=== PATIENT | male | born 1955 | race Caucasian/White ===

== ENCOUNTER → 2019-05-24 17:42 | Outpatient (BNVA) | payer MEDICARE, MEDICAID, SELFPAY | PROVIDERS: Family Provider Internal Medicine; PCP Internal Medicine Cardiovascular Disease; Visit Provider Internal Medicine Cardiovascular Disease | DX: I25.118 Atherosclerotic heart disease of native coronary artery with other forms of angina pectoris (principal); E78.2 Mixed hyperlipidemia; E11.9 Type 2 diabetes mellitus without complications; I50.42 Chronic combined systolic (congestive) and diastolic (congestive) heart failure; Z95.810 Presence of automatic (implantable) cardiac defibrillator | CPT/HCPCS: 80053; 80061; 83036; 83721; 84443; 85025 ==

== ENCOUNTER 2019-07-13 12:33 | Outpatient (CLI) | payer MEDICARE, MEDICAID, SELFPAY ==
--- NOTE | 2019-07-13 12:48 | CT_ITS ---
WS: [id number] CT ARTHROGRAM LEFT SHOULDER TECHNIQUE: CT arthrogram left shoulder with coronal and sagittal reformatted images. CLINICAL INFORMATION: SUPRASPINATUS SYNDROME, LEFT COMPARISON: None. DLP: [address] scans at [facility] use at least one of these dose optimization techniques: automat ed exposure control; mA and/or kV adjustment per patient size (includes targeted exams where dose is matched to clinical indication); or iterative reconstruction. FINDINGS: Mild degenerative arthritis AC joint with mild downsloping of the acromion. Distal clavicle appears n ormal. Rotator cuff arthropathy. No acute fractures. Chronic appearing high-grade tear of the supraspinatus with fatty atrophy of the supraspinatus muscle belly and tendon retraction to the level of the glenohumeral joint. Additional fatty atrophy of the infraspinatus with high-grade tear. Infraspinatus also appears retracted. Subscapularis muscle belly appears better preserved. Distal subscapularis tendon appears intact. Merritt ps tendon is not visualized in the bicipital groove and likely chronically torn and atrophic. Degenerative fraying of the glenoid labrum which appears grossly intact. Cardiac pacer. Chronic emphysematous changes. Postoperative changes cervical spine. CT/CT shoulder LT w con [id number] IMPRESSION: 1. High-grade full-thickness tears involving the supraspinatus and infraspinat us with tendon retraction. No normal tendon visualized distally. 2. Subscapularis appears intact. 3. Biceps tendon is not visualized in the bicipital groove and likely chronica lly torn and atrophic. 4. Mild downsloping of the acromion with mild degenerative arthritis AC joint. 5. Glenoid labrum appears grossly intact.
--- NOTE | 2019-07-13 12:48 | IR_ITS ---
WS: [id number] SHOULDER ARTHROGRAM LEFT Fluoroscopic guided left shoulder arthrogram CLINICAL INFORMATION: SUPRASPINATUS SYNDROME, LEFT COMPARISON: None. PROCEDURE: The procedure including risks, benefits and complications were discussed with the patient, who agreed to proceed. Using sterile technique, the patient was prepped and draped in the usual ster ile fashion. After 1% lidocaine injection using fluoroscopic guidance, a 22-gauge spinal needle was a dvanced into the glenohumeral joint. Approximately 13 ml of a solution containing 10 ml normal saline , 10 ml Omnipaque 300 was administered. No immediate complications. FLUOROSCOPY TIME: 0.8 minutes. IR/IR arthrogram shoulderLT [id number] IMPRESSION: Uncomplicated fluoroscopic-guided left shoulder arthrogram. CT to follow
[2019-07-13] MEDS: iohexol 300 mg/mL 50 mL Btl INTRA-ARTI (13:38)
== END 2019-07-13 12:34 | disposition home or self-care (01) ==
LOC: RADWPI 12:37
PROVIDERS: Family Provider Internal Medicine; PCP Internal Medicine Cardiovascular Disease; Visit Provider Internal Medicine
DX: M75.102 Unspecified rotator cuff tear or rupture of left shoulder, not specified as traumatic (principal); M19.012 Primary osteoarthritis, left shoulder
CPT/HCPCS: 23350; 73201; 77002

== ENCOUNTER → 2019-11-21 13:53 | Outpatient (BNVA) | payer MEDICARE, MEDICAID, SELFPAY | PROVIDERS: Family Provider Internal Medicine; PCP Internal Medicine; Visit Provider Internal Medicine Cardiovascular Disease | DX: I10 Essential (primary) hypertension (principal); I50.42 Chronic combined systolic (congestive) and diastolic (congestive) heart failure; E11.9 Type 2 diabetes mellitus without complications; Z95.810 Presence of automatic (implantable) cardiac defibrillator | CPT/HCPCS: 80053; 83036; 83735; 83880 ==

== ENCOUNTER 2020-02-20 16:02 | Inpatient (IN) | payer MEDICARE, MEDICAID, SELFPAY ==
[2020-02-20] VITALS (11 sets, daily range): BP systolic 115–173; BP diastolic 75–107; PULSE 63–119; RESP 16–21; TEMP 36.6–39.6; O2SAT 94–99; BMI 26.6
--- NOTE | 2020-02-20 16:59 | XRR_ITS ---
PROCEDURE INFORMATION: Exam: XR Chest, 1 View Exam date and time: 02/20/2020 6:24 PM Age: 64 years old Clinical indication: Fever; AMS TECHNIQUE: Imaging protocol: XR of the chest Views: 1 view. COMPARISON: CR Chest 1 [place] [id number] 03/19/2019 8:13 PM FINDINGS: Tubes, catheters and devices: There is a left subclavian combination dual chamber pacemaker AICD device. Lungs: No focal peripheral lung consolidation, air bronchogram formation, or silhouette sign. Prior pulmonary granulomatous disease. Pleural space: No pleural effusion or pneumothorax. Heart/Mediastinum: The cardiac silhouette is not enlarged. The mediastinal contours are normal. Bones/joints: Curvature of the thoracic spine convex to the right associated with multilevel disc degeneration. XR/XR chest 1V portable [id number] IMPRESSION: No pneumonia.
--- NOTE | 2020-02-20 17:02 | CTR_ITS ---
PROCEDURE INFORMATION: Exam: CT Head Without Contrast Exam date and time: 02/20/2020 5:10 PM Age: 64 years old Clinical indication: Injury or trauma; Fall; Blunt trauma (contusions or hematomas); Altered mental status/memory loss; Confusion or disorientation; Injury details: PT on blood thinners. Best images possible. PT scanned twice due to inability to stay still. ; Additional info: Fall, AMS, chronic anticoagulants TECHNIQUE: Imaging protocol: Computed tomography of the head without contrast. Radiation optimization: All CT scans at this facility use at least one of these dose optimization techniques: automated exposure control; mA and/or kV adjustment per patient size (includes targeted exams where dose is matched to clinical indication); or iterative reconstruction. COMPARISON: CT head wo con* [id number] 05/25/2014 4:31 PM RADIATION DOSE METRICS: Total DLP (mGy-cm): 1546.1 FINDINGS: Brain: Mild volume loss and white matter disease are identified. There is no acute infarct or edema. No hemorrhage. Cerebral ventricles: No ventriculomegaly. Bones/joints: Unremarkable. No acute fracture. Paranasal sinuses: Visualized sinuses are unremarkable. No fluid levels. Mastoid air cells: Visualized mastoid air cells are well aerated. Soft tissues: Unremarkable. CT/CT head wo con* [id number] IMPRESSION: There are no acute concerning abnormalities. Radiation Dose CTDIVOL = (mGy): DLP = 1546.1 (mGy-cm)
--- NOTE | 2020-02-20 17:14 | XRR_ITS ---
PROCEDURE INFORMATION: Exam: XR Left Foot Complete Exam date and time: 02/20/2020 6:28 PM Age: 64 years old Clinical indication: Pain; Foot; Left; Additional info: Pain/swelling TECHNIQUE: Imaging protocol: XR Left foot. Views: 3 or more views. COMPARISON: No relevant prior studies available. FINDINGS: Bones/joints: No fracture. No dislocation. Soft tissues: Focal soft tissue swelling involving the plantar aspect of the forefoot. No radiopaque foreign body. XR/XR foot LT min 3V* [id number] IMPRESSION: No acute osseous abnormality.
--- NOTE | 2020-02-20 17:21 | W.ED.GENADLT ---
Documented by User: Edmund Chew DO 02/26/20 13:54 HPI - General Adult General: Chief complaint: General Medical Stated complaint: Fall-hit head, AMS Time Seen by Provider: 02/20/20 16:56 History of Present Illness: HPI narrative: 64-year-old male who presents to the emergency room with complaint of fever that began earlier today. he is also he fell and hit his head according to his sister presented with him initially as he has altered mental status and change in personality since this happened. He is on Coumadin. Onset (ago): hour(s) Location: head Radiation: non-radiation Severity: moderate Quality: aching Pain Consistency: constant Exacerbating factors: none Associated symptoms: Reports confusion, cough, decreased appetite, dyspnea, fevers/chills, malaise, nausea, short of breath and weakness; Deny chest pain Review of Systems Const: Reports: malaise ENMT: Denies: throat pain, ear or mastoid pain, nasal discharge or nasal congestion Card: Denies: chest pain, edema, dyspnea on exertion or orthopnea Resp: Reports: dyspnea GI: Reports: nausea : Denies: flank pain, dysuria, urinary frequency or urinary urgency Neuro: Reports: confusion PFSH ED PFSH: Medical History (Updated 02/23/20 @ 00:06 by ) Diabetes Heart failure History of placement of stent in LAD coronary artery HTN (hypertension) Hyperlipidemia ICD (implantable cardioverter-defibrillator) in place Surgical History (Updated 02/20/20 @ 21:14 by Lance Quan MD) History of implantable cardioverter-defibrillator (ICD) placement Family History (Updated 02/20/20 @ 21:15 by Lance Quan MD) Father Emphysema of lung Social History (Updated 02/20/20 @ 16:55 by Jorge L Chino RN) Smoking and tobacco status: never smoked Alcohol intake: never History of recent travel: No Physical Exam Const: ORIENTATION/CONSCIOUSNESS: Yes oriented to person, Yes oriented to place and Yes oriented to time HENMT: COMMON NORMALS: normocephalic, atraumatic and hearing grossly normal bilaterally HEAD & SCALP: normocephalic and atraumatic Neck/C-Spine: COMMON NORMALS: no JVD Resp: COMMON NORMALS: normal respiratory effort, No retractions, No use of accessory muscles and clear to auscultation bilaterally AUSCULTATION: clear to auscultation bilaterally Cardio: COMMON NORMALS: no JVD, regular rate, regular rhythm and No murmurs present (Cardio) RATE: regular rate RHYTHM: regular rhythm GI: COMMON NORMALS: Soft to palpation and No hepatosplenomegaly present AUSCULTATION: Yes normoactive bowel sounds PALPATION: Yes Soft to palpation, No Tenderness to palpation present (GI), No Guarding due to palpation present (GI) and Yes No hepatosplenomegaly present Extremity: NARRATIVE EXTREMITY EXAM: First through fourth toes are red and inflamed hot to the touch extends up to the mid metatarsals. On the sole of the foot between the third and fourth toes there is a small puncture wound there is no drainage from it. No evidence of osteomyelitis on plain films. Neuro: SENSORIUM/ORIENTATION: Yes oriented to person, Yes oriented to place and Yes oriented to time Skin: COMMON NORMALS: no rashes or lesions noted GENERAL SKIN EXAM: no rashes or lesions noted Course Vital Signs: Vital signs: Vital Signs Temperature 97.9 F 02/22/20 14:55 Pulse Rate 52 L 02/22/20 14:55 Respiratory Rate 15 02/22/20 14:55 Blood Pressure 149/81 02/22/20 14:55 Pulse Oximetry 97 02/22/20 14:55 MDM - General Adult MDM Narrative: Medical decision making narrative: Care signed out to Dr. Sebastian at change of shift see his note for definitive diagnosis and disposition. Lab Data: Labs: Lab Results 02/20/20 02/20/20 02/20/20 Range/Units 17:25 17:25 17:25 WBC 9.5 (4.0-10.0) 10^3/ uL RBC 4.44 (4.1-5.3) 10^6/u L Hgb 13.6 (11.7-16.6) g/dL Hct 40.7 L (42.0-52.0) % MCV 91.7 (80-94) fL MCH 30.6 (28.0-34.0) pg MCHC 33.4 (30.0-36.0) g/dL RDW 14.0 (12.1-15.1) % Plt Count 132 (130-400) 10^3/c mm MPV 12.0 H (7.4-10.4) fL Neut % (Auto) 87.4 % Lymph % (Auto) 6.3 % Cavalier % (Auto) 5.6 % Eos % (Auto) 0.2 % Baso % (Auto) 0.3 % Neut # (Auto) 8.31 H (1.8-7.7) 10^3/u L Lymph # (Auto) 0.6 L (0.8-4.8) 10^3/u L Cavalier # (Auto) 0.5 (0.2-0.9) 10^3/u L Eos # (Auto) 0.0 (0.0-0.8) 10^3/u L Baso # (Auto) 0.0 (0.0-0.1) 10^3/u L Nucleated RBC % (a uto) 0 % Nucleated RBCs # 0.0 /100WBC ESR (0-10) mm/hr PT 13.00 (12.1-14.9) SECO NDS INR 0.95 (0.8-1.2) Fibrinogen 364 (174-498) mg/dL D-Dimer 3.07 H (0-0.59) ug/mIFE U Sodium 131 L (136-145) mmol/L Potassium 4.5 (3.5-5.1) mmol/L Chloride 93 L (98-107) mmol/L Carbon Dioxide 28 (22-29) mmol/L Anion Gap 14.5 (5-19) BUN 9 (8-23) mg/dL Creatinine 0.9 (0.7-1.2) mg/dL GFR Calculation 84.4 L (90-130) mL/min Glucose 244 H (65-115) mg/dL Estimat Average Gl ucose Hemoglobin A1c (4.0-6.0) % Calculated Osmolal ity 279 L (285-295) mOsm/k g Lactic Acid (0.5-2.2) mmol/L Calcium 9.6 (8.5-10.5) mg/dL Ferritin 67 (30-400) ng/mL Total Bilirubin 0.6 (0.15-1.2) mg/dL AST 22 (0-40) U/L ALT 14 (0-41) U/L Alkaline Phosphata se 73 (40-130) IU/L Lactate Dehydrogen ase 285 H (135-225) U/L C-Reactive Protein 13.0 H (0.0-4.9) mg/L Total Protein 6.9 (6.6-8.7) g/dL Albumin 4.5 (3.5-5.2) g/dL Globulin 2.4 (1.3-4.6) g/dL Procalcitonin 0.05 (0-0.5) ng/mL Nasal/Oral COVID-1 9 PCR SARS-CoV-2 Ag (Rap id) (Negative) 02/20/20 02/20/20 02/20/20 Range/Units 17:25 17:25 17:25 WBC (4.0-10.0) 10^3/ uL RBC (4.1-5.3) 10^6/u L Hgb (11.7-16.6) g/dL Hct (42.0-52.0) % MCV (80-94) fL MCH (28.0-34.0) pg MCHC (30.0-36.0) g/dL RDW (12.1-15.1) % Plt Count (130-400) 10^3/c mm MPV (7.4-10.4) fL Neut % (Auto) % Lymph % (Auto) % Cavalier % (Auto) % Eos % (Auto) % Baso % (Auto) % Neut # (Auto) (1.8-7.7) 10^3/u L Lymph # (Auto) (0.8-4.8) 10^3/u L Cavalier # (Auto) (0.2-0.9) 10^3/u L Eos # (Auto) (0.0-0.8) 10^3/u L Baso # (Auto) (0.0-0.1) 10^3/u L Nucleated RBC % (a uto) % Nucleated RBCs # /100WBC ESR 18 H (0-10) mm/hr PT (12.1-14.9) SECO NDS INR (0.8-1.2) Fibrinogen (174-498) mg/dL D-Dimer (0-0.59) ug/mIFE U Sodium (136-145) mmol/L Potassium (3.5-5.1) mmol/L Chloride (98-107) mmol/L Carbon Dioxide (22-29) mmol/L Anion Gap (5-19) BUN (8-23) mg/dL Creatinine (0.7-1.2) mg/dL GFR Calculation (90-130) mL/min Glucose (65-115) mg/dL Estimat Average Gl ucose 180 Hemoglobin A1c 7.9 H (4.0-6.0) % Calculated Osmolal ity (285-295) mOsm/k g Lactic Acid 1.9 (0.5-2.2) mmol/L Calcium (8.5-10.5) mg/dL Ferritin (30-400) ng/mL Total Bilirubin (0.15-1.2) mg/dL AST (0-40) U/L ALT (0-41) U/L Alkaline Phosphata se (40-130) IU/L Lactate Dehydrogen ase (135-225) U/L C-Reactive Protein (0.0-4.9) mg/L Total Protein (6.6-8.7) g/dL Albumin (3.5-5.2) g/dL Globulin (1.3-4.6) g/dL Procalcitonin (0-0.5) ng/mL Nasal/Oral COVID-1 9 PCR SARS-CoV-2 Ag (Rap id) (Negative) 02/20/20 02/20/20 Range/Units 17:51 20:40 WBC (4.0-10.0) 10^3/ uL RBC (4.1-5.3) 10^6/u L Hgb (11.7-16.6) g/dL Hct (42.0-52.0) % MCV (80-94) fL MCH (28.0-34.0) pg MCHC (30.0-36.0) g/dL RDW (12.1-15.1) % Plt Count (130-400) 10^3/c mm MPV (7.4-10.4) fL Neut % (Auto) % Lymph % (Auto) % Cavalier % (Auto) % Eos % (Auto) % Baso % (Auto) % Neut # (Auto) (1.8-7.7) 10^3/u L Lymph # (Auto) (0.8-4.8) 10^3/u L Cavalier # (Auto) (0.2-0.9) 10^3/u L Eos # (Auto) (0.0-0.8) 10^3/u L Baso # (Auto) (0.0-0.1) 10^3/u L Nucleated RBC % (a uto) % Nucleated RBCs # /100WBC ESR (0-10) mm/hr PT (12.1-14.9) SECO NDS INR (0.8-1.2) Fibrinogen (174-498) mg/dL D-Dimer (0-0.59) ug/mIFE U Sodium (136-145) mmol/L Potassium (3.5-5.1) mmol/L Chloride (98-107) mmol/L Carbon Dioxide (22-29) mmol/L Anion Gap (5-19) BUN (8-23) mg/dL Creatinine (0.7-1.2) mg/dL GFR Calculation (90-130) mL/min Glucose (65-115) mg/dL Estimat Average Gl ucose Hemoglobin A1c (4.0-6.0) % Calculated Osmolal ity (285-295) mOsm/k g Lactic Acid (0.5-2.2) mmol/L Calcium (8.5-10.5) mg/dL Ferritin (30-400) ng/mL Total Bilirubin (0.15-1.2) mg/dL AST (0-40) U/L ALT (0-41) U/L Alkaline Phosphata se (40-130) IU/L Lactate Dehydrogen ase (135-225) U/L C-Reactive Protein (0.0-4.9) mg/L Total Protein (6.6-8.7) g/dL Albumin (3.5-5.2) g/dL Globulin (1.3-4.6) g/dL Procalcitonin (0-0.5) ng/mL Nasal/Oral COVID-1 9 PCR Negative SARS-CoV-2 Ag (Rap id) Negative (Negative) Discharge Plan Discharge Patient Disposition: Admitted As Inpatient Admit Provider: Lance Quan Clinical Impression: Sepsis, Cellulitis Condition: Stable Referrals: [facility] [Outside] Fernando Mathis MD [Primary Care Provider] - 02/28/20 1:00 pm uSshila Mckeon MD [Physician] - 05/21/20 2:00 pm Discharge Diet: Advance as tolerated, Cardiac and Diabetic Discharge Activity: Increase activity as tolerated Patient Instructions: Cellulitis, Chronic Pain, Clindamycin (By mouth), Aspirin (By mouth) Additional Instructions: Continue offloading of the left foot. Started on clindamycin 300 mg for an additional 10 days Follow-up with Dr. Mathis next week Follow-up with Dr. Mckeon as previously scheduled Continue to monitor blood glucose daily and present this log to your primary care provider. Call your physician or present to the ED for any acute illness or concern. Discharge Date/Time: 02/20/20 23:00 Sign Out Sign Out Data: Patient Sign Out occurred on 02/20/20 at 18:23. Patient's care was discussed, and care was transferred from to Meena Ruby. Coding Level of Care Code ED Varnish Supervisor for Chg Fwd Documented by User: Meena Ruby 02/21/20 00:24 HPI - General Adult General: Chief complaint: General Medical Stated complaint: Fall-hit head, AMS Time Seen by Provider: 02/20/20 16:56 [facility] ED PFSH: Medical History (Updated 02/23/20 @ 00:06 by ) Diabetes Heart failure History of placement of stent in LAD coronary artery HTN (hypertension) Hyperlipidemia ICD (implantable cardioverter-defibrillator) in place Surgical History (Updated 02/20/20 @ 21:14 by Lance Quan MD) History of implantable cardioverter-defibrillator (ICD) placement Family History (Updated 02/20/20 @ 21:15 by Lance Quan MD) Father Emphysema of lung Social History (Updated 02/20/20 @ 16:55 by Jorge L Chino RN) Smoking and tobacco status: never smoked Alcohol intake: never History of recent travel: No Course Vital Signs: Vital signs: Vital Signs Temperature 97.9 F 02/22/20 14:55 Pulse Rate 52 L 02/22/20 14:55 Respiratory Rate 15 02/22/20 14:55 Blood Pressure 149/81 02/22/20 14:55 Pulse Oximetry 97 02/22/20 14:55 MDM - General Adult MDM Narrative: Medical decision making narrative: Case inherited by me at change of shift from Dr. Chew. Please see his note for his history, physical exam and medical decision-making notes. Patient appears to be early septic from a puncture wound to the foot. There is no sign of necrotizing fasciitis clinically. The case was reviewed with Dr. Quan agrees to admit for IV antibiotics and further evaluation and care. Lab Data: Labs: Lab Results 02/20/20 02/20/20 02/20/20 Range/Units 17:25 17:25 17:25 WBC 9.5 (4.0-10.0) 10^3/ uL RBC 4.44 (4.1-5.3) 10^6/u L Hgb 13.6 (11.7-16.6) g/dL Hct 40.7 L (42.0-52.0) % MCV 91.7 (80-94) fL MCH 30.6 (28.0-34.0) pg MCHC 33.4 (30.0-36.0) g/dL RDW 14.0 (12.1-15.1) % Plt Count 132 (130-400) 10^3/c mm MPV 12.0 H (7.4-10.4) fL Neut % (Auto) 87.4 % Lymph % (Auto) 6.3 % Cavalier % (Auto) 5.6 % Eos % (Auto) 0.2 % Baso % (Auto) 0.3 % Neut # (Auto) 8.31 H (1.8-7.7) 10^3/u L Lymph # (Auto) 0.6 L (0.8-4.8) 10^3/u L Cavalier # (Auto) 0.5 (0.2-0.9) 10^3/u L Eos # (Auto) 0.0 (0.0-0.8) 10^3/u L Baso # (Auto) 0.0 (0.0-0.1) 10^3/u L Nucleated RBC % (a uto) 0 % Nucleated RBCs # 0.0 /100WBC ESR (0-10) mm/hr PT 13.00 (12.1-14.9) SECO NDS INR 0.95 (0.8-1.2) Fibrinogen 364 (174-498) mg/dL D-Dimer 3.07 H (0-0.59) ug/mIFE U Sodium 131 L (136-145) mmol/L Potassium 4.5 (3.5-5.1) mmol/L Chloride 93 L (98-107) mmol/L Carbon Dioxide 28 (22-29) mmol/L Anion Gap 14.5 (5-19) BUN 9 (8-23) mg/dL Creatinine 0.9 (0.7-1.2) mg/dL GFR Calculation 84.4 L (90-130) mL/min Glucose 244 H (65-115) mg/dL Estimat Average Gl ucose Hemoglobin A1c (4.0-6.0) % Calculated Osmolal ity 279 L (285-295) mOsm/k g Lactic Acid (0.5-2.2) mmol/L Calcium 9.6 (8.5-10.5) mg/dL Ferritin 67 (30-400) ng/mL Total Bilirubin 0.6 (0.15-1.2) mg/dL AST 22 (0-40) U/L ALT 14 (0-41) U/L Alkaline Phosphata se 73 (40-130) IU/L Lactate Dehydrogen ase 285 H (135-225) U/L C-Reactive Protein 13.0 H (0.0-4.9) mg/L Total Protein 6.9 (6.6-8.7) g/dL Albumin 4.5 (3.5-5.2) g/dL Globulin 2.4 (1.3-4.6) g/dL Procalcitonin 0.05 (0-0.5) ng/mL Nasal/Oral COVID-1 9 PCR SARS-CoV-2 Ag (Rap id) (Negative) 02/20/20 02/20/20 02/20/20 Range/Units 17:25 17:25 17:25 WBC (4.0-10.0) 10^3/ uL RBC (4.1-5.3) 10^6/u L Hgb (11.7-16.6) g/dL Hct (42.0-52.0) % MCV (80-94) fL MCH (28.0-34.0) pg MCHC (30.0-36.0) g/dL RDW (12.1-15.1) % Plt Count (130-400) 10^3/c mm MPV (7.4-10.4) fL Neut % (Auto) % Lymph % (Auto) % Cavalier % (Auto) % Eos % (Auto) % Baso % (Auto) % Neut # (Auto) (1.8-7.7) 10^3/u L Lymph # (Auto) (0.8-4.8) 10^3/u L Cavalier # (Auto) (0.2-0.9) 10^3/u L Eos # (Auto) (0.0-0.8) 10^3/u L Baso # (Auto) (0.0-0.1) 10^3/u L Nucleated RBC % (a uto) % Nucleated RBCs # /100WBC ESR 18 H (0-10) mm/hr PT (12.1-14.9) SECO NDS INR (0.8-1.2) Fibrinogen (174-498) mg/dL D-Dimer (0-0.59) ug/mIFE U Sodium (136-145) mmol/L Potassium (3.5-5.1) mmol/L Chloride (98-107) mmol/L Carbon Dioxide (22-29) mmol/L Anion Gap (5-19) BUN (8-23) mg/dL Creatinine (0.7-1.2) mg/dL GFR Calculation (90-130) mL/min Glucose (65-115) mg/dL Estimat Average Gl ucose 180 Hemoglobin A1c 7.9 H (4.0-6.0) % Calculated Osmolal ity (285-295) mOsm/k g Lactic Acid 1.9 (0.5-2.2) mmol/L Calcium (8.5-10.5) mg/dL Ferritin (30-400) ng/mL Total Bilirubin (0.15-1.2) mg/dL AST (0-40) U/L ALT (0-41) U/L Alkaline Phosphata se (40-130) IU/L Lactate Dehydrogen ase (135-225) U/L C-Reactive Protein (0.0-4.9) mg/L Total Protein (6.6-8.7) g/dL Albumin (3.5-5.2) g/dL Globulin (1.3-4.6) g/dL Procalcitonin (0-0.5) ng/mL Nasal/Oral COVID-1 9 PCR SARS-CoV-2 Ag (Rap id) (Negative) 02/20/20 02/20/20 Range/Units 17:51 20:40 WBC (4.0-10.0) 10^3/ uL RBC (4.1-5.3) 10^6/u L Hgb (11.7-16.6) g/dL Hct (42.0-52.0) % MCV (80-94) fL MCH (28.0-34.0) pg MCHC (30.0-36.0) g/dL RDW (12.1-15.1) % Plt Count (130-400) 10^3/c mm MPV (7.4-10.4) fL Neut % (Auto) % Lymph % (Auto) % Cavalier % (Auto) % Eos % (Auto) % Baso % (Auto) % Neut # (Auto) (1.8-7.7) 10^3/u L Lymph # (Auto) (0.8-4.8) 10^3/u L Cavalier # (Auto) (0.2-0.9) 10^3/u L Eos # (Auto) (0.0-0.8) 10^3/u L Baso # (Auto) (0.0-0.1) 10^3/u L Nucleated RBC % (a uto) % Nucleated RBCs # /100WBC ESR (0-10) mm/hr PT (12.1-14.9) SECO NDS INR (0.8-1.2) Fibrinogen (174-498) mg/dL D-Dimer (0-0.59) ug/mIFE U Sodium (136-145) mmol/L Potassium (3.5-5.1) mmol/L Chloride (98-107) mmol/L Carbon Dioxide (22-29) mmol/L Anion Gap (5-19) BUN (8-23) mg/dL Creatinine (0.7-1.2) mg/dL GFR Calculation (90-130) mL/min Glucose (65-115) mg/dL Estimat Average Gl ucose Hemoglobin A1c (4.0-6.0) % Calculated Osmolal ity (285-295) mOsm/k g Lactic Acid (0.5-2.2) mmol/L Calcium (8.5-10.5) mg/dL Ferritin (30-400) ng/mL Total Bilirubin (0.15-1.2) mg/dL AST (0-40) U/L ALT (0-41) U/L Alkaline Phosphata se (40-130) IU/L Lactate Dehydrogen ase (135-225) U/L C-Reactive Protein (0.0-4.9) mg/L Total Protein (6.6-8.7) g/dL Albumin (3.5-5.2) g/dL Globulin (1.3-4.6) g/dL Procalcitonin (0-0.5) ng/mL Nasal/Oral COVID-1 9 PCR Negative SARS-CoV-2 Ag (Rap id) Negative (Negative) Imaging Data^: CXR: Attestation: I personally reviewed and interpreted this imaging study as follows: My impression: Possible infiltrate left lower lobe laterally CT Head: Radiologist's impression: [place] [address] CT Scan Report Signed Patient: Brian Lozada Unit #: [id number] : 1955 Age/Sex: 64 / M ADM Date: 02/20/20 Loc: ER Room/Bed: Attending Dr: Ordering Provider/Ordering MD: Edmund Chew DO Date of Service: 02/20/20 Procedure(s): CT head wo con* [id number] Accession Number(s): [id number] Report Number: [id number] PROCEDURE INFORMATION: Exam: CT Head Without Contrast Exam date and time: 02/20/2020 5:10 PM Age: 64 years old Clinical indication: Injury or trauma; Fall; Blunt trauma (contusions or hematomas); Altered mental status/memory loss; Confusion or disorientation; Injury details: PT on blood thinners. Best images possible. PT scanned twice due to inability to stay still. ; Additional info: Fall, AMS, chronic anticoagulants TECHNIQUE: Imaging protocol: Computed tomography of the head without contrast. Radiation optimization: All CT scans at this facility use at least one of these dose optimization techniques: automated exposure control; mA and/or kV adjustment per patient size (includes targeted exams where dose is matched to clinical indication); or iterative reconstruction. COMPARISON: CT head wo con* [id number] 05/25/2014 4:31 PM RADIATION DOSE METRICS: Total DLP (mGy-cm): 1546.1 FINDINGS: Brain: Mild volume loss and white matter disease are identified. There is no acute infarct or edema. No hemorrhage. Cerebral ventricles: No ventriculomegaly. Bones/joints: Unremarkable. No acute fracture. Paranasal sinuses: Visualized sinuses are unremarkable. No fluid levels. Mastoid air cells: Visualized mastoid air cells are well aerated. Soft tissues: Unremarkable. CT/CT head wo con* [id number] IMPRESSION: There are no acute concerning abnormalities. Radiation Dose CTDIVOL = (mGy): DLP = 1546.1 (mGy-cm) Dictated By: Fermin Brown MD Signed By: Fermin Brown MD Signed Date/Time: 02/20/201851 DD/ 50 CT Chest: Radiologist's impression: [address] [address] [address] Scan Report Signed Patient: Brian Lozada Unit #: [id number] : 1955 Age/Sex: 64 / M ADM Date: 02/20/20 Loc: ER Room/Bed: Attending Dr: Ordering Provider/Ordering MD: Edmund Chew DO Date of Service: 02/20/20 Procedure(s): CT angio chest PE protcl [id number] Accession Number(s): [id number] Report Number: [id number] PROCEDURE INFORMATION: Exam: CT Angiography Chest With Contrast Exam date and time: 02/20/2020 7:20 PM Age: 64 years old Clinical indication: Shortness of breath; Prior surgery; Additional info: Dyspnea TECHNIQUE: Imaging protocol: Computed tomographic angiography of the chest with intravenous contrast. 3D rendering (Not supervised by radiologist): MIP and/or 3D reconstructed images were created by the technologist. Radiation optimization: All CT scans at this facility use at least one of these dose optimization techniques: automated exposure control; mA and/or kV adjustment per patient size (includes targeted exams where dose is matched to clinical indication); or iterative reconstruction. Contrast material: OMNI 350; Contrast volume: 95 ml; Contrast route: INTRAVENOUS (IV); COMPARISON: CTA Chest-Pulmonary Emb [id number] 03/19/2019 11:58 PM RADIATION DOSE METRICS: Total DLP (mGy-cm): 664.37 FINDINGS: Pulmonary arteries: Normal. No pulmonary emboli. Aorta: Unremarkable. No aortic aneurysm. No aortic dissection. Great vessels off aortic arch: There is an aberrant right subclavian artery. Lungs: There is a calcified granuloma in the right lower lobe of the lung. No lung mass or significant consolidation. Pleural space: Unremarkable. No pneumothorax. No pleural effusion. Heart: Cardiomegaly is identified. Lymph nodes: There are partially calcified bilateral thoracic hilar lymph nodes. There is also calcification in the right paratracheal, AP window mediastinum. Bones/joints: Degenerative change is identified in the spine. There is no evidence for acute fracture or malalignment. Soft tissues: Unremarkable. CT/CT angio chest PE protcl [id number] IMPRESSION: There are no acute concerning abnormalities. Radiation Dose CTDIVOL = (mGy): DLP = 664.37 (mGy-cm) Dictated By: Fermin Brown MD Signed By: Fermin Brown MD Signed Date/Time: 02/20/201999 DD/ 58 XR Left Foot: Attestation: I personally reviewed and interpreted this imaging study as follows: My impression: Soft tissue swelling present but no radiopaque foreign body or other foreign body noted. Discharge Plan Discharge Patient Disposition: Admitted As Inpatient Admit Provider: Lance Quan Clinical Impression: Sepsis, Cellulitis Condition: Stable Referrals: [facility] [Outside] Fernando Mathis MD [Primary Care Provider] - 02/28/20 1:00 pm Sushila Mckeon MD [Physician] - 05/21/20 2:00 pm Discharge Diet: Advance as tolerated, Cardiac and Diabetic Discharge Activity: Increase activity as tolerated Patient Instructions: Cellulitis, Chronic Pain, Clindamycin (By mouth), Aspirin (By mouth) Additional Instructions: Continue offloading of the left foot. Started on clindamycin 300 mg for an additional 10 days Follow-up with Dr. Mathis next week Follow-up with Dr. Mckeon as previously scheduled Continue to monitor blood glucose daily and present this log to your primary care provider. Call your physician or present to the ED for any acute illness or concern. Discharge Date/Time: 02/20/20 23:00 Sign Out Sign Out Data: Patient Sign Out occurred on 02/20/20 at 18:23. Patient's care was discussed, and care was transferred from to Meena Ruby. Coding Level of Care Code ED Varnish Supervisor for vIonne Gauman
[2020-02-20 17:38] LABS: Basophils % 0.3 %; Eosinophils % 0.2 %; Hematocrit 40.7 % (42.0-52.0); Hemoglobin 13.6 g/dL (11.7-16.6); Lymphocytes # 0.6 10^3/uL (0.8-4.8); Lymphocytes % 6.3 %; Mean Corpuscular HGB Conc 33.4 g/dL (30.0-36.0); Mean Corpuscular Hemoglobin 30.6 pg (28.0-34.0); Mean Corpuscular Volume 91.7 fL (80-94); Monocytes # 0.5 10^3/uL (0.2-0.9); Monocytes % 5.6 %; Neutrophils # 8.31 10^3/uL (1.8-7.7); Neutrophils % 87.4 %; Nucleated Red Blood Cells % 0 %; Platelet Count 132 10^3/cmm (130-400); Red Blood Count 4.44 10^6/uL (4.1-5.3); White Blood Count 9.5 10^3/uL (4.0-10.0)
[2020-02-20] MEDS: acetaminophen 500 mg Tablet 1000 MG PO (17:41)
[2020-02-20 17:48] LABS: INR 0.95 (0.8-1.2)
[2020-02-20 17:49] LABS: Fibrinogen 364 mg/dL (174-498)
[2020-02-20 17:51] LABS: D Dimer 3.07 ug/mIFEU (0-0.59)
[2020-02-20 17:52] LABS: Lactic Sepsis W/Reflex 1.9 mmol/L (0.5-2.2)
[2020-02-20 18:02] LABS: Procalcitonin 0.05 ng/mL (0-0.5)
--- NOTE | 2020-02-20 18:12 | CTR_ITS ---
PROCEDURE INFORMATION: Exam: CT Angiography Chest With Contrast Exam date and time: 02/20/2020 7:20 PM Age: 64 years old Clinical indication: Shortness of breath; Prior surgery; Additional info: Dyspnea TECHNIQUE: Imaging protocol: Computed tomographic angiography of the chest with intravenous contrast. 3D rendering (Not supervised by radiologist): MIP and/or 3D reconstructed images were created by the technologist. Radiation optimization: All CT scans at this facility use at least one of these dose optimization techniques: automated exposure control; mA and/or kV adjustment per patient size (includes targeted exams where dose is matched to clinical indication); or iterative reconstruction. Contrast material: OMNI 350; Contrast volume: 95 ml; Contrast route: INTRAVENOUS (IV); COMPARISON: CTA Chest-Pulmonary Emb [id number] 03/19/2019 11:58 PM RADIATION DOSE METRICS: Total DLP (mGy-cm): 664.37 FINDINGS: Pulmonary arteries: Normal. No pulmonary emboli. Aorta: Unremarkable. No aortic aneurysm. No aortic dissection. Great vessels off aortic arch: There is an aberrant right subclavian artery. Lungs: There is a calcified granuloma in the right lower lobe of the lung. No lung mass or significant consolidation. Pleural space: Unremarkable. No pneumothorax. No pleural effusion. Heart: Cardiomegaly is identified. Lymph nodes: There are partially calcified bilateral thoracic hilar lymph nodes. There is also calcification in the right paratracheal, AP window mediastinum. Bones/joints: Degenerative change is identified in the spine. There is no evidence for acute fracture or malalignment. Soft tissues: Unremarkable. CT/CT angio chest PE protcl [id number] IMPRESSION: There are no acute concerning abnormalities. Radiation Dose CTDIVOL = (mGy): DLP = 664.37 (mGy-cm)
[2020-02-20 18:13] LABS: Alanine Aminotransferase 14 U/L (0-41); Albumin Level 4.5 g/dL (3.5-5.2); Alkaline Phosphatase 73 IU/L (40-130); Anion Gap 14.5 (5-19); Aspartate Amino Transferase 22 U/L (0-40); Blood Urea Nitrogen 9 mg/dL (8-23); Calcium 9.6 mg/dL (8.5-10.5); Carbon Dioxide 28 mmol/L (22-29); Chloride 93 mmol/L (98-107); Ferritin 67 ng/mL (30-400); Globulin 2.4 g/dL (1.3-4.6); Glomerular Filtration Rate 84.4 mL/min (90-130); Glucose 244 mg/dL (65-115); Lactate Dehydrogenase 285 U/L (135-225); Osmolality Calculated 279 mOsm/kg (285-295); Potassium 4.5 mmol/L (3.5-5.1); Sodium 131 mmol/L (136-145); Total Bilirubin 0.6 mg/dL (0.15-1.2); Total Protein 6.9 g/dL (6.6-8.7)
[2020-02-20] MEDS: sodium chloride 0.9% 1,000 ML 999 ML IV (18:42)
[2020-02-20 18:51] LABS: SARS Covid-2 Antigen Negative (Negative)
[2020-02-20] MEDS: iohexol 350 mg/mL 100 mL Btl IV (19:32)
--- NOTE | 2020-02-20 20:26 | ECG_ITS ---
[facility] Test Date: 2020-02-20 Pat Name: Brian Lozada Department: Room: Gender: Male Crester: : 1955 Requested By: Meena Cano Order Number: [id number] Morris MD: Carlos Alberto Toro M.D. Measurements Intervals [place] Rate: 70 P: 75 AK: 205 QRS: -37 QRSD: 148 T: 122 QT: 452 QTc: 488 Interpretive Statements SINUS RHYTHM LEFT AXIS DEVIATION [QRS AXIS < -30] INTRAVENTRICULAR CONDUCTION DELAY [130+ ms QRS DURATION] Compared to ECG 03/20/2019 02:48:20 Atrial-paced complex(es) or rhythm no longer present Anterior wall injury pattern Electronically Signed On 02-20-2020 20:57:02 CDT by Carlos Alberto Toro M.D. [id number]
[2020-02-20] MEDS: piperacillin-tazobactam 4.5 GM in sodium chloride 0.9% (plus) 50 ML IV (20:30)
--- NOTE | 2020-02-20 21:00 | CTR_ITS ---
PROCEDURE INFORMATION: Exam: CT Left Lower Extremity Without Contrast, Foot Exam date and time: 02/20/2020 9:10 PM Age: 64 years old Clinical indication: Pain; Swelling, leg or foot; Left; Additional info: Left foot osteomyelitis TECHNIQUE: Imaging protocol: CT of the Left lower extremity without contrast was performed. Exam focused on the foot. Radiation optimization: All CT scans at this facility use at least one of these dose optimization techniques: automated exposure control; mA and/or kV adjustment per patient size (includes targeted exams where dose is matched to clinical indication); or iterative reconstruction. COMPARISON: CR XR foot LT min 3V* [id number] 02/20/2020 6:17 PM RADIATION DOSE METRICS: Total DLP (mGy-cm): 194.57 FINDINGS: Bones/joints: No acute fracture or dislocation. No CT evidence for osteomyelitis. Soft tissues: There is infiltration in the soft tissues of the plantar aspect of the left foot. No soft tissue gas or abscess. CT/CT foot LT wo con* [id number] IMPRESSION: No CT evidence for osteomyelitis. Radiation Dose CTDIVOL = (mGy): DLP = 194.57 (mGy-cm)
--- NOTE | 2020-02-20 21:07 | P.HP_ITS ---
Providers/Chief Complaint Primary Care Provider: Fernando Mathis MD Chief Complaint: fell,hit head,swollen leg, not making sense History of Present Illness Brian Lozada is a 64 year old male with a past medical history of CAD status post stenting to LAD, ICM (ejection fraction 30 to 35%), with a dual-chamber ICD, type 2 diabetes mellitus, severe nerve damage and peripheral neuropathy, hypertension, hyperlipidemia, on chronic fentanyl for severe nerve damage, who presents to [facility] due to fall, left foot pain, left foot swelling, fevers, chills, fatigue, malaise. Patient states that this morning he was ambulating, states that he has chronic peripheral neuropathy, severe peripheral nerve damage, so he chronically is unsteady on his feet, but for the last few months his unsteadiness has been worsening, has had near misses, near falls, now ambulating with a cane,much more dependent on the cane, this morning he had a mechanical fall, he hit his head, no loss of consciousness, no seizure- like activity, no presyncopal episodes, no chest pain, no shortness of breath, no lightheaded, no dizziness. Patient was doing fine after the fall, however his sister who is a nurse, was worried about his left foot, his left foot has been looking much more swollen, much more tender, for the last 24 hours, he also has a track marlys/injury on his left foot, his sister was worried about infection, he does have severe peripheral neuropathy, but does report pain in his left foot, fatigue, malaise more than the usual, swelling of his left foot, and pain with ambulation. Denies any cough, no shortness of breath, no chest pain, no lightheadedness, dizziness, no diarrhea, patient socially distances, wears a facemask, no known exposure to COVID-19. Does have a history of type 2 diabetes mellitus, is only on metformin, states that his primary care provider was trying to get him a insulin pen, but his insurance company was not approving it, so he prescribed him insulin with syringes, but he stated that he would not do it. Review of Systems Const: Reports: fever(s), chills, fatigue and malaise Eyes: Denies: change in vision or blurry vision ENMT: Denies: nasal congestion Card: Reports: edema; Denies: chest pain, palpitations, lightheadedness or syncope Resp: Denies: dyspnea, productive cough, non-productive cough or wheezing GI: Denies: abdominal pain, nausea, vomiting, hematemesis, diarrhea, constipation, hematochezia or melena : Denies: flank pain, difficulty urinating, dysuria or urinary frequency Musc: Denies: neck pain or back pain Skin/Breast: Denies: rash Neuro: Denies: headache(s), dizziness or vertigo Psych: Denies: anxiety or depression Endo: Denies: polyuria or polydipsia Medications/Allergies Home Medications Medication Instructions Recorded Confirmed Last Taken Type aspirin 325 mg tablet 325 mg PO DAILY tab 05/24/19 02/20/20 Unknown History carvedilol 25 mg tablet 25 mg PO BID #60 tab 05/24/19 02/20/20 Unknown Rx clopidogrel 75 mg tablet 75 mg PO DAILY #30 tab 05/24/19 02/20/20 Unknown Rx furosemide 20 mg tablet 20 mg PO QAM PRN #30 tab 05/24/19 02/20/20 Unknown Rx nitroglycerin 0.4 mg sublingual 0.4 mg SUBLINGUAL Q5M PRN #30 tab 05/24/19 02/20/20 Unknown Rx tablet tamsulosin 0.4 mg capsule 0.4 mg PO DAILY #30 cap 07/31/19 02/20/20 Unknown Rx albuterol sulfate 90 mcg/actuation 1 inh INHALATION QID PRN #8.5 gm 10/02/19 02/20/20 Unknown Rx aerosol inhaler duloxetine 30 mg capsule,delayed 30 mg PO DAILY #30 cap 10/02/19 02/20/20 Unknown Rx release duloxetine 60 mg capsule,delayed 60 mg PO DAILY #30 cap 10/02/19 02/20/20 Unknown Rx release esomeprazole magnesium 40 mg 40 mg PO DAILY #30 cap 11/15/19 02/20/20 Unknown Rx capsule,delayed release omeprazole 40 mg capsule,delayed 40 mg PO DAILY #30 cap 11/15/19 02/20/20 Unkn own Rx release polyethylene glycol 3350 17 17 gm PO DAILY PRN #510 gm 11/22/19 02/20/20 Unknown Rx gram/dose oral powder pregabalin 300 mg capsule 300 mg PO BID #60 cap 11/22/19 02/20/20 Unknown Rx spironolactone 50 mg tablet 50 mg PO DAILY #30 tab 11/23/19 02/20/20 Unknown Rx sacubitril 97 mg-valsartan 103 mg 1 tab PO BID #60 tab 12/05/19 02/20/20 Unknown Rx tablet blood-glucose meter #1 each 12/19/19 02/20/20 Unknown Rx sennosides 8.6 mg-docusate sodium 1 tab-cap PO DAILY PRN #30 tab 01/09/20 02/20/20 Unknown Rx 50 mg tablet fentanyl 100 mcg/hr transdermal 1 patch TRANSDERMAL Q48H 30 Days 02/13/20 02/20/20 Unknown Rx patch #15 each insulin detemir U-100 [Levemir 20 unit SUBCUT BID 02/20/20 02/20/20 Unknown History FlexTouch U-100 Insuln] magnesium 250 mg PO BID 02/20/20 02/20/20 Unknown History metformin 1,000 mg PO BID 02/20/20 02/20/20 Unknown History rosuvastatin 40 mg PO BEDTIME 02/20/20 02/20/20 Unknown History Allergies Allergy/AdvReac Type Severity Reaction Status Date / Time morphine Allergy Unknown Unknown Verified 02/20/20 17:53 PFSH Acute PFSH: Medical History (Updated 02/20/20 @ 21:22 by Lance Quan MD) Diabetes Heart failure History of placement of stent in LAD coronary artery HTN (hypertension) Hyperlipidemia ICD (implantable cardioverter-defibrillator) in place Surgical History (Updated 02/20/20 @ 21:14 by Lance Quan MD) History of implantable cardioverter-defibrillator (ICD) placement Family History (Updated 02/20/20 @ 21:15 by Lance Quan MD) Father Emphysema of lung Social History (Updated 02/20/20 @ 16:55 by Jorge L Chino RN) Smoking and tobacco status: never smoked Alcohol intake: never Substance/Drug Use: current Substance/Drug use frequency: daily Substance/Drug use type: Marijuana History of recent travel: No Vitals/I&O/Wt Last Vital Signs Temp 103.0 F H 02/20/20 18:25 Pulse 67 02/20/20 20:37 Resp 18 02/20/20 20:37 BP 138/107 02/20/20 20:37 Pulse Ox 96 02/20/20 20:37 Weight last 48 hrs Weight 79.379 kg Physical Exam Const: COMMON NORMALS: no acute distress and patient oriented x3 GENERAL APPEARANCE: cooperative and comfortable HENMT: COMMON NORMALS: normocephalic HEAD & SCALP: normocephalic Eye: COMMON NORMALS: Equal, round and reactive pupils present GENERAL EYE: appearance normal, both eyes and all related structures PUPIL: Yes Equal, round and reactive pupils present Neck/C-Spine: COMMON NORMALS: full ROM, no lymphadenopathy, no JVD and Thyroid normal THYROID: Thyroid normal Lymph: LYMPHATIC: no lymphadenopathy noted Resp: COMMON NORMALS: normal respiratory effort, No retractions, No use of accessory muscles and clear to auscultation bilaterally AUSCULTATION: clear to auscultation bilaterally Cardio: COMMON NORMALS: no JVD, regular rate, regular rhythm, S1 normal heart sound present, S2 normal heart sound present, No gallops present (Cardio), No clicks present (Cardio) and No murmurs present (Cardio) RATE: regular rate RHYTHM: regular rhythm HEART SOUNDS: S1 normal heart sound present and S2 normal heart sound present GI: COMMON NORMALS: Normal to inspection, nondistended, normoactive bowel sounds present, Soft to palpation, non-tender and No hepatosplenomegaly present PALPATION: Yes Soft to palpation and Yes No hepatosplenomegaly present Extremity: COMMON NORMALS: normal to inspection, full ROM and no pedal edema Neuro: COMMON NORMALS: patient oriented x3, CN's II-XII intact bilaterally, moves all extremities and no focal motor deficits Psych: COMMON NORMALS: mental status grossly normal, Normal thought process present and cooperative THOUGHT PROCESS: Normal thought process present Skin: OTHER: Left foot, under the third digit, has a dark open tract, significant erythema, swelling, warmth over left foot with track centeno leading up in the left ankle Data : 02/20/20 17:25 02/20/20 17:25 Micro: Microbiology 02/20/20 17:25 Blood Culture - Preliminary Blood SPECIMEN COLLECTED 02/20/20 17:20 Blood Culture - Preliminary Blood SPECIMEN COLLECTED A&P Assessment and plan (1) Infection of left foot: -Has uncontrolled type 2 diabetes mellitus -Left foot is swollen, erythema, tender, with open track marlys -Concerns for underlying cellulitis and/or osteomyelitis -White blood cell 9.5, pro-Reinaldo 0.05, CRP 13, ESR pending Plan: - we will admit to general medical floors -Broad-spectrum antibiotics vancomycin and Zosyn -We will do CT of the foot to evaluate for underlying osteomyelitis -Consider consulting podiatry -Monitor clinical status, monitor for fevers -Rapid COVID negative, RT-PCR ordered, COVID precautions Status: Acute (2) Hyponatremia: -Likely secondary hydration, continue to monitor Status: Acute (3) CAD (coronary artery disease): -Status post stenting x3 -Coronary angiogram November 2017, normal left main, circumflex and diffuse in-stent restenosis of proximal LAD about 780% narrowed in the proximal portion 90% narrowed in the distal portion, stented LAD, ramus intermedius stent minimally stenosed, proximal RCA stent 30% restenosis -Hypokinesis of the apex, left ventricular ejection fraction 35% Status: Acute (4) ICD (implantable cardioverter-defibrillator) in place: -For combined systolic and diastolic heart failure Status: Acute (5) Hyperlipidemia: Status: Acute Qualifiers: Hyperlipidemia type: mixed hyperlipidemia Qualified Code(s): E78.2 - Mixed hyperlipidemia (6) HTN (hypertension): Status: Acute Qualifiers: Hypertension type: essential hypertension Qualified Code(s): I10 - Essential (primary) hypertension (7) Heart failure: Status: Acute Qualifiers: Heart failure type: combined systolic and diastolic Heart failure chronicity: chronic Qualified Code(s): I50.42 - Chronic combined systolic (congestive) and diastolic (congestive) heart failure (8) Diabetes: Status: Acute (9) Chronic pain: -On fentanyl patch, change every 48 hours, placed today -On gabapentin -On Cymbalta Status: Acute Qualifiers: Chronic pain type: chronic pain syndrome Qualified Code(s): G89.4 - Chronic pain syndrome (10) Nerve damage of foot: -Has severe nerve damage of bilateral feet, related to toxic exposure to chemicals, uses fentanyl, gabapentin, Cymbalta Status: Acute Attestations Medical Necessity Statement*: Patient cards hospitalization, inpatient, greater than 2 midnights, for left foot infection, concerns for osteomyelitis Coding Level of Care Code Acute Scoreboard Operator for Ivonne Guaman Diagnoses Infection of left foot L08.9 Hyponatremia E87.1 CAD (coronary artery disease) I25.10 ICD (implantable cardioverter-defibrillator) in place Z95.810 Hyperlipidemia E78.2 Hyperlipidemia type: mixed hyperlipidemia HTN (hypertension) I10 Hypertension type: essential hypertension Heart failure I50.42 Heart failure type: combined systolic and diastolic Heart failure chronicity: chronic Diabetes E11.9 Chronic pain G89.4 Chronic pain type: chronic pain syndrome Nerve damage of foot G57.90
[2020-02-20] MEDS: levofloxacin-dextrose 5 % 750 MG/150 ML PREMIX 150 MG IV (21:18)
[2020-02-21] VITALS (10 sets, daily range): BP systolic 116–159; BP diastolic 70–79; PULSE 50–70; RESP 16–20; TEMP 36.6–37.2; O2SAT 93–98
[2020-02-21 00:02] LABS: Glucose Point of Care 197 mg/dL (70-110)
[2020-02-21] MEDS: enoxaparin 40 mg/0.4 mL Syringe SUBCUT ×2 (00:15→22:46)
[2020-02-21] MEDS: atorvastatin 40 mg Tablet 80 MG PO ×2 (00:17→20:57)
[2020-02-21 00:23] LABS: Estmated Average Glucose 180; Hemoglobin A1C 7.9 % (4.0-6.0)
[2020-02-21 00:43] LABS: Erythrocyte Sedimentation Rate 18 mm/hr (0-10)
--- NOTE | 2020-02-21 02:08 | PC.PHAR ---
Pharmacokinetic dosing service Date: 02/21/20 Time: 208 Objective: Patient: Brian Lozada Floor: 263-1 Age: 64 yo Serum creatinine: 0.9 mg/dL Height: 68.0 Inches Weight (kg): 79.379 Diagnosis: Relevant medical/social history: Cultures and sensitivities: Other labs: Assessment: IBW (kg): 68.40 Dosing wt(kg): 79.379 Estimated Creatinine clearance (ml/min): 78.1 CRCL method: Cockcroft and Gault using ibw(default). Drug selected: Vancomycin Loading dose (mg): 0 Vd (liters): 71.4 (factor used: 0.9 L/kg) Manolo (hr-1): 0.069 Half life (hrs): 10.05 Recommended dose: 1250 mg Interval: 12 hrs Infusion time (hrs): 1.5 Predicted peak (mcg/mL): 29.5 Predicted trough (mcg/mL): 14.29 Total body weight is being used for vancomycin dosing. Renal function is stable [ ] /unstable [ ] Recommendations: Give Vancomycin 1250 mg q 12 hrs with an expected Cpeak of 29.5 mcg/ml and an expected Ctrough of 14.29 mcg/ml Renal dosing of other antibiotics (review renal dosing of other medications and list guidelines here): Thank you for the consult, will continue to follow. Signature: Mariangel Delgadillo [facility]
[2020-02-21] MEDS: piperacillin-tazobactam 3.375 GM in sodium chloride 0.9% (plus) 50 ML IV ×2 (05:40→11:51)
[2020-02-21 06:19] LABS: Basophils % 0.2 %; Eosinophils % 0.3 %; Hematocrit 41.6 % (42.0-52.0); Hemoglobin 13.7 g/dL (11.7-16.6); Lymphocytes # 1.7 10^3/uL (0.8-4.8); Lymphocytes % 17.6 %; Mean Corpuscular HGB Conc 32.9 g/dL (30.0-36.0); Mean Corpuscular Hemoglobin 30.9 pg (28.0-34.0); Mean Corpuscular Volume 93.7 fL (80-94); Mean Platelet Volume 12.2 fL (7.4-10.4); Monocytes # 0.8 10^3/uL (0.2-0.9); Monocytes % 8.1 %; Neutrophils # 6.97 10^3/uL (1.8-7.7); Neutrophils % 73.5 %; Nucleated Red Blood Cells % 0 %; Platelet Count 129 10^3/cmm (130-400); Red Blood Count 4.44 10^6/uL (4.1-5.3); Red Cell Distribution Width 14.1 % (12.1-15.1); White Blood Count 9.5 10^3/uL (4.0-10.0)
[2020-02-21 06:44] LABS: Glucose Point of Care 152 mg/dL (70-110)
[2020-02-21 07:08] LABS: Alanine Aminotransferase 13 U/L (0-41); Albumin Level 4.5 g/dL (3.5-5.2); Alkaline Phosphatase 68 IU/L (40-130); Anion Gap 15.8 (5-19); Aspartate Amino Transferase 19 U/L (0-40); Blood Urea Nitrogen 10 mg/dL (8-23); Calcium 9.7 mg/dL (8.5-10.5); Carbon Dioxide 27 mmol/L (22-29); Chloride 100 mmol/L (98-107); Globulin 2.3 g/dL (1.3-4.6); Glomerular Filtration Rate 96.7 mL/min (90-130); Glucose 148 mg/dL (65-115); Magnesium 1.3 mg/dL (1.7-2.3); Osmolality Calculated 290 mOsm/kg (285-295); Phosphorus 3.4 mg/dL (2.5-4.5); Potassium 3.8 mmol/L (3.5-5.1); Sodium 139 mmol/L (136-145); Total Bilirubin 0.9 mg/dL (0.15-1.2); Total Protein 6.8 g/dL (6.6-8.7)
[2020-02-21] MEDS: albuterol 8 gm MDI 1 PUFF INHALATION ×2 (07:36→13:05)
[2020-02-21] MEDS: tamsulosin 0.4 mg Capsule PO (07:54)
[2020-02-21] MEDS: pantoprazole DR 40 mg Tablet PO (07:55)
[2020-02-21] MEDS: spironolactone 25 mg Tablet 50 MG PO (07:55)
[2020-02-21] MEDS: clopidogrel 75 mg Tablet PO (07:55)
[2020-02-21] MEDS: pregabalin 150 mg Capsule 300 MG PO ×2 (07:55→17:40)
[2020-02-21] MEDS: aspirin 81 mg EC Tablet PO (07:55)
[2020-02-21] MEDS: duloxetine 60 mg Capsule PO (07:55)
[2020-02-21] MEDS: carvedilol 25 mg Tablet PO ×2 (07:55→17:40)
[2020-02-21] MEDS: duloxetine 30 mg Capsule PO (07:56)
[2020-02-21 11:40] LABS: Glucose Point of Care 211 mg/dL (70-110)
--- NOTE | 2020-02-21 14:06 | USCV_ITS ---
Brian Lozada Age: 64 Gender: M : 1955 Exam Date: 02/21/2020 16:15 Ordering Phys: Tonya Vivar DO Technologist: Loida Herrera Exam Location: [facility] [place] Indication: chf, dyspnea BP: / HR: 53 Rhythm: Sinus Technical Quality: Fair MEASUREMENTS (Male / Female) Normal Values 2D ECHO LV Diastolic Diameter PLAX 6.0 cm 4.2 - 5.9 / 3.9 - 5.3 cm LV Systolic Diameter PLAX 4.3 cm IVS Diastolic Thickness 1.1 cm 0.6 - 1.0 / 0.6 - 0.9 cm IVS Systolic Thickness 1.5 cm LVPW Diastolic Thickness 1.1 cm 0.6 - 1.0 / 0.6 - 0.9 cm LVPW Systolic Thickness 2.3 cm LVOT Diameter 2.0 cm LV Ejection Fraction 2D Teich 54.7 % LV Ejection Fraction MOD 2C 24.9 % LV Ejection Fraction 2C AL 29.8 % LA Diameter 2.4 cm LA Width 2.7 cm LA Height 4.9 cm RA Width 3.9 cm RA Height 4.0 cm DOPPLER AV Peak Velocity 162.0 cm/s LVOT Peak Velocity 107.0 cm/s AV Area Cont Eq vti 1.9 cm squared AV Area Cont Eq pk 2.1 cm squared MV Peak Velocity 102.0 cm/s MV Area PHT 2.8 cm squared Mitral E to A Ratio 1.4 MV E' Velocity 53.5 cm/s Mitral E to MV E' Ratio 7.8 Mitral E to LV E' Lateral Ratio 8.9 Mitral E to LV E' Septal Ratio 7.0 TR Peak Velocity 191.7 cm/s TR Peak Gradient 14.7 mmHg Right Atrial Pressure 3.0 mmHg Pulmonary Artery Systolic Pressu 17.7 mmHg PV Peak Velocity 95.0 cm/s RV Acceleration Time 0.1 s FINDINGS Left Ventricle Mildly dilated left ventricle with an ejection fraction of 35%. Diffuse hypokinesis left ventricle, more so of the septum, anteroseptal and inferolateral wall segments. Right Ventricle Catheter/pacemaker wire visualized in the right ventricle. Right Atrium Catheter/pacemaker wire in the right atrial appendage. Left Atrium The left atrium is normal in size. Mitral Valve Mild mitral valve regurgitation. Aortic Valve Thickened aortic valve. Tricuspid Valve Trace tricuspid valve regurgitation. Pulmonic Valve Pulmonic valve not well visualized. Pericardium Normal pericardium without effusion. Aorta Normal aortic annulus size. CONCLUSIONS Mildly dilated left ventricle with an ejection fraction of 30%. Diffuse hypokinesis left ventricle, more so of the septum, anteroseptal and inferolateral wall segments. Mild mitral valve regurgitation. Thickened aortic valve. Trace tricuspid valve regurgitation. Pacemaker/defibrillator wire in the right ventricle/right atrium There is no pericardial effusion. Compared to the study from 07/25/2018, there may not be a significant change Dr Carlos Alberto Toro MD FACC (Electronically Signed) Final Date: 21 February 2020 20:13 S
--- NOTE | 2020-02-21 14:25 | P.PN_ITS ---
Subjective Subjective: Interval history: Patient awake in bed at time of exam this morning. He denied any chest pain or shortness of breath at rest. Reported chronic shortness of breath on exertion. Reported that he uses oxygen with exertion at home. Reported continued pain in his left foot Vitals/I&O/Wt Last Vital Signs Temp 98.1 F 02/21/20 11:55 Pulse 63 02/21/20 13:05 Resp 18 02/21/20 13:05 BP 116/70 02/21/20 11:55 Pulse Ox 95 02/21/20 13:05 02/20/20 02/21/20 02/21/20 22:59 06:59 14:59 Intake Total 50 / 50 530 / 530 Balance 50 / 50 530 / 530 Weight last 48 hrs Weight 79.379 kg Physical Exam Const: COMMON NORMALS: patient oriented x3 and alert GENERAL APPEARANCE: c ooperative ORIENTATION/CONSCIOUSNESS: Yes awake, Yes oriented to person, Yes oriented to place and Yes oriented to time HENMT: COMMON NORMALS: normocephalic and atraumatic HEAD & SCALP: normocephalic and atraumatic Eye: COMMON NORMALS: Equal, round and reactive pupils present PUPIL: Yes Equal, round and reactive pupils present Neck/C-Spine: COMMON NORMALS: supple GENERAL: Yes normal visual inspection Resp: COMMON NORMALS: normal respiratory effort and clear to auscultation bilaterally EFFORT & INSPECTION: Yes able to speak in complete sentences AUSCULTATION: clear to auscultation bilaterally, no rhonchi and no wheezes Cardio: COMMON NORMALS: regular rate and regular rhythm RATE: regular rate RHYTHM: regular rhythm GI: COMMON NORMALS: Soft to palpation and non-tender INSPECTION: No abdominal distension AUSCULTATION: Yes normoactive bowel sounds PALPATION: Yes Soft to palpation Extremity: COMMON NORMALS: no calf tenderness NARRATIVE EXTREMITY EXAM: Erythema to the pad of the foot on the left with small laceration Neuro: COMMON NORMALS: patient oriented x3, CN's II-XII intact bilaterally, moves all extremities and no focal motor deficits SENSORIUM/ORIENTATION: Yes alert, Yes oriented to person, Yes oriented to place and Yes oriented to time SPEECH: speech normal Psych: COMMON NORMALS: mental status grossly normal and cooperative Data : 02/21/20 05:35 02/21/20 05:35 Micro: Microbiology 02/20/20 17:25 Blood Culture - Preliminary Blood SPECIMEN COLLECTED 02/20/20 17:20 Blood Culture - Preliminary Blood SPECIMEN COLLECTED A&P Assessment and plan (1) Infection of left foot: Cellulitis of the left foot CT scan performed shows no evidence of osteomyelitis We will de-escalate antibiotics today Continue with offloading Continue to work on blood glucose control Status: Acute (2) Hyponatremia: Resolved Status: Acute (3) CAD (coronary artery disease): Status post stent x3 Coronary angiogram November 2017, normal left main, circumflex and diffuse in-stent restenosis of proximal LAD about 78% narrowed in the proximal portion 90% narrowed in the distal portion, stented LAD, ramus intermedius stent minimally stenosed, proximal RCA stent 30% restenosis Status: Acute (4) ICD (implantable cardioverter-defibrillator) in place: systolic and diastolic heart failure Hypokinesis of the apex, left ventricular ejection fraction 35% status post ICD Status: Acute (5) Hyperlipidemia: Continue on atorvastatin 80 mg Status: Acute Qualifiers: Hyperlipidemia type: mixed hyperlipidemia Qualified Code(s): E78.2 - Mixed hyperlipidemia (6) HTN (hypertension): Continue on Coreg 25 mg twice daily Status: Acute Qualifiers: Hypertension type: essential hypertension Qualified Code(s): I10 - Essential (primary) hypertension (7) Heart failure: Known systolic and diastolic CHF with an LVEF of 35% status post ICD Status: Acute Qualifiers: Heart failure type: combined systolic and diastolic Heart failure chronicity: chronic Qualified Code(s): I50.42 - Chronic combined systolic (congestive) and diastolic (congestive) heart failure (8) Diabetes: Levemir 5 units every 12 hours with sliding scale insulin as needed Status: Acute (9) Chronic pain: Continue on home fentanyl, gabapentin, Cymbalta Status: Acute Qualifiers: Chronic pain type: chronic pain syndrome Qualified Code(s): G89.4 - Chronic pain syndrome (10) Nerve damage of foot: Chronic pain management as above Status: Acute Attestations Medical Necessity Statement*: Requires further hospitalization due to left lower extremity cellulitis. De-escalation of antibiotics today Coding Level of Care Code Acute Imitation Marble Mechanic for Ivonne Guaman Diagnoses Infection of left foot L08.9 Hyponatremia E87.1 CAD (coronary artery disease) I25.10 ICD (implantable cardioverter-defibrillator) in place Z95.810 Hyperlipidemia E78.2 Hyperlipidemia type: mixed hyperlipidemia HTN (hypertension) I10 Hypertension type: essential hypertension Heart failure I50.42 Heart failure type: combined systolic and diastolic Heart failure chronicity: chronic Diabetes E11.9 Chronic pain G89.4 Chronic pain type: chronic pain syndrome Nerve damage of foot G57.90
[2020-02-21] MEDS: clindamycin 600 MG/50 ML PREMIX 100 MG IV ×2 (15:20→22:45)
[2020-02-21 17:24] LABS: Glucose Point of Care 207 mg/dL (70-110)
[2020-02-21 21:01] LABS: Coronavirus Lab Test PTC Negative
[2020-02-21 22:27] LABS: Glucose Point of Care 221 mg/dL (70-110)
[2020-02-22] VITALS: BP 147/78; PULSE 52; RESP 12; TEMP 37.3; O2SAT 95
[2020-02-22 00:59] LABS: Basophils % 0.3 %; Eosinophils # 0.1 10^3/uL (0.0-0.8); Eosinophils % 2.2 %; Hemoglobin 11.7 g/dL (11.7-16.6); Lymphocytes # 1.5 10^3/uL (0.8-4.8); Lymphocytes % 25.4 %; Mean Corpuscular HGB Conc 33.4 g/dL (30.0-36.0); Mean Corpuscular Hemoglobin 30.8 pg (28.0-34.0); Mean Corpuscular Volume 92.1 fL (80-94); Mean Platelet Volume 12.1 fL (7.4-10.4); Monocytes # 0.5 10^3/uL (0.2-0.9); Neutrophils # 3.63 10^3/uL (1.8-7.7); Neutrophils % 62.9 %; Nucleated Red Blood Cells % 0 %; Platelet Count 104 10^3/cmm (130-400); White Blood Count 5.8 10^3/uL (4.0-10.0)
[2020-02-22 01:19] LABS: Alanine Aminotransferase 11 U/L (0-41); Albumin Level 3.8 g/dL (3.5-5.2); Alkaline Phosphatase 55 IU/L (40-130); Anion Gap 12.1 (5-19); Aspartate Amino Transferase 15 U/L (0-40); Blood Urea Nitrogen 14 mg/dL (8-23); Calcium 9.2 mg/dL (8.5-10.5); Carbon Dioxide 25 mmol/L (22-29); Chloride 100 mmol/L (98-107); Globulin 2.2 g/dL (1.3-4.6); Glomerular Filtration Rate 112.8 mL/min (90-130); Glucose 166 mg/dL (65-115); Magnesium 1.3 mg/dL (1.7-2.3); Osmolality Calculated 280 mOsm/kg (285-295); Phosphorus 3.4 mg/dL (2.5-4.5); Potassium 4.1 mmol/L (3.5-5.1); Sodium 133 mmol/L (136-145); Total Bilirubin 0.4 mg/dL (0.15-1.2)
[2020-02-22 01:44] LABS: Vancomycin Trough 4.7 ug/mL (10-15)
[2020-02-22 03:22] VITALS: BP 154/80; PULSE 51; RESP 16; TEMP 37; O2SAT 96
[2020-02-22 06:11] LABS: Glucose Point of Care 160 mg/dL (70-110)
[2020-02-22] MEDS: clindamycin 600 MG/50 ML PREMIX 100 MG IV (06:32)
[2020-02-22 08:00] VITALS: BP 177/76; PULSE 51; RESP 16; TEMP 36.4; O2SAT 97
[2020-02-22] MEDS: spironolactone 25 mg Tablet 50 MG PO (08:40)
[2020-02-22] MEDS: tamsulosin 0.4 mg Capsule PO (08:40)
[2020-02-22] MEDS: duloxetine 60 mg Capsule PO (08:40)
[2020-02-22] MEDS: pantoprazole DR 40 mg Tablet PO (08:41)
[2020-02-22] MEDS: clopidogrel 75 mg Tablet PO (08:41)
[2020-02-22] MEDS: duloxetine 30 mg Capsule PO (08:41)
[2020-02-22] MEDS: carvedilol 25 mg Tablet PO (08:41)
[2020-02-22] MEDS: aspirin 81 mg EC Tablet PO (08:41)
[2020-02-22] MEDS: pregabalin 150 mg Capsule 300 MG PO (08:41)
[2020-02-22 10:34] VITALS: PULSE 70; RESP 17; O2SAT 97
--- NOTE | 2020-02-22 10:58 | PM.DCS ---
Discharge Providers Date of Admission: 02/20/20 21:03 Date of Discharge: February 22, 2020 Attending Provider at Admission: Lance Quan MD Attending Provider at Discharge: Tonya Vivar DO Primary Care Provider: Fernando Mathis MD Diagnoses at Discharge Discharge Diagnosis (1) Infection of left foot: Status: Acute (2) Hyponatremia: Status: Acute (3) CAD (coronary artery disease): Status: Acute (4) ICD (implantable cardioverter-defibrillator) in place: Status: Acute (5) Hyperlipidemia: Status: Acute Qualifiers: Hyperlipidemia type: mixed hyperlipidemia Qualified Code(s): E78.2 - Mixed hyperlipidemia (6) HTN (hypertension): Status: Acute Qualifiers: Hypertension type: essential hypertension Qualified Code(s): I10 - Essential (primary) hypertension (7) Heart failure: Status: Acute Qualifiers: Heart failure type: combined systolic and diastolic Heart failure chronicity: chronic Qualified Code(s): I50.42 - Chronic combined systolic (congestive) and diastolic (congestive) heart failure (8) Diabetes: Status: Acute (9) Chronic pain: Status: Acute Qualifiers: Chronic pain type: chronic pain syndrome Qualified Code(s): G89.4 - Chronic pain syndrome (10) Nerve damage of foot: Status: Acute Reason for Visit Reason for Visit: fell,hit head,swollen leg, not making sense Hospital Course Hospital Course: Patient was seen and evaluated in the emergency department and admitted for further evaluation due to concern for left foot cellulitis. He was started on broad-spectrum antibiotics and monitor closely due to concern for hyponatremia. Patient's symptoms continued to improve and swelling and redness in the foot continued to improve. Patient remained afebrile and white blood cell count remained stable. He was transitioned from broad-spectrum antibiotics to clindamycin and swelling and redness continued to improve. He had no evidence of osteomyelitis, no evidence of abscess formation on CT scan of the foot. His respiratory status him by their signs remained stable. He was doing well on date of discharge with no concerns and improvement in swelling in the left foot, improvement of erythema, afebrile. Discussed with patient plan for discharge to home with home health and close outpatient follow-up, he verbalized understanding and agreed with plan. Physical Exam Const: COMMON NORMALS: patient oriented x3 and alert GENERAL APPEARANCE: cooperative ORIENTATION/CONSCIOUSNESS: Yes awake, Yes oriented to person, Yes oriented to place and Yes oriented to time HENMT: COMMON NORMALS: normocephalic and atraumatic HEAD & SCALP: normocephalic and atraumatic Eye: COMMON NORMALS: Equal, round and reactive pupils present PUPIL: Yes Equal, round and reactive pupils present Neck/C-Spine: COMMON NORMALS: supple GENERAL: Yes normal visual inspection Resp: COMMON NORMALS: normal respiratory effort and clear to auscultation bilaterally EFFORT & INSPECTION: Yes able to speak in complete sentences AUSCULTATION: clear to auscultation bilaterally, no rhonchi and no wheezes Cardio: COMMON NORMALS: regular rate and regular rhythm RATE: regular rate RHYTHM: regular rhythm Extremity: COMMON NORMALS: no calf tenderness NARRATIVE EXTREMITY EXAM: Erythema to the pad of the foot with improvement of swelling Neuro: COMMON NORMALS: patient oriented x3, CN's II-XII intact bilaterally, moves all extremities and no focal motor deficits SENSORIUM/ORIENTATION: Yes alert, Yes oriented to person, Yes oriented to place and Yes oriented to time SPEECH: speech normal Psych: COMMON NORMALS: mental status grossly normal and cooperative Discharge Data Data Completed and Pending: Completed Studies During Hospitalization Category Date Time Status CT angio chest PE protcl [id number] Stat Cat Scan 02/20/20 18:[address] foot LT wo con * [id number] Urgent Cat Scan 02/20/20 21:[address] head wo con* [id number] Stat Cat Scan 02/20/20 17:02 Completed XR chest 1V patricia ble [id number] Stat Exams 02/20/20 16:59 Completed XR foot LT min 3V * [id number] Stat Exams 02/20/20 17:14 Completed CV echo complete* [id number] Routine Ultrasound 02/21/20 14:06 Completed Pending at discharge Category Date Time Status Blood Culture Sta t Lab 02/20/20 17:25 Results Complete Blood Co unt w/Auto AM LABS Lab 02/23/20 04:00 Ordered Comprehensive Met abolic Panel AM LA BS Lab 02/23/20 04:00 Ordered Magnesium AM LABS Lab 02/23/20 04:00 Ordered Phosphorus AM LAB S Lab 02/23/20 04:00 Ordered Labs from last 24 hours 02/22/20 02/22/20 02/22/20 06:04 00:48 00:48 WBC RBC Hgb Hct MCV MCH MCHC RDW Plt Count MPV Neut % (Auto) Lymph % (Auto) [place] % (Auto) Eos % (Auto) Baso % (Auto) Neut # (Auto) Lymph # (Auto) [place] # (Auto) Eos # (Auto) Baso # (Auto) Nucleated RBC % (a uto) Nucleated RBCs # Sodium 133 L Potassium 4.1 Chloride 100 Carbon Dioxide 25 Anion Gap 12.1 BUN 14 Creatinine 0.7 GFR Calculation 112.8 Glucose 166 H POC Glucose 160 Calculated Osmolal ity 280 L Calcium 9.2 Phosphorus 3.4 Magnesium 1.3 L Total Bilirubin 0.4 AST 15 ALT 11 Alkaline Phosphata se 55 Total Protein 6.0 L Albumin 3.8 Globulin 2.2 Vancomycin Trough 4.7 L Nasal/Oral COVID-1 9 PCR 02/22/20 02/21/20 02/21/20 00:48 21:18 17:07 WBC 5.8 RBC 3.80 L Hgb 11.7 Hct 35.0 L MCV 92.1 MCH 30.8 MCHC 33.4 RDW 14.0 Plt Count 104 L MPV 12.1 H Neut % (Auto) 62.9 Lymph % (Auto) 25.4 [place] % (Auto) 9.0 Eos % (Auto) 2.2 Baso % (Auto) 0.3 Neut # (Auto) 3.63 Lymph # (Auto) 1.5 [place] # (Auto) 0.5 Eos # (Auto) 0.1 Baso # (Auto) 0.0 Nucleated RBC % (a uto) 0 Nucleated RBCs # 0.0 Sodium Potassium Chloride Carbon Dioxide Anion Gap BUN Creatinine GFR Calculation Glucose POC Glucose 221 207 Calculated Osmolal ity Calcium Phosphorus Magnesium Total Bilirubin AST ALT Alkaline Phosphata se Total Protein Albumin Globulin Vancomycin Trough Nasal/Oral COVID-1 9 PCR 02/21/20 02/20/20 11:25 20:40 WBC RBC Hgb Hct MCV MCH MCHC RDW Plt Count MPV Neut % (Auto) Lymph % (Auto) [place] % (Auto) Eos % (Auto) Baso % (Auto) Neut # (Auto) Lymph # (Auto) [place] # (Auto) Eos # (Auto) Baso # (Auto) Nucleated RBC % (a uto) Nucleated RBCs # Sodium Potassium Chloride Carbon Dioxide Anion Gap BUN Creatinine GFR Calculation Glucose POC Glucose 211 Calculated Osmolal ity Calcium Phosphorus Magnesium Total Bilirubin AST ALT Alkaline Phosphata se Total Protein Albumin Globulin Vancomycin Trough Nasal/Oral COVID-1 9 PCR Negative Vitals: Last Vital Signs Temp 97.6 F 02/22/20 08:00 Pulse 70 02/22/20 10:34 Resp 17 02/22/20 10:34 BP 177/76 02/22/20 08:00 Pulse Ox 97 02/22/20 10:34 Discharge Plan Discharge Patient Disposition: Home Health Service Condition: Stable Prescriptions: New aspirin 81 mg Tablet,Delayed Release (Dr/Ec) 81 mg PO DAILY 30 Days Qty: 30 RF: 0 clindamycin HCl 300 mg capsule 300 mg PO TID 10 Days Qty: 30 RF: 0 Continued carvedilol 25 mg tablet 25 mg PO BID Qty: 60 RF: 6 nitroglycerin 0.4 mg tablet, sublingual 0.4 mg SUBLINGUAL Q5M PRN (Reason: chest pain) Qty: 30 RF: 6 clopidogrel 75 mg tablet 75 mg PO DAILY Qty: 30 RF: 6 furosemide 20 mg tablet 20 mg PO QAM PRN (Reason: edema) Qty: 30 RF: 6 spironolactone 50 mg tablet 50 mg PO DAILY Qty: 30 RF: 6 fentanyl 100 mcg/hr patch 72 hour 1 patch transdermal Q48H 30 Days Qty: 15 RF: 0 tamsulosin 0.4 mg capsule 0.4 mg PO DAILY Qty: 30 RF: 5 duloxetine 60 mg capsule,delayed release(DR/EC) 60 mg PO DAILY Qty: 30 RF: 5 duloxetine 30 mg capsule,delayed release(DR/EC) 30 mg PO DAILY Qty: 30 RF: 3 albuterol sulfate [Ventolin HFA] 90 mcg/actuation HFA aerosol inhaler 1 inh INHALATION QID PRN (Reason: shortness of breath or wheezing) Qty: 8.5 RF: 3 esomeprazole magnesium 40 mg capsule,delayed release(DR/EC) 40 mg PO DAILY Qty: 30 RF: 3 omeprazole 40 mg capsule,delayed release(DR/EC) 40 mg PO DAILY Qty: 30 RF: 3 pregabalin [Lyrica] 300 mg capsule 300 mg PO BID Qty: 60 RF: 3 polyethylene glycol 3350 17 gram/dose powder 17 gm PO DAILY PRN (Reason: constipation) Qty: 510 RF: 6 Entresto 97-103 mg tablet 1 tab PO BID Qty: 60 RF: 6 (DME) blood-glucose meter Kit See Rx Instructions .ROUTE .MEDSUPPLY Qty: 1 RF: 0 sennosides-docusate sodium [Senexon-S] 8.6-50 mg tablet 1 tab-cap PO DAILY PRN (Reason: constipation) Qty: 30 RF: 3 metformin 1,000 mg tablet 1,000 mg PO BID RF: 0 magnesium 250 mg Tablet 250 mg PO BID RF: 0 Levemir FlexTouch U-100 Insuln 100 unit/mL (3 mL) Insulin Pen 20 unit SUBCUT BID RF: 0 rosuvastatin 40 mg tablet 40 mg PO BEDTIME RF: 0 Discontinued aspirin 325 mg tablet 325 mg PO DAILY RF: 0 Discharge Orders: Discharge Order (Routine); Ordered 02/22/20 Ordered By: Tonya Vivar Referrals: Fernando Mathis MD [Primary Care Provider] - 4-7 days Sushila Mckeon MD [Physician] - 3 months Discharge Diet: Advance as tolerated, Cardiac and Diabetic Discharge Activity: Increase activity as tolerated Activity Restrictions/Additional Instructions: Continue offloading of the left foot. Started on clindamycin 300 mg for an additional 10 days Follow-up with Dr. Mathis next week Follow-up with Dr. Mckeon as previously scheduled Continue to monitor blood glucose daily and present this log to your primary care provider. Call your physician or present to the ED for any acute illness or concern. 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
[2020-02-22 11:13] LABS: Glucose Point of Care 166 mg/dL (70-110)
[2020-02-22 12:00] VITALS: BP 149/81; PULSE 52; RESP 15; TEMP 36.6; O2SAT 97
[2020-02-22] MEDS: fentaNYL 100 mcg Patch 1 PATCH TRANSDERMA (12:03)
[2020-02-22] MEDS: lactobacillus 1 Tablet 1 TAB PO (12:06)
[2020-02-22 14:55] VITALS: BP 149/81; PULSE 52; RESP 15; TEMP 36.6; O2SAT 97
--- NOTE | 2020-02-24 16:46 | PC.NURSE ---
Doxycycline 100mg BID for 10d No refills called into [facility].
== END 2020-02-22 14:45 | disposition home health service (06) | DRG 603 ==
LOC: ER 18:23 → MEDSURG 22:44
PROVIDERS: Emergency Medicine; Family Medicine; Admitting Provider Family Medicine; PCP Internal Medicine; Visit Provider Family Medicine
DX: L03.116 Cellulitis of left lower limb (principal); I50.42 Chronic combined systolic (congestive) and diastolic (congestive) heart failure; E87.1 Hypo-osmolality and hyponatremia; E11.42 Type 2 diabetes mellitus with diabetic polyneuropathy; E11.65 Type 2 diabetes mellitus with hyperglycemia; I25.10 Atherosclerotic heart disease of native coronary artery without angina pectoris; Z95.5 Presence of coronary angioplasty implant and graft; Z95.810 Presence of automatic (implantable) cardiac defibrillator; I11.0 Hypertensive heart disease with heart failure; E78.2 Mixed hyperlipidemia; F12.90 Cannabis use, unspecified, uncomplicated; G89.4 Chronic pain syndrome; Z99.81 Dependence on supplemental oxygen
CPT/HCPCS: 12345; 36415; 36416; 70450; 71045; 71275; 73630; 73700; 80053; 80202; 82728; 82962; 83036; 83605; 83615; 83735; 84100; 84145; 85025; 85378; 85384; 85610; 85651; 86140; 87040; 87426; 87635; 93005; 93306; 94640; 96372; 97161; 97165; 97535; 99284; J1650; J1815; J1956; J2543; J3370; J3490; J3535; J7030; J7050; Q9967

== ENCOUNTER → 2020-09-05 16:09 | Outpatient (BNVA) | payer MEDICARE, MEDICAID, SELFPAY | PROVIDERS: PCP Internal Medicine; Visit Provider Internal Medicine | DX: Z20.822 Contact with and (suspected) exposure to COVID-19 (principal) | CPT/HCPCS: 87635 ==

== ENCOUNTER 2020-09-12 08:02 | Day surgery (SDC) | payer MEDICARE, MEDICAID, SELFPAY ==
[2020-09-11 17:14] VITALS: BMI 27.3
[2020-09-12] VITALS (10 sets, daily range): BP systolic 103–164; BP diastolic 60–89; PULSE 63–80; RESP 12–20; TEMP 36.1–36.6; O2SAT 90–100
[2020-09-12] MEDS: sodium chloride 0.9% 1,000 ML 30 ML IV (08:40)
[2020-09-12] MEDS: acetaminophen 500 mg Tablet 1000 MG PO (08:41)
[2020-09-12 08:43] LABS: Glucose Point of Care 142 mg/dL (70-110)
[2020-09-12 09:47] LABS: Basophils # 0.1 10^3/uL (0.0-0.1); Basophils % 0.7 %; Eosinophils # 0.3 10^3/uL (0.0-0.8); Eosinophils % 4.1 %; Hematocrit 36.4 % (42.0-52.0); Hemoglobin 12.3 g/dL (11.7-16.6); Lymphocytes % 28.6 %; Mean Corpuscular HGB Conc 33.8 g/dL (30.0-36.0); Mean Corpuscular Hemoglobin 30.8 pg (28.0-34.0); Mean Platelet Volume 12.1 fL (7.4-10.4); Monocytes # 0.6 10^3/uL (0.2-0.9); Monocytes % 8.7 %; Neutrophils # 4.06 10^3/uL (1.8-7.7); Neutrophils % 57.6 %; Nucleated Red Blood Cells % 0 %; Platelet Count 149 10^3/cmm (130-400); Red Cell Distribution Width 14.1 % (12.1-15.1)
--- NOTE | 2020-09-12 10:06 | ANES.PREANE2 ---
Pre-Anesthetic Assessment Pre-Anesthetic Assessment: Height/Weight: Height 1.73 m Weight 81.647 kg Temp Pulse Resp BP Pulse Ox 97 F L 66 18 103/60 90 09/12/20 08:20 09/12/20 08:20 09/12/20 08:20 09/12/20 08:20 09/12/20 08:20 Preop Diagnosis: Rotator cuff tear Left shoulder Proposed Procedure: Operation Date: 09/12/20 09:50 Proposed Procedures p L Shoulder Arthroscopy 25292 M75.102(Not Applicable) - Bassam Griggs MD s L Rotator Cuff Repair(Not Applicable) - Bassam Griggs MD Last intake: Intake Last Liquid Date 09/11/20 Last Liquid Time 21:00 Last Solid Date 09/11/20 Last Solid Time 21:00 Pulmonary: Pulmonary: COPD CV/HEM: CV/HEM: CAD (stents) and CHF Comments: EF 30%, pacer/defibrillator, off plavix 4 days, Spoke with Dr. Mckeon over phone, no further interventions available to improve outcome at this time, continues to have his chronic issues, and thus is cleared for surgery from cardiovascular standpoint. Metabolic: Metabolic: DM and Hyperlipidemia Anesthetic Plan: ASA status: 4 Anesthesia: General and Regional (specify below) Risk of > 500 ml blood loss (7ml/kg in children): No Meds/Allergies Current Medications: Current Medications Generic Name Dose Route Start Last Admin Trade Name Freq PRN Reason Stop Dose Admin Sodium Chloride 1,000 mls @ 30 ml s/hr 09/12/20 08:15 09/12/20 08:40 Sodium Chloride 0.9% IV 09/13/20 08:14 30 mls/hr .Q24H MESSI Administration PFSH Anesthesia PFSH: Medical History Diabetes Heart failure History of placement of stent in LAD coronary artery HTN (hypertension) Hyperlipidemia ICD (implantable cardioverter-defibrillator) in place Surgical History History of implantable cardioverter-defibrillator (ICD) placement Family History Father Emphysema of lung Social History Smoking and tobacco status: never smoked Alcohol intake: never History of recent travel: No Data Anesthesia CBC & Chem 7: 09/12/20 09:35 Other Labs: Laboratory Results - last 48 hr 09/12/20 09/12/20 08:39 09:35 WBC 7.0 RBC 4.00 L Hgb 12.3 Hct 36.4 L MCV 91.0 MCH 30.8 MCHC 33.8 RDW 14.1 Plt Count 149 MPV 12.1 H Neut % (Auto) 57.6 Lymph % (Auto) 28.6 [place] % (Auto) 8.7 Eos % (Auto) 4.1 Baso % (Auto) 0.7 Neut # (Auto) 4.06 Lymph # (Auto) 2.0 [place] # (Auto) 0.6 Eos # (Auto) 0.3 Baso # (Auto) 0.1 Nucleated RBC % (auto) 0 Nucleated RBCs # 0.0 POC Glucose 142 H Cardiac Studies: No Data to Display
--- NOTE | 2020-09-12 10:10 | ANES.PROC ---
Anesthesia Procedures Procedure/Date: 09/12/20 Nerve Block ^: Nerve Block 1: Main Anesthesia: general anesthesia Time Out Performed: No Consent: requested by attending/covering physician, from patient, risks and benefits reviewed and patient agrees to proceed Nerve block location: interscalene (L) Anesthesia monitors applied: pulse oximetry, EKG, BP cuff and oxygen Nerve block position: semi sitting Anesthetic Used: ropivicaine 0.5% and with decadron (4 mg) Amount of anesthesia used (mL): 10 Ultrasound used to: recognize landmarks, visualize and ID brachial plexus and visualize and ID interscalene groove Nerve Stimulator Used?: No Interscalene/Femoral BLK: 2 stimuplex 22 g needle used for position and inplane approach Injection: neg aspiration of heme and paresthesia +/- Patient Tolerated Procedure: well and no complications Complications: none
--- NOTE | 2020-09-12 10:23 | W.PM.OPSUD ---
Surgery/Procedure H&P Update DATE OF PROCEDURE: September 12, 2020 DATE H&P PERFORMED: 08/21/20 PREOP DIAGNOSIS: Rotator cuff tear Left shoulder PLANNED PROCEDURE: Operation Date: 09/12/20 09:50 Proposed Procedures p L Shoulder Arthroscopy 12956 M75.102(Not Applicable) - Bassam Griggs MD s L Rotator Cuff Repair(Not Applicable) - Bassam Griggs MD
[2020-09-12] MEDS: EPINEPHrine 1 mg/mL INJ 2 MG XX (11:41)
--- NOTE | 2020-09-12 12:16 | ANES.PROC ---
Anesthesia Procedures Procedure/Date: 09/12/20 Arterial Line: Time Out Performed: Yes Consent: from patient, risks and benefits reviewed and patient agrees to proceed Size (Gauge): 20 Technique Used: guide wire technique Post-Procedure: dry sterile dressing placed Patient Tolerated Procedure: well and no complications Complications: none Site: right
--- NOTE | 2020-09-12 13:27 | PM.OP ---
Operative Report Date of procedure: September 12, 2020 Pre-op Diagnosis: Rotator cuff tear Left shoulder Post-op diagnosis: same Post-op Diagnosis: Large tear left rotator cuff, impingement Post-op Findings: As above Procedure Done: Arthroscopic repair left rotator cuff, subacromial decompression Implants: Colon and Nephew Helicoil 4.5 mm anchor, Colon and Nephew Regeneten implant Pathology: none sent Surgeon: Bassam Griggs Anesthesia: General and Nerve Block (Interscalene block) Estimated blood loss (mL): 50 Complications: None Findings: Patient had a large tear of his rotator involving the entirety of the supraspinatus extending back into the infraspinatus over a distance of perhaps a 2 cm with retraction near the level of the glenoid. The tendons could be reapproach to be a marginal convergence but tendon quality was compromised by atrophy and fatty infiltration. He had prominent anterior spurring of his acromion. He had a previous rupture of the long head of his biceps. No degeneration was noted of the humeral head or glenoid Condition: stable Disposition: PACU Procedure: Patient was taken to the operating room after interscalene block was provided. He is given a general anesthesia. His vision in the lateral position and given 2 g of Ancef. A timeout was performed. A posterior portal was made 2 cm inferior and medial to the posterior corded acromion. A scope cannula trocar driven into the glenohumeral joint. An 8 mm inflow cannula was placed anteriorly. The diagnostic portion of glenohumeral arthroscopy was performed. There is minor chondromalacia noted over the humeral head but no significant cartilage defects. The massive tear of the rotator cuff was noted. The biceps tendon was noted to be chronically torn. The scope was then moved to the subacromial space and anterior and lateral working portal were fashion. Utilizing the Colon and Nephew Werewolf probe subacromial bursal tissue was removed and the leading edge of acromion was outlined. A 5.5 mm acromionizer was introduced and approximately 5 mm of anterior inferior acromion removed to make room for the repair and provide better vascularity for the likely use of the Colon and Nephew Regeneten implant. A Colon and Nephew FirstPass suture passer was used to shuttle a tape suture through the posterior apex of the rotator cuff tear. A sharp suture retriever was passed through the anterior apex retrieving one limb of the suture through the anterior cuff. This was closed securing the apex of the tear. This was repeated two times moving laterally to the footprint on the greater tuberosity approximating the large U-shaped tear. Finally a 4.5 mm Colon and Nephew Helicoil anchor was placed in a debrided portion on the greater tuberosity and one then passed to the anterior cuff, and one limb to the posterior cuff. This was a secured bringing the lateral repair down to bone. A lower lateral portal was then made with a scalpel blade. The regeneration implant was placed covering the suture line extending from the greater tuberosity medially. It was fixed laterally with three ignacio and medially with six soft tissue ignacio providing biological augmentation to the atrophic tendons. Portals were closed with 3-0 Prolene. Sterile dressings were applied. The patient was placed in abduction pillow. He was extubated and taken to recovery in stable condition.
--- NOTE | 2020-09-12 13:43 | SUR.PHASEI ---
1335-ARTERIAL LINE DISCONTINUED PER ANESTHESIA, REMOVED PER PROTOCOL
--- NOTE | 2020-09-12 13:49 | SUR.PHASEI ---
1349- ORAL AIRWAY OUT, SIMPLE MASK AT 6LPM SAT 100%
--- NOTE | 2020-09-12 14:52 | P.ANESPOST_ITS ---
Inpatient post-anesthesia follow up: Airway intact: Yes Vital signs: Temperature 97.9 F Pulse Rate 76 Respiratory Rate 16 Blood Pressure 135/72 Pulse Oximetry 94 Oxygen Delivery Me thod Room Air Oxygen Flow Rate 2 Fraction of Inspir ed Oxygen Hydration adequate: Yes Nausea and vomiting: No Pain level: 3 Mental status: Baseline Additional Comments: Pacemaker/defibillator turned back on via telepone intervention w/ [employer] visitor services representative - printout of session in chart
== END 2020-09-12 15:00 | disposition home or self-care (01) ==
PROVIDERS: Anesthesiology; PCP Internal Medicine; Visit Provider Orthopaedic Surgery
PROC: (CPT 29805; principal; 2020-09-12 09:50)
PROC: (CPT 29826; 2020-09-12 09:50)
DX: M75.102 Unspecified rotator cuff tear or rupture of left shoulder, not specified as traumatic (principal); M25.812 Other specified joint disorders, left shoulder; E11.9 Type 2 diabetes mellitus without complications; E78.5 Hyperlipidemia, unspecified; I11.0 Hypertensive heart disease with heart failure; I50.9 Heart failure, unspecified; Z95.0 Presence of cardiac pacemaker; Z79.02 Long term (current) use of antithrombotics/antiplatelets; Z95.5 Presence of coronary angioplasty implant and graft; Z79.82 Long term (current) use of aspirin; Z79.84 Long term (current) use of oral hypoglycemic drugs
CPT/HCPCS: 29826; 29827; 36416; 64415; 76942; 82962; 85025; 96365; C1713; J0171; J0690; J1100; J2250; J2370; J2405; J2704; J2710; J2795; J3010; J3490; J7030

== ENCOUNTER 2020-09-14 10:40 | Emergency (ER) | payer MEDICARE, MEDICAID, SELFPAY ==
[2020-09-14 10:41] VITALS: BP 162/96; PULSE 93; RESP 32; O2SAT 94; BMI 27.3
--- NOTE | 2020-09-14 11:00 | XRR_ITS ---
PROCEDURE INFORMATION: Exam: XR Chest Exam date and time: 09/14/2020 11:06 AM Age: 65 years old Clinical indication: Chest pain; Prior surgery TECHNIQUE: Imaging protocol: XR of the chest. Views: 1 view. COMPARISON: CR XR chest 1V portable [id number] 02/20/2020 6:14 PM FINDINGS: Lungs: Unremarkable. No consolidation. Pleural spaces: Unremarkable. No pleural effusion. No pneumothorax. Heart/Mediastinum: Unremarkable. No cardiomegaly. Bones/joints: Surgical hardware is seen in the cervical spine. Soft tissues: Cardiac pacemaker left anterior chest XR/XR chest 1V portable [id number] IMPRESSION: 1. No acute findings. 2. Surgical hardware cervical spine. 3. Cardiac pacemaker left anterior chest
--- NOTE | 2020-09-14 11:01 | ECG_ITS ---
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
--- NOTE | 2020-09-14 11:04 | ED_ITS ---
HPI - Chest Pain General: Chief Complaint: Shortness of Breath/Dyspnea Stated Complaint: chest pain, respiratory distress Time Seen by Provider: 09/14/20 10:44 History of Present Illness: HPI narrative: 65-year-old male presents emergency room via air VAC. He is 1 day postop from a left shoulder rotator cuff repair. [facility] treated with albuterol x2 air evacuator gave 125 Solu-Medrol and 2 DuoNeb's. Patient reporting chest pain and shortness of breath that began while he was at rest radiating into his neck but not into the arms. Normally wears 3 L of oxygen by nasal cannula which is still maintaining a normal sat. Has any vomiting or diarrhea any productive cough. He does have a known coronary artery disease previously had stents and then was restented for in-stent stenosis in November 2018 MD complaint: chest pain Pertinent past history: coronary artery disease Onset (ago): hour(s) Timing of current episode: episodic and still present Prior episodes: Yes Onset: during rest Pain location: substernal and left chest Pain radiation: neck Severity: moderate Quality: tightness and heaviness Relieving factors: rest Associated symptoms: Reports dyspnea and nausea; Deny abdominal pain, diaphoresis, fever(s), leg edema, palpitations, sense of impending doom, syncope or vomiting Treatment prior to arrival: none Review of Systems Const: Denies: fever(s) or diaphoresis Card: Denies: palpitations or syncope Resp: Reports: dyspnea GI: Reports: nausea; Denies: abdominal pain or vomiting [facility] ED PFSH: Medical History Diabetes Heart failure History of placement of stent in LAD coronary artery HTN (hypertension) Hyperlipidemia ICD (implantable cardioverter-defibrillator) in place Surgical History History of implantable cardioverter-defibrillator (ICD) placement Family History Father Emphysema of lung Social History Smoking and tobacco status: never smoked Alcohol intake: never History of recent travel: No Physical Exam Const: COMMON NORMALS: no acute distress GENERAL APPEARANCE: cooperative and comfortable ORIENTATION/CONSCIOUSNESS: Yes awake, Yes oriented to person, Yes oriented to place and Yes oriented to time HENMT: COMMON NORMALS: normocephalic, atraumatic and hearing grossly normal bilaterally HEAD & SCALP: normocephalic and atraumatic Neck/C-Spine: COMMON NORMALS: no JVD Resp: COMMON NORMALS: normal respiratory effort, No retractions, No use of accessory muscles and clear to auscultation bilaterally AUSCULTATION: clear to auscultation bilaterally Cardio: COMMON NORMALS: no JVD, regular rate, regular rhythm and No murmurs present (Cardio) RATE: regular rate RHYTHM: regular rhythm GI: COMMON NORMALS: Soft to palpation and No hepatosplenomegaly present AUSCULTATION: Yes normoactive bowel sounds PALPATION: Yes Soft to palpation, No Tenderness to palpation present (GI), No Guarding due to palpation present (GI) and Yes No hepatosplenomegaly present Extremity: COMMON NORMALS: normal to inspection, capillary refill normal, no clubbing, cyanosis or edema, no calf tenderness and no pedal edema Neuro: SENSORIUM/ORIENTATION: Yes oriented to person, Yes oriented to place and Yes oriented to time Skin: COMMON NORMALS: no rashes or lesions noted GENERAL SKIN EXAM: no rashes or lesions noted Course Vital Signs: Vital signs: Vital Signs Pulse Rate 67 09/14/20 15:14 Respiratory Rate 18 09/14/20 15:14 Blood Pressure 159/98 09/14/20 15:14 Pulse Oximetry 95 09/14/20 15:14 MDM - Chest Pain MDM Narrative: Medical decision making narrative: Increase the Lasix to 40 mg daily for the 3 days then return to 20 mg daily follow-up with your primary care doctor. We also added amlodipine due to his blood pressure 5 mg daily would also like him to follow-up with his primary care to reevaluate blood pressure. Any problems or worsening return to the emergency room Lab Data: Labs: Lab Results 09/14/20 09/14/20 09/14/20 Range/Units 11:32 11:32 11:32 WBC 9.5 (4.0-10.0) 10^3/ uL RBC 4.34 (4.1-5.3) 10^6/u L Hgb 13.2 (11.7-16.6) g/dL Hct 40.2 L (42.0-52.0) % MCV 92.6 (80-94) fL MCH 30.4 (28.0-34.0) pg MCHC 32.8 (30.0-36.0) g/dL RDW 14.4 (12.1-15.1) % Plt Count 119 L (130-400) 10^3/c mm MPV 11.8 H (7.4-10.4) fL Neut % (Auto) 75.9 % Lymph % (Auto) 16.7 % [place] % (Auto) 5.6 % Eos % (Auto) 1.2 % Baso % (Auto) 0.3 % Neut # (Auto) 7.20 (1.8-7.7) 10^3/u L Lymph # (Auto) 1.6 (0.8-4.8) 10^3/u L [place] # (Auto) 0.5 (0.2-0.9) 10^3/u L Eos # (Auto) 0.1 (0.0-0.8) 10^3/u L Baso # (Auto) 0.0 (0.0-0.1) 10^3/u L Nucleated RBC % (a uto) 0 % Nucleated RBCs # 0.0 /100WBC Sodium 140 (136-145) mmol/L Potassium 4.1 (3.5-5.1) mmol/L Chloride 103 (98-107) mmol/L Carbon Dioxide 29 (22-29) mmol/L Anion Gap 12.1 (5-19) BUN 14 (8-23) mg/dL Creatinine 0.7 (0.7-1.2) mg/dL GFR Calculation 112.5 (90-130) mL/min Glucose 169 H (65-115) mg/dL Calculated Osmolal ity 294 (285-295) mOsm/k g Calcium 8.6 (8.5-10.5) mg/dL Total Bilirubin 0.6 (0.15-1.2) mg/dL AST 21 (0-40) U/L ALT 21 (0-41) U/L Alkaline Phosphata se 61 (40-130) IU/L Creatine Kinase 316 H (39-308) U/L Troponin T Baselin e 23 H (0-15) ng/L Troponin T 120 Min ramona (0-15) ng/L Delta Troponin T (0-10) ABS# NT-Pro-B Natriuret Pep (0-125) pg/mL Total Protein 6.2 L (6.6-8.7) g/dL Albumin 3.9 (3.5-5.2) g/dL Globulin 2.3 (1.3-4.6) g/dL 09/14/20 09/14/20 Range/Units 11:32 13:30 WBC (4.0-10.0) 10^3/ uL RBC (4.1-5.3) 10^6/u L Hgb (11.7-16.6) g/dL Hct (42.0-52.0) % MCV (80-94) fL MCH (28.0-34.0) pg MCHC (30.0-36.0) g/dL RDW (12.1-15.1) % Plt Count (130-400) 10^3/c mm MPV (7.4-10.4) fL Neut % (Auto) % Lymph % (Auto) % [place] % (Auto) % Eos % (Auto) % Baso % (Auto) % Neut # (Auto) (1.8-7.7) 10^3/u L Lymph # (Auto) (0.8-4.8) 10^3/u L [place] # (Auto) (0.2-0.9) 10^3/u L Eos # (Auto) (0.0-0.8) 10^3/u L Baso # (Auto) (0.0-0.1) 10^3/u L Nucleated RBC % (a uto) % Nucleated RBCs # /100WBC Sodium (136-145) mmol/L Potassium (3.5-5.1) mmol/L Chloride (98-107) mmol/L Carbon Dioxide (22-29) mmol/L Anion Gap (5-19) BUN (8-23) mg/dL Creatinine (0.7-1.2) mg/dL GFR Calculation (90-130) mL/min Glucose (65-115) mg/dL Calculated Osmolal ity (285-295) mOsm/k g Calcium (8.5-10.5) mg/dL Total Bilirubin (0.15-1.2) mg/dL AST (0-40) U/L ALT (0-41) U/L Alkaline Phosphata se (40-130) IU/L Creatine Kinase (39-308) U/L Troponin T Baselin e (0-15) ng/L Troponin T 120 Min ramona 25.98 H (0-15) ng/L Delta Troponin T 2.98 (0-10) ABS# NT-Pro-B Natriuret Pep 3187 H (0-125) pg/mL Total Protein (6.6-8.7) g/dL Albumin (3.5-5.2) g/dL Globulin (1.3-4.6) g/dL Discharge Plan Discharge Patient Disposition: Home Clinical Impression: Congestive heart failure, HTN (hypertension) Condition: Stable Prescriptions: New amlodipine 5 mg tablet 5 mg PO DAILY Qty: 30 RF: 0 Changed furosemide 20 mg tablet 40 mg PO DAILY PRN (Reason: edema) Qty: 0 RF: 0 No Action fentanyl 75 mcg/hr patch 72 hour 1 patch TRANSDERMA Q48H 30 Days Qty: 15 RF: 0 (DME) blood-glucose meter Kit See Rx Instructions .ROUTE .MEDSUPPLY Qty: 1 RF: 0 nitroglycerin 0.4 mg tablet, sublingual 0.4 mg SUBLINGUAL Q5M PRN (Reason: chest pain) Qty: 30 RF: 6 polyethylene glycol 3350 17 gram/dose powder 17 gm PO DAILY PRN (Reason: constipation) Qty: 510 RF: 6 sennosides-docusate sodium [Senexon-S] 8.6-50 mg tablet 1 tab-cap PO DAILY PRN (Reason: constipation) Qty: 30 RF: 3 (DME) pen needle, diabetic [TechLITE Pen Needle] 31 gauge x 5/16 needle See Rx Instructions .ROUTE .MEDSUPPLY Qty: 100 RF: 0 albuterol sulfate [Ventolin HFA] 90 mcg/actuation HFA aerosol inhaler 1 inh INHALATION QID PRN (Reason: shortness of breath or wheezing) Qty: 8.5 RF: 3 cyanocobalamin (vitamin B-12) 1,000 mcg/mL solution 1,000 mcg IM DIRECTED RF: 0 magnesium 250 mg tablet 250 mg PO DAILY@0700 RF: 0 Levemir FlexTouch U-100 Insuln 100 unit/mL (3 mL) insulin pen 30 unit SUBCUT DAILY RF: 0 diclofenac sodium 1 % gel 2 g TOPICAL QID PRN (Reason: arthritis) RF: 0 oxycodone 5 mg tablet 5 mg PO Q4H PRN (Reason: pain) Qty: 40 RF: 0 carvedilol 25 mg tablet 25 mg PO BID@0700,1900 RF: 0 clopidogrel 75 mg tablet 75 mg PO DAILY@0700 RF: 0 aspirin 81 mg tablet,delayed release (DR/EC) 81 mg PO DAILY@0700 RF: 0 tamsulosin 0.4 mg capsule 0.4 mg PO DAILY@0700 RF: 0 metformin 1,000 mg tablet 1,000 mg PO BID@0700,1900 RF: 0 esomeprazole magnesium 40 mg capsule,delayed release(DR/EC) 40 mg PO DAILY@0700 RF: 0 spironolactone 50 mg tablet 50 mg PO DAILY@0700 RF: 0 rosuvastatin 40 mg tablet 40 mg PO BEDTIME@1900 RF: 0 duloxetine 30 mg capsule,delayed release(DR/EC) 30 mg PO DAILY@0700 RF: 0 duloxetine 60 mg capsule,delayed release(DR/EC) 60 mg PO DAILY@0700 RF: 0 Lyrica 300 mg capsule 300 mg PO BID@0700,1900 RF: 0 Entresto 97-103 mg tablet 1 tab PO BID@0700,1900 RF: 0 omeprazole 40 mg capsule,delayed release(DR/EC) 40 mg PO DAILY@0700 RF: 0 Discharge Orders: Discharge ED (Routine); Ordered 09/14/20 Ordered By: Edmund Chew Referrals: Fernando Mathis MD [Primary Care Provider] - Discharge Diet: Usual diet Discharge Activity: Limit activity as instructed Patient Instructions: Opioid Safety Activity Restrictions/Additional Instructions: Increase Lasix to 40 mg daily for 3 days then resume 20 mg daily. Also start amlodipine 5 mg daily. Follow-up with your primary care doctor early next week. Coding Level of Care Code ED Target Worker for Ivonne Guaman
[2020-09-14] MEDS: aspirin 81 mg Chew Tablet 324 MG PO (11:21)
[2020-09-14 11:36] VITALS: BP 157/101; PULSE 86; RESP 22; O2SAT 96
[2020-09-14] MEDS: nitroglycerin 1 gm/inch oint Pkt 1 INCH TOPICAL (11:36)
[2020-09-14 11:43] LABS: Basophils % 0.3 %; Eosinophils # 0.1 10^3/uL (0.0-0.8); Eosinophils % 1.2 %; Hematocrit 40.2 % (42.0-52.0); Hemoglobin 13.2 g/dL (11.7-16.6); Lymphocytes # 1.6 10^3/uL (0.8-4.8); Lymphocytes % 16.7 %; Mean Corpuscular HGB Conc 32.8 g/dL (30.0-36.0); Mean Corpuscular Hemoglobin 30.4 pg (28.0-34.0); Mean Corpuscular Volume 92.6 fL (80-94); Mean Platelet Volume 11.8 fL (7.4-10.4); Monocytes # 0.5 10^3/uL (0.2-0.9); Monocytes % 5.6 %; Neutrophils % 75.9 %; Nucleated Red Blood Cells % 0 %; Platelet Count 119 10^3/cmm (130-400); Red Blood Count 4.34 10^6/uL (4.1-5.3); Red Cell Distribution Width 14.4 % (12.1-15.1); White Blood Count 9.5 10^3/uL (4.0-10.0)
[2020-09-14 12:03] LABS: Alanine Aminotransferase 21 U/L (0-41); Albumin Level 3.9 g/dL (3.5-5.2); Alkaline Phosphatase 61 IU/L (40-130); Anion Gap 12.1 (5-19); Aspartate Amino Transferase 21 U/L (0-40); Blood Urea Nitrogen 14 mg/dL (8-23); Calcium 8.6 mg/dL (8.5-10.5); Carbon Dioxide 29 mmol/L (22-29); Chloride 103 mmol/L (98-107); Creatine Phosphokinase 316 U/L (39-308); Globulin 2.3 g/dL (1.3-4.6); Glomerular Filtration Rate 112.5 mL/min (90-130); Glucose 169 mg/dL (65-115); Osmolality Calculated 294 mOsm/kg (285-295); Potassium 4.1 mmol/L (3.5-5.1); Sodium 140 mmol/L (136-145); Total Bilirubin 0.6 mg/dL (0.15-1.2); Total Protein 6.2 g/dL (6.6-8.7)
[2020-09-14 12:05] LABS: Troponin(5th) Baseline 23 ng/L (0-15)
[2020-09-14 12:34] LABS: NT Pro B Type Natriuretic Pept 3187 pg/mL (0-125)
--- NOTE | 2020-09-14 13:01 | ECG_ITS ---
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: : 1955 Requested By: Edmund Munoz Order Number: [id number] Reading MD: EDISON RUDOLPH Measurements Intervals [place] Rate: 66 P: 59 UT: 191 QRS: -30 QRSD: 154 T: -66 QT: 442 QTc: 465 Interpretive Statements SINUS RHYTHM LEFT BUNDLE BRANCH BLOCK [120+ ms QRS DURATION, 80+ ms Q/S IN V1/V2, 85+ ms R IN I/aVL/V5/V6] Compared to ECG 09/14/2020 10:50:42 Left bundle-branch block now present Left-axis deviation no longer present Intraventricular conduction delay no longer present Electronically Signed On 09-15-2020 22:28:52 CDT by EDISON RUDOLPH [email or web address] [email or web address] [id number]
[2020-09-14 13:08] VITALS: BP 162/99; PULSE 89; RESP 20
[2020-09-14] MEDS: FUROsemide 10 mg/mL SDV 10mL 60 MG IVP (13:27)
[2020-09-14 14:10] VITALS: BP 171/100; PULSE 95; RESP 20; O2SAT 95
[2020-09-14 14:13] LABS: Troponin 5 2HR 25.98 ng/L (0-15); Troponin 5 2HR Delta 2.98 ABS# (0-10)
[2020-09-14 15:14] VITALS: BP 159/98; PULSE 67; RESP 18; O2SAT 95
== END 2020-09-14 15:16 | disposition home or self-care (01) ==
PROVIDERS: Emergency Provider Family Medicine; PCP Internal Medicine
DX: I11.0 Hypertensive heart disease with heart failure (principal); I50.9 Heart failure, unspecified; Z79.02 Long term (current) use of antithrombotics/antiplatelets; Z79.82 Long term (current) use of aspirin; Z79.4 Long term (current) use of insulin; E11.9 Type 2 diabetes mellitus without complications; E78.5 Hyperlipidemia, unspecified
CPT/HCPCS: 36415; 71045; 80053; 82550; 83880; 84484; 85025; 93005; 96374; 99284; J1940

== ENCOUNTER → 2020-12-19 16:40 | Outpatient (BNVA) | payer MEDICARE, MEDICAID, SELFPAY | PROVIDERS: PCP Internal Medicine; Visit Provider Internal Medicine Cardiovascular Disease | DX: I50.42 Chronic combined systolic (congestive) and diastolic (congestive) heart failure (principal); E11.9 Type 2 diabetes mellitus without complications; I25.10 Atherosclerotic heart disease of native coronary artery without angina pectoris; I10 Essential (primary) hypertension; E78.2 Mixed hyperlipidemia; Z95.810 Presence of automatic (implantable) cardiac defibrillator | CPT/HCPCS: 80048; 80061; 83036; 83721; 83735; 83880 ==

== ENCOUNTER 2021-08-23 21:40 | Emergency (ER) | payer MEDICARE, MEDICAID, SELFPAY ==
[2021-08-23] VITALS (9 sets, daily range): BP systolic 138–204; BP diastolic 78–117; PULSE 60–71; RESP 16–20; TEMP 37.2; O2SAT 94–98; BMI 22.8
--- NOTE | 2021-08-23 21:33 | XRR_ITS ---
PROCEDURE INFORMATION: Exam: XR Chest Exam date and time: 08/23/2021 9:51 PM Age: 65 years old Clinical indication: Sternal or substernal pain; Prior surgery; Surgery date: 6+ months; Surgery type: Pacemaker; Additional info: Cp TECHNIQUE: Imaging protocol: XR of the chest. Views: 1 view. COMPARISON: CR (CHEST, ) 09/14/2020 11:22 AM FINDINGS: Tubes, catheters and devices: Pacemaker. Lungs: Right mid lung field calcified granuloma. Right hilar atelectasis versus minimal infiltrate. Pleural spaces: Unremarkable. No pleural effusion. No pneumothorax. Heart/Mediastinum: Cardiomegaly. Bones/joints: Unremarkable. XR/XR chest 1V portable [id number] IMPRESSION: 1. Right mid lung field calcified granuloma. 2. Cardiomegaly. 3. Pacemaker. 4. Right hilar atelectasis versus minimal infiltrate.
--- NOTE | 2021-08-23 21:33 | ECG_ITS ---
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 Measurements Intervals [place] Rate: 73 P: 52 [place]: 168 QRS: -38 QRSD: 156 T: 50 QT: 423 QTc: 468 Interpretive Statements SINUS RHYTHM LEFT AXIS DEVIATION [QRS AXIS < -30] INTRAVENTRICULAR CONDUCTION DELAY [130+ ms QRS DURATION] Compared to ECG 09/14/2020 12:35:21 Left-axis deviation now present Intraventricular conduction delay now present Left bundle-branch block no longer present Electronically Signed On 08-24-2021 21:59:12 CDT by Carlos Alberto Toro M.D. [email or web address] [id number] f
[2021-08-23 21:43] LABS: Basophils % 0.3 %; Hematocrit 51.7 % (42.0-52.0); Hemoglobin 17.8 g/dL (11.7-16.6); Lymphocytes # 1.1 10^3/uL (0.8-4.8); Lymphocytes % 10.8 %; Mean Corpuscular HGB Conc 34.4 g/dL (30.0-36.0); Mean Corpuscular Hemoglobin 30.4 pg (28.0-34.0); Mean Corpuscular Volume 88.2 fl (80-94); Mean Platelet Volume 11.3 fL (7.4-10.4); Monocytes # 0.2 10^3/uL (0.2-0.9); Monocytes % 2.1 %; Neutrophils # 8.63 10^3/uL (1.8-7.7); Neutrophils % 86.6 %; Nucleated Red Blood Cells % 0 %; Platelet Count 160 10^3/cmm (130-400); Red Blood Count 5.86 10^6/uL (4.1-5.3); Red Cell Distribution Width 14.1 % (12.1-15.1)
[2021-08-23] MEDS: labetalol 5 mg/mL SDV 20mL 10 MG IVP (21:43)
--- NOTE | 2021-08-23 21:44 | W.ED.CHESTPA ---
HPI - Chest Pain General: Chief Complaint: Chest Pain Stated Complaint: cp Source: patient and EMS Mode of arrival: EMS Limitations: no limitations History of Present Illness: 65-year-old male who has a history of chronic pain for years and he sees a PCP for. He states he supposed to have fentanyl patches he is ran out of them 2 to 3 days ago and does not get a refill to Mondays also ran out of his blood pressure medicine he states that since then he has been having chest pain abdominal pain along with some nausea. He is also been hypertensive states pain is diffuse in nature sharp he rates it a 7 out of 10 denies any worsening improving factors. Denies any shortness of breath or fever. Associated symptoms: Reports abdominal pain and nausea; Deny dyspnea or fever(s) Review of Systems Const: Denies: fever(s), chills, body aches or change in appetite Eyes: Denies: blurry vision or eye discomfort ENMT: Denies: throat pain or dental pain Card: Reports: chest pain Resp: Denies: dyspnea GI: Reports: abdominal pain and nausea : Denies: dysuria Musc: Denies: neck pain or back pain Skin/Breast: Denies: rash Neuro: Denies: headache(s) Psych: Denies: depression Kai/Lymph: Denies: easy bruising All/Imm: Denies: urticaria PFSH ED PFSH: Medical History (Updated 08/24/21 @ 00:08 by Abilio Jha MD) Diabetes Heart failure History of placement of stent in LAD coronary artery HTN (hypertension) Hyperlipidemia ICD (implantable cardioverter-defibrillator) in place Surgical History History of implantable cardioverter-defibrillator (ICD) placement Family History Father Emphysema of lung Social History Smoking and tobacco status: never smoked Alcohol intake: never History of recent travel: No Physical Exam Const: COMMON NORMALS: no acute distress, patient oriented x3 and healthy appearing HENMT: COMMON NORMALS: normocephalic and atraumatic HEAD & SCALP: normocephalic and atraumatic Eye: COMMON NORMALS: Equal, round and reactive pupils present and EOMs intact bilaterally PUPIL: Yes Equal, round and reactive pupils present Neck/C-Spine: COMMON NORMALS: full ROM and supple Chest: COMMONS NORMALS: normal inspection of the chest and normal palpation of entire chest wall Resp: COMMON NORMALS: normal respiratory effort, No retractions, No use of accessory muscles and clear to auscultation bilaterally AUSCULTATION: clear to auscultation bilaterally Cardio: COMMON NORMALS: regular rate, regular rhythm and No murmurs present (Cardio) RATE: regular rate RHYTHM: regular rhythm GI: COMMON NORMALS: Normal to inspection, nondistended, normoactive bowel sounds present, Soft to palpation, non-tender and no masses PALPATION: Yes Soft to palpation Extremity: COMMON NORMALS: normal to inspection and full ROM Neuro: COMMON NORMALS: patient oriented x3, moves all extremities and no focal motor deficits Psych: COMMON NORMALS: mental status grossly normal, Normal thought process present and cooperative THOUGHT PROCESS: Normal thought process present Skin: COMMON NORMALS: no rashes or lesions noted and no wounds GENERAL SKIN EXAM: no rashes or lesions noted Course Vital Signs: Vital signs: Vital Signs Temperature 98.9 F 08/23/21 21:31 Pulse Rate 71 08/24/21 00:12 Respiratory Rate 20 H 08/24/21 00:12 Blood Pressure 185/93 08/24/21 00:12 Pulse Oximetry 97 08/24/21 00:12 MDM - Chest Pain Medical Decision Making Patient presents here with chest and abdominal pain likely from his chronic pain his last fentanyl patch fell off in the shower and he does not get them refilled till Wednesday we will place 1 fentanyl patch on here should hold him over till he gets his new 1 he is stable for discharge is to follow-up with PCP and return if worsening. Lab Data : 08/23/21 21:35 08/23/21 21:35 Radiology Impressions Chest X-Ray 08/23/21 21:33 IMPRESSION: 1. Right mid lung field calcified granuloma. 2. Cardiomegaly. 3. Pacemaker. 4. Right hilar atelectasis versus minimal infiltrate. Abdomen/Pelvis CT 08/23/21 22:14 IMPRESSION: 1. Negative for acute inflammatory process in the abdomen or pelvis. 2. Diverticulosis without diverticulitis. 3. Constipation. 4. Minimal fusiform aneurysmal dilation of the infrarenal abdominal aorta measuring up to 2.9 cm, negative for findings of rupture. Laboratory Results WBC 10.0 10^3/uL (4.0-10.0) 08/23/21 21: RBC 5.86 10^6/uL (4.1-5.3) H 08/23/21 21:35 Hgb 17.8 g/dL (11.7-16.6) H 08/23/21 21:35 Hct 51.7 % (42.0-52.0) 08/23/21 21:35 MCV 88.2 fl (80-94) 08/23/21 21: MCH 30.4 pg (28.0-34.0) 08/23/21 21: MCHC 34.4 g/dL (30.0-36.0) 08/23/21 21: RDW 14.1 % (12.1-15.1) 08/23/21 21:35 Plt Count 160 10^3/cmm (130-400) 08/23/21 21:35 MPV 11.3 fL (7.4-10.4) H 08/23/21 21:35 Neut % (Auto) 86.6 % 08/23/21 21: Lymph % (Auto) 10.8 % 08/23/21 21:35 [place] % (Auto) 2.1 % 08/23/21 21:35 Eos % (Auto) 0.0 % 08/23/21 21:35 Baso % (Auto) 0.3 % 08/23/21 21:35 Neut # (Auto) 8.63 10^3/uL (1.8-7.7) H 08/23/21 21:35 Lymph # (Auto) 1.1 10^3/uL (0.8-4.8) 08/23/21 21:35 [place] # (Auto) 0.2 10^3/uL (0.2-0.9) 08/23/21 21:35 Eos # (Auto) 0.0 10^3/uL (0.0-0.8) 08/23/21 21:35 Baso # (Auto) 0.0 10^3/uL (0.0-0.1) 08/23/21 21:35 Nucleated RBC % (auto) 0 % 08/23/21 21:35 Nucleated RBCs # 0.0 /100WBC 08/23/21 21:35 Sodium 139 mmol/L (136-145) 08/23/21 21:35 Potassium 4.5 mmol/L (3.5-5.1) 08/23/21 21:35 Chloride 101 mmol/L (98-107) 08/23/21 21:35 Carbon Dioxide 25 mmol/L (22-29) 08/23/21 21:35 Anion Gap 17.5 (5-19) 08/23/21 21:35 BUN 17 mg/dL (8-23) 08/23/21 21:35 Creatinine 0.8 mg/dL (0.7-1.2) 08/23/21 21:35 GFR Calculation 96.4 mL/min (90-130) 08/23/21 21:35 Glucose 173 mg/dL (65-115) H 08/23/21 21:35 Calculated Osmolality 294 mOsm/kg (285-295) 08/23/21 21:35 Calcium 10.8 mg/dL (8.5-10.5) H 08/23/21 21:35 Total Bilirubin 0.7 mg/dL (0.15-1.2) 08/23/21 21:35 AST 14 U/L (0-40) 08/23/21 21:35 ALT 17 U/L (0-41) 08/23/21 21:35 Alkaline Phosphatase 77 IU/L (40-130) 08/23/21 21:35 Troponin T Baseline 18 ng/L (0-15) H 08/23/21 21:35 Troponin T 120 Minute 23.88 ng/L (0-15) H 08/23/21 23:25 Delta Troponin T 5.88 ABS# (0-10) 08/23/21 23:25 Total Protein 8.1 g/dL (6.6-8.7) 08/23/21 21:35 Albumin 4.9 g/dL (3.5-5.2) 08/23/21 21:35 Globulin 3.2 g/dL (1.3-4.6) 08/23/21 21:35 Lipase 26 U/L (13-60) 08/23/21 21:35 EKG Data EKG 1: I personally reviewed and interpreted this EKG as follows: EKG interpretation date: 08/23/21 EKG interpretation time: 21:35 Interpretation: nsr hr [address] or t wave abnormalities qrs 156 qtc 449 EKG 2: I personally reviewed and interpreted this EKG as follows: EKG interpretation date: 08/23/21 EKG interpretation time: 22:45 Interpretation: nsr hr [address] or t wave abnormalities qrs 161 qtc 477 Discharge Plan Discharge Patient Disposition: Home Clinical Impression: Chest pain, Chronic pain Condition: Stable Prescriptions: No Action clotrimazole-betamethasone 1-0.05 % cream 1 applic topical BID Qty: 15 1RF fentanyl 75 mcg/hr patch 72 hour 1 patch TRANSDERMA Q48H 30 Days Qty: 15 0RF oxycodone 5 mg tablet 5 mg PO Q4H PRN (Reason: pain) 10 Days Qty: 40 0RF (DME) blood-glucose meter Kit See Rx Instructions .ROUTE .MEDSUPPLY Qty: 1 0RF Rx Instructions: check blood daily nitroglycerin 0.4 mg tablet, sublingual 0.4 mg SUBLINGUAL Q5M PRN (Reason: chest pain) Qty: 30 6RF Rx Instructions: Use as needed for chest pain every 5 minutes x 3. Call 911 if pain persists. polyethylene glycol 3350 17 gram/dose powder 17 gm PO DAILY PRN (Reason: constipation) Qty: 510 6RF (DME) pen needle, diabetic [TechLITE Pen Needle] 31 gauge x 5/16 needle See Rx Instructions .ROUTE .MEDSUPPLY Qty: 100 0RF Rx Instructions: use with levemir-TWO TIMES DAILY albuterol sulfate [Ventolin HFA] 90 mcg/actuation HFA aerosol inhaler 1 inh INHALATION QID PRN (Reason: shortness of breath or wheezing) Qty: 8.5 3RF duloxetine 30 mg capsule,delayed release(DR/EC) 30 mg PO DAILY@0700 Qty: 30 3RF Rx Instructions: one daily with 60 mg dose to equal 90mg spironolactone 50 mg tablet 50 mg PO DAILY@0700 Qty: 30 3RF magnesium L-lactate [Magtab] 84 mg tablet extended release 84 mg PO BID Qty: 60 5RF tamsulosin 0.4 mg capsule 0.4 mg PO DAILY@0700 Qty: 30 3RF diclofenac sodium 1 % gel 2 g TOPICAL QID PRN (Reason: arthritis) Qty: 100 6RF aspirin 81 mg tablet,delayed release (DR/EC) 81 mg PO DAILY@0700 Qty: 90 3RF amlodipine 5 mg tablet 5 mg PO DAILY Qty: 30 0RF esomeprazole magnesium 40 mg capsule,delayed release(DR/EC) 40 mg PO DAILY@0700 Qty: 30 3RF sennosides-docusate sodium [Senexon-S] 8.6-50 mg tablet 1 tab-cap PO DAILY PRN (Reason: constipation) Qty: 30 3RF duloxetine 60 mg capsule,delayed release(DR/EC) 60 mg PO DAILY@0700 Qty: 30 3RF Rx Instructions: TAKE WITH 30 MG TO MAKE 90 MG DAILY clopidogrel 75 mg tablet 75 mg PO DAILY@0700 Qty: 90 3RF cyanocobalamin (vitamin B-12) 1,000 mcg/mL solution 1,000 mcg IM DIRECTED Qty: 1 6RF Lyrica 300 mg capsule 300 mg PO BID@0700,1900 Qty: 60 3RF omeprazole 40 mg capsule,delayed release(DR/EC) 40 mg PO DAILY@0700 Qty: 30 3RF furosemide 20 mg tablet 40 mg PO DAILY PRN (Reason: edema) Qty: 30 2RF magnesium 250 mg tablet 250 mg PO DAILY@0700 0RF Levemir FlexTouch U-100 Insuln 100 unit/mL (3 mL) insulin pen 30 unit SUBCUT DAILY 0RF carvedilol 25 mg tablet 25 mg PO BID@0700,1900 0RF metformin 1,000 mg tablet 1,000 mg PO BID@0700,1900 0RF rosuvastatin 40 mg tablet 40 mg PO BEDTIME@1900 0RF Entresto 97-103 mg tablet 1 tab PO BID@0700,1900 0RF Discharge Orders: Discharge ED (Routine); Ordered 08/24/21 Ordered By: Abilio Jha Referrals: Fernando Mathis MD [Primary Care Provider] - 1-3 days Discharge Diet: Advance as tolerated Discharge Activity: Resume usual activity Patient Instructions: Chronic Abdominal Pain (ED) Coding Level of Care Code ED [employer] Art Teacher for g Fwd Exam Comprehensive
[2021-08-23] MEDS: ondansetron 2 mg/ML SDV 2 mL 4 MG IVP (21:47)
[2021-08-23] MEDS: HYDROmorphone 1 mg/mL INJ 1 mL IVP ×2 (21:47→22:22)
[2021-08-23 21:59] LABS: Alanine Aminotransferase 17 U/L (0-41); Albumin Level 4.9 g/dL (3.5-5.2); Alkaline Phosphatase 77 IU/L (40-130); Anion Gap 17.5 (5-19); Aspartate Amino Transferase 14 U/L (0-40); Blood Urea Nitrogen 17 mg/dL (8-23); Calcium 10.8 mg/dL (8.5-10.5); Carbon Dioxide 25 mmol/L (22-29); Chloride 101 mmol/L (98-107); Globulin 3.2 g/dL (1.3-4.6); Glomerular Filtration Rate 96.4 mL/min (90-130); Glucose 173 mg/dL (65-115); Lipase 26 U/L (13-60); Osmolality Calculated 294 mOsm/kg (285-295); Potassium 4.5 mmol/L (3.5-5.1); Sodium 139 mmol/L (136-145); Total Bilirubin 0.7 mg/dL (0.15-1.2); Total Protein 8.1 g/dL (6.6-8.7)
[2021-08-23 22:01] LABS: Troponin(5th) Baseline 18 ng/L (0-15)
--- NOTE | 2021-08-23 22:14 | CTR_ITS ---
PROCEDURE INFORMATION: Exam: CT Abdomen And Pelvis With Contrast Exam date and time: 08/23/2021 10:34 PM Age: 65 years old Clinical indication: Nausea and vomiting; Patient HX: C/O abd pain w n/v TECHNIQUE: Imaging protocol: Computed tomography of the abdomen and pelvis with contrast. Radiation optimization: All CT scans at this facility use at least one of these dose optimization techniques: automated exposure control; mA and/or kV adjustment per patient size (includes targeted exams where dose is matched to clinical indication); or iterative reconstruction. Contrast material: OMNI 300; Contrast volume: 95 ml; Contrast route: INTRAVENOUS (IV); COMPARISON: ES surgery / GI images 09/12/2020 10:33 AM RADIATION DOSE METRICS: Total DLP (mGy-cm): 1313.04 FINDINGS: Liver: Normal. No mass. Gallbladder and bile ducts: Normal. No calcified stones. No ductal dilation. Pancreas: Normal. No ductal dilation. Spleen: Normal. No splenomegaly. Adrenal glands: Normal. No mass. Kidneys and ureters: Normal. No hydronephrosis. Stomach and bowel: Constipation. Diverticulosis without diverticulitis. Appendix: No evidence of appendicitis. Intraperitoneal space: Unremarkable. No free air. No significant fluid collection. Arteries: Minimal fusiform aneurysmal dilation of the infrarenal abdominal aorta measuring up to 2.9 cm. Lymph nodes: Unremarkable. No enlarged lymph nodes. Urinary bladder: Unremarkable as visualized. Reproductive: Unremarkable as visualized. Bones/joints: Unremarkable. No acute fracture. Soft tissues: Unremarkable. CT/CT abdomen pelvis w con* [id number] IMPRESSION: 1. Negative for acute inflammatory process in the abdomen or pelvis. 2. Diverticulosis without diverticulitis. 3. Constipation. 4. Minimal fusiform aneurysmal dilation of the infrarenal abdominal aorta measuring up to 2.9 cm, negative for findings of rupture.
[2021-08-23] MEDS: iohexol 300 mg/mL 100 mL Btl IV (22:34)
[2021-08-23] MEDS: labetalol 5 mg/mL SDV 20mL 20 MG IVP (22:39)
--- NOTE | 2021-08-23 23:07 | PC.NURSE ---
BP Dr Jha notified that the patients bp went from 138/78 back up to 191/106 with in 10 minutes post 2nd round of Labetalol. Instructed to continue monitoring.
[2021-08-23] MEDS: hyDRALAzine 20 mg/mL INJ 1 mL 10 MG IVP (23:25)
--- NOTE | 2021-08-23 23:33 | ECG_ITS ---
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 Measurements Intervals [place] Rate: 63 P: 63 IA: 210 QRS: -47 QRSD: 161 T: -37 QT: 469 QTc: 483 Interpretive Statements SINUS RHYTHM WITH FIRST DEGREE AV BLOCK LEFT AXIS DEVIATION [QRS AXIS < -30] INTRAVENTRICULAR CONDUCTION DELAY [130+ ms QRS DURATION] Compared to ECG 09/14/2020 12:35:21 First degree AV block now present Left-axis deviation now present Intraventricular conduction delay now present Left bundle-branch block no longer present Electronically Signed On 08-24-2021 22:02:34 CDT by Carlos Alberto Toro M.D. [email or web address] Advisory Softwaremerit health river regionLendsquaretrumbull [facility] hospital.Newswired/store/[id number]
[2021-08-24] LABS: Troponin 5 2HR 23.88 ng/L (0-15)
[2021-08-24 00:03] LABS: Troponin 5 2HR Delta 5.88 ABS# (0-10)
[2021-08-24 00:09] VITALS: RESP 16
[2021-08-24] MEDS: HYDROmorphone 1 mg/mL INJ 1 mL IVP (00:09)
[2021-08-24 00:12] VITALS: BP 185/93; PULSE 71; RESP 20; O2SAT 97
[2021-08-24] MEDS: fentaNYL 25 mcg Patch 1 PATCH TRANSDERMA (00:34)
[2021-08-24 00:37] VITALS: BP 166/80; PULSE 71; RESP 16; O2SAT 96
[2021-08-24 00:43] VITALS: BP 166/80; PULSE 71; RESP 16; TEMP 37.2; O2SAT 96
== END 2021-08-24 00:52 | disposition home or self-care (01) ==
PROVIDERS: Emergency Provider Emergency Medicine; PCP Internal Medicine
DX: R07.9 Chest pain, unspecified (principal); G89.29 Other chronic pain; I51.7 Cardiomegaly; Z95.0 Presence of cardiac pacemaker; E11.9 Type 2 diabetes mellitus without complications; I50.9 Heart failure, unspecified; I10 Essential (primary) hypertension; E78.5 Hyperlipidemia, unspecified; Z79.891 Long term (current) use of opiate analgesic
CPT/HCPCS: 71045; 74177; 80053; 83690; 84484; 85025; 93005; 96374; 96375; 96376; 99284; J0360; J1170; J2405; J3490; Q9967

== ENCOUNTER 2021-09-27 07:32 | Emergency (ER) | payer MEDICARE, MEDICAID, SELFPAY ==
[2021-09-27 07:34] VITALS: BP 149/98; PULSE 117; RESP 26; TEMP 37.1; O2SAT 97; BMI 22.8
--- NOTE | 2021-09-27 07:34 | ECG_ITS ---
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 Measurements Intervals [place] Rate: 76 P: 51 PA: 199 QRS: -38 QRSD: 154 T: 69 QT: 410 QTc: 463 Interpretive Statements SINUS RHYTHM WITH OCCASIONAL SUPRAVENTRICULAR PREMATURE COMPLEXES LEFT AXIS DEVIATION [QRS AXIS < -30] INTRAVENTRICULAR CONDUCTION DELAY [130+ ms QRS DURATION] Compared to ECG 09/27/2021 07:39:06 Sinus tachycardia no longer present Electronically Signed On 09-27-2021 12:39:16 CDT by Sushila Mckeon M.D. [id number]
--- NOTE | 2021-09-27 07:34 | XRR_ITS ---
PROCEDURE INFORMATION: Exam: XR Chest Exam date and time: 09/27/2021 7:51 AM Age: 66 years old Clinical indication: Pain; Chest pressure; Prior surgery; Surgery type: Pacemaker; Additional info: Chest pain TECHNIQUE: Imaging protocol: XR of the chest. Views: 1 view. COMPARISON: CR (CHEST, ) 08/23/2021 9:51 PM FINDINGS: Tubes, catheters and devices: Cardiac device noted overlying the left chest. Coronary stents noted. Lungs: Calcified granulomas noted. No significant airspace consolidation. Pleural spaces: No pneumothorax. No pleural effusion. Heart/Mediastinum: Cardiomediastinal silhouette is within normal limits. Bones/joints: Cervical spinal fixation hardware noted. XR/XR chest 1V portable [id number] IMPRESSION: No acute cardiopulmonary abnormality identified.
[2021-09-27] MEDS: nitroglycerin 1 gm/inch oint Pkt 1 INCH TOPICAL (07:52)
[2021-09-27 07:53] LABS: Basophils % 0.2 %; Hematocrit 47.1 % (42.0-52.0); Hemoglobin 16.6 g/dL (11.7-16.6); Lymphocytes # 1.2 10^3/uL (0.8-4.8); Lymphocytes % 12.7 %; Mean Corpuscular HGB Conc 35.2 g/dL (30.0-36.0); Mean Corpuscular Hemoglobin 30.5 pg (28.0-34.0); Mean Corpuscular Volume 86.4 fl (80-94); Mean Platelet Volume 11.5 fL (7.4-10.4); Monocytes # 0.3 10^3/uL (0.2-0.9); Monocytes % 3.1 %; Neutrophils # 7.76 10^3/uL (1.8-7.7); Neutrophils % 83.8 %; Nucleated Red Blood Cells % 0 %; Platelet Count 193 10^3/cmm (130-400); Red Blood Count 5.45 10^6/uL (4.1-5.3); White Blood Count 9.3 10^3/uL (4.0-10.0)
[2021-09-27 07:55] VITALS: BP 149/98; PULSE 117; RESP 26; TEMP 37.1; O2SAT 97
[2021-09-27 08:22] LABS: Alanine Aminotransferase 20 U/L (0-41); Albumin Level 4.8 g/dL (3.5-5.2); Alkaline Phosphatase 63 IU/L (40-130); Anion Gap 18.5 (5-19); Aspartate Amino Transferase 11 U/L (0-40); Blood Urea Nitrogen 23 mg/dL (8-23); Calcium 10.7 mg/dL (8.5-10.5); Carbon Dioxide 24 mmol/L (22-29); Chloride 97 mmol/L (98-107); Creatine Phosphokinase 53 U/L (39-308); Creatinine Clr Calc Pharmacy 85.3195; Globulin 2.8 g/dL (1.3-4.6); Glomerular Filtration Rate 96.1 mL/min (90-130); Glucose 319 mg/dL (65-115); Osmolality Calculated 296 mOsm/kg (285-295); Potassium 4.5 mmol/L (3.5-5.1); Sodium 135 mmol/L (136-145); Total Bilirubin 0.6 mg/dL (0.15-1.2); Total Protein 7.6 g/dL (6.6-8.7)
[2021-09-27 08:23] LABS: Troponin(5th) Baseline 14 ng/L (0-15)
--- NOTE | 2021-09-27 08:31 | W.ED.CHESTPA ---
HPI - Chest Pain General: Chief Complaint: Chest Pain Stated Complaint: CHEST PAIN Time Seen by Provider: 09/27/21 07:33 Source: patient Mode of arrival: EMS (Air-Evac) Limitations: no limitations History of Present Illness: 58-year-old male presents emergency room with complaint of left-sided chest pain radiated to his neck. He expands on the pain stating it all over he has a fentanyl patch which recently fell off when he got wet he had this exact same problem than previous presentation. He called 911 Air-Evac transfer and then given a 2 sublingual nitro did not help the pain but it did lower his blood pressure he was also given Zofran however he states he still has some nausea despite that additionally was given 324 of aspirin. He had some shortness of breath with his symptoms but they resolved by the time he arrived. Patient has a known history of coronary artery disease with a known ejection fraction in the 30 to 35% range and a history of congestive heart failure patient has a pacer defibrillator in place. States most of his pain is resolved by the time he arrived here. MD complaint: chest pain Pertinent past history: coronary artery disease and prior PA Onset (ago): hour(s) Timing of current episode: episodic Prior episodes: Yes Onset: during rest Pain location: left chest Pain radiation: neck Severity: severe Pain scale (0-10): 7 Quality: heaviness Relieving factors: nothing Exacerbating factors: nothing Associated symptoms: Reports dyspnea; Deny abdominal pain, diaphoresis, fever(s), leg edema, nausea, palpitations, sense of impending doom, syncope or vomiting Treatment prior to arrival: aspirin, nitroglycerin and oxygen Risk Factors: Coronary artery disease risk factors: none Review of Systems Const: Denies: fever(s) or diaphoresis ENMT: Denies: throat pain, ear or mastoid pain, nasal discharge or nasal congestion Card: Denies: palpitations or syncope Resp: Reports: dyspnea GI: Denies: abdominal pain, nausea or vomiting : Denies: flank pain, dysuria, urinary frequency or urinary urgency Skin/Breast: Denies: rash or pruritus [facility] ED PFSH: Medical History (Updated 09/27/21 @ 10:54 by Edmund Chew DO) Diabetes Heart failure History of placement of stent in LAD coronary artery HTN (hypertension) Hyperlipidemia ICD (implantable cardioverter-defibrillator) in place Surgical History History of implantable cardioverter-defibrillator (ICD) placement Family History Father Emphysema of lung Social History Smoking and tobacco status: never smoked Alcohol intake: never History of recent travel: No Physical Exam Const: COMMON NORMALS: no acute distress GENERAL APPEARANCE: cooperative and comfortable ORIENTATION/CONSCIOUSNESS: Yes awake, Yes oriented to person, Yes oriented to place and Yes oriented to time HENMT: COMMON NORMALS: normocephalic, atraumatic and hearing grossly normal bilaterally HEAD & SCALP: normocephalic and atraumatic Neck/C-Spine: COMMON NORMALS: no JVD Resp: COMMON NORMALS: normal respiratory effort, No retractions, No use of accessory muscles and clear to auscultation bilaterally AUSCULTATION: clear to auscultation bilaterally Cardio: COMMON NORMALS: no JVD, regular rate, regular rhythm and No murmurs present (Cardio) RATE: regular rate RHYTHM: regular rhythm GI: COMMON NORMALS: Soft to palpation and No hepatosplenomegaly present AUSCULTATION: Yes normoactive bowel sounds PALPATION: Yes Soft to palpation, No Tenderness to palpation present (GI), No Guarding due to palpation present (GI) and Yes No hepatosplenomegaly present Extremity: COMMON NORMALS: normal to inspection, capillary refill normal, no clubbing, cyanosis or edema, no calf tenderness and no pedal edema Neuro: SENSORIUM/ORIENTATION: Yes oriented to person, Yes oriented to place and Yes oriented to time Skin: COMMON NORMALS: no rashes or lesions noted GENERAL SKIN EXAM: no rashes or lesions noted Course Vital Signs: Vital signs: Vital Signs Temperature 98.7 F 09/27/21 07:55 Pulse Rate 83 09/27/21 11:22 Respiratory Rate 17 09/27/21 11:22 Blood Pressure 168/101 09/27/21 11:22 Pulse Oximetry 95 09/27/21 11:22 MDM - Chest Pain Medical Decision Making Opponent is negative patient no longer having any chest pain. He had a similar episode when his fentanyl patch fell off previously. He did prefer to go home. He has no acute EKG changes replaces fentanyl patch discharge him home discussed with the patient he needs to manage his fentanyl patch more carefully he is twice lost in the shower and replaced in the ER needs to follow-up with his doctor avoid scrubbing the patch off while bathing. Medical Records I reviewed the patient's medical records. Lab Data I reviewed the patient's lab results. : 09/27/21 07:46 09/27/21 07:46 Radiology Impressions Chest X-Ray 09/27/21 07:34 IMPRESSION: No acute cardiopulmonary abnormality identified. Laboratory Results WBC 9.3 10^3/uL (4.0-10.0) 09/27/21 07:46 RBC 5.45 10^6/uL (4.1-5.3) H 09/27/21 07:46 Hgb 16.6 g/dL (11.7-16.6) 09/27/21 07:46 Hct 47.1 % (42.0-52.0) 09/27/21 07:46 MCV 86.4 fl (80-94) 09/27/21 07:46 MCH 30.5 pg (28.0-34.0) 09/27/21 07:46 MCHC 35.2 g/dL (30.0-36.0) 09/27/21 07:46 RDW 14.0 % (12.1-15.1) 09/27/21 07:46 Plt Count 193 10^3/cmm (130-400) 09/27/21 07:46 MPV 11.5 fL (7.4-10.4) H 09/27/21 07:46 Neut % (Auto) 83.8 % 09/27/21 07:46 Lymph % (Auto) 12.7 % 09/27/21 07:46 [place] % (Auto) 3.1 % 09/27/21 07:46 Eos % (Auto) 0.0 % 09/27/21 07:46 Baso % (Auto) 0.2 % 09/27/21 07:46 Neut # (Auto) 7.76 10^3/uL (1.8-7.7) H 09/27/21 07:46 Lymph # (Auto) 1.2 10^3/uL (0.8-4.8) 09/27/21 07:46 [place] # (Auto) 0.3 10^3/uL (0.2-0.9) 09/27/21 07:46 Eos # (Auto) 0.0 10^3/uL (0.0-0.8) 09/27/21 07:46 Baso # (Auto) 0.0 10^3/uL (0.0-0.1) 09/27/21 07:46 Nucleated RBC % (auto) 0 % 09/27/21 07:46 Nucleated RBCs # 0.0 /100WBC 09/27/21 07:46 Sodium 135 mmol/L (136-145) L 09/27/21 07:46 Potassium 4.5 mmol/L (3.5-5.1) 09/27/21 07:46 Chloride 97 mmol/L (98-107) L 09/27/21 07:46 Carbon Dioxide 24 mmol/L (22-29) 09/27/21 07:46 Anion Gap 18.5 (5-19) 09/27/21 07:46 BUN 23 mg/dL (8-23) 09/27/21 07:46 Creatinine 0.8 mg/dL (0.7-1.2) 09/27/21 07:46 GFR Calculation 96.1 mL/min (90-130) 09/27/21 07:46 Glucose 319 mg/dL (65-115) H 09/27/21 07:46 Calculated Osmolality 296 mOsm/kg (285-295) H 09/27/21 07:46 Calcium 10.7 mg/dL (8.5-10.5) H 09/27/21 07:46 Total Bilirubin 0.6 mg/dL (0.15-1.2) 09/27/21 07:46 AST 11 U/L (0-40) 09/27/21 07:46 ALT 20 U/L (0-41) 09/27/21 07:46 Alkaline Phosphatase 63 IU/L (40-130) 09/27/21 07:46 Creatine Kinase 53 U/L (39-308) 09/27/21 07:46 Troponin T Baseline 14 ng/L (0-15) 09/27/21 07:46 Troponin T 120 Minute 13.82 ng/L (0-15) 09/27/21 09:53 Delta Troponin T -0.18 ABS# (0-10) L 09/27/21 09:53 Total Protein 7.6 g/dL (6.6-8.7) 09/27/21 07:46 Albumin 4.8 g/dL (3.5-5.2) 09/27/21 07:46 Globulin 2.8 g/dL (1.3-4.6) 09/27/21 07:46 Discharge Plan Discharge Patient Disposition: Home Clinical Impression: Atypical chest pain, HTN (hypertension), Myalgia Condition: Stable Prescriptions: No Action oxycodone 5 mg tablet 5 mg PO Q4H PRN (Reason: pain) 10 Days Qty: 40 0RF fentanyl 75 mcg/hr patch 72 hour 1 patch TRANSDERMA Q48H 30 Days Qty: 15 0RF (DME) blood-glucose meter Kit See Rx Instructions .ROUTE .MEDSUPPLY Qty: 1 0RF Rx Instructions: check blood daily nitroglycerin 0.4 mg tablet, sublingual 0.4 mg SUBLINGUAL Q5M PRN (Reason: chest pain) Qty: 30 6RF Rx Instructions: Use as needed for chest pain every 5 minutes x 3. Call 911 if pain persists. polyethylene glycol 3350 17 gram/dose powder 17 gm PO DAILY PRN (Reason: constipation) Qty: 510 6RF (DME) pen needle, diabetic [TechLITE Pen Needle] 31 gauge x 5/16 needle See Rx Instructions .ROUTE .MEDSUPPLY Qty: 100 0RF Rx Instructions: use with levemir-TWO TIMES DAILY magnesium L-lactate [Magtab] 84 mg tablet extended release 84 mg PO BID Qty: 60 5RF tamsulosin 0.4 mg capsule 0.4 mg PO DAILY@0700 Qty: 30 3RF diclofenac sodium 1 % gel 2 g TOPICAL QID PRN (Reason: arthritis) Qty: 100 6RF aspirin 81 mg tablet,delayed release (DR/EC) 81 mg PO DAILY@0700 Qty: 90 3RF amlodipine 5 mg tablet 5 mg PO DAILY Qty: 30 0RF esomeprazole magnesium 40 mg capsule,delayed release(DR/EC) 40 mg PO DAILY@0700 Qty: 30 3RF sennosides-docusate sodium [Senexon-S] 8.6-50 mg tablet 1 tab-cap PO DAILY PRN (Reason: constipation) Qty: 30 3RF duloxetine 60 mg capsule,delayed release(DR/EC) 60 mg PO DAILY@0700 Qty: 30 3RF Rx Instructions: TAKE WITH 30 MG TO MAKE 90 MG DAILY clopidogrel 75 mg tablet 75 mg PO DAILY@0700 Qty: 90 3RF cyanocobalamin (vitamin B-12) 1,000 mcg/mL solution 1,000 mcg IM DIRECTED Qty: 1 6RF Lyrica 300 mg capsule 300 mg PO BID@0700,1900 Qty: 60 3RF omeprazole 40 mg capsule,delayed release(DR/EC) 40 mg PO DAILY@0700 Qty: 30 3RF furosemide 20 mg tablet 40 mg PO DAILY PRN (Reason: edema) Qty: 30 2RF clotrimazole-betamethasone 1-0.05 % cream 1 applic topical BID Qty: 15 1RF albuterol sulfate [Ventolin HFA] 90 mcg/actuation HFA aerosol inhaler 1 inh INHALATION QID PRN (Reason: shortness of breath or wheezing) Qty: 8.5 3RF duloxetine 30 mg capsule,delayed release(DR/EC) 30 mg PO DAILY@0700 Qty: 30 3RF Rx Instructions: one daily with 60 mg dose to equal 90mg spironolactone 50 mg tablet 50 mg PO DAILY@0700 Qty: 30 3RF magnesium 250 mg tablet 250 mg PO DAILY@0700 0RF Levemir FlexTouch U-100 Insuln 100 unit/mL (3 mL) insulin pen 30 unit SUBCUT DAILY 0RF carvedilol 25 mg tablet 25 mg PO BID@0700,1900 0RF metformin 1,000 mg tablet 1,000 mg PO BID@0700,1900 0RF rosuvastatin 40 mg tablet 40 mg PO BEDTIME@1900 0RF Entresto 97-103 mg tablet 1 tab PO BID@0700,1900 0RF Discharge Orders: Discharge ED (Routine); Ordered 09/27/21 Ordered By: Edmund Chew Referrals: Fernando Mathis MD [Primary Care Provider] - Discharge Diet: Usual diet Discharge Activity: Limit activity as instructed Patient Instructions: Opioid Safety Activity Restrictions/Additional Instructions: Continue medications as previously prescribed follow-up with your doctor next week to reevaluate your fentanyl patches as well as your blood pressure. Coding Level of Care Code ED Financial Advisor for Chg Fwd Exam Comprehensive
[2021-09-27 08:32] VITALS: BP 149/98; PULSE 75; RESP 16; O2SAT 96
[2021-09-27 09:27] VITALS: BP 168/110; PULSE 87; RESP 15; O2SAT 96
--- NOTE | 2021-09-27 09:34 | ECG_ITS ---
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 Measurements Intervals [place] Rate: 119 P: 4 MT: 152 QRS: -45 QRSD: 148 T: 105 QT: 342 QTc: 483 Interpretive Statements SINUS TACHYCARDIA POSSIBLE LEFT ATRIAL ENLARGEMENT [-0.1mV P-WAVE IN V1/V2] LEFT AXIS DEVIATION [QRS AXIS < -30] INTRAVENTRICULAR CONDUCTION DELAY [130+ ms QRS DURATION] Compared to ECG 08/23/2021 22:45:08 Sinus rhythm no longer present First degree AV block no longer present Electronically Signed On 09-27-2021 12:49:13 CDT by Sushila Mckeon M.D. [id number]
[2021-09-27 10:21] LABS: Troponin 5 2HR 13.82 ng/L (0-15)
[2021-09-27 10:42] VITALS: BP 168/101; PULSE 83; RESP 17; O2SAT 95
[2021-09-27 10:43] LABS: Troponin 5 2HR Delta -0.18 ABS# (0-10)
[2021-09-27] MEDS: duloxetine 30 mg Capsule PO (11:13)
[2021-09-27] MEDS: tamsulosin 0.4 mg Capsule PO (11:14)
[2021-09-27] MEDS: amlodipine 5 mg Tablet PO (11:14)
[2021-09-27] MEDS: carvedilol 25 mg Tablet PO (11:14)
[2021-09-27] MEDS: FUROsemide 40 mg Tablet PO (11:15)
[2021-09-27] MEDS: spironolactone 25 mg Tablet 50 MG PO (11:15)
[2021-09-27 11:22] VITALS: BP 168/101; PULSE 83; RESP 17; O2SAT 95
== END 2021-09-27 11:25 | disposition home or self-care (01) ==
PROVIDERS: Emergency Provider Family Medicine; PCP Internal Medicine
DX: R07.89 Other chest pain (principal); I10 Essential (primary) hypertension; M79.10 Myalgia, unspecified site; Z79.82 Long term (current) use of aspirin; Z79.891 Long term (current) use of opiate analgesic; Z95.0 Presence of cardiac pacemaker; I11.0 Hypertensive heart disease with heart failure; I50.9 Heart failure, unspecified; E11.9 Type 2 diabetes mellitus without complications; E78.5 Hyperlipidemia, unspecified
CPT/HCPCS: 71045; 80053; 82550; 84484; 85025; 93005; 99284

== ENCOUNTER 2022-01-13 15:07 | Outpatient (CLI) | payer MEDICARE, MEDICAID, SELFPAY ==
[2022-01-13 16:33] LABS: Alanine Aminotransferase 21 U/L (0-41); Albumin Level 4.5 g/dL (3.5-5.2); Alkaline Phosphatase 77 U/L (40-130); Aspartate Amino Transferase 16 U/L (0-40); Blood Urea Nitrogen 15 mg/dL (8-23); Calcium 9.9 mg/dL (8.5-10.5); Carbon Dioxide 32 mmol/L (22-29); Chloride 95 mmol/L (98-107); Globulin 2.2 g/dL (1.3-4.6); Glomerular Filtration Rate 83.9 mL/min (90-130); Glucose 250 mg/dL (65-115); Osmolality Calculated 291 mOsm/kg (285-295); Sodium 136 mmol/L (136-145); Total Bilirubin 0.4 mg/dL (0.15-1.2); Total Protein 6.7 g/dL (6.6-8.7)
[2022-01-13 17:01] LABS: Iron 72 ug/dL (59-158); Percent Saturation 23.3 % (20-50); Total Iron Binding Capacity 309 mcg/dl; Unsaturated Iron Binding 237 ug/dL (112-347)
== END 2022-01-13 15:08 | disposition home or self-care (01) ==
PROVIDERS: PCP Internal Medicine; Visit Provider Internal Medicine
DX: R25.2 Cramp and spasm (principal)
CPT/HCPCS: 36415; 80053; 83540; 83550

== ENCOUNTER → 2022-04-16 17:00 | Outpatient (BNVA) | payer MEDICARE, MEDICAID, SELFPAY | PROVIDERS: PCP Family Medicine; Visit Provider Family Medicine | DX: E78.2 Mixed hyperlipidemia (principal); E11.9 Type 2 diabetes mellitus without complications; I10 Essential (primary) hypertension | CPT/HCPCS: 80053; 80061; 82607; 83036; 83721; 85025 ==

== ENCOUNTER → 2022-04-20 14:34 | Outpatient (BNVA) | payer MEDICARE, MEDICAID, SELFPAY | PROVIDERS: PCP Family Medicine; Visit Provider Podiatrist Foot & Ankle Surgery | DX: B35.1 Tinea unguium (principal); L84 Corns and callosities; E11.9 Type 2 diabetes mellitus without complications; Z79.4 Long term (current) use of insulin | CPT/HCPCS: 11055; 11721; 99203 ==

== ENCOUNTER 2022-07-06 14:36 | Outpatient (CLI) | payer MEDICARE, MEDICAID, SELFPAY ==
--- NOTE | 2022-07-06 14:30 | USCV_ITS ---
Brian Lozada Age: 66 Gender: M : 1955 Exam Date: 07/06/2022 14:58 Ordering Phys: Shemar Kaiser MD Technologist: Siddhartha Smiley Exam Location: [facility] [place] Indication: HFrEF BP: 128 / 80 HR: 65 Rhythm: Sinus Technical Quality: Adequate MEASUREMENTS (Male / Female) Normal Values 2D ECHO LVOT Diameter 2.0 cm LV Ejection Fraction MOD 2C 42.7 % LV Ejection Fraction 2C AL 41.0 % LA Diameter 3.4 cm LA Width 2.6 cm LA Height 5.0 cm RA Width 3.9 cm RA Height 4.3 cm Aorta at Sinotubular Diameter 3.2 cm IVC Diameter 1.6 cm M-MODE Aortic Annulus Diameter 3.2 cm LA Ao Ratio MM 1.1 MV E Point Septal Separation 1.9 cm DOPPLER AV Peak Velocity 144.3 cm/s LVOT Peak Velocity 135.0 cm/s AV Area Cont Eq vti 3.0 cm squared AV Area Cont Eq pk 3.0 cm squared MV Peak Velocity 136.0 cm/s MV Area PHT 4.8 cm squared Mitral E to A Ratio 1.0 MV E' Velocity 52.0 cm/s Mitral E to MV E' Ratio 11.4 Mitral E to LV E' Lateral Ratio 8.5 Mitral E to LV E' Septal Ratio 17.6 TR Peak Velocity 344.1 cm/s TR Peak Gradient 47.4 mmHg TR Mean Velocity 255.2 cm/s TR Mean Gradient 28.5 mmHg TR Velocity Time Integral 112.6 cm Right Atrial Pressure 3.0 mmHg Pulmonary Artery Systolic Pressu 50.4 mmHg PV Peak Velocity 118.0 cm/s RV Acceleration Time 0.1 s RV Ejection Time 0.3 s RV AcT/ET 0.4 FINDINGS Left Ventricle Left ventricle is normal in size. LV systolic function is moderately reduced with EF of 35-40%. Accurate assessment of regional wall motion abnormalities is not possible because of poor ultrasonic windows Right Ventricle Normal in size and function. Pacemaker wire is seen Right Atrium Normal in size Left Atrium Dilated Mitral Valve Structurally normal mitral valve. Mild mitral regurgitation. Aortic Valve Grossly normal. No significant aortic stenosis. Trace aortic regurgitation. Tricuspid Valve Mild tricuspid regurgitation. Pulmonary artery systolic pressure is 50 to 55 mmHg. This is consistent with moderate pulmonary hypertension. Pulmonic Valve Not well visualized Pericardium Normal Aorta Normal in size IVC Appears to be normal CONCLUSIONS Technically limited quality echocardiogram because of poor ultrasonic windows. LV systolic function is moderately reduced with EF of 35 to 40%. Accurate assessment of regional wall motion abnormalities is not possible because of poor ultrasonic windows. Left atrial dilation Mild mitral regurgitation Trace aortic regurgitation Mild tricuspid regurgitation Moderate pulmonary hypertension Compared to prior echocardiogram from 2019, no significant changes are seen Darryl Salamanca MD (Electronically Signed) Final Date: 10 July 2022 23:01 S
== END 2022-07-06 14:37 | disposition home or self-care (01) ==
LOC: RAD 14:36
PROVIDERS: PCP Family Medicine; Visit Provider Family Medicine
DX: I50.20 Unspecified systolic (congestive) heart failure (principal); I08.3 Combined rheumatic disorders of mitral, aortic and tricuspid valves; I27.20 Pulmonary hypertension, unspecified
CPT/HCPCS: 80053; 93306

== ENCOUNTER → 2022-07-17 15:11 | Outpatient (BNVA) | payer MEDICARE, MEDICAID, SELFPAY | PROVIDERS: PCP Family Medicine; Visit Provider Family Medicine | DX: E11.9 Type 2 diabetes mellitus without complications (principal) | CPT/HCPCS: 80048; 83036 ==

== ENCOUNTER → 2022-09-10 13:30 | Outpatient (BNVA) | payer MEDICARE, MEDICAID, SELFPAY | PROVIDERS: PCP Family Medicine; Visit Provider Specialist | DX: I25.10 Atherosclerotic heart disease of native coronary artery without angina pectoris (principal); Z95.810 Presence of automatic (implantable) cardiac defibrillator; E78.2 Mixed hyperlipidemia; I42.9 Cardiomyopathy, unspecified; I11.0 Hypertensive heart disease with heart failure; I50.20 Unspecified systolic (congestive) heart failure | CPT/HCPCS: 93005; 99214 ==

== ENCOUNTER → 2022-09-28 13:51 | Outpatient (BNVA) | payer MEDICARE, MEDICAID, SELFPAY | PROVIDERS: PCP Family Medicine; Visit Provider Podiatrist Foot & Ankle Surgery | DX: E11.9 Type 2 diabetes mellitus without complications (principal); Z79.4 Long term (current) use of insulin; B35.1 Tinea unguium; L84 Corns and callosities | CPT/HCPCS: 11721 ==

== ENCOUNTER 2022-10-13 10:17 | Outpatient (CLI) | payer MEDICARE, MEDICAID, SELFPAY ==
[2022-10-13 11:00] VITALS: BMI 25.4
--- NOTE | 2022-10-13 11:03 | ECG_ITS ---
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 Interpretive Statements NAME OF STUDY: LEXISCAN SESTAMIBI STRESS TEST INDICATION: Surgical clearance PROCEDURE: At the baseline, the blood pressure was 138/66 mmHg with a heart rate of 59 bpm. The electrocardiogram showed sinus bradycardia with first-degree AV block. Left bundle branch block. The Lexiscan was infused over a period of 20 seconds. A total of 0.4 milligrams of Lexiscan was infused. The stress phase was continued for a total of 5 minutes. Heart rate at the end of the stress phase was 69 bpm with a blood pressure 122/64 mmHg. The EKG at the peak infusion revealed rhythm with left bundle branch block. Sestamibi was injected 20 seconds after the Lexiscan infusion. Blood pressure at the end of the recovery phase was 133/67 mmHg with a heart rate of 67 beats per minute. CONCLUSION: 1. Nondiagnostic EKG changes with the LexiScan infusion due to baseline left bundle branch block. 2. No LexiScan induced chest pain or cardiac arrhythmia. 3. Normal blood pressure and heart rate response. 4. Sestamibi/sestamibi perfusion scan pending; see separate report. Electronically Signed On 10-14-2022 12:12:57 CDT by Sushila Mckeon M.D. [id number]
--- NOTE | 2022-10-13 11:03 | NMCV_ITS ---
NM derick perf SPECT r/s* [id number] Brian Lozada Age: 67 Gender: M : 1955 Exam Date: 10/13/2022 11:46 Ordering Phys: Asuncion Waterman MD ([email or web address]) Technologist: JACQUIE Tellez Exam Location: [facility] Indications: SHORTNESS OF BREATH, ATHEROSCLEROTIC HEART DISEASE STRESS TEST Please [facility] IMAGE PROTOCOL Rest/Stress 1 Lexiscan Day Radiopharmaceutical Dose (mCi) Administration Site Administered by Rest: Tc-99m 10.9 IV JACQUIE Braun Sestamibi Stress:Tc-99m 32.8 IV JACQUIE Tellez Sestamibryson Rest: 13-Oct-2022 60 Discovery 630 Stress: 13-Oct-2022 30 Discovery 630 0.4mg Lexiscan. Supine position only as patient was unable to lay prone. SPECT RESULTS Technical Quality: Good Raw Data Analysis: Normal Image Corrections: No attenuation or motion correction applied Summed Stress Score: 32 Summed Rest Score: 39 Summed Difference Score: 0 PERFUSION FINDINGS Large sized perfusion abnormality of severe severity of basal to apical inferior, basal to mid anteroseptal inferoseptal, apical septal, mid to apical anterior and apical vázquez on rest and stress images. FUNCTIONAL RESULTS (calculated via Gated SPECT) Stress Image LV EF (%): 29 Stress EDV (mL):215 TID: 1.07 Stress ESV (mL):152 FUNCTIONAL FINDINGS: The left ventricle is dilated. Transient Ischemia Dilatation of 1.1. The left ventricular ejection fraction is severely reduced with a value of 29%. There is global hypokinesis more pronounced inferior and apical vázquez. Markedly increased end-diastolic and end-systolic volumes. IMPRESSIONS 1. Large sized fixed perfusion abnormality of severe severity of basal to apical inferior, basal to mid anteroseptal inferoseptal, apical septal, mid to apical anterior and apical vázquez. 2.This is suggestive of old myocardial infarction in right coronary artery and left anterior descending artery. 3. The left ventricular ejection fraction is severely reduced with a value of 29%. 4. There is global hypokinesis more pronounced inferior and apical vázquez. 5. No coronary ischemia based on the study. Sushila Mckeon MD (Electronically Signed) Final Date: 14 Oct 2022 12:19 S
[2022-10-13] MEDS: regadenoson 0.4 Mg/5 ml Syringe IVP (12:57)
[2022-10-13 13:10] VITALS: BP 133/67; PULSE 67
== END 2022-10-13 10:18 | disposition home or self-care (01) ==
LOC: CDL 10:21
PROVIDERS: PCP Family Medicine; Visit Provider Specialist
DX: Z01.810 Encounter for preprocedural cardiovascular examination (principal); I44.7 Left bundle-branch block, unspecified
CPT/HCPCS: 36415; 78452; 93017; 96374; A9500; J2785

== ENCOUNTER → 2022-11-30 15:39 | Outpatient (BNVA) | payer MEDICARE, MEDICAID, SELFPAY | PROVIDERS: PCP Family Medicine; Visit Provider Podiatrist Foot & Ankle Surgery | DX: I73.9 Peripheral vascular disease, unspecified (principal); B35.1 Tinea unguium; E11.9 Type 2 diabetes mellitus without complications; Z79.4 Long term (current) use of insulin | CPT/HCPCS: 11721 ==

== ENCOUNTER 2022-11-30 16:16 | Emergency (ER) | payer MEDICARE, MEDICAID, SELFPAY ==
--- NOTE | 2022-11-30 16:17 | CTR_ITS ---
PROCEDURE INFORMATION: Exam: CT Head Without Contrast Exam date and time: 11/30/2022 4:36 PM Age: 67 years old Clinical indication: Injury or trauma; Fall; Blunt trauma (contusions or hematomas); Injury details: History--pt fell and hit back of tadeo. Christiano collor in place. PT noted to have left lower extremity weakness. TECHNIQUE: Imaging protocol: Computed tomography of the head without contrast. Radiation optimization: All CT scans at this facility use at least one of these dose optimization techniques: automated exposure control; mA and/or kV adjustment per patient size (includes targeted exams where dose is matched to clinical indication); or iterative reconstruction. REPORTING DATA: Count of CT and Cardiac NM exams in prior 12 months: This patient has received [address] and 0 known cardiac nuclear medicine studies in the 12 months prior to the current study. COMPARISON: CT head wo con* [id number] 02/20/2020 5:26 PM RADIATION DOSE METRICS: Total DLP (mGy-cm): 1212.28 FINDINGS: Brain: No acute intracranial hemorrhage. No edema. No mass effect. No focal abnormality in brain parenchyma. Cerebral ventricles: No hydrocephalus. The ventricles and sulci are prominent in size in keeping with brain atrophy. Paranasal sinuses: Visualized sinuses are unremarkable. No fluid levels. Mastoid air cells: No mastoid effusion. Bones/joints: No acute fracture. No suspicious lytic or sclerotic bone lesions. Soft tissues: Unremarkable. CT/CT head wo con* [id number] IMPRESSION: No acute intracranial abnormality.
--- NOTE | 2022-11-30 16:17 | CTR_ITS ---
PROCEDURE INFORMATION: Exam: CT Cervical Spine Without Contrast Exam date and time: 11/30/2022 4:36 PM Age: 67 years old Clinical indication: Injury or trauma; Fall; Blunt trauma; Injury details: Vhistory--pt fell and hit back of tadeo. Christiano collor in place. PT noted to have left lower extremity weakness. TECHNIQUE: Imaging protocol: Computed tomography of the cervical spine without contrast. Radiation optimization: All CT scans at this facility use at least one of these dose optimization techniques: automated exposure control; mA and/or kV adjustment per patient size (includes targeted exams where dose is matched to clinical indication); or iterative reconstruction. REPORTING DATA: Count of CT and Cardiac NM exams in prior 12 months: This patient has received [address] and 0 known cardiac nuclear medicine studies in the 12 months prior to the current study. COMPARISON: CR XR soft tissue neck [id number] 07/21/2018 7:04 AM RADIATION DOSE METRICS: Total DLP (mGy-cm): 209.6 FINDINGS: Bones/joints: No acute fracture. Stable C4-C6 fusion with anterior internal fixation plate. Stable degenerative grade 1 anterolisthesis of C6 and C7. There is mild spinal stenosis at C3-C4, C4-C5 and C5-C6 level. There are degenerative changes in uncovertebral and facet joints contributing to foraminal stenosis (moderate bilateral at C3-C4, mild left at C5-C6, mild left at C6-C7, mild bilateral at C7-T1 levels). Lungs: Lung apices are normal. Soft tissues: Unremarkable. CT/CT cervical spin wo con* [id number] IMPRESSION: No acute fracture.
--- NOTE | 2022-11-30 16:18 | ECG_ITS ---
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 Measurements Intervals [place] Rate: 91 P: 35 NC: 170 QRS: -34 QRSD: 156 T: 99 QT: 381 QTc: 470 Interpretive Statements SINUS RHYTHM WITH SINUS ARRHYTHMIA LEFT AXIS DEVIATION [QRS AXIS < -30] INTRAVENTRICULAR CONDUCTION DELAY [130+ ms QRS DURATION] Compared to ECG 09/27/2021 09:46:58 No significant changes Electronically Signed On 11-30-2022 21:39:14 CDT by Carlos Alberto Toro M.D. [id number]
[2022-11-30 16:28] VITALS: BP 142/86; PULSE 92; RESP 17; TEMP 37.2; O2SAT 99
--- NOTE | 2022-11-30 16:32 | W.ED.NEUROSD ---
Documented by User: Edmund Chew DO 12/01/22 06:08 HPI - Neuro Symptoms/Deficit General: Chief Complaint: Neuro Symptoms/Deficit Stated Complaint: fall, loc, neck pain Time Seen by Provider: 11/30/22 16:17 Source: patient Mode of arrival: wheelchair Limitations: no limitations History of Present Illness: 67-year-old male presents to the emergency room with the family he was Fernanda will be billing is can to see podiatry he tells me that he turned lost his balance and fell he has poor memory of the events. Family at the bedside said in the morning he is quite sharp he can have a extended conversation about multiple different complicated topics without any difficulty but as the day wears on he quickly loses attention span and develops cognitive abilities have been concerned about developing Alzheimer's and sundowners. Did not have him evaluated before he does not have any focal neurologic deficits either at home or here when he arrives. He is awake and alert in a c-collar he was brought here from immobility after rapid response he denies any chest or abdominal pain any recent fever sweats chills. No nausea vomiting or diarrhea Onset (ago): minute(s) History of same: Yes Relieving factors: none Exacerbating factors: other (Late in the day) Context: gradual onset and recent fall Associated symptoms: Deny chest pain, cough, diaphoresis, fevers/chills, headache(s), anorexia, malaise, nausea, seizures, short of breath, syncope, tingling, vertigo, vomiting or weakness Treatments Prior to Arrival: none Review of Systems Const: Denies: fever(s), chills, malaise or diaphoresis ENMT: Denies: throat pain, ear or mastoid pain, nasal discharge or nasal congestion Card: Denies: chest pain or syncope Resp: Denies: dyspnea, productive cough or non-productive cough GI: Denies: nausea or vomiting : Denies: flank pain, dysuria, urinary frequency or urinary urgency Skin/Breast: Denies: rash or pruritus Neuro: Denies: headache(s) or vertigo [facility] ED PFSH: Medical History Asthma BPH (benign prostatic hyperplasia) Diabetes GERD (gastroesophageal reflux disease) Heart failure with reduced ejection fraction History of placement of stent in LAD coronary artery HTN (hypertension) Hyperlipidemia ICD (implantable cardioverter-defibrillator) in place Surgical History History of implantable cardioverter-defibrillator (ICD) placement Family History Father Emphysema of lung Social History Smoking and tobacco status: never smoked Alcohol intake: never Substance/Drug Use: never Lives independently: Yes Marital status: / Current occupational status: disabled Current gender identity: Male Special eduardo needs: No Agree to transfusion: Yes NIH stroke score NIHSS: Level Of Consciousness - 1a: 1 Level Of Consciousness Questions - 1b: One Correct Level Of Consciousness Commands - 1c: Both Correct Best Gaze - 2: Normal Visual Agarwal - 3: No Visual Loss Facial Palsy - 4: Normal Motor Arm Right - 5: No Drift Motor Arm Left - 5: No Drift Motor Leg Right - 6: No Drift Motor Leg Left - 6: No Drift Limb Ataxia - 7: Absent Sensory - 8: Normal Best Language - 9: No Aphasia Dysarthia - 10: Normal Extinction And Inattention - 11: 0 Score: Total Score: 2 Physical Exam Const: COMMON NORMALS: no acute distress GENERAL APPEARANCE: cooperative and comfortable ORIENTATION/CONSCIOUSNESS: Yes awake, Yes oriented to person and Yes oriented to place HENMT: COMMON NORMALS: normocephalic, atraumatic and hearing grossly normal bilaterally HEAD & SCALP: normocephalic and atraumatic Resp: COMMON NORMALS: normal respiratory effort, No retractions, No use of accessory muscles and clear to auscultation bilaterally AUSCULTATION: clear to auscultation bilaterally Cardio: COMMON NORMALS: regular rate, regular rhythm and No murmurs present (Cardio) RATE: regular rate RHYTHM: regular rhythm GI: COMMON NORMALS: Soft to palpation and No hepatosplenomegaly present AUSCULTATION: Yes normoactive bowel sounds PALPATION: Yes Soft to palpation, No Tenderness to palpation present (GI), No Guarding due to palpation present (GI) and Yes No hepatosplenomegaly present Extremity: COMMON NORMALS: normal to inspection, capillary refill normal, no clubbing, cyanosis or edema, no calf tenderness and no pedal edema Neuro: SENSORIUM/ORIENTATION: Yes oriented to person and Yes oriented to place Skin: COMMON NORMALS: no rashes or lesions noted GENERAL SKIN EXAM: no rashes or lesions noted Course Vital Signs: Vital signs: Vital Signs Temperature 98.9 F 11/30/22 16:28 Pulse Rate 63 11/30/22 19:52 Respiratory Rate 20 H 11/30/22 19:52 Blood Pressure 143/86 11/30/22 19:52 Pulse Oximetry 91 11/30/22 19:52 Oxygen Delivery Me thod Room Air 11/30/22 18:20 MDM - Neuro Symptoms/Deficit Medical Decision Making NIH is 2 however these are accounted for by his dementia family at the bedside states this is his baseline at this time of day. He is on a fentanyl patch which I suspect may contribute to it. Care signed out to Dr. Jha at change of shift. See final notes for diagnosis and disposition. Patient presents here with frequent falls he did have a fall the day he has been well-appearing here blood work head CT are all normal he is stable for discharge she is to follow-up with his PCP and return if worsening. Lab Data 11/30/22 17:03 11/30/22 17:03 Radiology Impressions Cervical Spine CT 11/30/22 16:17 IMPRESSION: No acute fracture. Head CT 11/30/22 16:17 IMPRESSION: No acute intracranial abnormality. Laboratory Results WBC 6.9 10^3/uL (4.0-10.0) 11/30/22 17: RBC 3.83 10^6/uL (4.1-5.3) L 11/30/22 17:03 Hgb 11.6 g/dL (11.7-16.6) L 11/30/22 17:03 Hct 35.0 % (42.0-52.0) L 11/30/22 17:03 MCV 91.4 fl (80-94) 11/30/22 17:03 MCH 30.3 pg (28.0-34.0) 11/30/22 17: MCHC 33.1 g/dL (30.0-36.0) 11/30/22 17: RDW 14.3 % (12.1-15.1) 11/30/22 17:03 Plt Count 121 10^3/cmm (130-400) L 11/30/22 17:03 MPV 12.2 fL (7.4-10.4) H 11/30/22 17:03 Neut % (Auto) 64.8 % 11/30/22 17:03 Lymph % (Auto) 25.1 % 11/30/22 17:03 [place] % (Auto) 6.5 % 11/30/22 17:03 Eos % (Auto) 2.6 % 11/30/22 17:03 Baso % (Auto) 0.6 % 11/30/22 17:03 Neut # (Auto) 4.46 10^3/uL (1.8-7.7) 11/30/22 17:03 Lymph # (Auto) 1.7 10^3/uL (0.8-4.8) 11/30/22 17:03 [place] # (Auto) 0.5 10^3/uL (0.2-0.9) 11/30/22 17:03 Eos # (Auto) 0.2 10^3/uL (0.0-0.8) 11/30/22 17:03 Baso # (Auto) 0.0 10^3/uL (0.0-0.1) 11/30/22 17:03 Nucleated RBC % (auto) 0 % 11/30/22 17: Nucleated RBCs # 0.0 /100WBC 11/30/22 17:03 Sodium 133 mmol/L (136-145) L 11/30/22 17:03 Potassium 3.9 mmol/L (3.5-5.1) 11/30/22 17:03 Chloride 99 mmol/L (98-107) 11/30/22 17:03 Carbon Dioxide 26 mmol/L (22-29) 11/30/22 17:03 Anion Gap 11.9 (5-19) 11/30/22 17:03 BUN 17 mg/dL (8-23) 11/30/22 17:03 Creatinine 0.8 mg/dL (0.7-1.2) 11/30/22 17:03 GFR Calculation 95.8 mL/min (90-130) 11/30/22 17:03 Glucose 199 mg/dL (65-115) H 11/30/22 17:03 Calculated Osmolality 283 mOsm/kg (285-295) L 11/30/22 17:03 Calcium 8.8 mg/dL (8.5-10.5) 11/30/22 17:03 Total Bilirubin 0.3 mg/dL (0.15-1.2) 11/30/22 17:03 AST 11 U/L (0-40) 11/30/22 17:03 ALT 10 U/L (0-41) 11/30/22 17:03 Alkaline Phosphatase 60 U/L (40-130) 11/30/22 17:03 Total Protein 5.8 g/dL (6.6-8.7) L 11/30/22 17: Albumin 3.7 g/dL (3.5-5.2) 11/30/22 17: Globulin 2.1 g/dL (1.3-4.6) 11/30/22 17:03 Urine Color Dark yellow (Yellow) 11/30/22 18:30 Urine Appearance Clear (CLEAR) 11/30/22 18:30 Urine pH 5 (5-7) 11/30/22 18:30 Ur Specific [place] 1.020 (1.005-1.030) 11/30/22 18:30 Urine Protein 1+ (Negative) H 11/30/22 18:30 Urine Glucose (UA) 2+ (Normal) H 11/30/22 18:30 Urine Ketones 1+ (Negative) H 11/30/22 18:30 Urine Blood Neg (Negative) 11/30/22 18:30 Urine Nitrate Negative (Negative) 11/30/22 18:30 Urine Bilirubin 1+ (Negative) H 11/30/22 18:30 Urine Urobilinogen 1 mg/dL (Negative) H 11/30/22 18:30 Ur Leukocyte Esterase Negative (Negative) 11/30/22 18:30 Urine RBC 0-4 /hpf (0-2) H 11/30/22 18:30 Urine WBC None /hpf (0-5) 11/30/22 18:30 Ur Squamous Epith Cells 0-4 /hpf (0-5) H 11/30/22 18:30 Amorphous Sediment Not Reportable 11/30/22 18:30 Urine Bacteria 1+ /hpf (NONE) H 11/30/22 18:30 Hyaline Casts 0-4 /lpf H 11/30/22 18:30 Discharge Plan Discharge Patient Disposition: Home Clinical Impression: Fall Condition: Stable Prescriptions: No Action torsemide 20 mg tablet 40 mg PO DAILY PRN Levemir FlexTouch U-100 Insuln 100 unit/mL (3 mL) insulin pen 40 unit SUBCUT DAILY 30 Days Qty: 15 2RF Farxiga 10 mg tablet 10 mg PO DAILY Qty: 30 2RF potassium chloride 20 mEq tablet extended release 20 meq PO DAILY levocetirizine [Xyzal] 5 mg tablet 5 mg PO DAILY Qty: 90 1RF fluticasone propionate [Flonase Allergy Relief] 50 mcg/actuation spray,suspension 2 spray intranasal DAILY Qty: 16 1RF Rx Instructions: administer into each nostril (DME) Rollaid with seat See Rx Instructions .Route .MEDSUPPLY Qty: 1 0RF Rx Instructions: As directed (DME) blood-glucose meter Kit See Rx Instructions .ROUTE .MEDSUPPLY Qty: 1 0RF Rx Instructions: check blood daily nitroglycerin 0.4 mg tablet, sublingual 0.4 mg SUBLINGUAL Q5M PRN (Reason: chest pain) Qty: 30 6RF Rx Instructions: Use as needed for chest pain every 5 minutes x 3. Call 911 if pain persists. polyethylene glycol 3350 17 gram/dose powder 17 gm PO DAILY PRN (Reason: constipation) Qty: 510 6RF (DME) pen needle, diabetic [TechLITE Pen Needle] 31 gauge x 5/16 needle See Rx Instructions .ROUTE .MEDSUPPLY Qty: 100 0RF Rx Instructions: use with levemir-TWO TIMES DAILY aspirin 81 mg tablet,delayed release (DR/EC) 81 mg PO DAILY@0700 Qty: 90 3RF omeprazole 40 mg capsule,delayed release(DR/EC) 40 mg PO DAILY@0700 Qty: 30 3RF diclofenac sodium 1 % gel 2 g TOPICAL QID PRN (Reason: arthritis) Qty: 100 6RF sennosides-docusate sodium [Senexon-S] 8.6-50 mg tablet 1 tab-cap PO DAILY PRN (Reason: constipation) Qty: 30 3RF tamsulosin 0.4 mg capsule 0.4 mg PO DAILY@0700 Qty: 30 3RF Entresto 97-103 mg tablet 1 tab PO BID Qty: 180 1RF albuterol sulfate [Ventolin HFA] 90 mcg/actuation HFA aerosol inhaler 1 inh INHALATION QID PRN (Reason: shortness of breath or wheezing) Qty: 8.5 3RF duloxetine 60 mg capsule,delayed release(DR/EC) See Rx Instructions .ROUTE .COMPLEX Qty: 30 3RF Dose Instruction: TAKE 1 CAPSULE BY MOUTH EVERY DAY AT 7AM WITH 30MG DOSE Rx Instructions: TAKE 1 CAPSULE BY MOUTH EVERY DAY AT 7AM WITH 30MG DOSE esomeprazole magnesium 40 mg capsule,delayed release(DR/EC) See Rx Instructions .ROUTE .COMPLEX Qty: 30 3RF Dose Instruction: TAKE 1 CAPSULE BY MOUTH EVERY DAY AT 7AM Rx Instructions: TAKE 1 CAPSULE BY MOUTH EVERY DAY AT 7AM amlodipine 5 mg tablet See Rx Instructions .ROUTE .COMPLEX Qty: 30 3RF Dose Instruction: TAKE 1 TABLET BY MOUTH EVERY DAY Rx Instructions: TAKE 1 TABLET BY MOUTH EVERY DAY duloxetine 30 mg capsule,delayed release(DR/EC) 30 mg PO DAILY@0700 Qty: 30 3RF Rx Instructions: one daily with 60 mg dose to equal 90mg spironolactone 50 mg tablet See Rx Instructions .ROUTE .COMPLEX Qty: 30 3RF Dose Instruction: TAKE 1 TABLET BY MOUTH EVERY DAY AT 7AM Rx Instructions: TAKE 1 TABLET BY MOUTH EVERY DAY AT 7AM pregabalin 300 mg capsule 300 mg PO BID Qty: 60 0RF fentanyl 75 mcg/hr patch 72 hour 1 patch TRANSDERMA Q48H 30 Days Qty: 15 0RF rosuvastatin 40 mg tablet 40 mg PO BEDTIME@1900 carvedilol 25 mg tablet 25 mg PO DAILY Discharge Orders: Discharge ED (Routine); Ordered 11/30/22 Ordered By: Abilio Jha Referrals: Shemar Kaiser MD [Primary Care Provider] - Discharge Diet: Advance as tolerated Discharge Activity: Resume usual activity Patient Instructions: Fall Prevention (ED) Coding Level of Care Code ED Dispatcher Street Department for Ivonne Guaman Documented by User: Abilio Jha MD 11/30/22 19:25 HPI - Neuro Symptoms/Deficit General: Chief Complaint: Neuro Symptoms/Deficit Stated Complaint: fall, loc, neck pain Time Seen by Provider: 11/30/22 16:17 History of Present Illness: . [facility] ED PFSH: Medical History Asthma BPH (benign prostatic hyperplasia) Diabetes GERD (gastroesophageal reflux disease) Heart failure with reduced ejection fraction History of placement of stent in LAD coronary artery HTN (hypertension) Hyperlipidemia ICD (implantable cardioverter-defibrillator) in place Surgical History History of implantable cardioverter-defibrillator (ICD) placement Family History Father Emphysema of lung Social History Smoking and tobacco status: never smoked Alcohol intake: never Substance/Drug Use: never Lives independently: Yes Marital status: / Current occupational status: disabled Current gender identity: Male Special eduardo needs: No Agree to transfusion: Yes Course Vital Signs: Vital signs: Vital Signs Temperature 98.9 F 11/30/22 16:28 Pulse Rate 63 11/30/22 19:52 Respiratory Rate 20 H 11/30/22 19:52 Blood Pressure 143/86 11/30/22 19:52 Pulse Oximetry 91 11/30/22 19:52 Oxygen Delivery Me thod Room Air 11/30/22 18:20 MDM - Neuro Symptoms/Deficit Medical Decision Making Patient presents here with frequent falls he did have a fall the day he has been well-appearing here blood work head CT are all normal he is stable for discharge she is to follow-up with his PCP and return if worsening. Medical Records I reviewed the patient's medical records. Lab Data I reviewed the patient's lab results. 11/30/22 17:03 11/30/22 17:03 Radiology Impressions Cervical Spine CT 11/30/22 16:17 IMPRESSION: No acute fracture. Head CT 11/30/22 16:17 IMPRESSION: No acute intracranial abnormality. Laboratory Results WBC 6.9 10^3/uL (4.0-10.0) 11/30/22 17: RBC 3.83 10^6/uL (4.1-5.3) L 11/30/22 17:03 Hgb 11.6 g/dL (11.7-16.6) L 11/30/22 17:03 Hct 35.0 % (42.0-52.0) L 11/30/22 17: MCV 91.4 fl (80-94) 11/30/22 17: MCH 30.3 pg (28.0-34.0) 11/30/22 17: MCHC 33.1 g/dL (30.0-36.0) 11/30/22 17: RDW 14.3 % (12.1-15.1) 11/30/22 17:03 Plt Count 121 10^3/cmm (130-400) L 11/30/22 17: MPV 12.2 fL (7.4-10.4) H 11/30/22 17:03 Neut % (Auto) 64.8 % 11/30/22 17:03 Lymph % (Auto) 25.1 % 11/30/22 17:03 [place] % (Auto) 6.5 % 11/30/22 17:03 Eos % (Auto) 2.6 % 11/30/22 17:03 Baso % (Auto) 0.6 % 11/30/22 17:03 Neut # (Auto) 4.46 10^3/uL (1.8-7.7) 11/30/22 17:03 Lymph # (Auto) 1.7 10^3/uL (0.8-4.8) 11/30/22 17:03 [place] # (Auto) 0.5 10^3/uL (0.2-0.9) 11/30/22 17:03 Eos # (Auto) 0.2 10^3/uL (0.0-0.8) 11/30/22 17:03 Baso # (Auto) 0.0 10^3/uL (0.0-0.1) 11/30/22 17:03 Nucleated RBC % (auto) 0 % 11/30/22 17:03 Nucleated RBCs # 0.0 /100WBC 11/30/22 17:03 Sodium 133 mmol/L (136-145) L 11/30/22 17:03 Potassium 3.9 mmol/L (3.5-5.1) 11/30/22 17:03 Chloride 99 mmol/L (98-107) 11/30/22 17:03 Carbon Dioxide 26 mmol/L (22-29) 11/30/22 17:03 Anion Gap 11.9 (5-19) 11/30/22 17:03 BUN 17 mg/dL (8-23) 11/30/22 17:03 Creatinine 0.8 mg/dL (0.7-1.2) 11/30/22 17:03 GFR Calculation 95.8 mL/min (90-130) 11/30/22 17:03 Glucose 199 mg/dL (65-115) H 11/30/22 17:03 Calculated Osmolality 283 mOsm/kg (285-295) L 11/30/22 17:03 Calcium 8.8 mg/dL (8.5-10.5) 11/30/22 17:03 Total Bilirubin 0.3 mg/dL (0.15-1.2) 11/30/22 17:03 AST 11 U/L (0-40) 11/30/22 17:03 ALT 10 U/L (0-41) 11/30/22 17:03 Alkaline Phosphatase 60 U/L (40-130) 11/30/22 17:03 Total Protein 5.8 g/dL (6.6-8.7) L 11/30/22 17:03 Albumin 3.7 g/dL (3.5-5.2) 11/30/22 17:03 Globulin 2.1 g/dL (1.3-4.6) 11/30/22 17:03 Urine Color Dark yellow (Yellow) 11/30/22 18:30 Urine Appearance Clear (CLEAR) 11/30/22 18:30 Urine pH 5 (5-7) 11/30/22 18:30 Ur Specific [place] 1.020 (1.005-1.030) 11/30/22 18:30 Urine Protein 1+ (Negative) H 11/30/22 18:30 Urine Glucose (UA) 2+ (Normal) H 11/30/22 18:30 Urine Ketones 1+ (Negative) H 11/30/22 18:30 Urine Blood Neg (Negative) 11/30/22 18:30 Urine Nitrate Negative (Negative) 11/30/22 18:30 Urine Bilirubin 1+ (Negative) H 11/30/22 18:30 Urine Urobilinogen 1 mg/dL (Negative) H 11/30/22 18:30 Ur Leukocyte Esterase Negative (Negative) 11/30/22 18:30 Urine RBC 0-4 /hpf (0-2) H 11/30/22 18:30 Urine WBC None /hpf (0-5) 11/30/22 18:30 Ur Squamous Epith Cells 0-4 /hpf (0-5) H 11/30/22 18:30 Amorphous Sediment Not Reportable 11/30/22 18:30 Urine Bacteria 1+ /hpf (NONE) H 11/30/22 18:30 Hyaline Casts 0-4 /lpf H 11/30/22 18:30 Discharge Plan Discharge Patient Disposition: Home Clinical Impression: Fall Condition: Stable Prescriptions: No Action torsemide 20 mg tablet 40 mg PO DAILY PRN Levemir FlexTouch U-100 Insuln 100 unit/mL (3 mL) insulin pen 40 unit SUBCUT DAILY 30 Days Qty: 15 2RF Farxiga 10 mg tablet 10 mg PO DAILY Qty: 30 2RF potassium chloride 20 mEq tablet extended release 20 meq PO DAILY levocetirizine [Xyzal] 5 mg tablet 5 mg PO DAILY Qty: 90 1RF fluticasone propionate [Flonase Allergy Relief] 50 mcg/actuation spray,suspension 2 spray intranasal DAILY Qty: 16 1RF Rx Instructions: administer into each nostril (DME) Rollaid with seat See Rx Instructions .Route .MEDSUPPLY Qty: 1 0RF Rx Instructions: As directed (DME) blood-glucose meter Kit See Rx Instructions .ROUTE .MEDSUPPLY Qty: 1 0RF Rx Instructions: check blood daily nitroglycerin 0.4 mg tablet, sublingual 0.4 mg SUBLINGUAL Q5M PRN (Reason: chest pain) Qty: 30 6RF Rx Instructions: Use as needed for chest pain every 5 minutes x 3. Call 911 if pain persists. polyethylene glycol 3350 17 gram/dose powder 17 gm PO DAILY PRN (Reason: constipation) Qty: 510 6RF (DME) pen needle, diabetic [TechLITE Pen Needle] 31 gauge x 5/16 needle See Rx Instructions .ROUTE .MEDSUPPLY Qty: 100 0RF Rx Instructions: use with levemir-TWO TIMES DAILY aspirin 81 mg tablet,delayed release (DR/EC) 81 mg PO DAILY@0700 Qty: 90 3RF omeprazole 40 mg capsule,delayed release(DR/EC) 40 mg PO DAILY@0700 Qty: 30 3RF diclofenac sodium 1 % gel 2 g TOPICAL QID PRN (Reason: arthritis) Qty: 100 6RF sennosides-docusate sodium [Senexon-S] 8.6-50 mg tablet 1 tab-cap PO DAILY PRN (Reason: constipation) Qty: 30 3RF tamsulosin 0.4 mg capsule 0.4 mg PO DAILY@0700 Qty: 30 3RF Entresto 97-103 mg tablet 1 tab PO BID Qty: 180 1RF albuterol sulfate [Ventolin HFA] 90 mcg/actuation HFA aerosol inhaler 1 inh INHALATION QID PRN (Reason: shortness of breath or wheezing) Qty: 8.5 3RF duloxetine 60 mg capsule,delayed release(DR/EC) See Rx Instructions .ROUTE .COMPLEX Qty: 30 3RF Dose Instruction: TAKE 1 CAPSULE BY MOUTH EVERY DAY AT 7AM WITH 30MG DOSE Rx Instructions: TAKE 1 CAPSULE BY MOUTH EVERY DAY AT 7AM WITH 30MG DOSE esomeprazole magnesium 40 mg capsule,delayed release(DR/EC) See Rx Instructions .ROUTE .COMPLEX Qty: 30 3RF Dose Instruction: TAKE 1 CAPSULE BY MOUTH EVERY DAY AT 7AM Rx Instructions: TAKE 1 CAPSULE BY MOUTH EVERY DAY AT 7AM amlodipine 5 mg tablet See Rx Instructions .ROUTE .COMPLEX Qty: 30 3RF Dose Instruction: TAKE 1 TABLET BY MOUTH EVERY DAY Rx Instructions: TAKE 1 TABLET BY MOUTH EVERY DAY duloxetine 30 mg capsule,delayed release(DR/EC) 30 mg PO DAILY@0700 Qty: 30 3RF Rx Instructions: one daily with 60 mg dose to equal 90mg spironolactone 50 mg tablet See Rx Instructions .ROUTE .COMPLEX Qty: 30 3RF Dose Instruction: TAKE 1 TABLET BY MOUTH EVERY DAY AT 7AM Rx Instructions: TAKE 1 TABLET BY MOUTH EVERY DAY AT 7AM pregabalin 300 mg capsule 300 mg PO BID Qty: 60 0RF fentanyl 75 mcg/hr patch 72 hour 1 patch TRANSDERMA Q48H 30 Days Qty: 15 0RF rosuvastatin 40 mg tablet 40 mg PO BEDTIME@1900 carvedilol 25 mg tablet 25 mg PO DAILY Discharge Orders: Discharge ED (Routine); Ordered 11/30/22 Ordered By: Abilio Jha Referrals: Shemar Kaiser MD [Primary Care Provider] - Discharge Diet: Advance as tolerated Discharge Activity: Resume usual activity Patient Instructions: Fall Prevention (ED) Coding Level of Care Code ED Dispatcher Street Department for Ivonne Guaman
[2022-11-30 17:22] LABS: Basophils % 0.6 %; Eosinophils # 0.2 10^3/uL (0.0-0.8); Eosinophils % 2.6 %; Hemoglobin 11.6 g/dL (11.7-16.6); Lymphocytes # 1.7 10^3/uL (0.8-4.8); Lymphocytes % 25.1 %; Mean Corpuscular HGB Conc 33.1 g/dL (30.0-36.0); Mean Corpuscular Hemoglobin 30.3 pg (28.0-34.0); Mean Corpuscular Volume 91.4 fl (80-94); Mean Platelet Volume 12.2 fL (7.4-10.4); Monocytes # 0.5 10^3/uL (0.2-0.9); Monocytes % 6.5 %; Neutrophils # 4.46 10^3/uL (1.8-7.7); Neutrophils % 64.8 %; Nucleated Red Blood Cells % 0 %; Platelet Count 121 10^3/cmm (130-400); Red Blood Count 3.83 10^6/uL (4.1-5.3); Red Cell Distribution Width 14.3 % (12.1-15.1); White Blood Count 6.9 10^3/uL (4.0-10.0)
[2022-11-30 18:20] VITALS: PULSE 94; O2SAT 90
[2022-11-30 18:48] LABS: Alanine Aminotransferase 10 U/L (0-41); Albumin Level 3.7 g/dL (3.5-5.2); Alkaline Phosphatase 60 U/L (40-130); Anion Gap 11.9 (5-19); Aspartate Amino Transferase 11 U/L (0-40); Blood Urea Nitrogen 17 mg/dL (8-23); Calcium 8.8 mg/dL (8.5-10.5); Carbon Dioxide 26 mmol/L (22-29); Chloride 99 mmol/L (98-107); Globulin 2.1 g/dL (1.3-4.6); Glomerular Filtration Rate 95.8 mL/min (90-130); Glucose 199 mg/dL (65-115); Osmolality Calculated 283 mOsm/kg (285-295); Potassium 3.9 mmol/L (3.5-5.1); Sodium 133 mmol/L (136-145); Total Bilirubin 0.3 mg/dL (0.15-1.2); Total Protein 5.8 g/dL (6.6-8.7)
[2022-11-30 19:14] LABS: Glucose Urine UA 2+ (Normal); Ketones Urine 1+ (Negative); Protein Urine 1+ (Negative); Urine Appearance Clear (CLEAR); Urine Color Dark Yellow (Yellow); pH Urine 5 (5-7)
[2022-11-30 19:15] LABS: Add Urine Microscopic? YES; Bacteria Urine 1+ /hpf; Bilirubin Urine 1+ (Negative); Blood Urine Neg (Negative); Leukocyte Esterase Urine Negative (Negative); Nitrate Urine Negative (Negative); RBC Urine 0-4 /hpf (0-2); Squamous Epithelial Cell Urine 0-4 /hpf (0-5); Urobilinogen Urine 1 mg/dL (Negative)
[2022-11-30 19:16] LABS: Add Urine Culture? No; Hyaline Casts Urine 0-4 /lpf
[2022-11-30 19:52] VITALS: BP 143/86; PULSE 63; RESP 20; O2SAT 91
== END 2022-11-30 19:54 | disposition home or self-care (01) ==
PROVIDERS: Family Medicine; Emergency Provider Emergency Medicine; PCP Family Medicine
DX: R41.3 Other amnesia (principal); W18.39XA Other fall on same level, initial encounter; E11.9 Type 2 diabetes mellitus without complications; I11.0 Hypertensive heart disease with heart failure; I50.9 Heart failure, unspecified; E78.5 Hyperlipidemia, unspecified; Z95.810 Presence of automatic (implantable) cardiac defibrillator; Z79.82 Long term (current) use of aspirin; Z79.4 Long term (current) use of insulin; Z79.891 Long term (current) use of opiate analgesic
CPT/HCPCS: 36415; 70450; 72125; 80053; 81001; 85025; 93005; 99285

== ENCOUNTER → 2022-12-04 11:03 | Outpatient (BNVA) | payer MEDICARE, MEDICAID, SELFPAY | PROVIDERS: PCP Family Medicine; Visit Provider Internal Medicine Cardiovascular Disease | DX: I25.10 Atherosclerotic heart disease of native coronary artery without angina pectoris (principal); I11.0 Hypertensive heart disease with heart failure; I50.42 Chronic combined systolic (congestive) and diastolic (congestive) heart failure; E78.2 Mixed hyperlipidemia; Z95.810 Presence of automatic (implantable) cardiac defibrillator | CPT/HCPCS: 99214 ==

== ENCOUNTER 2023-01-21 13:44 | Emergency (ER) | payer MEDICARE, MEDICAID, SELFPAY ==
[2023-01-21 13:47] VITALS: BP 179/89; PULSE 65; RESP 15; TEMP 36.6; O2SAT 94; BMI 25.0
--- NOTE | 2023-01-21 13:47 | ECG_ITS ---
[facility] Test Date: 2023-01-21 Pat Name: Brian Lozada Department: Room: Gender: Male Hall Monitor: : 1955 Requested By: Abilio Jha Order Number: [id number] Morris MD: Carlos Alberto Toro M.D. Measurements Intervals [place] Rate: 68 P: 60 CO: 204 QRS: -33 QRSD: 157 T: 41 QT: 437 QTc: 468 Interpretive Statements SINUS RHYTHM LEFT AXIS DEVIATION [QRS AXIS < -30] INTRAVENTRICULAR CONDUCTION DELAY [130+ ms QRS DURATION] Compared to ECG 11/30/2022 16:24:31 Sinus arrhythmia no longer present Electronically Signed On 01-21-2023 21:24:05 CDT by Carlos Alberto Toro M.D. [id number]
--- NOTE | 2023-01-21 13:50 | XR_ITS ---
WS: [id number] Portable AP semiupright chest, 01/21/2023 Clinical Data: cp Comparison: Portable chest, 09/27/2021 Findings: No nodules, masses or effusions are seen. The heart is normal. The pulmonary vascularity is not increased. No pneumonia or pneumothorax is seen. There is a 2-lead cardiac pacemaker unchanged i n position with the generator overlying the left lateral chest. The aortic arch and descending thorac ic aorta show mild tortuosity. Monitor leads are on the chest wall. Impression: Atherosclerosis.
[2023-01-21] MEDS: ondansetron 2 mg/ML SDV 2 mL 4 MG IVP (14:03)
[2023-01-21] MEDS: HYDROmorphone 1 mg/mL INJ 1 mL IVP (14:03)
--- NOTE | 2023-01-21 14:32 | W.ED.CHESTPA ---
HPI - Chest Pain General: Chief Complaint: Chest Pain Stated Complaint: chest pain Time Seen by Provider: 01/21/23 13:50 Source: patient and EMS Mode of arrival: EMS Limitations: no limitations History of Present Illness: 67-year-old male states he has a history of chronic pain he typically takes fentanyl states that he had had a pill he is not sure what it was his friend given him 15 years ago and took the pill he states that after taking the pill he started having some esophageal and stomach pain and then started having some chest pain he states he had some nausea as well. The pain is currently a 4 out of 10 he denies any worsening proving factors denies any shortness of breath. Associated symptoms: Reports abdominal pain and nausea; Deny dyspnea, fever(s) or vomiting Review of Systems Const: Denies: fever(s), chills, body aches or change in appetite Eyes: Denies: blurry vision or eye discomfort ENMT: Denies: throat pain or dental pain Card: Denies: chest pain Resp: Denies: dyspnea GI: Reports: abdominal pain and nausea; Denies: vomiting or diarrhea Musc: Denies: neck pain or back pain Skin/Breast: Denies: rash Neuro: Denies: headache(s) PFSH ED PFSH: Medical History Asthma BPH (benign prostatic hyperplasia) Diabetes GERD (gastroesophageal reflux disease) Heart failure with reduced ejection fraction History of placement of stent in LAD coronary artery HTN (hypertension) Hyperlipidemia ICD (implantable cardioverter-defibrillator) in place Surgical History History of implantable cardioverter-defibrillator (ICD) placement S/P cataract surgery Family History Father Emphysema of lung Social History Smoking and tobacco status: never smoked Alcohol intake: never Substance/Drug Use: current Substance/Drug use frequency: daily Lives independently: Yes Marital status: / Current occupational status: disabled Current gender identity: Male Special eduardo needs: No Agree to transfusion: Yes Physical Exam Const: COMMON NORMALS: no acute distress, patient oriented x3 and healthy appearing HENMT: COMMON NORMALS: normocephalic and atraumatic HEAD & SCALP: normocephalic and atraumatic Eye: COMMON NORMALS: Equal, round and reactive pupils present and EOMs intact bilaterally PUPIL: Yes Equal, round and reactive pupils present Neck/C-Spine: COMMON NORMALS: full ROM and supple Chest: COMMONS NORMALS: normal inspection of the chest and normal palpation of entire chest wall Resp: COMMON NORMALS: normal respiratory effort, No retractions, No use of accessory muscles and clear to auscultation bilaterally AUSCULTATION: clear to auscultation bilaterally Cardio: COMMON NORMALS: regular rate, regular rhythm and No murmurs present (Cardio) RATE: regular rate RHYTHM: regular rhythm GI: COMMON NORMALS: Normal to inspection, nondistended, normoactive bowel sounds present, Soft to palpation, non-tender and no masses PALPATION: Yes Soft to palpation Extremity: COMMON NORMALS: normal to inspection and full ROM Neuro: COMMON NORMALS: patient oriented x3, moves all extremities and no focal motor deficits Psych: COMMON NORMALS: mental status grossly normal, Normal thought process present and cooperative THOUGHT PROCESS: Normal thought process present Skin: COMMON NORMALS: no rashes or lesions noted and no wounds GENERAL SKIN EXAM: no rashes or lesions noted Course Vital Signs: Vital signs: Vital Signs Temperature 97.9 F 01/21/23 13:47 Pulse Rate 65 01/21/23 13:47 Respiratory Rate 15 01/21/23 13:47 Blood Pressure 179/89 01/21/23 13:47 Pulse Oximetry 94 01/21/23 13:47 Oxygen Delivery Me thod Room Air 01/21/23 13:47 MDM - Chest Pain Medical Decision Making Patient presents here with abdominal pain he was trying to get me to write him fentanyl as he states that his fentanyl patches were stolen I informed him I cannot write him for fentanyl his CT showed a mild diverticulitis his white count here is normal his pain has improved abdominal exam at discharge is benign we will start him on Cipro Flagyl we will write him some hydrocodone he is to follow-up with PCP and return if worsening. Medical Records I reviewed the patient's medical records. Lab Data I reviewed the patient's lab results. 01/21/23 14:20 01/21/23 14:20 Radiology Impressions Abdomen/Pelvis CT 01/21/23 15:35 IMPRESSION: 1. Prominent fluid in the stomach and small bowel may reflect a gastroenteritis in the appropriate clinical setting. 2. Mid sigmoid colon wall thickening with surrounding edema in the area of multiple diverticuli suggestive of a mild diverticulitis in the appropriate clinical setting. 3. Cardiomegaly. 4. Pacemaker. 5. Emphysematous changes. 6. Left lower lobe atelectasis versus minimal infiltrate. 7. Mildly cirrhotic liver suspected. 8. Gallbladder is mildly prominent, ultrasound could further evaluate this. 9. Prostate gland somewhat enlarged, please correlate clinically. 10. Minimal infrarenal abdominal aortic aneurysm fusiform dilation to 2.5 cm. Laboratory Results WBC 6.59 10^3/uL (3.29-11.43) 01/21/23 14:20 RBC 5.21 10^6/uL (3.85-5.65) 01/21/23 14:20 Hgb 15.90 g/dL (11.27-16.99) 01/21/23 14:20 Hct 46.8 % (37-53) 01/21/23 14:20 MCV 89.8 fl (82-101) 01/21/23 14:20 MCH 30.5 pg (27-33) 01/21/23 14:20 MCHC 34.0 g/dL (30-55) 01/21/23 14:20 RDW 13.8 % (12.1-15.1) 01/21/23 14:20 Plt Count 173 10^3/cmm (157-399) 01/21/23 14:20 MPV 11.8 fL (7.4-10.4) H 01/21/23 14:20 Neut % (Auto) 86.1 % 01/21/23 14:20 Lymph % (Auto) 11.5 % 01/21/23 14:20 [place] % (Auto) 1.7 % 01/21/23 14:20 Eos % (Auto) 0.2 % 01/21/23 14:20 Baso % (Auto) 0.2 % 01/21/23 14:20 Neut # (Auto) 5.68 10^3/uL (1.8-7.7) 01/21/23 14:20 Lymph # (Auto) 0.8 10^3/uL (0.8-4.8) 01/21/23 14:20 [place] # (Auto) 0.1 10^3/uL (0.2-0.9) L 01/21/23 14:20 Eos # (Auto) 0.0 10^3/uL (0.0-0.8) 01/21/23 14:20 Baso # (Auto) 0.0 10^3/uL (0.0-0.1) 01/21/23 14:20 Nucleated RBC % (auto) 0 % 01/21/23 14:20 Nucleated RBCs # 0.0 /100WBC 01/21/23 14:20 PT 14.10 SECONDS (12.1-14.9) 01/21/23 14:20 INR 1.06 (0.8-1.2) 01/21/23 14:20 Sodium 141 mmol/L (136-145) 01/21/23 14:20 Potassium 4.1 mmol/L (3.5-5.1) 01/21/23 14:20 Chloride 101 mmol/L (98-107) 01/21/23 14:20 Carbon Dioxide 26 mmol/L (22-29) 01/21/23 14:20 Anion Gap 18.1 (5-19) 01/21/23 14:20 BUN 14 mg/dL (8-23) 01/21/23 14:20 Creatinine 1.0 mg/dL (0.7-1.2) 01/21/23 14:20 GFR Calculation 74.1 mL/min (90-130) L 01/21/23 14:20 Glucose 178 mg/dL (65-115) H 01/21/23 14:20 Calculated Osmolality 297 mOsm/kg (285-295) H 01/21/23 14:20 Calcium 10.4 mg/dL (8.5-10.5) 01/21/23 14:20 Total Bilirubin 0.5 mg/dL (0.15-1.2) 01/21/23 14:20 AST 12 U/L (0-40) 01/21/23 14:20 ALT 12 U/L (0-41) 01/21/23 14:20 Alkaline Phosphatase 69 U/L (40-130) 01/21/23 14:20 Troponin T Baseline 17 ng/L (0-15) H 01/21/23 14:20 Troponin T 120 Minute 17.18 ng/L (0-15) H 01/21/23 16:03 Delta Troponin T 0.18 ABS# (0-10) 01/21/23 16:03 Total Protein 7.6 g/dL (6.6-8.7) 01/21/23 14:20 Albumin 5.0 g/dL (3.5-5.2) 01/21/23 14:20 Globulin 2.6 g/dL (1.3-4.6) 01/21/23 14:20 Lipase 25 U/L (13-60) 01/21/23 14:20 EKG Data EKG 1: I personally reviewed and interpreted this EKG as follows: EKG interpretation date: 01/21/23 EKG interpretation time: 13:48 Interpretation: nsr hr [address] or t wave abnormalities qrs 157 qtc 455 Discharge Plan Discharge Patient Disposition: Home Clinical Impression: Diverticulitis Condition: Stable Prescriptions: New hydrocodone-acetaminophen 5-325 mg tablet 1 tab PO Q6H PRN (Reason: pain) Qty: 14 0RF Cipro 500 mg tablet 500 mg PO BID Qty: 14 0RF methocarbamol 750 mg tablet 750 mg PO Q6H PRN (Reason: spasms) Qty: 20 0RF ondansetron 4 mg tablet,disintegrating 4 mg PO Q6H PRN (Reason: nausea and vomiting) Qty: 14 0RF No Action torsemide 20 mg tablet 40 mg PO DAILY PRN (Reason: Edema) Farxiga 10 mg tablet 10 mg PO DAILY Qty: 30 2RF potassium chloride 20 mEq tablet extended release 20 meq PO DAILY fluticasone propionate [Flonase Allergy Relief] 50 mcg/actuation spray,suspension 2 spray intranasal DAILY Qty: 16 1RF (DME) Rollaid with seat See Rx Instructions .Route .MEDSUPPLY Qty: 1 0RF Rx Instructions: As directed (DME) blood-glucose meter Kit See Rx Instructions .ROUTE .MEDSUPPLY Qty: 1 0RF Rx Instructions: check blood daily polyethylene glycol 3350 17 gram/dose powder 17 gm PO DAILY PRN (Reason: constipation) Qty: 510 6RF (DME) pen needle, diabetic [TechLITE Pen Needle] 31 gauge x 5/16 needle See Rx Instructions .ROUTE .MEDSUPPLY Qty: 100 0RF Rx Instructions: use with levemir-TWO TIMES DAILY aspirin 81 mg tablet,delayed release (DR/EC) 81 mg PO DAILY@0700 Qty: 90 3RF omeprazole 40 mg capsule,delayed release(DR/EC) 40 mg PO DAILY@0700 Qty: 30 3RF diclofenac sodium 1 % gel 2 g TOPICAL QID PRN (Reason: arthritis) Qty: 100 6RF sennosides-docusate sodium [Senexon-S] 8.6-50 mg tablet 1 tab-cap PO DAILY PRN (Reason: constipation) Qty: 30 3RF tamsulosin 0.4 mg capsule 0.4 mg PO DAILY@0700 Qty: 30 3RF Entresto 97-103 mg tablet 1 tab PO BID Qty: 180 1RF albuterol sulfate [Ventolin HFA] 90 mcg/actuation HFA aerosol inhaler 1 inh INHALATION QID PRN (Reason: shortness of breath or wheezing) Qty: 8.5 3RF duloxetine 30 mg capsule,delayed release(DR/EC) 30 mg PO DAILY@0700 Qty: 30 3RF Levemir FlexTouch U100 Insulin 100 unit/mL (3 mL) insulin pen 40 unit SUBCUT DAILY 30 Days Qty: 15 2RF pregabalin 300 mg capsule 300 mg PO BID Qty: 60 0RF rosuvastatin 40 mg tablet 40 mg PO BEDTIME@1900 carvedilol 25 mg tablet 25 mg PO DAILY amlodipine 5 mg tablet 5 mg PO DAILY esomeprazole magnesium 40 mg capsule,delayed release(DR/EC) 40 mg PO DAILY fentanyl 75 mcg/hr patch 72 hour 1 patch TRANSDERMA Q48H PRN (Reason: Pain) spironolactone 50 mg tablet 50 mg PO DAILY duloxetine 60 mg capsule,delayed release(DR/EC) 60 mg PO DAILY Discharge Orders: Discharge ED (Routine); Ordered 01/21/23 Ordered By: Abilio Jha Referrals: Shemar Kaiser MD [Primary Care Provider] - 1-3 days Discharge Diet: Advance as tolerated Discharge Activity: Resume usual activity Patient Instructions: Diverticulitis (ED), Opioid Safety Coding Level of Care Code ED 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
[2023-01-21 14:40] LABS: Basophils % 0.2 %; Eosinophils % 0.2 %; Hematocrit 46.8 % (37-53); Lymphocytes # 0.8 10^3/uL (0.8-4.8); Lymphocytes % 11.5 %; Mean Corpuscular Hemoglobin 30.5 pg (27-33); Mean Corpuscular Volume 89.8 fl (82-101); Mean Platelet Volume 11.8 fL (7.4-10.4); Monocytes # 0.1 10^3/uL (0.2-0.9); Monocytes % 1.7 %; Neutrophils # 5.68 10^3/uL (1.8-7.7); Neutrophils % 86.1 %; Nucleated Red Blood Cells % 0 %; Platelet Count 173 10^3/cmm (157-399); Red Blood Count 5.21 10^6/uL (3.85-5.65); Red Cell Distribution Width 13.8 % (12.1-15.1); White Blood Count 6.59 10^3/uL (3.29-11.43)
[2023-01-21] MEDS: lidocaine 2% viscous 15 ML, aluminum-mag hydrox-simethicon 30 ML, sucralfate oral liq 1 GM PO (14:43)
[2023-01-21 14:51] LABS: INR 1.06 (0.8-1.2)
[2023-01-21 15:04] LABS: Alanine Aminotransferase 12 U/L (0-41); Alkaline Phosphatase 69 U/L (40-130); Anion Gap 18.1 (5-19); Aspartate Amino Transferase 12 U/L (0-40); Blood Urea Nitrogen 14 mg/dL (8-23); Calcium 10.4 mg/dL (8.5-10.5); Carbon Dioxide 26 mmol/L (22-29); Chloride 101 mmol/L (98-107); Globulin 2.6 g/dL (1.3-4.6); Glomerular Filtration Rate 74.1 mL/min (90-130); Glucose 178 mg/dL (65-115); Lipase 25 U/L (13-60); Osmolality Calculated 297 mOsm/kg (285-295); Potassium 4.1 mmol/L (3.5-5.1); Sodium 141 mmol/L (136-145); Total Bilirubin 0.5 mg/dL (0.15-1.2); Total Protein 7.6 g/dL (6.6-8.7)
[2023-01-21 15:07] LABS: Troponin(5th) Baseline 17 ng/L (0-15)
--- NOTE | 2023-01-21 15:35 | CTR_ITS ---
PROCEDURE INFORMATION: Exam: CT Abdomen And Pelvis With Contrast Exam date and time: 01/21/2023 4:25 PM Age: 67 years old Clinical indication: Abdominal pain; Generalized; Additional info: Abd pain TECHNIQUE: Imaging protocol: Computed tomography of the abdomen and pelvis with contrast. Radiation optimization: All CT scans at this facility use at least one of these dose optimization techniques: automated exposure control; mA and/or kV adjustment per patient size (includes targeted exams where dose is matched to clinical indication); or iterative reconstruction. Contrast material: OMNI 350; Contrast volume: 100 ml; Contrast route: INTRAVENOUS (IV); REPORTING DATA: Count of CT and Cardiac NM exams in prior 12 months: This patient has received 3 known CTs and 0 known cardiac nuclear medicine studies in the 12 months prior to the current study. COMPARISON: CT abdomen pelvis w con* [id number] 08/23/2021 10:34 PM RADIATION DOSE METRICS: Total DLP (mGy-cm): 512 FINDINGS: Tubes, catheters and devices: Pacemaker. Lungs: Emphysematous changes. Left lower lobe atelectasis versus minimal infiltrate. Heart: Cardiomegaly. Liver: Mildly cirrhotic liver suspected. Gallbladder and bile ducts: Gallbladder is mildly prominent, ultrasound could further evaluate this. Pancreas: Normal. No ductal dilation. Spleen: Normal. No splenomegaly. Adrenal glands: Normal. No mass. Kidneys and ureters: Normal. No hydronephrosis. Stomach and bowel: Prominent fluid in the stomach and small bowel may reflect a gastroenteritis in the appropriate clinical setting. Mid sigmoid colon wall thickening with surrounding edema in the area of multiple diverticuli suggestive of a mild diverticulitis in the appropriate clinical setting. Appendix: No evidence of appendicitis. Intraperitoneal space: Unremarkable. No free air. No significant fluid collection. Vasculature: Minimal infrarenal abdominal aortic aneurysm fusiform dilation to 2.5 cm. Lymph nodes: Unremarkable. No enlarged lymph nodes. Urinary bladder: Unremarkable as visualized. Reproductive: Prostate gland somewhat enlarged, please correlate clinically. Bones/joints: Unremarkable. No acute fracture. Soft tissues: Unremarkable. CT/CT abdomen pelvis w con* [id number] IMPRESSION: 1. Prominent fluid in the stomach and small bowel may reflect a gastroenteritis in the appropriate clinical setting. 2. Mid sigmoid colon wall thickening with surrounding edema in the area of multiple diverticuli suggestive of a mild diverticulitis in the appropriate clinical setting. 3. Cardiomegaly. 4. Pacemaker. 5. Emphysematous changes. 6. Left lower lobe atelectasis versus minimal infiltrate. 7. Mildly cirrhotic liver suspected. 8. Gallbladder is mildly prominent, ultrasound could further evaluate this. 9. Prostate gland somewhat enlarged, please correlate clinically. 10. Minimal infrarenal abdominal aortic aneurysm fusiform dilation to 2.5 cm.
[2023-01-21] MEDS: HYDROcodone-acetaminophen 5-325 mg Tablet 1 TAB PO (15:46)
--- NOTE | 2023-01-21 15:50 | ECG_ITS ---
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 Measurements Intervals [place] Rate: 69 P: 75 [place]: 180 QRS: -41 QRSD: 159 T: 81 QT: 431 QTc: 464 Interpretive Statements SINUS RHYTHM LEFT AXIS DEVIATION [QRS AXIS < -30] INTRAVENTRICULAR CONDUCTION DELAY [130+ ms QRS DURATION] Compared to ECG 01/21/2023 13:48:59 No significant changes Electronically Signed On 01-21-2023 21:30:15 CDT by Carlos Alberto Toro M.D. [id number]
[2023-01-21] MEDS: iohexol 350 mg/mL 500 mL Btl (per mL) IV (16:32)
[2023-01-21 16:37] LABS: Troponin 5 2HR 17.18 ng/L (0-15)
[2023-01-21 16:39] LABS: Troponin 5 2HR Delta 0.18 ABS# (0-10)
--- NOTE | 2023-01-21 16:55 | PC.NURSE ---
family member brought this nurse a yellow pill and stated this was the pill that the pt had gotten from a friend 10 years ago. She stated it might help if we could identify it. After looking the pill up online, it is a 5mg Clonazepam. notified.
== END 2023-01-21 17:11 | disposition home or self-care (01) ==
PROVIDERS: Emergency Provider Emergency Medicine; PCP Family Medicine
DX: K57.32 Diverticulitis of large intestine without perforation or abscess without bleeding (principal); Z79.82 Long term (current) use of aspirin; Z79.4 Long term (current) use of insulin; E11.9 Type 2 diabetes mellitus without complications; I11.0 Hypertensive heart disease with heart failure; I50.9 Heart failure, unspecified; E78.5 Hyperlipidemia, unspecified; Z95.0 Presence of cardiac pacemaker
CPT/HCPCS: 36415; 71045; 74177; 80053; 83690; 84484; 85025; 85610; 93005; 96374; 96375; 99285; J1170; J2405; Q9967

== ENCOUNTER → 2023-02-22 15:11 | Outpatient (BNVA) | payer MEDICARE, MEDICAID, SELFPAY | PROVIDERS: PCP Family Medicine; Visit Provider Podiatrist Foot & Ankle Surgery | DX: B35.1 Tinea unguium (principal); I73.9 Peripheral vascular disease, unspecified; E11.9 Type 2 diabetes mellitus without complications; Z79.4 Long term (current) use of insulin | CPT/HCPCS: 11721 ==

== ENCOUNTER → 2023-06-21 15:59 | Outpatient (BNVA) | payer MEDICARE, MEDICAID, SELFPAY | PROVIDERS: PCP Family Medicine; Visit Provider Family Medicine | DX: E11.9 Type 2 diabetes mellitus without complications (principal); G57.90 Unspecified mononeuropathy of unspecified lower limb; I50.20 Unspecified systolic (congestive) heart failure; I10 Essential (primary) hypertension; J30.2 Other seasonal allergic rhinitis; R25.2 Cramp and spasm; G89.29 Other chronic pain; R29.6 Repeated falls; I25.10 Atherosclerotic heart disease of native coronary artery without angina pectoris; J45.909 Unspecified asthma, uncomplicated | CPT/HCPCS: 80053; 83036; 85025 ==

== ENCOUNTER → 2023-06-29 14:44 | Outpatient (BNVA) | payer MEDICARE, MEDICAID, SELFPAY | PROVIDERS: PCP Family Medicine; Visit Provider Nurse Practitioner Family | DX: I11.0 Hypertensive heart disease with heart failure (principal); I50.20 Unspecified systolic (congestive) heart failure; Z95.810 Presence of automatic (implantable) cardiac defibrillator; I25.10 Atherosclerotic heart disease of native coronary artery without angina pectoris | CPT/HCPCS: 99214 ==

== ENCOUNTER 2023-09-06 12:28 | Emergency (ER) | payer MEDICARE, MEDICAID, SELFPAY ==
[2023-09-06 12:31] VITALS: BP 156/82; PULSE 76; RESP 17; TEMP 36.9; O2SAT 96; BMI 25.4
--- NOTE | 2023-09-06 12:35 | XRR_ITS ---
PROCEDURE INFORMATION: Exam: XR Chest Exam date and time: 09/06/2023 12:54 PM Age: 68 years old Clinical indication: Shortness of breath; Prior surgery; Surgery date: 6+ months; Surgery type: Pacemaker TECHNIQUE: Imaging protocol: Radiologic exam of the chest. Views: 1 view. COMPARISON: CR XR chest 1V portable [id number] 01/21/2023 1:56 PM FINDINGS: Tubes, catheters and devices: Dual lead AICD with left chest generator. Lungs: Pulmonary vascular congestion. Bilateral diffusely increased interstitial markings. No consolidation. Pleural spaces: No substantial pleural effusion or pneumothorax. Heart/Mediastinum: Cardiomegaly. Vasculature: Aortic atherosclerotic calcification. Bones/joints: Degenerative changes along the spine. Partially visualized lower cervical spine fusion hardware. XR/XR chest 1V [id number] IMPRESSION: Increased interstitial lung markings suggestive of edema in the setting of cardiomegaly and pulmonary vascular congestion. Atypical/viral process or other interstitial disease could appear similar.
--- NOTE | 2023-09-06 12:36 | ECG_ITS ---
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 Measurements Intervals [place] Rate: 72 P: 49 MT: 207 QRS: -47 QRSD: 154 T: -25 QT: 444 QTc: 487 Interpretive Statements SINUS RHYTHM INTRAVENTRICULAR CONDUCTION DELAY [130+ ms QRS DURATION] Compared to ECG 01/21/2023 15:59:23 Left-axis deviation no longer present Electronically Signed On 09-06-2023 15:04:41 CDT by Abdiel Avila M.D. [id number]
--- NOTE | 2023-09-06 12:42 | W.ED.CHESTPA ---
HPI - Chest Pain General: Chief Complaint: Chest Pain Stated Complaint: Chest pain Time Seen by Provider: 09/06/23 12:33 History of Present Illness: 68-year-old man with a history of COPD and chronic hypoxemic respiratory failure on as needed oxygen, congestive heart failure, coronary artery disease, hypertension, diabetes and chronic pain syndrome who presents to the emergency room with chest bilateral arm and bilateral leg pain along with some shortness of breath that started this morning. He put on his oxygen because he says that helped sometimes. EMS reports he was not hypoxemic on presentation. They do report he was hypertensive and nitro really did not help his pain or his blood pressure. He says he has not had any new cough. Has some trace tibial edema that is at his baseline. No altered mental status. No focal motor deficits. No nausea or vomiting. Describes a diffuse chest tightness or ache. Review of Systems Narrative: Constitutional symptoms: Negative except as documented in HPI. Skin symptoms: Negative except as documented in HPI. Eye symptoms: Negative except as documented in HPI. ENMT symptoms: Negative except as documented in HPI. Respiratory symptoms: Negative except as documented in HPI. Cardiovascular symptoms: Negative except as documented in HPI. Gastrointestinal symptoms: Negative except as documented in HPI. Genitourinary symptoms: Negative except as documented in HPI. Musculoskeletal symptoms: Negative except as documented in HPI. Neurologic symptoms: Negative except as documented in HPI. Psychiatric symptoms: Negative except as documented in HPI. Endocrine symptoms: Negative except as documented in HPI. [facility] ED PFSH: Medical History BPH (benign prostatic hyperplasia) GERD (gastroesophageal reflux disease) Asthma Heart failure with reduced ejection fraction 07/09- LVEF 35-40% History of placement of stent in LAD coronary artery Chronic pain Diabetes ICD (implantable cardioverter-defibrillator) in place Hyperlipidemia HTN (hypertension) Surgical History S/P cataract surgery History of implantable cardioverter-defibrillator (ICD) placement Family History Father Emphysema of lung Social History Smoking and tobacco/nicotine status: never used tobacco/nicotine Alcohol intake: never Substance/Drug Use: current Substance/Drug use frequency: daily Lives independently: Yes Marital status: / Current occupational status: disabled Current gender identity: Male Special eduardo needs: No Agree to transfusion: Yes Physical Exam Narrative: EXAM NARRATIVE: General: Alert, no acute distress. Skin: Warm, dry. Head: Normocephalic, atraumatic. Neck: Supple, trachea midline. Eye: Extraocular movements are intact. Ears, nose, mouth and throat: mucosa moist. Cardiovascular: Regular, Normal peripheral perfusion. Respiratory: Lungs are clear to auscultation, respirations are non-labored, breath sounds are equal, Symmetrical chest wall expansion. Gastrointestinal: Soft, Nontender, Non distended, Normal bowel sounds. Musculoskeletal: Normal ROM, no deformity. Neurological: Alert and oriented, No focal neurological deficit observed. Psychiatric: Cooperative, appropriate mood & affect. Course Vital Signs: Vital signs: Vital Signs Temperature 98.5 F 09/06/23 12:31 Pulse Rate 68 09/06/23 15:00 Respiratory Rate 17 09/06/23 12:31 Blood Pressure 168/92 09/06/23 15:00 Pulse Oximetry 99 09/06/23 15:00 Oxygen Delivery Me thod Room Air 09/06/23 13:16 MDM - Chest Pain Medical Decision Making Differential diagnosis for patient with chest pain includes but is not limited to and based on the above HPI, review of systems and physical exam: Pneumonia. unstable angina. angina. Acute coronary syndrome / [place]. Pulmonary embolism. Costochondritis / musculoskeletal. Pleurisy. Pericarditis. Esophageal spasm. Pancreatis. Cholecystitis. Workup: Lab work, chest X-ray and EKG ordered to evaluate, rule in and rule out above pathologies. Lab Review: Laboratory results were reviewed and interpreted by myself the emergency room physician. Patient's BUN is 0.6 which is actually lower than usual. He normally runs around 1. His proBNP is around 2500 and in the past is usually around 300-700. He has some swelling in his legs. Chest x-ray appears to have some signs of failure and his symptoms are consistent with this. 80 mg IV Lasix were given. Patient has foul-smelling urine. Initially did not have any complaints but around the time of dispo complained of this so urine was sent. Foul-smelling urine. 3+ bacteria. Only a few whites. Treating. EKG: Time 1239 rate 72 normal sinus rhythm, No ST-T changes, no ectopy, left bundle branch block, This was reviewed and interpreted by myself the ER physician at 1241. Chest x-ray: Cardiomegaly. Increased pulmonary congestion suggestive of heart failure. Pacemaker/AICD is in place. Wires appear similar to January 2023. No pneumothorax. No obvious pneumonia. This was reviewed and interpreted by myself the ER physician. I reviewed the patient's medical record. Reexamination: Patient remained stable. No increased work of breathing at this time no altered mental status. No oxygen requirements. No focal motor deficits. Lab Data 09/06/23 13:55 09/06/23 12:50 Radiology Impressions Chest X-Ray 09/06/23 12:35 IMPRESSION: Increased interstitial lung markings suggestive of edema in the setting of cardiomegaly and pulmonary vascular congestion. Atypical/viral process or other interstitial disease could appear similar. Laboratory Results WBC 6.05 10^3/uL (3.29-11.43) 09/06/23 13:55 Corrected WBC Cancelled 09/06/23 12:50 RBC 4.15 10^6/uL (3.85-5.65) 09/06/23 13:55 Hgb 12.70 g/dL (11.27-16.99) 09/06/23 13:55 Hct 37.3 % (37-53) 09/06/23 13:55 MCV 89.9 fl (82-101) 09/06/23 13:55 MCH 30.6 pg (27-33) 09/06/23 13:55 MCHC 34.0 g/dL (30-55) 09/06/23 13:55 RDW 14.6 % (12.1-15.1) 09/06/23 13:55 Plt Count 106 10^3/cmm (157-399) L 09/06/23 13:55 MPV 12.3 fL (7.4-10.4) H 09/06/23 13:55 Gran % Cancelled 09/06/23 12:50 Neut % (Auto) 83.5 % 09/06/23 13:55 Lymph % (Auto) 11.4 % 09/06/23 13:55 Coke % (Auto) 3.8 % 09/06/23 13:55 Eos % (Auto) 0.7 % 09/06/23 13:55 Baso % (Auto) 0.3 % 09/06/23 13:55 Neut # (Auto) 5.05 10^3/uL (1.8-7.7) 09/06/23 13:55 Lymph # (Auto) 0.7 10^3/uL (0.8-4.8) L 09/06/23 13:55 Coke # (Auto) 0.2 10^3/uL (0.2-0.9) 09/06/23 13:55 Eos # (Auto) 0.0 10^3/uL (0.0-0.8) 09/06/23 13:55 Baso # (Auto) 0.0 10^3/uL (0.0-0.1) 09/06/23 13:55 Absolute Gran (auto) Cancelled 09/06/23 12:50 Nucleated RBC % (auto) 0 % 09/06/23 13:55 Nucleated RBCs # 0.0 /100WBC 09/06/23 13:55 Specimen Type Arterial 09/06/23 12:58 Sample Site Radial, right 09/06/23 12:58 ABG pH 7.46 (7.35-7.45) H 09/06/23 12:58 ABG pCO2 40.4 mmHg (35-45) 09/06/23 12:58 ABG pO2 68.0 mmHg (80.0-100.0) L 09/06/23 12:58 ABG PO2/FiO2 Ratio 0 09/06/23 12:58 ABG HCO3 28.6 mmol/L (22-26) H 09/06/23 12:58 ABG O2 Saturation 95.1 09/06/23 12:58 ABG Base Excess 4.3 mmol/L (-2.0-2.0) H 09/06/23 12:58 Omar Test Pos 09/06/23 12:58 A-a O2 Gradient 4.2 mmHg (5-10) L 09/06/23 12:58 Hematocrit 39.3 % (42-52) L 09/06/23 12:58 Hgb O2 Saturation 94.2 % (95-100) L 09/06/23 12:58 Carboxyhemoglobin 0.7 %THgb (0.4-20.1) 09/06/23 12:58 Methemoglobin 0.2 % (0.4-1.5) L 09/06/23 12:58 Total Hemoglobin 12.8 g/dL (14-18) L 09/06/23 12:58 Sodium 141.0 mmol/L (131-143) 09/06/23 12:58 Potassium 3.8 mmol/L (3.5-5.0) 09/06/23 12:58 Glucose 186.0 mg/dL (70-115) H 09/06/23 12:58 Ionized Calcium 1.2 mmol/L (1.1-1.4) 09/06/23 12:58 O2 Delivery Device Room air 09/06/23 12:58 FiO2 21.0 % 09/06/23 12:58 Global Upstream Marketing Manager ID [id number] 09/06/23 12:58 Sodium 139 mmol/L (136-145) 09/06/23 12:50 Potassium 4.1 mmol/L (3.5-5.1) 09/06/23 12:50 Chloride 102 mmol/L (98-107) 09/06/23 12:50 Carbon Dioxide 29 mmol/L (22-29) 09/06/23 12:50 Anion Gap 12.1 (5-19) 09/06/23 12:50 BUN 10 mg/dL (8-23) 09/06/23 12:50 Creatinine 0.6 mg/dL (0.7-1.2) L 09/06/23 12:50 GFR Calculation 133.2 mL/min (90-130) H 09/06/23 12:50 Glucose 180 mg/dL (65-115) H 09/06/23 12:50 Calculated Osmolality 292 mOsm/kg (285-295) 09/06/23 12:50 Calcium 9.5 mg/dL (8.5-10.5) 09/06/23 12:50 Total Bilirubin 0.5 mg/dL (0.15-1.2) 09/06/23 12:50 AST 14 U/L (0-40) 09/06/23 12:50 ALT 16 U/L (0-41) 09/06/23 12:50 Alkaline Phosphatase 66 U/L (40-130) 09/06/23 12:50 Troponin T Baseline 34 ng/L (0-15) H 09/06/23 12:50 Troponin T 120 Minute 33.73 ng/L (0-15) H 09/06/23 14:55 Delta Troponin T -0.27 ABS# (0-10) L 09/06/23 14:55 C-Reactive Protein 5.2 mg/L (0.0-4.9) H 09/06/23 12:50 NT-Pro-B Natriuret Pep 2892 pg/mL (0-125) H 09/06/23 12:50 Total Protein 6.7 g/dL (6.6-8.7) 09/06/23 12:50 Albumin 4.0 g/dL (3.5-5.2) 09/06/23 12:50 Globulin 2.7 g/dL (1.3-4.6) 09/06/23 12:50 Urine Color Light yellow (Yellow) 09/06/23 14:58 Urine Appearance Sl hazy (CLEAR) A 09/06/23 14:58 Urine pH 7 (5-7) 09/06/23 14:58 Ur Specific [place] 1.005 (1.005-1.030) 09/06/23 14:58 Urine Protein Neg (Negative) 09/06/23 14:58 Urine Glucose (UA) Norm (Normal) 09/06/23 14:58 Urine Ketones Negative (Negative) 09/06/23 14:58 Urine Blood Neg (Negative) 09/06/23 14:58 Urine Nitrate Negative (Negative) 09/06/23 14:58 Urine Bilirubin Neg (Negative) 09/06/23 14:58 Urine Urobilinogen Norm mg/dL (Negative) 09/06/23 14:58 Ur Leukocyte Esterase Negative (Negative) 09/06/23 14:58 Urine RBC 0-4 /hpf (0-2) H 09/06/23 14:58 Urine WBC 0-4 /hpf (0-5) H 09/06/23 14:58 Ur Squamous Epith Cells 0-4 /hpf (0-5) H 09/06/23 14:58 Amorphous Sediment Not Reportable 09/06/23 14:58 Urine Bacteria 3+ /hpf (NONE) H 09/06/23 14:58 Influenza Type A Ag negative (Negative) 09/06/23 13:15 Influenza Type B Ag negative (Negative) 09/06/23 13:15 SARS-CoV-2 Ag (Rapid) negative (Negative) 09/06/23 13:15 All radiology interpretation(s) finalized by discharge Other Data Assessment and plan: Congestive heart failure Urinary tract infection -80 mg IV Lasix. Only slightly overloaded. Will place on a short-term Lasix course and continue his spironolactone -1 g IV Rocephin. Home on Omnicef - Discharged home - Discussed findings and plan with patient. Answered any questions. - All laboratory values were reviewed and interpreted personally by myself, the ER physician - All imaging was reviewed and interpreted personally by myself, the ER physician. - Evaluation and treatment of this problem were appropriate in the emergency setting Discharge Plan Discharge Patient Disposition: Home Clinical Impression: Congestive heart failure, Urinary tract infection Condition: Stable Prescriptions: New cefdinir 300 mg capsule 300 mg PO BID 5 Days Qty: 10 0RF Lasix 40 mg tablet 40 mg PO DAILY Qty: 7 0RF No Action Farxiga 10 mg tablet 10 mg PO DAILY Qty: 30 2RF (DME) Rollaid with seat See Rx Instructions .Route .MEDSUPPLY Qty: 1 0RF Rx Instructions: As directed (DME) blood-glucose meter Kit See Rx Instructions .ROUTE .MEDSUPPLY Qty: 1 0RF Rx Instructions: check blood daily polyethylene glycol 3350 17 gram/dose powder 17 gm PO DAILY PRN (Reason: constipation) Qty: 510 6RF (DME) pen needle, diabetic [TechLITE Pen Needle] 31 gauge x 5/16 needle See Rx Instructions .ROUTE .MEDSUPPLY Qty: 100 0RF Rx Instructions: use with levemir-TWO TIMES DAILY sennosides-docusate sodium [Senexon-S] 8.6-50 mg tablet 1 tab-cap PO DAILY PRN (Reason: constipation) Qty: 30 3RF Entresto 97-103 mg tablet 1 tab PO BID Qty: 180 1RF albuterol sulfate [Ventolin HFA] 90 mcg/actuation HFA aerosol inhaler 1 inh INHALATION QID PRN (Reason: shortness of breath or wheezing) Qty: 8.5 3RF diclofenac sodium 1 % gel 2 g TOPICAL QID PRN (Reason: arthritis) Qty: 100 6RF pregabalin 300 mg capsule 300 mg PO BID Qty: 60 1RF fentanyl 75 mcg/hr patch 72 hour 1 patch topical Q48H 30 Days Qty: 15 0RF amlodipine 5 mg tablet 5 mg PO DAILY esomeprazole magnesium 40 mg capsule,delayed release(DR/EC) 40 mg PO DAILY spironolactone 50 mg tablet 50 mg PO DAILY duloxetine 60 mg capsule,delayed release(DR/EC) 60 mg PO DAILY@07 Rx Instructions: WITH 30MG DOSE TO =90MG aspirin 81 mg tablet,delayed release (DR/EC) 81 mg PO DAILY Flonase Allergy Relief 50 mcg/actuation spray,suspension 2 spray intranasal DAILY PRN (Reason: Allergy Symptoms) duloxetine 30 mg capsule,delayed release(DR/EC) 30 mg PO DAILY Rx Instructions: with 60mg to =90mg Levemir FlexTouch U100 Insulin 100 unit/mL (3 mL) insulin pen 40 unit SUBCUT BEDTIME Symbicort 80-4.5 mcg/actuation HFA aerosol inhaler 2 puff inhalation BID PRN (Reason: unknown) Discharge Orders: Discharge ED (Routine); Ordered 09/06/23 Ordered By: Neha Uriostegui Referrals: Shemar Kaiser MD [Primary Care Provider] - (You have been screened and evaluated and felt safe for discharge. Health conditions do change or evolve sometimes and as such it is important that you follow up with your Primary Doctor to be re checked, 3-5 days is a general good time frame for follow up. You are always welcome to return to the ED for re assessment if your symptoms are worsening or you have new concerns) Discharge Diet: Usual diet Discharge Activity: Increase activity as tolerated Patient Instructions: Heart Failure (ED), Urinary Tract Infection in Older Adults (ED) Coding Level of Care Code ED [employer] Consultant for Ivonne Guaman
[2023-09-06 13:07] LABS: ABG PCO2 40.4 mmHg (35-45); ABG PH Result 7.46 (7.35-7.45); Alveolar-Arterial Oxygen Gradi 4.2 mmHg (5-10); Arterial Blood Gas Hematocrit 39.3 % (42-52); Base Excess ABG 4.3 mmol/L (-2.0-2.0); Blood Gas Allen Test Pos; Blood Gas Operator Identificat glc; Blood Gas Sample Site Radial, right; Blood Gas Sample Type Arterial; Carboxyhemoglobin 0.7 %THgb (0.4-20.1); HCO3 ABG 28.6 mmol/L (22-26); HGB O2 Sat 94.2 % (95-100); Ionized Calcium Level - ABG 1.2 mmol/L (1.1-1.4); Methemoglobin 0.2 % (0.4-1.5); Oxygen Device ROOM AIR; Oxygen Saturation ABG 95.1; PO2 FiO2 Ratio Arterial Blood 0; Potassium Level - ABG 3.8 mmol/L (3.5-5.0); Total Hemoglobin 12.8 g/dL (14-18)
[2023-09-06 13:16] VITALS: PULSE 62; O2SAT 98
[2023-09-06 13:20] LABS: Troponin(5th) Baseline 34 ng/L (0-15)
[2023-09-06 13:30] LABS: Alanine Aminotransferase 16 U/L (0-41); Alkaline Phosphatase 66 U/L (40-130); Anion Gap 12.1 (5-19); Aspartate Amino Transferase 14 U/L (0-40); Blood Urea Nitrogen 10 mg/dL (8-23); C Reactive Protein 5.2 mg/L (0.0-4.9); Calcium 9.5 mg/dL (8.5-10.5); Carbon Dioxide 29 mmol/L (22-29); Chloride 102 mmol/L (98-107); Creatinine Clr Calc Pharmacy 86.6979; Globulin 2.7 g/dL (1.3-4.6); Glomerular Filtration Rate 133.2 mL/min (90-130); Glucose 180 mg/dL (65-115); NT Pro B Type Natriuretic Pept 2892 pg/mL (0-125); Osmolality Calculated 292 mOsm/kg (285-295); Potassium 4.1 mmol/L (3.5-5.1); Sodium 139 mmol/L (136-145); Total Bilirubin 0.5 mg/dL (0.15-1.2); Total Protein 6.7 g/dL (6.6-8.7)
[2023-09-06 13:37] LABS: Influenza A by IFA negative (Negative); Influenza B by IFA negative (Negative)
[2023-09-06 13:38] LABS: SARS Covid-2 Antigen negative (Negative)
[2023-09-06 14:00] VITALS: BP 152/82; PULSE 62; O2SAT 97
[2023-09-06 14:01] LABS: Basophils % 0.3 %; Eosinophils % 0.7 %; Hematocrit 37.3 % (37-53); Lymphocytes # 0.7 10^3/uL (0.8-4.8); Lymphocytes % 11.4 %; Mean Corpuscular Hemoglobin 30.6 pg (27-33); Mean Corpuscular Volume 89.9 fl (82-101); Mean Platelet Volume 12.3 fL (7.4-10.4); Monocytes # 0.2 10^3/uL (0.2-0.9); Monocytes % 3.8 %; Neutrophils # 5.05 10^3/uL (1.8-7.7); Neutrophils % 83.5 %; Nucleated Red Blood Cells % 0 %; Platelet Count 106 10^3/cmm (157-399); Red Blood Count 4.15 10^6/uL (3.85-5.65); Red Cell Distribution Width 14.6 % (12.1-15.1); White Blood Count 6.05 10^3/uL (3.29-11.43)
[2023-09-06] MEDS: FUROsemide 10 mg/mL SDV 10mL 80 MG IVP (14:24)
--- NOTE | 2023-09-06 14:25 | PC.PHAR ---
pts sister verified pts medications-pts sister states the pt hasnt been taking his medications states not taken in a week-pts sister states the pt no longer takes carvedilol 25mg daily ext doesnt show when last filled states pt hasnt taken for 2 or more months-pts sister states the pt takes cymbalta 30mg (ext shows last filled 11/03/22 90d/s) and 60mg daily (ext shows last filled 08/19/23 30d/s)-pts sister states she placed a fentanyl patch in the center of the pts chest today 09/06/23-pts sister states the pt takes farxiga 10mg daily ext doesnt show when last filled-pts sister states the pt no longer takes kcl 20meq daily,flomax 0.4mg daily or torsemide 40mg daily prn-notes are made in the pharmacy comments
[2023-09-06 14:30] VITALS: BP 161/88; PULSE 75; O2SAT 98
--- NOTE | 2023-09-06 14:42 | ECG_ITS ---
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 Measurements Intervals [place] Rate: 65 P: 64 NC: 193 QRS: -53 QRSD: 160 T: -64 QT: 468 QTc: 487 Interpretive Statements SINUS RHYTHM LEFT AXIS DEVIATION [QRS AXIS < -30] INTRAVENTRICULAR CONDUCTION DELAY [130+ ms QRS DURATION] Compared to ECG 09/06/2023 12:39:23 Left-axis deviation now present Electronically Signed On 09-06-2023 15:08:24 CDT by Abdiel Avila M.D. [id number]
[2023-09-06 15:00] VITALS: BP 168/92; PULSE 68; O2SAT 99
[2023-09-06 15:36] LABS: Troponin 5 1HR 33.73 ng/L (0-15)
[2023-09-06 15:37] LABS: Troponin 5 1HR Delta -0.27 ABS# (0-10)
[2023-09-06 15:38] LABS: Bacteria Urine 3+ /hpf; Bilirubin Urine Neg (Negative); Blood Urine Neg (Negative); Glucose Urine UA Norm (Normal); Ketones Urine Negative (Negative); Leukocyte Esterase Urine Negative (Negative); Nitrate Urine Negative (Negative); Protein Urine Neg (Negative); RBC Urine 0-4 /hpf (0-2); Specific Gravity, Urine 1.005 (1.005-1.030); Squamous Epithelial Cell Urine 0-4 /hpf (0-5); Urine Appearance SL Hazy (CLEAR); Urine Color Light yellow (Yellow); Urobilinogen Urine Norm (Negative); WBC Urine 0-4 /hpf (0-5); pH Urine 7 (5-7)
[2023-09-06 15:39] LABS: Add Urine Culture? No
[2023-09-06] MEDS: cefTRIAXone 1,000 MG in sodium chloride 0.9% (plus) 50 ML 100 MG IV (15:56)
[2023-09-06 16:01] VITALS: BP 157/106; PULSE 67; RESP 20; O2SAT 96
== END 2023-09-06 16:31 | disposition home or self-care (01) ==
PROVIDERS: Emergency Provider Emergency Medicine; PCP Family Medicine
DX: I11.0 Hypertensive heart disease with heart failure (principal); I50.9 Heart failure, unspecified; N39.0 Urinary tract infection, site not specified; Z79.82 Long term (current) use of aspirin; Z79.4 Long term (current) use of insulin; Z11.52 Encounter for screening for COVID-19; E11.9 Type 2 diabetes mellitus without complications; E78.5 Hyperlipidemia, unspecified; Z95.810 Presence of automatic (implantable) cardiac defibrillator; J44.9 Chronic obstructive pulmonary disease, unspecified; I25.10 Atherosclerotic heart disease of native coronary artery without angina pectoris; Z99.81 Dependence on supplemental oxygen; I44.7 Left bundle-branch block, unspecified
CPT/HCPCS: 36415; 36600; 71045; 80051; 80053; 81001; 82330; 82805; 83880; 84484; 85025; 86140; 87426; 87804; 93005; 96374; 96375; 99285; J0696; J1940

== ENCOUNTER → 2023-09-13 13:05 | Outpatient (BNVA) | payer MEDICARE, MEDICAID, SELFPAY | PROVIDERS: PCP Family Medicine; Visit Provider Podiatrist Foot & Ankle Surgery | DX: B35.1 Tinea unguium (principal); I73.9 Peripheral vascular disease, unspecified; E11.9 Type 2 diabetes mellitus without complications; Z79.4 Long term (current) use of insulin | CPT/HCPCS: 11721 ==

== ENCOUNTER → 2023-12-02 15:43 | Outpatient (BNVA) | payer MEDICARE, MEDICAID, SELFPAY | PROVIDERS: PCP Family Medicine; Visit Provider Internal Medicine Cardiovascular Disease | DX: I11.0 Hypertensive heart disease with heart failure (principal); I50.20 Unspecified systolic (congestive) heart failure; I42.8 Other cardiomyopathies; E78.2 Mixed hyperlipidemia; Z95.810 Presence of automatic (implantable) cardiac defibrillator; I25.118 Atherosclerotic heart disease of native coronary artery with other forms of angina pectoris | CPT/HCPCS: 99214 ==

== ENCOUNTER → 2024-01-21 14:10 | Outpatient (BNVA) | payer MEDICARE, MEDICAID, SELFPAY | PROVIDERS: PCP Family Medicine; Visit Provider Family Medicine | DX: E11.9 Type 2 diabetes mellitus without complications (principal); E78.2 Mixed hyperlipidemia | CPT/HCPCS: 80053; 80061; 83036; 85025 ==

== ENCOUNTER 2024-03-22 09:17 | Emergency (ER) | payer OTHER, MEDICARE, MEDICAID, SELFPAY ==
[2024-03-22 09:17] VITALS: BP 196/90; PULSE 65; RESP 17; TEMP 37.7; O2SAT 97; BMI 25.8
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
[2024-03-22] MEDS: iohexol 350 mg/mL 500 mL Btl (per mL) IV (09:37)
[2024-03-22 09:54] VITALS: RESP 16; O2SAT 100
[2024-03-22] MEDS: HYDROmorphone 1 mg/mL INJ 1 mL 0.5 MG IVP (09:54)
[2024-03-22] MEDS: ondansetron 2 mg/ML SDV 2 mL 4 MG IVP (09:54)
[2024-03-22 10:27] LABS: Basophils % 0.1 %; Hematocrit 48.6 % (37-53); Lymphocytes # 0.7 10^3/uL (0.8-4.8); Lymphocytes % 8.2 %; Mean Corpuscular HGB Conc 33.7 g/dL (30-55); Mean Corpuscular Hemoglobin 30.4 pg (27-33); Mean Corpuscular Volume 90.2 fl (82-101); Mean Platelet Volume 11.6 fL (7.4-10.4); Monocytes # 0.4 10^3/uL (0.2-0.9); Monocytes % 4.8 %; Neutrophils # 7.11 10^3/uL (1.8-7.7); Neutrophils % 86.7 %; Nucleated Red Blood Cells % 0 %; Platelet Count 178 10^3/cmm (157-399); Red Blood Count 5.39 10^6/uL (3.85-5.65); Red Cell Distribution Width 13.6 % (12.1-15.1)
[2024-03-22 10:35] VITALS: TEMP 37.3
[2024-03-22 10:50] LABS: Alanine Aminotransferase 10 U/L (0-41); Albumin Level 4.5 g/dL (3.5-5.2); Alkaline Phosphatase 67 U/L (40-130); Anion Gap 17.9 (5-19); Aspartate Amino Transferase 10 U/L (0-40); Blood Urea Nitrogen 17 mg/dL (8-23); Calcium 10.5 mg/dL (8.5-10.5); Carbon Dioxide 24 mmol/L (22-29); Chloride 100 mmol/L (98-107); Creatinine Clr Calc Pharmacy 87.3595; Globulin 2.2 g/dL (1.3-4.6); Glomerular Filtration Rate 95.6 mL/min (90-130); Glucose 199 mg/dL (65-115); Osmolality Calculated 293 mOsm/kg (285-295); Potassium 3.9 mmol/L (3.5-5.1); Sodium 138 mmol/L (136-145); Total Bilirubin 0.5 mg/dL (0.15-1.2); Total Protein 6.7 g/dL (6.6-8.7)
--- NOTE | 2024-03-22 10:52 | PC.PHAR ---
Addendum entered by Alice De Dios 03/22/24 10:56: pts' sister states pt has been out of aspirin 81mg daily for a week. Original Note: Pts' sister Magdalena [phone] verified pt medications via phone. Several medications verified have not been filled in awhile. Entresto 97-103 bid last filled 08/2022, Spironolactone 50mg daily last filled 08/19/23, Symbicort 80-4.5 2 puffs bid prn last filled 03/25/23. These meds were left on pt chart with last fill dates and days supply. Pts' sister also states applied Fentanyl 75mcg/hr 72 hour patch yesterday at 10am. 03/21/24
[2024-03-22 11:04] VITALS: RESP 16; O2SAT 97
[2024-03-22] MEDS: HYDROmorphone 1 mg/mL INJ 1 mL IVP (11:04)
[2024-03-22] MEDS: lidocaine 5% Patch 1 PATCH TOPICAL (11:28)
[2024-03-22] MEDS: HYDROcodone-acetaminophen 7.5-325 mg Tablet 1 TAB PO (12:20)
--- NOTE | 2024-03-22 12:33 | ECG_ITS ---
[facility] Test Date: 2024-03-22 Pat Name: Brian Lozada Department: Room: Gender: Male Director Commercial Sales: : 1955 Requested By: Abilio Jha Order Number: [id number] Morris MD: Carlos Alberto Toro M.D. Measurements Intervals [place] Rate: 67 P: 61 [place]: 202 QRS: -32 QRSD: 164 T: -71 QT: 441 QTc: 467 Interpretive Statements SINUS RHYTHM LEFT AXIS DEVIATION [QRS AXIS < -30] INTRAVENTRICULAR CONDUCTION DELAY [130+ ms QRS DURATION] Compared to ECG 09/06/2023 14:42:30 No significant changes Electronically Signed On 03-23-2024 21:41:16 ENCHILADA MAKER by Carlos Alberto Toro M.D. [email or web address]
[2024-03-22 12:40] VITALS: BP 180/89; PULSE 66; O2SAT 100
== END 2024-03-22 12:43 | disposition home or self-care (01) ==
PROVIDERS: Emergency Provider Emergency Medicine; PCP Family Medicine
DX: S22.20XA Unspecified fracture of sternum, initial encounter for closed fracture (principal); V89.2XXA Person injured in unspecified motor-vehicle accident, traffic, initial encounter; Z79.82 Long term (current) use of aspirin; Z95.810 Presence of automatic (implantable) cardiac defibrillator; I11.0 Hypertensive heart disease with heart failure; I50.20 Unspecified systolic (congestive) heart failure; E11.9 Type 2 diabetes mellitus without complications
CPT/HCPCS: 71260; 72125; 74177; 80053; 85025; 93005; 96374; 96375; 96376; 99285; J1171; J2405

== ENCOUNTER → 2024-05-25 15:50 | Outpatient (BNVA) | payer MEDICARE, MEDICAID, SELFPAY | PROVIDERS: PCP Family Medicine; Visit Provider Nurse Practitioner Family | DX: R11.10 Vomiting, unspecified (principal) | CPT/HCPCS: 87400 ==

== ENCOUNTER 2024-05-31 10:22 | Emergency (ER) | payer MEDICARE, MEDICAID, SELFPAY ==
[2024-05-31 10:24] VITALS: BP 175/103; PULSE 77; RESP 18; TEMP 36.9; O2SAT 95
[2024-05-31 10:30] VITALS: BP 143/86; PULSE 70; O2SAT 92
--- NOTE | 2024-05-31 10:31 | XR_ITS ---
WS: [id number] XR chest 1V portable [id number] REASON FOR EXAM: sob FINDINGS: Chest is relatively unchanged compared to 09/14/2020. Cardiac device in place over the left chest with trans left subclavian leads to the right atrium and right ventricular apex. Moderate tortuosity of the thoracic aorta. Heart size at the upper limits of normal. Calcified lu ry artery stents. Calcified granulomas disease in both hemithoraces. There is central pulmonary venous congestion. There are chronic reticular interstitial changes in bot h lower lung messina. XR/XR chest 1V portable [id number] IMPRESSION: Stable chest. There are findings of chronic congestive failure without without definite acute pulmonary edema.
--- NOTE | 2024-05-31 10:31 | ECG_ITS ---
[employer] [facility] Test Date: 2024-05-31 Pat Name: Brian Lozada Department: Room: Gender: Male Manager Floor: : 1955 Requested By: Abilio Jha Order Number: [id number] Reading MD: EDISON RUDOLPH Measurements Intervals [place] Rate: 72 P: 53 [place]: 188 QRS: -41 QRSD: 155 T: 70 QT: 423 QTc: 465 Interpretive Statements SINUS RHYTHM LEFT AXIS DEVIATION [QRS AXIS < -30] INTRAVENTRICULAR CONDUCTION DELAY [130+ ms QRS DURATION] Compared to ECG 03/22/2024 09:24:44 No significant changes Electronically Signed On 06-02-2024 23:29:59 IT CONSULTANT by EDISON RUDOLPH [email or web address]
--- NOTE | 2024-05-31 10:38 | ED_ITS ---
HPI - SOB/Dyspnea 2 General: Chief Complaint: Shortness of Breath/Dyspnea Stated Complaint: SOB Time Seen by Provider: 05/31/24 10:23 Source: patient and EMS Mode of arrival: EMS Limitations: no limitations History of Present Illness: HPI Narrative: 68-year-old male has extensive history o f COPD is on 2 L oxygen baseline states of last few weeks has had some slight increased dyspnea he is in no distress here talking in full sentences has had a slight cough denies any fever he denies any chest pain at rest states he had some slight pain with inspiration he did not receive any treatments and route Associated symptoms: Deny abdominal pain, chest pain, fever(s), nausea or vomiting Related Data Home Medications Medication Instructions Recorded Confirmed duloxetine 30 mg capsule,delayed 30 mg PO DAILY 09/06/23 05/31/24 release spironolactone 50 mg tablet 50 mg PO DAILY 09/06/23 05/31/24 torsemide 20 mg tablet See Rx Instructions .Route 03/22/24 05/31/24 .COMPLEX Edema insulin detemir U-100 100 unit/mL 40 unit SUBCUT DAILY 05/31/24 05/31/24 (3 mL) subcutaneous pen Previous Rx's Medication Instructions Recorded blood-glucose meter #1 ea 12/19/19 pen needle, diabetic 31 gauge x #100 ea 04/18/2009/29 (TechLITE Pen Needle) Rollaid with seat #1 ea 11/05/22 diclofenac sodium 1 % topical gel 2 g topical QID PRN arthritis #100 06/23/23 grams amlodipine 10 mg tablet 10 mg PO DAILY 90 days #90 tabs 12/02/23 nitroglycerin 0.4 mg sublingual 0.4 mg sublingual Q5M PRN chest 12/02/23 tablet pain 30 days #30 tabs albuterol sulfate 90 mcg/actuation 1 inh inhalation QID PRN shortness 02/15/24 aerosol inhaler (Ventolin HFA) of breath or wheezing #8.5 grams duloxetine 60 mg capsule,delayed 60 mg PO DAILY@07 #120 caps 02/15/24 release dapagliflozin propanediol 10 mg 10 mg PO DAILY #90 tabs 05/15/24 tablet (Farxiga) fentanyl 75 mcg/hr transdermal 1 patch topical Q48H 30 days #15 05/18/24 patch patches esomeprazole magnesium 40 mg 40 mg PO DAILY #90 caps 05/22/24 capsule,delayed release cetirizine 10 mg capsule (Zyrtec) 10 mg PO DAILY allergy symptoms 14 05/25/24 days #14 caps fluticasone propionate 50 2 spray intranasal BID 7 days #16 05/25/24 mcg/actuation nasal mL spray,suspension (Flonase Allergy Relief) pregabalin 300 mg capsule 300 mg PO BID #60 caps 05/26/24 oseltamivir 75 mg capsule (Tamiflu) 75 mg PO Q12H 5 days #10 caps 05/31/24 Allergies Allergy/AdvReac Type Severity Reaction Status Date / Time morphine Allergy Unknown ADR-Vomitin Verified 05/25/24 15:44 g Review of Systems 2 Const: Denies: fever(s), chills, body aches or change in appetite ENMT: Denies: throat pain or dental pain Card: Denies: chest pain Resp: Reports: dyspnea GI: Denies: abdominal pain, nausea, vomiting or diarrhea Musc: Denies: neck pain or back pain Skin/Breast: Denies: rash Neuro: Denies: headache(s) PFSH ED 2 PFSH: Medical History BPH (benign prostatic hyperplasia) GERD (gastroesophageal reflux disease) Asthma Heart failure with reduced ejection fraction 07/09- LVEF 35-40% History of placement of stent in LAD coronary artery Chronic pain Diabetes ICD (implantable cardioverter-defibrillator) in place Hyperlipidemia HTN (hypertension) Surgical History S/P cataract surgery History of implantable cardioverter-defibrillator (ICD) placement Family History Father Emphysema of lung Social History Smoking and tobacco/nicotine status: never used tobacco/nicotine Alcohol intake: never Substance/Drug Use: current Substance/Drug use frequency: daily Lives independently: Yes Marital status: / Current occupational status: disabled Current gender identity: Male Special eduardo needs: No Agree to transfusion: Yes Physical Exam 2 Const: COMMON NORMALS: no acute distress, patient oriented x3 and healthy appearing HENMT: COMMON NORMALS: normocephalic and atraumatic HEAD & SCALP: n ormocephalic and atraumatic Eye: COMMON NORMALS: Equal, round and reactive pupils present and EOMs intact bilaterally PUPIL: Yes Equal, round and reactive pupils present Neck/C-Spine: COMMON NORMALS: full ROM and supple Chest: COMMONS NORMALS: normal inspection of the chest and normal palpation of entire chest wall Resp: COMMON NORMALS: normal respiratory effort, No retractions, No use of accessory muscles and clear to auscultation bilaterally AUSCULTATION: clear to auscultation bilaterally Cardio: COMMON NORMALS: regular rate, regular rhythm and No murmurs present (Cardio) RATE: regular rate RHYTHM: regular rhythm GI: COMMON NORMALS: Normal to inspection, nondistended, normoactive bowel sounds present, Soft to palpation, non-tender and no masses PALPATION: Yes Soft to palpation Extremity: COMMON NORMALS: normal to inspection and full ROM Neuro: COMMON NORMALS: patient oriented x3, moves all extremities and no focal motor deficits Psych: COMMON NORMALS: mental status grossly normal, Normal thought process present and cooperative THOUGHT PROCESS: Normal thought process present Skin: COMMON NORMALS: no rashes or lesions noted and no wounds GENERAL SKIN EXAM: no rashes or lesions noted Course 2 Vital Signs: Vital signs: Vital Signs Temperature 98.5 F 05/31/24 10:24 Pulse Rate 88 05/31/24 13:00 Respiratory Rate 21 H 05/31/24 13:00 Blood Pressure 136/89 05/31/24 13:00 Pulse Oximetry 99 05/31/24 13:00 Oxygen Delivery Me thod Nasal Cannula 05/31/24 11:30 Oxygen Flow Rate 3 05/31/24 11:30 MDM - SOB/Dyspnea Medical Decision Making Patient presents here with cough congestion some slight dyspnea he did test positive for influenza A he is not requiring more oxygen here imaging shows no pneumonia we will place him on Tamiflu he is stable for discharge follow-up with PCP return if worsening. Medical Records I reviewed the patient's medical records. Lab Data I reviewed the patient's lab results. 05/31/24 10:40 05/31/24 10:40 Labs/Radiology: Radiology Impressions Chest X-Ray 05/31/24 10:31 IMPRESSION: Stable chest. There are findings of chronic congestive failure without without definite acute pulmonary edema. Chest CTA 05/31/24 11:13 IMPRESSION: 1. No evidence of pulmonary embolus. 2. Cardiomegaly. 3. Slight dependent atelectasis with a few hazy groundglass opacities in the lower lobes may be infectious or inflammatory LEFT greater than RIGHT. No focal pneumonia. 4. Aberrant RIGHT subclavian artery. 5. Small esophageal hiatal hernia. 6. Previously described sternal fracture with evidence of callus formation. Laboratory Results WBC 4.74 10^3/uL (3.29-11.43) 05/31/24 10:40 RBC 4.73 10^6/uL (3.85-5.65) 05/31/24 10:40 Hgb 14.10 g/dL (11.27-16.99) 05/31/24 10:40 Hct 42.5 % (37-53) 05/31/24 10:40 MCV 89.9 fl (82-101) 05/31/24 10:40 MCH 29.8 pg (27-33) 05/31/24 10:40 MCHC 33.2 g/dL (30-55) 05/31/24 10:40 RDW 14.8 % (12.1-15.1) 05/31/24 10:40 Plt Count 113 10^3/cmm (157-399) L 05/31/24 10:40 MPV 11.1 fL (7.4-10.4) H 05/31/24 10:40 Neut % (Auto) 79.6 % 05/31/24 10:40 Lymph % (Auto) 9.9 % 05/31/24 10:40 [place] % (Auto) 9.1 % 05/31/24 10:40 Eos % (Auto) 0.6 % 05/31/24 10:40 Baso % (Auto) 0.4 % 05/31/24 10:40 Neut # (Auto) 3.77 10^3/uL (1.8-7.7) 05/31/24 10:40 Lymph # (Auto) 0.5 10^3/uL (0.8-4.8) L 05/31/24 10:40 [place] # (Auto) 0.4 10^3/uL (0.2-0.9) 05/31/24 10:40 Eos # (Auto) 0.0 10^3/uL (0.0-0.8) 05/31/24 10:40 Baso # (Auto) 0.0 10^3/uL (0.0-0.1) 05/31/24 10:40 Nucleated RBC % (auto) 0 % 05/31/24 10:40 Nucleated RBCs # 0.0 /100WBC 05/31/24 10:40 D-Dimer 1.42 ug/mLFEU (0-0.59) H 05/31/24 10:40 Sodium 135 mmol/L (136-145) L 05/31/24 10:40 Potassium 3.4 mmol/L (3.5-5.1) L 05/31/24 10:40 Chloride 96 mmol/L (98-107) L 05/31/24 10:40 Carbon Dioxide 26 mmol/L (22-29) 05/31/24 10:40 Anion Gap 16.4 (5-19) 05/31/24 10:40 BUN 9 mg/dL (8-23) 05/31/24 10:40 Creatinine 0.6 mg/dL (0.7-1.2) L 05/31/24 10:40 GFR Calculation 133.2 mL/min (90-130) H 05/31/24 10:40 Glucose 164 mg/dL (65-115) H 05/31/24 10:40 Calculated Osmolality 282 mOsm/kg (285-295) L 05/31/24 10:40 Calcium 9.2 mg/dL (8.5-10.5) 05/31/24 10:40 Total Bilirubin 0.6 mg/dL (0.15-1.2) 05/31/24 10:40 AST 20 U/L (0-40) 05/31/24 10:40 ALT 14 U/L (0-41) 05/31/24 10:40 Alkaline Phosphatase 67 U/L (40-130) 05/31/24 10:40 NT-Pro-B Natriuret Pep 5106 pg/mL (0-125) H 05/31/24 10:40 Total Protein 6.3 g/dL (6.6-8.7) L 05/31/24 10:40 Albumin 3.9 g/dL (3.5-5.2) 05/31/24 10:40 Globulin 2.4 g/dL (1.3-4.6) 05/31/24 10:40 Influenza Type A Ag Positive (Negative) H 05/31/24 10:48 Influenza Type B Ag Negative (Negative) 05/31/24 10:48 SARS-CoV-2 Ag (Rapid) negative (Negative) 05/31/24 10:48 All radiology interpretation(s) finalized by discharge EKG Data EKG 1: I personally reviewed and interpreted this EKG as follows: EKG Interpretation Date: 05/31/24 EKG interpretation time: 10:27 Interpretation: nsr hr [address] elevation qrs 155 qtc 447 Discharge Plan Discharge Patient Disposition: Home Clinical Impression: Influenza A Condition: Stable Prescriptions: New oseltamivir [Tamiflu] 75 mg capsule 75 mg PO Q12H 5 Days Qty: 10 0RF No Action nitroglycerin 0.4 mg tablet, sublingual 0.4 mg sublingual Q5M PRN (Reason: chest pain) 30 Days Qty: 30 3RF Rx Instructions: until response; do not exceed 3 doses per episode amlodipine 10 mg tablet 10 mg PO DAILY 90 Days Qty: 90 3RF fluticasone propionate [Flonase Allergy Relief] 50 mcg/actuation spray,suspension 2 spray intranasal BID 7 Days Qty: 16 0RF Rx Instructions: administer into each nostril Zyrtec 10 mg capsule 10 mg PO DAILY 14 Days Qty: 14 0RF (DME) Rollaid with seat See Rx Instructions .Route .MEDSUPPLY Qty: 1 0RF Rx Instructions: As directed ([facility]) blood-glucose meter Kit See Rx Instructions .ROUTE .MEDSUPPLY Qty: 1 0RF Rx Instructions: check blood daily ([facility]) pen needle, diabetic [TechLITE Pen Needle] 31 gauge x 5/16 needle See Rx Instructions .ROUTE .MEDSUPPLY Qty: 100 0RF Rx Instructions: use with levemir-TWO TIMES DAILY diclofenac sodium 1 % gel 2 g TOPICAL QID PRN (Reason: arthritis) Qty: 100 6RF albuterol sulfate [Ventolin HFA] 90 mcg/actuation HFA aerosol inhaler 1 inh INHALATION QID PRN (Reason: shortness of breath or wheezing) Qty: 8.5 3RF duloxetine 60 mg capsule,delayed release(DR/EC) 60 mg PO DAILY@07 Qty: 120 1RF Rx Instructions: WITH 30MG DOSE TO =90MG Farxiga 10 mg tablet 10 mg PO DAILY Qty: 90 0RF fentanyl 75 mcg/hr patch 72 hour 1 patch topical Q48H 30 Days Qty: 15 0RF esomeprazole magnesium 40 mg capsule,delayed release(DR/EC) 40 mg PO DAILY Qty: 90 0RF pregabalin 300 mg capsule 300 mg PO BID Qty: 60 1RF spironolactone 50 mg tablet 50 mg PO DAILY duloxetine 30 mg capsule,delayed release(DR/EC) 30 mg PO DAILY Rx Instructions: with 60mg to =90mg torsemide 20 mg tablet See Rx Instructions .ROUTE .COMPLEX Rx Instructions: Take 3 tablets (60mg) daily x 2 weeks, then 2 tablets (40mg) daily thereafter. Levemir FlexPen 100 unit/mL (3 mL) insulin pen 40 unit SUBCUT DAILY Discharge Orders: Discharge ED (Routine); Ordered 05/31/24 Ordered By: Abilio Jha Referrals: Shemar Kaiser MD [Primary Care Provider] - 4-7 days Discharge Diet: Advance as tolerated Discharge Activity: Resume usual activity Patient Instructions: Influenza (ED) Coding Level of Care Code ED Weight And Balance Control Agent for Ivonne Guaman
[2024-05-31 10:43] VITALS: PULSE 77; RESP 16; O2SAT 94
[2024-05-31] MEDS: ipratropium-albuterol 3 mL Neb INHALATION (10:47)
[2024-05-31 10:49] LABS: Basophils % 0.4 %; Eosinophils % 0.6 %; Hematocrit 42.5 % (37-53); Lymphocytes # 0.5 10^3/uL (0.8-4.8); Lymphocytes % 9.9 %; Mean Corpuscular HGB Conc 33.2 g/dL (30-55); Mean Corpuscular Hemoglobin 29.8 pg (27-33); Mean Corpuscular Volume 89.9 fl (82-101); Mean Platelet Volume 11.1 fL (7.4-10.4); Monocytes # 0.4 10^3/uL (0.2-0.9); Monocytes % 9.1 %; Neutrophils # 3.77 10^3/uL (1.8-7.7); Neutrophils % 79.6 %; Nucleated Red Blood Cells % 0 %; Platelet Count 113 10^3/cmm (157-399); Red Blood Count 4.73 10^6/uL (3.85-5.65); Red Cell Distribution Width 14.8 % (12.1-15.1); White Blood Count 4.74 10^3/uL (3.29-11.43)
[2024-05-31] MEDS: dexamethasone 10 mg/mL INJ IVP (11:03)
[2024-05-31 11:09] LABS: D Dimer 1.42 ug/mLFEU (0-0.59)
--- NOTE | 2024-05-31 11:13 | CT_ITS ---
WS: [id number] CTA OF THE CHEST WITH PULMONARY EMBOLISM PROTOCOL TECHNIQUE: High-resolution contrast enhanced CTA of the chest with coronal and sagittal reformatted i mages with pulmonary embolism protocol. MIP images are also reviewed. CLINICAL INFORMATION: sob COMPARISON: None. DLP: 410.[address] scans at [facility] use at least one of these dose optimization techniques: automated e xposure control; mA and/or kV adjustment per patient size (includes targeted exams where dose is matc hed to clinical indication); or iterative reconstruction. FINDINGS: Aberrant RIGHT subclavian artery. Cardiomegaly. Cardiac pacer. AICD. Aortic calcification. Proximal main pulmonary arteries are normal. Normal segmental subsegmental pulmonary arteries. No violeta dence of pulmonary embolus. Subsegmental atelectasis in the lung base with a few hazy opacities LEFT greater than RIGHT. No focal pneumonia or pleural fluid. Previously described sternal fracture with e vidence of callus formation. Thoracic kyphosis. Postoperative changes of the lower cervical spine. Adrenal glands are normal. Small esophageal hiatal hernia. Splenic artery calcification. CT/CT angio chest PE protcl [id number] IMPRESSION: 1. No evidence of pulmonary embolus. 2. Cardiomegaly. 3. Slight dependent atelectasis with a few hazy groundglass opacities in the l ower lobes may be infectious or inflammatory LEFT greater than RIGHT. No focal pneumonia. 4. Aberrant RIGHT subclavian artery. 5. Small esophageal hiatal hernia. 6. Previously described sternal fracture with evidence of callus formation.
[2024-05-31 11:14] LABS: Alanine Aminotransferase 14 U/L (0-41); Albumin Level 3.9 g/dL (3.5-5.2); Alkaline Phosphatase 67 U/L (40-130); Anion Gap 16.4 (5-19); Aspartate Amino Transferase 20 U/L (0-40); Blood Urea Nitrogen 9 mg/dL (8-23); Calcium 9.2 mg/dL (8.5-10.5); Carbon Dioxide 26 mmol/L (22-29); Chloride 96 mmol/L (98-107); Globulin 2.4 g/dL (1.3-4.6); Glomerular Filtration Rate 133.2 mL/min (90-130); Glucose 164 mg/dL (65-115); NT Pro B Type Natriuretic Pept 5106 pg/mL (0-125); Osmolality Calculated 282 mOsm/kg (285-295); Potassium 3.4 mmol/L (3.5-5.1); Sodium 135 mmol/L (136-145); Total Bilirubin 0.6 mg/dL (0.15-1.2); Total Protein 6.3 g/dL (6.6-8.7)
[2024-05-31 11:18] LABS: SARS Covid-2 Antigen negative (Negative)
[2024-05-31 11:21] LABS: Influenza A by IFA Positive (Negative); Influenza B by IFA Negative (Negative)
[2024-05-31 11:30] VITALS: BP 145/74; PULSE 82; O2SAT 96
[2024-05-31] MEDS: FUROsemide 10 mg/mL SDV 4mL 40 MG IVP (11:50)
[2024-05-31] MEDS: iohexol 350 mg/mL 500 mL Btl (per mL) IV (12:31)
[2024-05-31 13:00] VITALS: BP 136/89; PULSE 88; RESP 21; O2SAT 99
[2024-05-31 14:45] VITALS: BP 161/95; PULSE 92; O2SAT 98
== END 2024-05-31 14:47 | disposition home or self-care (01) ==
PROVIDERS: Emergency Provider Emergency Medicine; PCP Family Medicine
DX: J10.1 Influenza due to other identified influenza virus with other respiratory manifestations (principal); Z11.52 Encounter for screening for COVID-19; E11.9 Type 2 diabetes mellitus without complications; I11.0 Hypertensive heart disease with heart failure; I50.20 Unspecified systolic (congestive) heart failure; E78.5 Hyperlipidemia, unspecified
CPT/HCPCS: 71045; 71275; 80053; 83880; 85025; 85378; 87426; 87804; 93005; 94640; 96374; 96375; 99285; J1100; J1940

== ENCOUNTER 2024-07-02 17:39 | Emergency (ER) | payer MEDICARE, MEDICAID, SELFPAY ==
[2024-07-02 17:40] VITALS: BP 145/84; PULSE 82; RESP 18; TEMP 36.6; O2SAT 97; BMI 25.4
[2024-07-02 18:30] LABS: Eosinophils # 0.1 10^3/uL (0.0-0.8); Hematocrit 41.7 % (37-53); Lymphocytes # 0.5 10^3/uL (0.8-4.8); Lymphocytes % 10.4 %; Mean Corpuscular HGB Conc 34.5 g/dL (30-55); Mean Corpuscular Hemoglobin 29.7 pg (27-33); Mean Platelet Volume 11.9 fL (7.4-10.4); Monocytes # 0.2 10^3/uL (0.2-0.9); Monocytes % 3.7 %; Neutrophils # 4.33 10^3/uL (1.8-7.7); Neutrophils % 84.5 %; Nucleated Red Blood Cells % 0 %; Platelet Count 182 10^3/cmm (157-399); Red Blood Count 4.85 10^6/uL (3.85-5.65); Red Cell Distribution Width 14.9 % (12.1-15.1); White Blood Count 5.12 10^3/uL (3.29-11.43)
[2024-07-02 18:44] LABS: Alanine Aminotransferase 17 U/L (0-41); Albumin Level 4.5 g/dL (3.5-5.2); Alkaline Phosphatase 75 U/L (40-130); Anion Gap 22.9 (5-19); Aspartate Amino Transferase 21 U/L (0-40); Blood Urea Nitrogen 14 mg/dL (8-23); Calcium 9.9 mg/dL (8.5-10.5); Carbon Dioxide 26 mmol/L (22-29); Chloride 93 mmol/L (98-107); Globulin 2.7 g/dL (1.3-4.6); Glomerular Filtration Rate 66.2 mL/min (90-130); Glucose 149 mg/dL (65-115); Osmolality Calculated 289 mOsm/kg (285-295); Potassium 3.9 mmol/L (3.5-5.1); Sodium 138 mmol/L (136-145); Total Bilirubin 0.8 mg/dL (0.15-1.2); Total Protein 7.2 g/dL (6.6-8.7)
--- NOTE | 2024-07-02 19:09 | ED_ITS ---
HPI - Nausea/Vomiting/Diarrhea 2 General: Chief complaint: Nausea/Vomiting/Diarrhea Stated complaint: swallowed fentanyl patch Time Seen by Provider: 07/02/24 17:42 History of Present Illness: Brian is a 68-year-old male that presents to the emergency department with concerns of overdose. Patient reports that he has been on fentanyl patches for years. Sometime ago, patient has started chewing upper portion of new fentanyl patches. Patient states that he changes his 75 mcg patch every 48 hours. His sister manages his medications. When he gets a new patch he cuts a piece of it off and sucks on it in order to get the effects faster. Today he inadvertently swallowed the piece of patch that he had cut off. This occurred at 0 700. Today he has had some nausea and vomiting since that time. He has avoided eating but has been drinking water. Patient has multiple comorbidities and chronic pain. Related Data Home Medications ?Medication ?Instructions ?Recorded ?Confirmed duloxetine 30 mg capsule,delayed 30 mg PO DAILY 05/31/24 release spironolactone 50 mg tablet 50 mg PO DAILY 09/06/23 torsemide 20 mg tablet See Rx Instructions .Route 1 05/22/23 05/31/24 .COMPLEX Edema Previous Rx's ?Medication ?Instructions ?Recorded blood-glucose meter #1 ea 12/19/19 pen needle, diabetic 31 gauge x #100 ea 04/18/2009/29 (TechLITE Pen Needle) Rollaid with seat #1 ea 11/05/22 diclofenac sodium 1 % topical gel 2 g topical QID PRN arthritis #100 06/23/23 grams amlodipine 10 mg tablet 10 mg PO DAILY 90 days #90 t abs 12/02/23 nitroglycerin 0.4 mg sublingual 0.4 mg sublingual Q5M PRN chest 12/02/23 tablet pain 30 days #30 tabs albuterol sulfate 90 mcg/actuation 1 inh inhalation QI D PRN shortness 02/15/24 aerosol inhaler (Ventolin HFA) of breath or wheezing # 8.5 grams duloxetine 60 mg capsule,delayed 60 mg PO DAILY@07 #12 0 caps 02/15/24 release dapagliflozin propanediol 10 mg 10 mg PO DAILY #90 tab s 05/15/24 tablet (Farxiga) esomeprazole magnesium 40 mg 40 mg PO DAILY #90 caps 0 05/22/24 capsule,delayed release cetirizine 10 mg capsule (Zyrtec) 10 mg PO DAILY aller gy symptoms 14 05/25/24 days #14 caps fluticasone propionate 50 2 spray intranasal BID 7 day s #16 05/25/24 mcg/actuation nasal mL spray,suspension (Flonase Allergy Relief) pregabalin 300 mg capsule 300 mg PO BID #60 caps 05/26 insulin glargine 100 unit/mL (3 35 unit (0.35 mL) SUBC UT DAILY #15 06/07/24 mL) subcutaneous pen (Lantus mL Solostar U-100 Insulin) fentanyl 75 mcg/hr transdermal 1 patch topical Q48H 30 days #15 06/20/24 patch patches Allergies Allergy/AdvReac Type Severity Reaction Status Date / Time morphine Allergy Unknown ADR-Vomitin Verified 05/25/24 15:44 g Review of Systems 2 General: Reports: 10 or more systems reviewed and unremarkable except in HPI and below PFSH ED 2 PFSH: Medical History BPH (benign prostatic hyperplasia) GERD (gastroesophageal reflux disease) Asthma Heart failure with reduced ejection fraction 07/09- LVEF 35-40% History of placement of stent in LAD coronary artery Chronic pain Diabetes ICD (implantable cardioverter-defibrillator) in place Hyperlipidemia HTN (hypertension) Surgical History S/P cataract surgery History of implantable cardioverter-defibrillator (ICD) placement Family History Father Emphysema of lung Social History Smoking and tobacco/nicotine status: never used tobacco/nicotine Alcohol intake: never Substance/Drug Use: current Substance/Drug use frequency: daily Lives independently: Yes Marital status: / Current occupational status: disabled Current gender identity: Male Special eduardo needs: No Agree to transfusion: Yes Physical Exam 2 Const: COMMON NORMALS: no acute distress, patient oriented x3 and alert G ENERAL APPEARANCE: cooperative ORIENTATION/CONSCIOUSNESS: Yes awake, Yes oriented to person, Yes oriented to place and Yes oriented to time HENMT: COMMON NORMALS: normocephalic and atraumatic HEAD & SCALP: n ormocephalic and atraumatic FACE & SINUS: normal facial exam MOUTH: Normal oral and palatal mucosa present THROAT: posterior oropharynx normal Eye: COMMON NORMALS: Equal, round and reactive pupils present, EOMs intact bilaterally, conjunctivae normal and no scleral icterus GENERAL EYE: a ppearance normal, both eyes and all related structures ALIGNMENT: Yes alignment normal PERIORBITAL: periorbital findings normal CONJUNCTIVA: Yes conjunctivae normal PUPIL: Yes Equal, round and reactive pupils present Neck/C-Spine: COMMON NORMALS: full ROM GENERAL: Yes normal visual inspection Lymph: LYMPHATIC: no lymphadenopathy noted Chest: COMMONS NORMALS: normal inspection of the chest Breast/axilla inspection: Yes no chest deformity, asymmetry, normal contours, no nodules, masses, tenderness Resp: COMMON NORMALS: normal respiratory effort, No retractions, No use of accessory muscles and clear to auscultation bilaterally EFFORT & INSPECTION: Yes able to speak in complete sentences and Yes symmetric chest movement A USCULTATION: clear to auscultation bilaterally Cardio: COMMON NORMALS: regular rate, regular rhythm and Peripheral pulses 2+ throughout RATE: regular rate RHYTHM: regular rhythm PERIPHERAL PULSES: Peripheral pulses 2+ throughout GI: COMMON NORMALS: Normal to inspection, nondistended, normoactive bowel sounds present, Soft to palpation, non-tender and No hepatosplenomegaly present INSPECTION: Yes normal to inspection AUSCULTATION: Yes normoactive bowel sounds PALPATION: Yes Soft to palpation and Yes No hepatosplenomegaly present RECTAL EXAM: Yes deferred Extremity: COMMON NORMALS: normal to inspection GENERAL: Yes normal exam except as noted Neuro: COMMON NORMALS: patient oriented x3 SENSORIUM/ORIENTATION: Yes alert, Yes oriented to person, Yes oriented to place and Yes oriented to time CRANIAL NERVES: Yes CN normal except as noted Psych: COMMON NORMALS: mental status grossly normal, Normal thought process present, cooperative, activity/motor behavior normal, denies homicidal ideation and denies suicidal ideation THOUGHT PROCESS: Normal thought process present Skin: COMMON NORMALS: no rashes or lesions noted, no wounds and turgor normal GENERAL SKIN EXAM: no rashes or lesions noted and turgor normal Course 2 Vital Signs: Vital signs: Vital Signs Temperature 97.9 F 07/02/24 17:40 Pulse Rate 82 07/02/24 17:40 Respiratory Rate 18 07/02/24 17:40 Blood Pressure 145/84 07/02/24 17:40 Pulse Oximetry 97 07/02/24 17:40 Oxygen Delivery Me thod Room Air 07/02/24 17:40 MDM - Nausea/Vomiting/Diarrhea Medical Decision Making Here in the emergency department patient underwent laboratory evaluation for potential drug overdose. Patient has eaten part of his fentanyl patch and swallowed it inadvertently. This occurred at 0 700. He arrived in the emergency department as 1800. We did contact the poison control center who advised that the patch will pass on its own there is nothing concerning other than an overdose. It is now approaching 12 hours since the ingestion and there is been no issues with oversedation. There has been nausea and some vomiting. In the emergency department I ordered a CBC and CMP. No electrolyte abnormalities, no significant renal or liver insufficiency. Patient has no anemias or leukocytosis. Going to allow the patient to discharge home once he is tolerating foods and fluids. Patient does not like the sandwich. He is drinking and wants to go home. I think this is reasonable Recommend he not to 1 fentanyl patches. He needs to return to the emergency department as needed for new concerning or worsening symptoms. He is to follow-up with his primary care doctor this week Lab Data 07/02/24 18:18 07/02/24 18:18 Laboratory Results WBC 5.12 10^3/uL (3.29-11.43) 07/02/24 18:18 RBC 4.85 10^6/uL (3.85-5.65) 07/02/24 18:18 Hgb 14.40 g/dL (11.27-16.99) 07/02/24 18:18 Hct 41.7 % (37-53) 07/02/24 18:18 MCV 86.0 fl (82-101) 07/02/24 18:18 MCH 29.7 pg (27-33) 07/02/24 18:18 MCHC 34.5 g/dL (30-55) 07/02/24 18:18 RDW 14.9 % (12.1-15.1) 07/02/24 18:18 Plt Count 182 10^3/cmm (157-399) 07/02/24 18:18 MPV 11.9 fL (7.4-10.4) H 07/02/24 18:18 Neut % (Auto) 84.5 % 07/02/24 18:18 Lymph % (Auto) 10.4 % 07/02/24 18:18 Mcnairy % (Auto) 3.7 % 07/02/24 18:18 Eos % (Auto) 1.0 % 07/02/24 18:18 Baso % (Auto) 0.0 % 07/02/24 18:18 Neut # (Auto) 4.33 10^3/uL (1.8-7.7) 07/02/24 18:18 Lymph # (Auto) 0.5 10^3/uL (0.8-4.8) L 07/02/24 18:18 Mcnairy # (Auto) 0.2 10^3/uL (0.2-0.9) 07/02/24 18:18 Eos # (Auto) 0.1 10^3/uL (0.0-0.8) 07/02/24 18:18 Baso # (Auto) 0.0 10^3/uL (0.0-0.1) 07/02/24 18:18 Nucleated RBC % (auto) 0 % 07/02/24 18:18 Nucleated RBCs # 0.0 /100WBC 07/02/24 18:18 Sodium 138 mmol/L (136-145) 07/02/24 18:18 Potassium 3.9 mmol/L (3.5-5.1) 07/02/24 18:18 Chloride 93 mmol/L (98-107) L 07/02/24 18:18 Carbon Dioxide 26 mmol/L (22-29) 07/02/24 18:18 Anion Gap 22.9 (5-19) H 07/02/24 18:18 BUN 14 mg/dL (8-23) 07/02/24 18:18 Creatinine 1.1 mg/dL (0.7-1.2) 07/02/24 18:18 GFR Calculation 66.2 mL/min (90-130) L 07/02/24 18:18 Glucose 149 mg/dL (65-115) H 07/02/24 18:18 Calculated Osmolality 289 mOsm/kg (285-295) 07/02/24 18:18 Calcium 9.9 mg/dL (8.5-10.5) 07/02/24 18:18 Total Bilirubin 0.8 mg/dL (0.15-1.2) 07/02/24 18:18 AST 21 U/L (0-40) 07/02/24 18:18 ALT 17 U/L (0-41) 07/02/24 18:18 Alkaline Phosphatase 75 U/L (40-130) 07/02/24 18:18 Total Protein 7.2 g/dL (6.6-8.7) 07/02/24 18:18 Albumin 4.5 g/dL (3.5-5.2) 07/02/24 18:18 Globulin 2.7 g/dL (1.3-4.6) 07/02/24 18:18 No radiology studies performed this visit Discharge Plan Discharge Patient Disposition: Home Clinical Impression: Accidental drug ingestion Condition: Stable Prescriptions: No Action nitroglycerin 0.4 mg tablet, sublingual 0.4 mg sublingual Q5M PRN (Reason: chest pain) 30 Days Qty: 30 3RF Rx Instructions: until response; do not exceed 3 doses per episode amlodipine 10 mg tablet 10 mg PO DAILY 90 Days Qty: 90 3RF fluticasone propionate [Flonase Allergy Relief] 50 mcg/actuation spray,suspension 2 spray intranasal BID 7 Days Qty: 16 0RF Rx Instructions: administer into each nostril Zyrtec 10 mg capsule 10 mg PO DAILY 14 Days Qty: 14 0RF (DME) Rollaid with seat See Rx Instructions .Route .MEDSUPPLY Qty: 1 0RF Rx Instructions: As directed ([facility]) blood-glucose meter Kit See Rx Instructions .ROUTE .MEDSUPPLY Qty: 1 0RF Rx Instructions: check blood daily (DME) pen needle, diabetic [TechLITE Pen Needle] 31 gauge x 5/16 needle See Rx Instructions .ROUTE .MEDSUPPLY Qty: 100 0RF Rx Instructions: use with levemir-TWO TIMES DAILY diclofenac sodium 1 % gel 2 g TOPICAL QID PRN (Reason: arthritis) Qty: 100 6RF albuterol sulfate [Ventolin HFA] 90 mcg/actuation HFA aerosol inhaler 1 inh INHALATION QID PRN (Reason: shortness of breath or wheezing) Qty: 8.5 3RF duloxetine 60 mg capsule,delayed release(DR/EC) 60 mg PO DAILY@07 Qty: 120 1RF Rx Instructions: WITH 30MG DOSE TO =90MG Farxiga 10 mg tablet 10 mg PO DAILY Qty: 90 0RF esomeprazole magnesium 40 mg capsule,delayed release(DR/EC) 40 mg PO DAILY Qty: 90 0RF pregabalin 300 mg capsule 300 mg PO BID Qty: 60 1RF insulin glargine [Lantus Solostar U-100 Insulin] 100 unit/mL (3 mL) insulin pen 35 unit SUBCUT DAILY Qty: 15 2RF fentanyl 75 mcg/hr patch 72 hour 1 patch topical Q48H 30 Days Qty: 15 0RF spironolactone 50 mg tablet 50 mg PO DAILY duloxetine 30 mg capsule,delayed release(DR/EC) 30 mg PO DAILY Rx Instructions: with 60mg to =90mg torsemide 20 mg tablet See Rx Instructions .ROUTE .COMPLEX Rx Instructions: Take 3 tablets (60mg) daily x 2 weeks, then 2 tablets (40mg) daily thereafter. Discharge Orders: Discharge ED (Routine); Ordered 07/02/24 Ordered By: Aston Montenegro Referrals: Shemar Kaiser MD [Primary Care Provider] - Discharge Diet: Advance as tolerated Discharge Activity: Resume usual activity Patient Instructions: Opioid Safety, Pain Management Activity Restrictions/Additional Instructions: Please follow-up with your primary care doctor this week. Please return to the emergency department for new concerning or worsening symptoms. Print Language: Turkish Coding Level of Care Code ED [employer] Faculty Member for Ivonne Guaman
[2024-07-02 20:18] VITALS: BP 173/92; PULSE 87; O2SAT 95
[2024-07-02 20:20] VITALS: BP 173/92; PULSE 87; O2SAT 95
== END 2024-07-02 20:25 | disposition home or self-care (01) ==
PROVIDERS: Emergency Provider Nurse Practitioner; PCP Family Medicine
DX: T40.411A Poisoning by fentanyl or fentanyl analogs, accidental (unintentional), initial encounter (principal); X58.XXXA Exposure to other specified factors, initial encounter; Z79.4 Long term (current) use of insulin; E11.9 Type 2 diabetes mellitus without complications; I11.0 Hypertensive heart disease with heart failure; I50.20 Unspecified systolic (congestive) heart failure; E78.5 Hyperlipidemia, unspecified
CPT/HCPCS: 36415; 80053; 85025; 99283

== ENCOUNTER 2024-07-29 20:54 | Emergency (ER) | payer MEDICARE, MEDICAID, SELFPAY ==
[2024-07-29] VITALS (8 sets, daily range): BP systolic 152–180; BP diastolic 87–107; PULSE 69–109; RESP 18–20; TEMP 36.8; O2SAT 95–97; BMI 27.3
--- NOTE | 2024-07-29 20:58 | CTR_ITS ---
PROCEDURE INFORMATION: Exam: CT Head Without Contrast Exam date and time: 07/29/2024 9:50 PM Age: 68 years old Clinical indication: Injury or trauma; Blunt trauma (contusions or hematomas); Fall with head strike. ; Additional info: Fall, head injury TECHNIQUE: Imaging protocol: Computed tomography of the head without contrast. Radiation optimization: All CT scans at this facility use at least one of these dose optimization techniques: automated exposure control; mA and/or kV adjustment per patient size (includes targeted exams where dose is matched to clinical indication); or iterative reconstruction. COMPARISON: CT head wo con* [id number] 11/30/2022 4:36 PM RADIATION DOSE METRICS: Total DLP (mGy-cm): 1124.54 FINDINGS: Brain: No evidence for acute intracranial hemorrhage, mass effect, or acute infarct by CT. Nvci-[id number] generalized cerebral atrophy. Mild presumed chronic small-vessel ischemic changes in the cerebral white matter. Incidental and developmental small retro cerebellar CSF collection. Cerebral ventricles: No ventriculomegaly. Paranasal sinuses: Visualized sinuses are unremarkable. No fluid levels. Mastoid air cells: Visualized mastoid air cells are well aerated. Bones: Unremarkable. No acute fracture. Soft tissues: Unremarkable. CT/CT head wo con* [id number] IMPRESSION: No acute intracranial abnormality.
--- NOTE | 2024-07-29 20:58 | XRR_ITS ---
PROCEDURE INFORMATION: Exam: XR Chest Exam date and time: 07/29/2024 8:58 PM Age: 68 years old Clinical indication: Shortness of breath; SOB TECHNIQUE: Imaging protocol: Radiologic exam of the chest. Views: 1 view. COMPARISON: CT angio chest PE protcl [id number] 05/31/2024 12:07 PM FINDINGS: Lungs: Moderate COPD. Diffuse lung scarring. No consolidation. Pleural spaces: Unremarkable. No pleural effusion. No pneumothorax. Heart/Mediastinum: The heart is mildly enlarged. Vascular calcifications. Left-sided pacing device. Bones/joints: Partially assessed lower cervical fusion. XR/XR chest 1V portable [id number] IMPRESSION: 1. No acute findings. 2. A few chronic/incidental findings above.
--- NOTE | 2024-07-29 20:59 | ECG_ITS ---
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
--- NOTE | 2024-07-29 20:59 | W.ED.GENADLT ---
Documented by User: Neha Uriostegui MD 07/29/24 21:03 HPI - General Adult General: Chief complaint: Extremity Problem,Nontraumatic Stated complaint: Hand swelling Time Seen by Provider: 07/29/24 20:55 History of Present Illness: Patient presents to the emergency room by ambulance with a myriad of complaints. He has a history of BPH, GERD, COPD, diabetes, hyperlipidemia, hypertension, congestive heart failure with an ICD placement, chronic hypoxemic respiratory failure on 2 to 3 L nasal cannula at all times. He is not on anticoagulation. Initial complaint was his sister had called the ambulance because he had cut his right hand just below the thumb a few days ago when he was developing some redness around it. He also says that yesterday a 50 pound rock fell off of his fireplace and hit him in the head and he just has not felt right since. No loss of consciousness. No altered mental status. No focal motor deficits. He is also complaining of worsening shortness of breath. He does not smoke cigarettes but he does smoke marijuana regularly. He has been having some cough. No increased oxygen requirements. No chest pain. No abdominal pain. No vomiting. No fevers. Related Data Home Medications ?Medication ?Instructions ?Recorded ?Confirmed duloxetine 30 mg capsule,delayed 30 mg PO DAILY 09/06/23 05/31/24 release spironolactone 50 mg tablet 50 mg PO DAILY 09/06/23 05/31/24 torsemide 20 mg tablet See Rx Instructions .Route 03/22/24 05/31/24 .COMPLEX Edema Previous Rx's ?Medication ?Instructions ?Recorded blood-glucose meter #1 ea 12/19/19 pen needle, diabetic 31 gauge x #100 ea 04/18/2009/29 (TechLITE Pen Needle) Rollaid with seat #1 ea 11/05/22 diclofenac sodium 1 % topical gel 2 g topical QID PRN arthritis #100 06/23/23 grams amlodipine 10 mg tablet 10 mg PO DAILY 90 days #90 tabs 12/02/23 nitroglycerin 0.4 mg sublingual 0.4 mg sublingual Q5M PRN chest 12/02/23 tablet pain 30 days #30 tabs albuterol sulfate 90 mcg/actuation 1 inh inhalation QID PRN shortness 02/15/24 aerosol inhaler (Ventolin HFA) of breath or wheezing #8.5 grams duloxetine 60 mg capsule,delayed 60 mg PO DAILY@07 #120 caps 02/15/24 release dapagliflozin propanediol 10 mg 10 mg PO DAILY #90 tabs 05/15/24 tablet (Farxiga) esomeprazole magnesium 40 mg 40 mg PO DAILY #90 caps 05/22/24 capsule,delayed release cetirizine 10 mg capsule (Zyrtec) 10 mg PO DAILY allergy symptoms 14 05/25/24 days #14 caps fluticasone propionate 50 2 spray intranasal BID 7 days #16 05/25/24 mcg/actuation nasal mL spray,suspension (Flonase Allergy Relief) pregabalin 300 mg capsule 300 mg PO BID #60 caps 05/26/24 insulin glargine 100 unit/mL (3 35 unit (0.35 mL) SUBCUT DAILY #15 06/07/24 mL) subcutaneous pen (Lantus mL Solostar U-100 Insulin) fentanyl 75 mcg/hr transdermal 1 patch topical Q48H 30 days #15 07/17/24 patch patches Allergies Allergy/AdvReac Type Severity Reaction Status Date / Time morphine Allergy Unknown ADR-Vomitin Verified 05/25/24 15:44 g Review of Systems Narrative: Constitutional symptoms: Negative except as documented in HPI. Skin symptoms: Negative except as documented in HPI. Eye symptoms: Negative except as documented in HPI. ENMT symptoms: Negative except as documented in HPI. Respiratory symptoms: Negative except as documented in HPI. Cardiovascular symptoms: Negative except as documented in HPI. Gastrointestinal symptoms: Negative except as documented in HPI. Genitourinary symptoms: Negative except as documented in HPI. Musculoskeletal symptoms: Negative except as documented in HPI. Neurologic symptoms: Negative except as documented in HPI. Psychiatric symptoms: Negative except as documented in HPI. Endocrine symptoms: Negative except as documented in HPI. PFSH ED PFSH: Medical History BPH (benign prostatic hyperplasia) GERD (gastroesophageal reflux disease) Asthma Heart failure with reduced ejection fraction 07/09- LVEF 35-40% History of placement of stent in LAD coronary artery Chronic pain Diabetes ICD (implantable cardioverter-defibrillator) in place Hyperlipidemia HTN (hypertension) Surgical History S/P cataract surgery History of implantable cardioverter-defibrillator (ICD) placement Family History Father Emphysema of lung Social History Smoking and tobacco/nicotine status: never used tobacco/nicotine Alcohol intake: never Substance/Drug Use: current Substance/Drug use frequency: daily Lives independently: Yes Marital status: / Current occupational status: disabled Current gender identity: Male Special eduardo needs: No Agree to transfusion: Yes Physical Exam Narrative: EXAM NARRATIVE: General: Alert, no acute distress. Skin: Warm, dry. Head: Normocephalic, atraumatic. Neck: Supple, trachea midline. Eye: Extraocular movements are intact. Ears, nose, mouth and throat: Oral mucosa moist. Cardiovascular: Regular rate and rhythm, Normal peripheral perfusion. Respiratory: coarse, scattered wheeze, mild increased wob. tachypnea, breath sounds are equal, Symmetrical chest wall expansion. Gastrointestinal: Soft, Nontender, Non distended, Normal bowel sounds. Musculoskeletal: Normal ROM, no deformity. Neurological: Alert and oriented, No focal neurological deficit observed. Psychiatric: Cooperative, appropriate mood & affect. Course Vital Signs: Vital signs: Vital Signs Temperature 98.3 F 07/29/24 20:59 Pulse Rate 74 07/29/24 22:37 Respiratory Rate 18 07/29/24 21:42 Blood Pressure 156/90 07/29/24 22:37 Pulse Oximetry 95 07/29/24 22:37 Oxygen Delivery Me thod Room Air 07/29/24 22:37 Oxygen Flow Rate 2 07/29/24 21:42 MDM - General Adult Medical Decision Making Differential diagnosis for patient with shortness of breath includes but is not limited to and based on the above HPI, review of systems and physical exam: Pneumonia. Bronchitis. Asthma or COPD with acute exacerbation. Acute coronary syndrome / [place]. Pulmonary embolism. Anxiety. Congestive heart failure. Viral infections including influenza and Covid-19. Atrial fibrillation. Anxiety. Pleural effusion. Pneumothorax. Orders placed to evaluate differential diagnosis based on the above differential, HPI and physical exam Also CT of head to evaluate for his head injury. Cefepime given for cellulitis and this would also cover for sepsis or pneumonia if these are found. Patient care transition to Dr. Grace at shift change. Lab Data 07/29/24 21:09 07/29/24 21:09 Laboratory Results WBC 5.37 10^3/uL (3.29-11.43) 07/29/24 21: RBC 4.08 10^6/uL (3.85-5.65) 07/29/24 21:09 Hgb 12.30 g/dL (11.27-16.99) 07/29/24 21:09 Hct 37.4 % (37-53) 07/29/24 21: MCV 91.7 fl (82-101) 07/29/24 21: MCH 30.1 pg (27-33) 07/29/24 21: MCHC 32.9 g/dL (30-55) 07/29/24 21: RDW 15.0 % (12.1-15.1) 07/29/24 21: Plt Count 116 10^3/cmm (157-399) L 07/29/24 21: MPV 11.9 fL (7.4-10.4) H 07/29/24 21:09 Neut % (Auto) 79.8 % 07/29/24 21:09 Lymph % (Auto) 13.4 % 07/29/24 21:09 Gilliam % (Auto) 4.5 % 07/29/24 21:09 Eos % (Auto) 1.7 % 07/29/24 21: Baso % (Auto) 0.4 % 07/29/24 21: Neut # (Auto) 4.29 10^3/uL (1.8-7.7) 07/29/24 21:09 Lymph # (Auto) 0.7 10^3/uL (0.8-4.8) L 07/29/24 21:09 Gilliam # (Auto) 0.2 10^3/uL (0.2-0.9) 07/29/24 21:09 Eos # (Auto) 0.1 10^3/uL (0.0-0.8) 07/29/24 21: Baso # (Auto) 0.0 10^3/uL (0.0-0.1) 07/29/24 21:09 Nucleated RBC % (auto) 0 % 07/29/24 21: Nucleated RBCs # 0.0 /100WBC 07/29/24 21:09 Specimen Type Arterial 07/29/24 21:18 Sample Site Radial, right 07/29/24 21:18 ABG pH 7.40 (7.35-7.45) 07/29/24 21:18 ABG pCO2 48.9 mmHg (35-45) H 07/29/24 21:18 ABG pO2 74.9 mmHg (80.0-100.0) L 07/29/24 21:18 ABG HCO3 30.2 mmol/L (22-26) H 07/29/24 21:18 ABG O2 Saturation 95.6 07/29/24 21:18 ABG Base Excess 4.4 mmol/L (-2.0-2.0) H 07/29/24 21:18 Omar Test Pos 07/29/24 21:18 A-a O2 Gradient 1.5 mmHg (5-10) L 07/29/24 21:18 Hematocrit 37.8 % (42-52) L 07/29/24 21:18 Hgb O2 Saturation 93.6 % (95-100) L 07/29/24 21:18 Carboxyhemoglobin 1.2 %THgb (0.4-20.1) 07/29/24 21:18 Methemoglobin 0.9 % (0.4-1.5) 07/29/24 21:18 Total Hemoglobin 12.3 g/dL (14-18) L 07/29/24 21:18 Sodium 140.0 mmol/L (131-143) 07/29/24 21:18 Potassium 3.6 mmol/L (3.5-5.0) 07/29/24 21:18 Glucose 213.0 mg/dL (70-115) H 07/29/24 21:18 Ionized Calcium 1.2 mmol/L (1.1-1.4) 07/29/24 21:18 O2 Delivery Device Nc 07/29/24 21:18 O2 Liters/Min 2.0 % 07/29/24 21:18 Director Medicaid ID [id number] 07/29/24 21:18 Sodium 141 mmol/L (136-145) 07/29/24 21:09 Potassium 3.9 mmol/L (3.5-5.1) 07/29/24 21:09 Chloride 104 mmol/L (98-107) 07/29/24 21:09 Carbon Dioxide 28 mmol/L (22-29) 07/29/24 21:09 Anion Gap 12.9 (5-19) 07/29/24 21:09 BUN 11 mg/dL (8-23) 07/29/24 21:09 Creatinine 0.8 mg/dL (0.7-1.2) 07/29/24 21:09 GFR Calculation 95.6 mL/min (90-130) 07/29/24 21:09 Glucose 192 mg/dL (65-115) H 07/29/24 21:09 Calculated Osmolality 297 mOsm/kg (285-295) H 07/29/24 21:09 Lactic Acid 1.1 mmol/L (0.5-2.2) 07/29/24 21:09 Calcium 9.1 mg/dL (8.5-10.5) 07/29/24 21:09 Total Bilirubin 0.4 mg/dL (0.15-1.2) 07/29/24 21:09 AST 18 U/L (0-40) 07/29/24 21:09 ALT 13 U/L (0-41) 07/29/24 21:09 Alkaline Phosphatase 68 U/L (40-130) 07/29/24 21:09 Troponin T Baseline 15 ng/L (0-15) 07/29/24 21:09 C-Reactive Protein 12.5 mg/L (0.0-4.9) H 07/29/24 21:09 NT-Pro-B Natriuret Pep 2833 pg/mL (0-125) H 07/29/24 21:09 Total Protein 6.4 g/dL (6.6-8.7) L 07/29/24 21:09 Albumin 4.1 g/dL (3.5-5.2) 07/29/24 21:09 Globulin 2.3 g/dL (1.3-4.6) 07/29/24 21:09 Influenza A (PCR) Negative (Negative) 07/29/24 21:16 Influenza Type B (PCR) Negative (Negative) 07/29/24 21:16 RSV (PCR) Negative (Negative) 07/29/24 21:16 SARS-CoV-2 (PCR) Negative (Negative) 07/29/24 21:16 Discharge Plan Discharge Patient Disposition: Home Clinical Impression: Cellulitis Condition: Stable Prescriptions: No Action nitroglycerin 0.4 mg tablet, sublingual 0.4 mg sublingual Q5M PRN (Reason: chest pain) 30 Days Qty: 30 3RF Rx Instructions: until response; do not exceed 3 doses per episode amlodipine 10 mg tablet 10 mg PO DAILY 90 Days Qty: 90 3RF fluticasone propionate [Flonase Allergy Relief] 50 mcg/actuation spray,suspension 2 spray intranasal BID 7 Days Qty: 16 0RF Rx Instructions: administer into each nostril Zyrtec 10 mg capsule 10 mg PO DAILY 14 Days Qty: 14 0RF (DME) Rollaid with seat See Rx Instructions .Route .MEDSUPPLY Qty: 1 0RF Rx Instructions: As directed ([facility] [place]) blood-glucose meter Kit See Rx Instructions .ROUTE .MEDSUPPLY Qty: 1 0RF Rx Instructions: check blood daily ([facility] [place] [facility]) pen needle, diabetic [TechLITE Pen Needle] 31 gauge x 5/16 needle See Rx Instructions .ROUTE .MEDSUPPLY Qty: 100 0RF Rx Instructions: use with levemir-TWO TIMES DAILY diclofenac sodium 1 % gel 2 g TOPICAL QID PRN (Reason: arthritis) Qty: 100 6RF albuterol sulfate [Ventolin HFA] 90 mcg/actuation HFA aerosol inhaler 1 inh INHALATION QID PRN (Reason: shortness of breath or wheezing) Qty: 8.5 3RF duloxetine 60 mg capsule,delayed release(DR/EC) 60 mg PO DAILY@07 Qty: 120 1RF Rx Instructions: WITH 30MG DOSE TO =90MG Farxiga 10 mg tablet 10 mg PO DAILY Qty: 90 0RF esomeprazole magnesium 40 mg capsule,delayed release(DR/EC) 40 mg PO DAILY Qty: 90 0RF pregabalin 300 mg capsule 300 mg PO BID Qty: 60 1RF insulin glargine [Lantus Solostar U-100 Insulin] 100 unit/mL (3 mL) insulin pen 35 unit SUBCUT DAILY Qty: 15 2RF fentanyl 75 mcg/hr patch 72 hour 1 patch topical Q48H 30 Days Qty: 15 0RF spironolactone 50 mg tablet 50 mg PO DAILY duloxetine 30 mg capsule,delayed release(DR/EC) 30 mg PO DAILY Rx Instructions: with 60mg to =90mg torsemide 20 mg tablet See Rx Instructions .ROUTE .COMPLEX Rx Instructions: Take 3 tablets (60mg) daily x 2 weeks, then 2 tablets (40mg) daily thereafter. Discharge Orders: Discharge ED (Routine); Ordered 07/29/24 Ordered By: Abdulaziz Younger Referrals: Shemar Kaiser MD [Primary Care Provider] - Discharge Diet: Usual diet Discharge Activity: Resume usual activity Patient Instructions: Opioid Safety, Pain Management Activity Restrictions/Additional Instructions: 1. Take Rx as directed. 2. Follow up with PCP on Wednesday or Wednesday 3. Return for new or worsening symptoms. Print Language: Omani Coding Level of Care Code ED Golf Cart Maker for Chg Fwd Documented by User: Abdulaziz Younger DO 07/29/24 23:07 HPI - General Adult General: Chief complaint: Extremity Problem,Nontraumatic Stated complaint: Hand swelling Time Seen by Provider: 07/29/24 20:55 Related Data Home Medications ?Medication ?Instructions ?Recorded ?Confirmed duloxetine 30 mg capsule,delayed 30 mg PO DAILY 09/06/23 05/31/24 release spironolactone 50 mg tablet 50 mg PO DAILY 09/06/23 05/31/24 torsemide 20 mg tablet See Rx Instructions .Route 03/22/24 05/31/24 .COMPLEX Edema Previous Rx's ?Medication ?Instructions ?Recorded blood-glucose meter #1 ea 12/19/19 pen needle, diabetic 31 gauge x #100 ea 04/18/20 5/16 (TechLITE Pen Needle) Rollaid with seat #1 ea 11/05/22 diclofenac sodium 1 % topical gel 2 g topical QID PRN arthritis #100 06/23/23 grams amlodipine 10 mg tablet 10 mg PO DAILY 90 days #90 tabs 12/02/23 nitroglycerin 0.4 mg sublingual 0.4 mg sublingual Q5M PRN chest 12/02/23 tablet pain 30 days #30 tabs albuterol sulfate 90 mcg/actuation 1 inh inhalation QID PRN shortness 02/15/24 aerosol inhaler (Ventolin HFA) of breath or wheezing #8.5 grams duloxetine 60 mg capsule,delayed 60 mg PO DAILY@07 #120 caps 02/15/24 release dapagliflozin propanediol 10 mg 10 mg PO DAILY #90 tabs 05/15/24 tablet (Farxiga) esomeprazole magnesium 40 mg 40 mg PO DAILY #90 caps 05/22/24 capsule,delayed release cetirizine 10 mg capsule (Zyrtec) 10 mg PO DAILY allergy symptoms 14 05/25/24 days #14 caps fluticasone propionate 50 2 spray intranasal BID 7 days #16 05/25/24 mcg/actuation nasal mL spray,suspension (Flonase Allergy Relief) pregabalin 300 mg capsule 300 mg PO BID #60 caps 05/26/24 insulin glargine 100 unit/mL (3 35 unit (0.35 mL) SUBCUT DAILY #15 06/07/24 mL) subcutaneous pen (Lantus mL Solostar U-100 Insulin) fentanyl 75 mcg/hr transdermal 1 patch topical Q48H 30 days #15 07/17/24 patch patches Allergies Allergy/AdvReac Type Severity Reaction Status Date / Time morphine Allergy Unknown ADR-Vomitin Verified 05/25/24 15:44 g PFSH ED PFSH: Medical History BPH (benign prostatic hyperplasia) GERD (gastroesophageal reflux disease) Asthma Heart failure with reduced ejection fraction 07/09- LVEF 35-40% History of placement of stent in LAD coronary artery Chronic pain Diabetes ICD (implantable cardioverter-defibrillator) in place Hyperlipidemia HTN (hypertension) Surgical History S/P cataract surgery History of implantable cardioverter-defibrillator (ICD) placement Family History Father Emphysema of lung Social History Smoking and tobacco/nicotine status: never used tobacco/nicotine Alcohol intake: never Substance/Drug Use: current Substance/Drug use frequency: daily Lives independently: Yes Marital status: / Current occupational status: disabled Current gender identity: Male Special eduardo needs: No Agree to transfusion: Yes Course Vital Signs: Vital signs: Vital Signs Temperature 98.3 F 07/29/24 20:59 Pulse Rate 74 07/29/24 22:37 Respiratory Rate 18 07/29/24 21:42 Blood Pressure 156/90 07/29/24 22:37 Pulse Oximetry 95 07/29/24 22:37 Oxygen Delivery Me thod Room Air 07/29/24 22:37 Oxygen Flow Rate 2 07/29/24 21:42 MDM - General Adult Medical Decision Making Differential diagnosis for patient with shortness of breath includes but is not limited to and based on the above HPI, review of systems and physical exam: Pneumonia. Bronchitis. Asthma or COPD with acute exacerbation. Acute coronary syndrome / [place]. Pulmonary embolism. Anxiety. Congestive heart failure. Viral infections including influenza and Covid-19. Atrial fibrillation. Anxiety. Pleural effusion. Pneumothorax. Orders placed to evaluate differential diagnosis based on the above differential, HPI and physical exam Also CT of head to evaluate for his head injury. Cefepime given for cellulitis and this would also cover for sepsis or pneumonia if these are found. Patient care transition to Dr. Younger at shift change. I assumed care of the above-named patient reviewed the chest x-ray which showed some chronic changes but no obvious lobar pneumonia. Preliminary CT did not reveal any hemorrhage or midline shift. Patient felt well and desired to go home he does have cellulitis of his hand that only treated. Does not have any history of MRSA I will place him on Keflex as that he follow-up with his primary care physician in a couple of days. Lab Data 07/29/24 21:09 07/29/24 21:09 Laboratory Results WBC 5.37 10^3/uL (3.29-11.43) 07/29/24 21:09 RBC 4.08 10^6/uL (3.85-5.65) 07/29/24 21:09 Hgb 12.30 g/dL (11.27-16.99) 07/29/24 21:09 Hct 37.4 % (37-53) 07/29/24 21:09 MCV 91.7 fl (82-101) 07/29/24 21:09 MCH 30.1 pg (27-33) 07/29/24 21:09 MCHC 32.9 g/dL (30-55) 07/29/24 21:09 RDW 15.0 % (12.1-15.1) 07/29/24 21:09 Plt Count 116 10^3/cmm (157-399) L 07/29/24 21:09 MPV 11.9 fL (7.4-10.4) H 07/29/24 21:09 Neut % (Auto) 79.8 % 07/29/24 21:09 Lymph % (Auto) 13.4 % 07/29/24 21:09 Gilliam % (Auto) 4.5 % 07/29/24 21:09 Eos % (Auto) 1.7 % 07/29/24 21:09 Baso % (Auto) 0.4 % 07/29/24 21:09 Neut # (Auto) 4.29 10^3/uL (1.8-7.7) 07/29/24 21:09 Lymph # (Auto) 0.7 10^3/uL (0.8-4.8) L 07/29/24 21:09 Gilliam # (Auto) 0.2 10^3/uL (0.2-0.9) 07/29/24 21:09 Eos # (Auto) 0.1 10^3/uL (0.0-0.8) 07/29/24 21:09 Baso # (Auto) 0.0 10^3/uL (0.0-0.1) 07/29/24 21:09 Nucleated RBC % (auto) 0 % 07/29/24 21:09 Nucleated RBCs # 0.0 /100WBC 07/29/24 21:09 Specimen Type Arterial 07/29/24 21:18 Sample Site Radial, right 07/29/24 21:18 ABG pH 7.40 (7.35-7.45) 07/29/24 21:18 ABG pCO2 48.9 mmHg (35-45) H 07/29/24 21:18 ABG pO2 74.9 mmHg (80.0-100.0) L 07/29/24 21:18 ABG HCO3 30.2 mmol/L (22-26) H 07/29/24 21:18 ABG O2 Saturation 95.6 07/29/24 21:18 ABG Base Excess 4.4 mmol/L (-2.0-2.0) H 07/29/24 21:18 Omar Test Pos 07/29/24 21:18 A-a O2 Gradient 1.5 mmHg (5-10) L 07/29/24 21:18 Hematocrit 37.8 % (42-52) L 07/29/24 21:18 Hgb O2 Saturation 93.6 % (95-100) L 07/29/24 21:18 Carboxyhemoglobin 1.2 %THgb (0.4-20.1) 07/29/24 21:18 Methemoglobin 0.9 % (0.4-1.5) 07/29/24 21:18 Total Hemoglobin 12.3 g/dL (14-18) L 07/29/24 21:18 Sodium 140.0 mmol/L (131-143) 07/29/24 21:18 Potassium 3.6 mmol/L (3.5-5.0) 07/29/24 21:18 Glucose 213.0 mg/dL (70-115) H 07/29/24 21:18 Ionized Calcium 1.2 mmol/L (1.1-1.4) 07/29/24 21:18 O2 Delivery Device Nc 07/29/24 21:18 O2 Liters/Min 2.0 % 07/29/24 21:18 Director Medicaid ID [id number] 07/29/24 21:18 Sodium 141 mmol/L (136-145) 07/29/24 21:09 Potassium 3.9 mmol/L (3.5-5.1) 07/29/24 21:09 Chloride 104 mmol/L (98-107) 07/29/24 21:09 Carbon Dioxide 28 mmol/L (22-29) 07/29/24 21:09 Anion Gap 12.9 (5-19) 07/29/24 21:09 BUN 11 mg/dL (8-23) 07/29/24 21:09 Creatinine 0.8 mg/dL (0.7-1.2) 07/29/24 21:09 GFR Calculation 95.6 mL/min (90-130) 07/29/24 21:09 Glucose 192 mg/dL (65-115) H 07/29/24 21:09 Calculated Osmolality 297 mOsm/kg (285-295) H 07/29/24 21:09 Lactic Acid 1.1 mmol/L (0.5-2.2) 07/29/24 21:09 Calcium 9.1 mg/dL (8.5-10.5) 07/29/24 21:09 Total Bilirubin 0.4 mg/dL (0.15-1.2) 07/29/24 21:09 AST 18 U/L (0-40) 07/29/24 21:09 ALT 13 U/L (0-41) 07/29/24 21:09 Alkaline Phosphatase 68 U/L (40-130) 07/29/24 21:09 Troponin T Baseline 15 ng/L (0-15) 07/29/24 21:09 C-Reactive Protein 12.5 mg/L (0.0-4.9) H 07/29/24 21:09 NT-Pro-B Natriuret Pep 2833 pg/mL (0-125) H 07/29/24 21:09 Total Protein 6.4 g/dL (6.6-8.7) L 07/29/24 21:09 Albumin 4.1 g/dL (3.5-5.2) 07/29/24 21:09 Globulin 2.3 g/dL (1.3-4.6) 07/29/24 21:09 Influenza A (PCR) Negative (Negative) 07/29/24 21:16 Influenza Type B (PCR) Negative (Negative) 07/29/24 21:16 RSV (PCR) Negative (Negative) 07/29/24 21:16 SARS-CoV-2 (PCR) Negative (Negative) 07/29/24 21:16 XR interpretation done by ED provider, pending radiology final review Discharge Plan Discharge Patient Disposition: Home Clinical Impression: Cellulitis Condition: Stable Prescriptions: No Action nitroglycerin 0.4 mg tablet, sublingual 0.4 mg sublingual Q5M PRN (Reason: chest pain) 30 Days Qty: 30 3RF Rx Instructions: until response; do not exceed 3 doses per episode amlodipine 10 mg tablet 10 mg PO DAILY 90 Days Qty: 90 3RF fluticasone propionate [Flonase Allergy Relief] 50 mcg/actuation spray,suspension 2 spray intranasal BID 7 Days Qty: 16 0RF Rx Instructions: administer into each nostril Zyrtec 10 mg capsule 10 mg PO DAILY 14 Days Qty: 14 0RF (DME) Rollaid with seat See Rx Instructions .Route .MEDSUPPLY Qty: 1 0RF Rx Instructions: As directed (DME) blood-glucose meter Kit See Rx Instructions .ROUTE .MEDSUPPLY Qty: 1 0RF Rx Instructions: check blood daily (DME) pen needle, diabetic [TechLITE Pen Needle] 31 gauge x 5/16 needle See Rx Instructions .ROUTE .MEDSUPPLY Qty: 100 0RF Rx Instructions: use with levemir-TWO TIMES DAILY diclofenac sodium 1 % gel 2 g TOPICAL QID PRN (Reason: arthritis) Qty: 100 6RF albuterol sulfate [Ventolin HFA] 90 mcg/actuation HFA aerosol inhaler 1 inh INHALATION QID PRN (Reason: shortness of breath or wheezing) Qty: 8.5 3RF duloxetine 60 mg capsule,delayed release(DR/EC) 60 mg PO DAILY@07 Qty: 120 1RF Rx Instructions: WITH 30MG DOSE TO =90MG Farxiga 10 mg tablet 10 mg PO DAILY Qty: 90 0RF esomeprazole magnesium 40 mg capsule,delayed release(DR/EC) 40 mg PO DAILY Qty: 90 0RF pregabalin 300 mg capsule 300 mg PO BID Qty: 60 1RF insulin glargine [Lantus Solostar U-100 Insulin] 100 unit/mL (3 mL) insulin pen 35 unit SUBCUT DAILY Qty: 15 2RF fentanyl 75 mcg/hr patch 72 hour 1 patch topical Q48H 30 Days Qty: 15 0RF spironolactone 50 mg tablet 50 mg PO DAILY duloxetine 30 mg capsule,delayed release(DR/EC) 30 mg PO DAILY Rx Instructions: with 60mg to =90mg torsemide 20 mg tablet See Rx Instructions .ROUTE .COMPLEX Rx Instructions: Take 3 tablets (60mg) daily x 2 weeks, then 2 tablets (40mg) daily thereafter. Discharge Orders: Discharge ED (Routine); Ordered 07/29/24 Ordered By: Abdulaziz Younger Referrals: Shemar Kaiser MD [Primary Care Provider] - Discharge Diet: Usual diet Discharge Activity: Resume usual activity Patient Instructions: Opioid Safety, Pain Management Activity Restrictions/Additional Instructions: 1. Take Rx as directed. 2. Follow up with PCP on Wednesday or Wednesday 3. Return for new or worsening symptoms. Print Language: Omani Coding Level of Care Code ED Golf Cart Maker for Ivonne Guaman
[2024-07-29] MEDS: cefepime 2,000 mg SDV 2000 MG IVP (21:28)
[2024-07-29] MEDS: methylPREDNISolone sod succ 125 mg/2 mL INJ IVP (21:29)
[2024-07-29 21:30] LABS: ABG PCO2 48.9 mmHg (35-45); Alveolar-Arterial Oxygen Gradi 1.5 mmHg (5-10); Arterial Blood Gas Hematocrit 37.8 % (42-52); Base Excess ABG 4.4 mmol/L (-2.0-2.0); Blood Gas Allen Test Pos; Blood Gas Operator Identificat gerca; Blood Gas Sample Site Radial, right; Blood Gas Sample Type Arterial; Carboxyhemoglobin 1.2 %THgb (0.4-20.1); HCO3 ABG 30.2 mmol/L (22-26); HGB O2 Sat 93.6 % (95-100); Ionized Calcium Level - ABG 1.2 mmol/L (1.1-1.4); Methemoglobin 0.9 % (0.4-1.5); Oxygen Device NC; Oxygen Saturation ABG 95.6; PO2 ABG 74.9 mmHg (80.0-100.0); Potassium Level - ABG 3.6 mmol/L (3.5-5.0); Total Hemoglobin 12.3 g/dL (14-18)
[2024-07-29 21:34] LABS: Basophils % 0.4 %; Eosinophils # 0.1 10^3/uL (0.0-0.8); Eosinophils % 1.7 %; Hematocrit 37.4 % (37-53); Lymphocytes # 0.7 10^3/uL (0.8-4.8); Lymphocytes % 13.4 %; Mean Corpuscular HGB Conc 32.9 g/dL (30-55); Mean Corpuscular Hemoglobin 30.1 pg (27-33); Mean Corpuscular Volume 91.7 fl (82-101); Mean Platelet Volume 11.9 fL (7.4-10.4); Monocytes # 0.2 10^3/uL (0.2-0.9); Monocytes % 4.5 %; Neutrophils # 4.29 10^3/uL (1.8-7.7); Neutrophils % 79.8 %; Nucleated Red Blood Cells % 0 %; Platelet Count 116 10^3/cmm (157-399); Red Blood Count 4.08 10^6/uL (3.85-5.65); White Blood Count 5.37 10^3/uL (3.29-11.43)
[2024-07-29] MEDS: albuterol 2.5 mg/3 mL Neb INHALATION (21:39)
[2024-07-29 21:57] LABS: Lactic Sepsis W/Reflex 1.1 mmol/L (0.5-2.2)
[2024-07-29 21:59] LABS: Alanine Aminotransferase 13 U/L (0-41); Albumin Level 4.1 g/dL (3.5-5.2); Alkaline Phosphatase 68 U/L (40-130); Anion Gap 12.9 (5-19); Aspartate Amino Transferase 18 U/L (0-40); Blood Urea Nitrogen 11 mg/dL (8-23); C Reactive Protein 12.5 mg/L (0.0-4.9); Calcium 9.1 mg/dL (8.5-10.5); Carbon Dioxide 28 mmol/L (22-29); Chloride 104 mmol/L (98-107); Creatinine Clr Calc Pharmacy 89.5645; Globulin 2.3 g/dL (1.3-4.6); Glomerular Filtration Rate 95.6 mL/min (90-130); Glucose 192 mg/dL (65-115); Osmolality Calculated 297 mOsm/kg (285-295); Potassium 3.9 mmol/L (3.5-5.1); Sodium 141 mmol/L (136-145); Total Bilirubin 0.4 mg/dL (0.15-1.2); Total Protein 6.4 g/dL (6.6-8.7); Troponin(5th) Baseline 15 ng/L (0-15)
[2024-07-29 22:08] LABS: NT Pro B Type Natriuretic Pept 2833 pg/mL (0-125)
[2024-07-29 22:11] LABS: Influenza A NEGATIVE (Negative); Influenza B NEGATIVE (Negative); Respiratory Syncytial Virus Ce NEGATIVE (Negative); SARS-CoV-2 PCR NEGATIVE (Negative)
--- NOTE | 2024-07-29 23:00 | ECG_ITS ---
[facility] Test Date: 2024-07-29 Pat Name: Brian Lozada Department: Room: Gender: Male Blind Escort: : 1955 Requested By: Neha Munoz Order Number: [id number] Reading MD: EDISON RUDOLPH Measurements Intervals [place] Rate: 83 P: 76 ID: [id number] QRS: -29 QRSD: 157 T: 99 QT: 425 QTc: 501 Interpretive Statements SINUS RHYTHM WITH SINUS ARRHYTHMIA BORDERLINE LEFT AXIS DEVIATION [QRS AXIS < -20] INTRAVENTRICULAR CONDUCTION DELAY [130+ ms QRS DURATION] Compared to ECG 07/29/2024 21:16:57 No significant changes Electronically Signed On 07-31-2024 18:18:58 CDT by EDISON RUDOLPH [email or web address]
[2024-07-29 23:32] LABS: Troponin 5 2HR 15.11 ng/L (0-15); Troponin 5 2HR Delta 0.11 ABS# (0-10)
== END 2024-07-29 23:24 | disposition home or self-care (01) ==
PROVIDERS: Emergency Medicine; Emergency Provider Family Medicine; PCP Family Medicine
DX: L03.113 Cellulitis of right upper limb (principal); E78.5 Hyperlipidemia, unspecified; I10 Essential (primary) hypertension; E11.9 Type 2 diabetes mellitus without complications; I50.20 Unspecified systolic (congestive) heart failure; Z11.52 Encounter for screening for COVID-19; Z79.4 Long term (current) use of insulin; J44.9 Chronic obstructive pulmonary disease, unspecified
CPT/HCPCS: 36415; 36600; 70450; 71045; 80051; 80053; 82330; 82805; 83605; 83880; 84484; 85025; 86140; 87040; 87637; 93005; 94640; 96374; 99285; J0692; J2919; J7613

== ENCOUNTER 2024-10-17 16:53 | Emergency (ER) | payer MEDICARE, MEDICAID, SELFPAY ==
[2024-10-17 16:58] VITALS: BP 164/89; PULSE 85; RESP 16; TEMP 36.4; O2SAT 97; BMI 19.8
--- NOTE | 2024-10-17 17:12 | ECG_ITS ---
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 Assessment Specialist: : 1955 Requested By: Neha Munoz Order Number: [id number] Morris MD: EDISON RUDOLPH Measurements Intervals [place] Rate: 78 P: 65 MI: 206 QRS: -42 QRSD: 149 T: 109 QT: 405 QTc: 462 Interpretive Statements SINUS RHYTHM WITH OCCASIONAL VENTRICULAR PREMATURE COMPLEXES LEFT AXIS DEVIATION [QRS AXIS < -30] INTRAVENTRICULAR CONDUCTION DELAY [130+ ms QRS DURATION] Compared to ECG 07/29/2024 23:00:53 Ventricular premature complex(es) now present Sinus arrhythmia no longer present Electronically Signed On 10-18-2024 22:49:08 CDT by EDISON RUDOLPH [email or web address]
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
[2024-10-17 17:51] LABS: Basophils % 0.4 %; Eosinophils % 0.1 %; Hematocrit 46.5 % (37-53); Lymphocytes # 1.6 10^3/uL (0.8-4.8); Lymphocytes % 18.8 %; Mean Corpuscular Hemoglobin 29.5 pg (27-33); Mean Corpuscular Volume 86.8 fl (82-101); Mean Platelet Volume 11.7 fL (7.4-10.4); Monocytes # 0.5 10^3/uL (0.2-0.9); Monocytes % 5.5 %; Nucleated Red Blood Cells % 0 %; Platelet Count 154 10^3/cmm (157-399); Red Blood Count 5.36 10^6/uL (3.85-5.65); Red Cell Distribution Width 14.3 % (12.1-15.1)
[2024-10-17 18:15] LABS: Lactic Sepsis W/Reflex 1.6 mmol/L (0.5-2.2)
[2024-10-17 18:17] LABS: Troponin(5th) Baseline 12 ng/L (0-15)
[2024-10-17 18:26] LABS: Alanine Aminotransferase 11 U/L (0-41); Albumin Level 4.6 g/dL (3.5-5.2); Alkaline Phosphatase 76 U/L (40-130); Anion Gap 17.1 (5-19); Aspartate Amino Transferase 12 U/L (0-40); Blood Urea Nitrogen 17 mg/dL (8-23); Calcium 10.7 mg/dL (8.5-10.5); Carbon Dioxide 21 mmol/L (22-29); Chloride 102 mmol/L (98-107); Creatinine Clr Calc Pharmacy 77.4175; Globulin 2.6 g/dL (1.3-4.6); Glucose 150 mg/dL (65-115); NT Pro B Type Natriuretic Pept 2851 pg/mL (0-125); Osmolality Calculated 286 mOsm/kg (285-295); Potassium 4.1 mmol/L (3.5-5.1); Sodium 136 mmol/L (136-145); Total Bilirubin 0.7 mg/dL (0.15-1.2); Total Protein 7.2 g/dL (6.6-8.7)
== END 2024-10-17 18:35 | disposition home or self-care (01) ==
PROVIDERS: Emergency Provider Emergency Medicine; PCP Family Medicine
DX: R07.89 Other chest pain (principal); Z91.148 Patient's other noncompliance with medication regimen for other reason; Z79.4 Long term (current) use of insulin; E11.9 Type 2 diabetes mellitus without complications; E78.5 Hyperlipidemia, unspecified; I11.0 Hypertensive heart disease with heart failure; I50.20 Unspecified systolic (congestive) heart failure
CPT/HCPCS: 36415; 80053; 83605; 83880; 84484; 85025; 93005; 99284

== ENCOUNTER → 2024-11-13 16:25 | Outpatient (BNVA) | payer MEDICARE, MEDICAID, SELFPAY | PROVIDERS: PCP Family Medicine; Visit Provider Family Medicine | DX: E11.9 Type 2 diabetes mellitus without complications (principal) | CPT/HCPCS: 83036 ==

== ENCOUNTER 2025-05-12 11:38 | Emergency (ER) | payer MEDICARE, MEDICAID, SELFPAY ==
--- OUTSIDE RECORDS SUMMARY | 2024-03-11 03:00 | XMS_ITS ---
Author Organization [facility] Address [address] [place] [address] Care Team Providers Care Geropsychologist Name Role Phone Shemar Kelley Primary Care Provider Unavailabl e Migration, Provider Unavailable Unavailable REASON FOR VISIT EMR-Kale Encounters Encounter Location Date Provider Diagnosis Migrated_Facility 0 0 03/11/2024 Provider Migration Plan Of Treatment No Information Progress Notes * Arlin LOZADAOB:1955 (69 yo M)Acc No.[id number]:03/11/2024 Patient: Lenard HIGHTOWER Brian :1955 A ge:68 Y S ex:Male Address:[address] [place] [address] [address] [place], [id number] Subjective: * Chief Complaints: * E MR-Kale * * Date:
--- OUTSIDE RECORDS SUMMARY | 2024-03-12 03:00 | XMS_ITS ---
Author Organization [facility] Address [address] [place] [address] Care Team Providers Care Sulfonator Operator Name Role Phone Shemar Kelley Primary Care Provider Unavailabl e Migration, Provider Unavailable Unavailable REASON FOR VISIT EMR-Kale Encounters Encounter Location Date Provider Diagnosis Migrated_Facility 0 0 03/12/2024 Provider Migration Plan Of Treatment No Information Progress Notes * Arlin LOZADAOB:1955 (69 yo M)Acc No.[id number]:03/12/2024 Patient: Lenard HIGHTOWER Brian :1955 A ge:68 Y S ex:Male Address:[address] [place] [address] [address] [place], [id number] Subjective: * Chief Complaints: * E MR-Kale * * Date:
[2025-05-12 11:40] VITALS: BP 201/101; PULSE 67; RESP 17; TEMP 37.1; O2SAT 97; BMI 23.6
--- OUTSIDE RECORDS SUMMARY | 2025-05-12 11:41 | XMS_ITS | Clinical Summary ---
Author Organization [facility] de Address [address] [place] [address] Phone Care Team Providers Care Consulting Networking Engineer Name Role Phone Raghu Mathis MD Primary Care Provider Allergies Active Allergy Reactions Criticality Noted Date Comments Morphine Unknown 05/05/2017 Medications OTHERIndication s:Please send both bottles at the same time. Prednisolone 1%, Gatifloxacin 0.5%, Ketorolac 0.5%. Start 3 days before surgery 1 drop 3 times a day in the surgical eye for 24 days.. 3.5 mL 1 8 Active pregabalin (LYRICA) 300 mg Capsule Take 300 mg by mouth every 12 hours. Active metFORMIN (GLUCOPHAGE) 500 mg tablet Take 500 mg by mouth daily with breakfast. Active enalapril (VASOTEC) 20 mg tablet Take 20 mg by mouth 2 times daily. Active DULoxetine (CYMBALTA) 60 mg Capsule, Delayed Release(E.C.) Take 60 mg by mouth daily. Active DULoxetine (CYMBALTA) 30 mg Capsule, Delayed Release(E.C.) Take 30 mg by mouth daily at bedtime. Active tamsulosin (FLOMAX) 0.4 mg capsule Take 0.4 mg by mouth daily. Active esomeprazole (NexIUM) 40 mg Capsule, Delayed Release(E.C.) Take 40 mg by mouth daily before breakfast. Active carvedilol (COREG) 25 mg tablet Take 25 mg by mouth 2 times daily with meals. Active clopidogrel (PLAVIX) 75 mg Tablet Take 75 mg by mouth daily. Active sennosides-docu sate sodium (SENNA-S) 8.6-50 mg tabletIndicatio ns:takes 4 caps at a time Take 1 Tablet by mouth daily . Active insulin degludec (TRESIBA FLEXTOUCH U-200) 200 unit/mL pen syringe Inject 40 Units by subcutaneous injection daily at bedtime. Active albuterol HFA 90 mcg inhaler Take 2 Puffs by inhalation every 6 hours as needed for Shortness of Breath. Active oxygen home delivery Administer in each nostril 2L/nc prn, I usually use it a little each day, either when I 'm doing something or when I am sleeping . Active aspirin (CLEMENT) 325 mg tablet Take 325 mg by mouth daily. Active Active Problems Problem Noted Date Diagnosed Date History of vitrectomy OS 07/26/2017 Status post LASIK surgery myopic OU 07/26/2017 History of laser photocoagul ation of retina with SO for OS RD. 07/26/2017 Type 2 diabetes mellitus wit hout complication, with long-term current use of insulin 07/26/2017 Posterior synechiae (iris), left eye 07/26/2017 Retinal detachment, left 05/06/2017 Immunizations Immunization Administration Dates Next Due Influenza Seasonal Unspecified Formulation IM Family History Medical History Relation Name Comments Diabetes Father Diabetes Sister Relation Name Status Comments Father Sister Social History Tobacco Use Types Packs/Day Years Used Date Smoking Tobacco: Never Smokeless Tobacco: Never Alcohol Use Standard Drinks/Week Comments No 0 (1 standard drink = 0.6 oz pur e alcohol) Sex and Gender Information Value Date Recorded Sex Assigned at Not on file 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 Gender Identity Not on file Sexual Orientation Not on file Last Filed Vital Signs Vital Sign Reading Time Taken Comments Blood Pressure 182/97 02/17/2018 8:24 AM CDT Pulse 65 02/17/2018 8:24 AM CDT Temperature 36.1 C (97 F) 02/16/2018 1:30 PM CDT Respiratory Rate 18 02/16/2018 11:49 AM CDT Oxygen Saturation 96% 02/16/2018 1:30 PM CDT Inhaled Oxygen Concentration - - Weight 75.8 kg (167 lb) 02/17/2018 8:24 AM CDT Height 172.7 cm (5' 8 ) 02/17/2018 8:24 AM CDT Body Mass Index 25.39 02/17/2018 8:24 AM CDT Plan of Treatment Health Maintenance Due Date Last Done Comments DIABETES ANNUAL FOOT EXAM 09/01/1971 DIABETES HBA1C Q 6 MONTHS 09/01/1971 DIABETES MICROALBUMIN ANNUAL SCREEN 09/01/1971 DTAP/TDAP/TD VACCINES (1 - Tdap) 1972 PNEUMOCOCCAL VACCINE 50+ YEA RS (1 of 2 - PCV) 1972 COLORECTAL SCREENING 1998 Colorectal Cancer Screening 1998 FIT-DNA Q 3 years 1998 FIT/FOBT Q 1 year 1998 Flex Sig/CT Colonography Q 5 years 1998 ZOSTER VACCINE (1 of 2) 09/01/2003 LDL CHOLESTEROL ANNUAL 04/17/2008 04/17/2007, 2006 DIABETES ANNUAL RETINAL EXAM 02/17/201908/2017, 02/17/2018, 02/16/2018, Additional history exists INFLUENZA VACCINE (#1) 2024 02/14/2017 RSV VACCINE (60+ or ) (1 - 1-dose 75+ series) 2028 Medical Devices Implanted Type Area Change Director Device Identifier Shelf Expiration Date Model / Serial / Lot Lens Io Tecnis 1pc 23.5 [id number] - [id number] Implanted:Qty: 1 on 07/27/2017 by Nicholas Rivera MD at [facility] Left: Eye [employer] 04/17/2021 [id number] / [id number] / Ring Tension Capsular Type 14c [id number] - [id number] Implanted:Qty: 1 on 07/27/2017 by Nicholas Rivera MD at [facility] Eye Left: Eye [employer] 11/13/2021 [id number] / [id number] / [id number] Explanted Type Area Change Director Device Identifier Shelf Expiration Date Model / Serial / Lot Oil Slc 8.5ml [id number] - [id number] Implanted:Qty: 1 on 05/05/2017 by Erick Clay MD at [facility] Explanted:Qty: 1 on 08/04/2017 by Erick Clay MD at [facility] Eye Left: Eye [employer] 11/13/2018 [id number] / / [id number] Oil Slc 8.5ml [id number] - [id number] Implanted:Qty: 1 on 08/04/2017 by Erick Clay MD at [facility] Explanted:Qty: 1 on 02/16/2018 by Erick Clay MD at [facility] Eye Left: Eye [employer] 03/16/2018 [id number] / [id number] / [id number] Procedures Procedure Name Priority Date/Time Associated Diagnosis Comments LIPID PANEL Routine 04/17/2007 5:02 AM 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 ATTACHMENT TESTER from Last 3 Months or Most Recently Relevant to Health Maintenance Results * (ABNORMAL) LIPID PANEL (04/17/2007 5:02 AM 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 ATTACHMENT TESTER) CHOLESTEROL 177 75 - 200 mg/dL INTERFACE SYSTEM HDL 26(L) 40 - 60 mg/dL INTERFACE SYSTEM TRIGLYCERIDE 195 0 - 200 mg/dL INTERFACE SYSTEM CALCULATED LDL CHOLESTEROL 112 0 - 130 mg/dL INTERFACE SYSTEM CALCULATED TOTAL CHOLESTEROL TO HDL RATIO 6.81(H) 3.43 - 4.97 INTERFACE SYSTEM 04/17/2007 5:02 AM 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 ATTACHMENT TESTER us Alvarez Amor MD CHEMISTRY ORDERABLES Edited Performing Organization Address City/State/[facility] Co de Phone Number INTERFACE SYSTEM Refer to clinic/hospital department from Last 3 Months or Most Recently Relevant to Health Maintenance Insurance [place]ICAID [place] Advance Directives For more information, please contact: [phone] * Full Code (Latest Code Status on File) Date Activated Date Inactivated Comments 02/16/2018 11:57 AM 02/16/2018 3:58 PM * Full Code Date Activated Date Inactivated Comments 08/04/2017 11:28 AM 08/04/2017 5:07 PM * Full Code Date Activated Date Inactivated Comments 07/27/2017 1:47 PM 07/27/2017 5:32 PM * Full Code Date Activated Date Inactivated Comments 05/05/2017 1:08 PM 05/05/2017 6:17 PM Care Teams Consulting Networking Engineer Relationship Specialty Start Date End Date Raghu Mathis MD PCP - General Specialist 05/05/17
--- OUTSIDE RECORDS SUMMARY | 2025-05-12 11:41 | XMS_ITS | Encounter Summary ---
[facility] Organization [facility] Address [address] [place] [address] Care Team Providers Care Fishing Line Winding Machine Operator Name Role Phone Raghu Mathis MD Primary Care Provider Encounter Details Date Type Department Care Team (Late st Contact Info) Description 04/15/2007 Outpatient Historical HIS IN BED Sj Ed, Physician NO ADDRESS ON FILE Doroteo Yeager MD [address] [place] [address] Alvarez Amor MD [address] [place] [address] BrotherMartin MD NO ADDRESS ON FILE Unspecified Chest Pain Social History Tobacco Use Types Packs/Day Years Used Date Smoking Tobacco: Never Assessed Sex and Gender Information Value Date Recorded Sex Assigned at Not on file Legal Sex Male 6:52 AM HARDSCAPE FOREMAN Gender Identity Not on file Sexual Orientation Not on file documented as of this encounter Plan of Treatment Not on file documented as of this encounter Procedures Procedure Name Priority Date/Time Associated Diagnosis Comments LIPID PANEL Routine 04/17/2007 5:02 AM HARDSCAPE FOREMAN CARDIAC ENZYMES Routine 04/16/2007 11:38 AM HARDSCAPE FOREMAN CARDIAC ENZYMES Routine 04/16/2007 5:05 AM HARDSCAPE FOREMAN CBC WITH DIFFERENTIAL Routine 04/16/2007 5:05 AM HARDSCAPE FOREMAN TSH Routine 04/16/2007 5:05 AM HARDSCAPE FOREMAN LIPID PANEL Routine 04/16/2007 5:05 AM HARDSCAPE FOREMAN BASIC METABOLIC PANEL Routine 04/16/2007 5:05 AM HARDSCAPE FOREMAN CARDIAC ENZYMES Routine 04/15/2007 11:01 PM HARDSCAPE FOREMAN CBC WITH DIFFERENTIAL Routine 04/15/2007 11:01 PM HARDSCAPE FOREMAN BASIC METABOLIC PANEL Routine 04/15/2007 11:01 PM HARDSCAPE FOREMAN documented in this encounter Results * (ABNORMAL) LIPID PANEL (04/17/2007 5:02 AM HARDSCAPE FOREMAN) Pathologist [facility] CHOLESTEROL 177 75 - 200 mg/dL INTERFACE SYSTEM HDL 26(L) 40 - 60 mg/dL INTERFACE SYSTEM TRIGLYCERIDE 195 0 - 200 mg/dL INTERFACE SYSTEM CALCULATED LDL CHOLESTEROL 112 0 - 130 mg/dL INTERFACE SYSTEM CALCULATED TOTAL CHOLESTEROL TO HDL RATIO 6.81(H) 3.43 - 4.97 INTERFACE SYSTEM 04/17/2007 5:02 AM HARDSCAPE FOREMAN us Alvarez Amor MD CHEMISTRY ORDERABLES Edited Performing Organization Address City/[facility]/ZIP Co de Phone Number INTERFACE SYSTEM Refer to clinic/hospital department * CARDIAC ENZYMES (04/16/2007 11:38 AM HARDSCAPE FOREMAN) [facility] TROPONIN I <0.1 0.0 - 1.3 ng/mL INTERFACE SYSTEM Comment: As of 06 the Troponin Reference Range has changed from 0.0-1.5 ng/ml to 0.0- 1.3 ng/ml due to a change in testing methodology. CKMB 0.2 0.0 - 5.0 ng/mL INTERFACE SYSTEM 04/16/2007 11:3 8 AM HARDSCAPE FOREMAN us Doroteo Yeager MD CHEMISTRY ORDERABLES Edite d Performing Organization Address City/[facility]/ZIP Co de Phone Number INTERFACE SYSTEM Refer to clinic/hospital department * (ABNORMAL) LIPID PANEL (04/16/2007 5:05 AM HARDSCAPE FOREMAN) CHOLESTEROL 186 75 - 200 mg/dL INTERFACE SYSTEM HDL 24(L) 40 - 60 mg/dL INTERFACE SYSTEM TRIGLYCERIDE 321(H) 0 - 200 mg/dL INTERFACE SYSTEM CALCULATED LDL CHOLESTEROL 98 0 - 130 mg/dL INTERFACE SYSTEM CALCULATED TOTAL CHOLESTEROL TO HDL RATIO 7.75(H) 3.43 - 4.97 INTERFACE SYSTEM 04/16/2007 5:05 AM HARDSCAPE FOREMAN Alvarez Amor MD CHEMISTRY ORDERABLES Edited Performing Organization Address [facility] Phone Number INTERFACE SYSTEM Refer to clinic/hospital department * TSH (04/16/2007 5:05 AM HARDSCAPE FOREMAN) Pathologist [facility] TSH 1.630 0.350 - 5.500 uIU/ml INTERFACE SYSTEM 04/16/2007 5:05 AM HARDSCAPE FOREMAN Alvarez Amor MD CHEMISTRY ORDERABLES Edited Performing Organization Address [facility] Phone Number INTERFACE SYSTEM Refer to clinic/hospital department * BASIC METABOLIC PANEL (04/16/2007 5:05 AM HARDSCAPE FOREMAN) GLUCOSE 91 70 - 110 mg/dL INTERFACE SYSTEM BUN 13 9 - 20 mg/dL INTERFACE SYSTEM CREATININE 0.8 0.7 - 1.5 mg/dL INTERFACE SYSTEM SODIUM 141 136 - 145 mEq/L INTERFACE SYSTEM POTASSIUM 3.9 3.5 - 5.0 mEq/L INTERFACE SYSTEM CHLORIDE 109 95 - 110 mEq/L INTERFACE SYSTEM CO2 27 22 - 32 mmol/l INTERFACE SYSTEM CALCIUM 9.1 8.4 - 10.5 mg/dL INTERFACE SYSTEM ANION GAP 9 9 - 20 mEq/L INTERFACE SYSTEM OSMOLALITY, CALCULATED 289 275 - 295 mOsm/Kg INTERFACE SYSTEM 04/16/2007 5:05 AM HARDSCAPE FOREMAN Alvarez Amor MD CHEMISTRY ORDERABLES Edited Performing Organization Address [facility] Phone Number INTERFACE SYSTEM Refer to clinic/hospital department * (ABNORMAL) CBC WITH DIFFERENTIAL (04/16/2007 5:05 AM HARDSCAPE FOREMAN) WBC 6.7 4.8 - 10.8 K/ul INTERFACE SYSTEM RBC 4.33(L) 4.60 - 6.20 Mil/ul INTERFACE SYSTEM HEMOGLOBIN 13.3(L) 14.0 - 18.0 g/dL INTERFACE SYSTEM HEMATOCRIT 38.9(L) 41.0 - 53.0 % INTERFACE SYSTEM MCV 89.8 84.0 - 103.0 Fl INTERFACE SYSTEM MCH 30.7 27.0 - 34.0 pg INTERFACE SYSTEM MCHC 34.2 30.0 - 35.0 g/dL INTERFACE SYSTEM RDW 13.6 11.0 - 14.5 % INTERFACE SYSTEM PLATELETS 143 140 - 440 K/ul INTERFACE SYSTEM MPV 12.6 8.9 - 12.8 Fl INTERFACE SYSTEM NEUTROPHILS 51.4 42.2 - 75.2 % INTERFACE SYSTEM LYMPHOCYTES 39.3 24.0 - 44.0 % INTERFACE SYSTEM MONOCYTES 6.2 2.0 - 10.0 % INTERFACE SYSTEM EOSINOPHILS 2.6 0.0 - 7.0 % INTERFACE SYSTEM BASOPHILS 0.5 0.0 - 1.0 % INTERFACE SYSTEM NEUTROPHIL ABSOLUTE 3.4 2.0 - 8.0 K/ul INTERFACE SYSTEM LYMPHOCYTE ABSOLUTE 2.6 1.2 - 4.0 K/ul INTERFACE SYSTEM MONOCYTE ABSOLUTE 0.4 0.1 - 0.6 K/ul INTERFACE SYSTEM EOSINOPHIL ABSOLUTE 0.2 0.0 - 0.7 K/ul INTERFACE SYSTEM BASOPHILS ABSOLUTE 0.0 0.0 - 0.2 K/ul INTERFACE SYSTEM 04/16/2007 5:05 AM HARDSCAPE FOREMAN us Alvarez Amor MD HEMATOLOGY ORDERABLES Edited INTERFACE SYSTEM Refer to clinic/hospital department * CARDIAC ENZYMES (04/16/2007 5:05 AM HARDSCAPE FOREMAN) TROPONIN I <0.1 0.0 - 1.3 ng/mL INTERFACE SYSTEM Comment: As of 06 the Troponin Reference Range has changed from 0.0-1.5 ng/ml to 0.0- 1.3 ng/ml due to a change in testing methodology. CKMB 0.2 0.0 - 5.0 ng/mL INTERFACE SYSTEM 04/16/2007 5:05 AM HARDSCAPE FOREMAN Doroteo Yeager MD CHEMISTRY ORDERABLES Edite d Performing Organization Address [facility] Phone Number INTERFACE SYSTEM Refer to clinic/hospital department * CARDIAC ENZYMES (04/15/2007 11:01 PM HARDSCAPE FOREMAN) TROPONIN I <0.1 0.0 - 1.3 ng/mL INTERFACE SYSTEM Comment: As of 06 the Troponin Reference Range has changed from 0.0-1.5 ng/ml to 0.0- 1.3 ng/ml due to a change in testing methodology. CKMB <0.2 0.0 - 5.0 ng/mL INTERFACE SYSTEM 04/15/2007 11:0 1 PM HARDSCAPE FOREMAN Doroteo Yeager MD CHEMISTRY ORDERABLES Edite d Performing Organization Address [facility] Phone Number INTERFACE SYSTEM Refer to clinic/hospital department * BASIC METABOLIC PANEL (04/15/2007 11:01 PM HARDSCAPE FOREMAN) GLUCOSE 98 70 - 110 mg/dL INTERFACE SYSTEM BUN 11 9 - 20 mg/dL INTERFACE SYSTEM CREATININE 1.0 0.7 - 1.5 mg/dL INTERFACE SYSTEM SODIUM 141 136 - 145 mEq/L INTERFACE SYSTEM POTASSIUM 4.1 3.5 - 5.0 mEq/L INTERFACE SYSTEM CHLORIDE 108 95 - 110 mEq/L INTERFACE SYSTEM CO2 26 22 - 32 mmol/l INTERFACE SYSTEM CALCIUM 9.2 8.4 - 10.5 mg/dL INTERFACE SYSTEM ANION GAP 11 9 - 20 mEq/L INTERFACE SYSTEM OSMOLALITY, CALCULATED 289 275 - 295 mOsm/Kg INTERFACE SYSTEM 04/15/2007 11:0 1 PM HARDSCAPE FOREMAN Doroteo Yeager MD CHEMISTRY ORDERABLES Edite d Performing Organization Address [facility] Phone Number INTERFACE SYSTEM Refer to clinic/hospital department * (ABNORMAL) CBC WITH DIFFERENTIAL (04/15/2007 11:01 PM HARDSCAPE FOREMAN) WBC 7.3 4.8 - 10.8 K/ul INTERFACE SYSTEM RBC 4.44(L) 4.60 - 6.20 Mil/ul INTERFACE SYSTEM HEMOGLOBIN 14.1 14.0 - 18.0 g/dL INTERFACE SYSTEM HEMATOCRIT 40.0(L) 41.0 - 53.0 % INTERFACE SYSTEM MCV 90.1 84.0 - 103.0 Fl INTERFACE SYSTEM MCH 31.8 27.0 - 34.0 pg INTERFACE SYSTEM MCHC 35.3(H) 30.0 - 35.0 g/dL INTERFACE SYSTEM RDW 13.7 11.0 - 14.5 % INTERFACE SYSTEM PLATELETS 165 140 - 440 K/ul INTERFACE SYSTEM MPV 12.3 8.9 - 12.8 Fl INTERFACE SYSTEM NEUTROPHILS 54.2 42.2 - 75.2 % INTERFACE SYSTEM LYMPHOCYTES 38.7 24.0 - 44.0 % INTERFACE SYSTEM MONOCYTES 4.5 2.0 - 10.0 % INTERFACE SYSTEM EOSINOPHILS 2.2 0.0 - 7.0 % INTERFACE SYSTEM BASOPHILS 0.4 0.0 - 1.0 % INTERFACE SYSTEM NEUTROPHIL ABSOLUTE 4.0 2.0 - 8.0 K/ul INTERFACE SYSTEM LYMPHOCYTE ABSOLUTE 2.8 1.2 - 4.0 K/ul INTERFACE SYSTEM MONOCYTE ABSOLUTE 0.3 0.1 - 0.6 K/ul INTERFACE SYSTEM EOSINOPHIL ABSOLUTE 0.2 0.0 - 0.7 K/ul INTERFACE SYSTEM BASOPHILS ABSOLUTE 0.0 0.0 - 0.2 K/ul INTERFACE SYSTEM 04/15/2007 11:0 1 PM HARDSCAPE FOREMAN us Doroteo Yeager MD HEMATOLOGY ORDERABLES Edit ed INTERFACE SYSTEM Refer to clinic/hospital department documented in this encounter Visit Diagnoses Diagnosis Chest pain, unspecified documented in this encounter Care Teams Fishing Line Winding Machine Operator Relationship Specialty Start Date End Date Raghu Mathis MD PCP - General Specialist 05/05/17 documented as of this encounter
--- OUTSIDE RECORDS SUMMARY | 2025-05-12 11:41 | XMS_ITS | Encounter Summary ---
Author Organization [facility] Address [address] [place] [address] Care Team Providers Care Print Line Supervisor Name Role Phone Raghu Mathis MD Primary Care Provider Encounter Details Date Type Department Care Team (Late st Contact Info) Description 05/19/2007 Outpatient Historical [facility] [place] [address] [place] [phone] Dragan Carmichael MD NO ADDRESS ON FILE Social History Tobacco Use Types Packs/Day Years Used Date Smoking Tobacco: Never Assessed Sex and Gender Information Value Date Recorded Sex Assigned at Not on file Legal Sex Male 6:52 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
--- OUTSIDE RECORDS SUMMARY | 2025-05-12 11:41 | XMS_ITS | Clinical Summary ---
Author Organization [facility] Address [address] [facility] Attn: Epic Prelude ADT [place]ARC[place] [address] Care Team Providers Care Albacore Fishing Boat Crewman Name Role Phone Raghu Mathis MD Primary Care Provider Allergies Active Allergy Reactions Criticality Noted Date Comments Morphine Unknown 05/05/2017 Medications aspirin (CLEMENT) 325 mg tablet Take 325 mg by mouth daily. 8 Active DULoxetine (CYMBALTA) 60 mg Capsule, Delayed Release(E.C.) Take 60 mg by mouth daily. 8 Active insulin degludec (TRESIBA) 200 unit/mL pen syringe Inject 40 Units by subcutaneous injection daily at bedtime. 8 Active oxygen home delivery Administer in each nostril 2L/nc prn, I usually use it a little each day, either when I 'm doing something or when I am sleeping . 8 Active OTHER Prednisolone 1%, Gatifloxacin 0.5%, Ketorolac 0.5%. Start 3 days before surgery 1 drop 3 times a day in the surgical eye for 24 days.. 3.5 mL 1 8 Active carvediloL (COREG) 25 mg tablet Take 25 mg by mouth 2 times daily with meals. 8 Active esomeprazole (NexIUM) 40 mg Capsule, Delayed Release(E.C.) Take 40 mg by mouth daily before breakfast. 8 Active DULoxetine (CYMBALTA) 30 mg Capsule, Delayed Release(E.C.) Take 30 mg by mouth daily at bedtime. 8 Active enalapril (VASOTEC) 20 mg tablet Take 20 mg by mouth 2 times daily. 8 Active tamsulosin (FLOMAX) 0.4 mg capsule Take 0.4 mg by mouth daily. Active clopidogreL (PLAVIX) 75 mg Tablet Take 75 mg by mouth daily. 8 Active sennosides-docu sate sodium (SENNA-S) 8.6-50 mg tablet Take 1 Tablet by mouth daily . 8 Active metFORMIN (GLUCOPHAGE) 500 mg tablet Take 500 mg by mouth daily with breakfast. Active pregabalin (LYRICA) 300 mg Capsule Take 300 mg by mouth every 12 hours. Active albuterol sulfate 90 mcg/Actuation inhaler Take 2 Puffs by inhalation every 6 hours as needed for Shortness of Breath. 8 Active Active Problems Problem Noted Date Diagnosed [...] at Not on file Legal Sex Male 2:58 PM EMERGENCY PHYSICIAN Gender Identity Not on file Sexual Orientation Not on file Last Filed Vital Signs Vital Sign Reading Time Taken Comments Blood Pressure 182/97 02/17/2018 8:24 AM CDT Pulse 65 02/17/2018 8:24 AM CDT Temperature 36.1 C (97 F) 02/16/2018 1:30 PM CDT Respiratory Rate 18 02/16/2018 11:49 AM CDT Oxygen Saturation - - Inhaled Oxygen Concentration - - Weight 75.8 kg (167 lb) 02/17/2018 8:24 AM CDT Height 172.7 cm (5' 8 ) 02/17/2018 8:24 AM CDT Body Mass Index 25.39 02/17/2018 8:24 AM CDT Plan of Treatment Health Maintenance Due Date Last Done Comments DIABETES ANNUAL FOOT EXAM 09/01/1971 DIABETES HBA1C Q 6 MONTHS 09/01/1971 DIABETES MICROALBUMIN ANNUAL SCREEN 09/01/1971 LDL CHOLESTEROL ANNUAL 09/01/1971 DTAP/TDAP/TD VACCINES (1 - Tdap) 1972 PNEUMOCOCCAL VACCINE 50+ YEA RS (1 of 2 - PCV) 1972 COLORECTAL SCREENING 1998 Colorectal Cancer Screening 1998 FIT-DNA Q 3 years 1998 FIT/FOBT Q 1 year 1998 Flex Sig/CT Colonography Q 5 years 1998 ZOSTER VACCINE (1 of 2) 09/01/2003 DIABETES ANNUAL RETINAL EXAM 02/17/201908/2017, 02/17/2018, 01/27/2018, Additional history exists INFLUENZA VACCINE (#1) 2024 02/14/2017 RSV VACCINE (60+ or ) (1 - 1-dose 75+ series) 2028 Medical Devices Implanted Type Area Food Safety Specialist Device Identifier Shelf Expiration Date Model / Serial / Lot Lens Io Tecnis 1pc 23.5 [id number] - [id number] Implanted:Qty: 1 on 07/27/2017 by Nicholas Rivera MD Eye Left: Eye [employer] 04/17/2021 [id number] / [id number] / Ring Tension Capsular Type 14c Mr-1420 - [id number] Implanted:Qty: 1 on 07/27/2017 by Nicholas Rivera MD Eye Left: Eye [employer] 11/13/2021 [id number]-1420 / [id number] / [id number] Explanted Type Area Food Safety Specialist Device Identifier Shelf Expiration Date Model / Serial / Lot Oil Slc 8.5ml [id number] - [id number] Implanted:Qty: 1 on 05/05/2017 by Erick Clay MD Explanted:Qty: 1 on 08/04/2017 by Erick Clay MD Eye Left: Eye [employer] 11/13/2018 [id number] / / [id number] Oil Slc 8.5ml [id number] - [id number] Implanted:Qty: 1 on 08/04/2017 by Erick Clay MD Explanted:Qty: 1 on 02/16/2018 by Erick Clay MD Eye Left: Eye [employer] 03/16/2018 [id number] / [id number] / [id number] Care Teams [place] Fishing Boat Crewman Relationship Specialty Start Date End Date Raghu Mathis MD PCP - General Specialist 05/05/17
--- OUTSIDE RECORDS SUMMARY | 2025-05-12 11:42 | XMS_ITS | Patient Health Record ---
Author Organization [facility] Address [address] [place] [address] Care Team Providers Care Software Configuration Analyst Name Role Phone Shemar Kelley Primary Care Provider Unavailabl e Reason For Referral No Information Plan Of Treatment No Information
--- NOTE | 2025-05-12 11:48 | XRR_ITS ---
PROCEDURE INFORMATION: Exam: XR Chest Exam date and time: 05/12/2025 12:24 PM Age: 69 years old Clinical indication: Pain; Chest pressure; chest pain TECHNIQUE: Imaging protocol: Radiologic exam of the chest. Views: 1 view. COMPARISON: 1. CR XR chest 1V portable [id number] 07/29/2024 8:[address] angio chest PE protcl [id number] 05/31/2024 12:07 PM FINDINGS: Tubes, catheters and devices: Left-sided cardiac pacemaker is in place with AV sequential leads. Lungs: Lungs are well aerated. Pulmonary vascularity is normal. No suspicious pulmonary nodule/s. No focal consolidation is appreciated. Pleural spaces: No pleural effusion. No pneumothorax. Heart/Mediastinum: Borderline cardiomegaly. No masses. Bones/joints: ACDF hardware is present in the lower cervical spine. There is no acute fracture or dislocation. XR/XR chest 1V portable [id number] IMPRESSION: No acute findings. No change compared with prior study.
--- NOTE | 2025-05-12 11:48 | ECG_ITS ---
[facility] Pat Name: Brian Lozada Department: Room: Gender: Male Air And Water Tester: : 1955 Requested By: Abilio Jha Order Number: [id number] Reading MD: EDISON RUDOLPH Measurements Intervals [place] Rate: 66 P: 65 NC: 193 QRS: -41 QRSD: 161 T: -84 QT: 445 QTc: 466 Interpretive Statements SINUS RHYTHM LEFT AXIS DEVIATION [QRS AXIS < -30] INTRAVENTRICULAR CONDUCTION DELAY [130+ ms QRS DURATION] Compared to ECG 10/17/2024 16:54:19 Ventricular premature complex(es) no longer present Electronically Signed On 05-13-2025 22:57:51 SURVEYOR HELPER ROD by EDISON RUDOLPH [email or web address]
--- NOTE | 2025-05-12 11:58 | W.ED.NAVMDI ---
HPI - Nausea/Vomiting/Diarrhea General: Chief complaint: Nausea/Vomiting/Diarrhea Stated complaint: n/v Time Seen by Provider: 05/12/25 11:38 Source: patient and EMS Mode of arrival: EMS Limitations: no limitations History of Present Illness: 69-year-old male with a history of chronic pain states that he ran out of his fentanyl patches roughly 5 to 6 days ago. He states that since then he has been having some nausea vomiting along with some diarrhea states he has been having pain all over including abdominal and chest pain. He denies any fevers denies any worse or improving factors. Related Data Home Medications ?Medication ?Instructions ?Recorded ?Confirmed spironolactone 50 mg tablet 50 mg PO DAILY 09/06/23 05/12/25 torsemide 20 mg tablet See Rx Instructions .Route 03/22/24 05/12/25 .COMPLEX Edema Previous Rx's ?Medication ?Instructions ?Recorded blood-glucose meter #1 ea 12/19/19 pen needle, diabetic 31 gauge x #100 ea 04/18/2009/29 (TechLITE Pen Needle) Rollaid with seat #1 ea 11/05/22 nitroglycerin 0.4 mg sublingual 0.4 mg sublingual Q5M PRN chest 12/02/23 tablet pain 30 days #30 tabs dapagliflozin propanediol 10 mg 10 mg PO DAILY #90 tabs 05/15/24 tablet (Farxiga) cetirizine 10 mg capsule (Zyrtec) 10 mg PO DAILY allergy symptoms 14 05/25/24 days #14 caps fluticasone propionate 50 2 spray intranasal BID 7 days #16 05/25/24 mcg/actuation nasal mL spray,suspension (Flonase Allergy Relief) esomeprazole magnesium 40 mg 40 mg PO DAILY #90 caps 08/24/24 capsule,delayed release naloxone 4 mg/actuation nasal 4 mg intranasal Q3M PRN opioid 10/18/24 spray (Narcan) overdose #2 ea albuterol sulfate 90 mcg/actuation 1 inh inhalation QID PRN shortness 11/13/24 aerosol inhaler (Ventolin HFA) of breath or wheezing #8.5 grams diclofenac sodium 1 % topical gel 2 g topical QID PRN arthritis #100 11/13/24 grams duloxetine 30 mg capsule,delayed 30 mg PO DAILY #90 caps 11/13/24 release duloxetine 60 mg capsule,delayed 60 mg PO DAILY@07 #120 caps 11/13/24 release insulin glargine 100 unit/mL (3 35 unit (0.35 mL) SUBCUT DAILY #15 01/22/25 mL) subcutaneous pen (Lantus mL Solostar U-100 Insulin) amlodipine 10 mg tablet 10 mg PO DAILY 90 days #90 tabs 03/30/25 fentanyl 75 mcg/hr transdermal 1 patch topical Q48H 30 days #15 04/16/25 patch patches pregabalin 300 mg capsule 300 mg PO BID #60 caps 05/04/25 ondansetron 4 mg disintegrating 4 mg PO Q6H PRN nausea and 05/12/25 tablet vomiting #14 tabs Allergies Allergy/AdvReac Type Severity Reaction Status Date / Time morphine Allergy Unknown ADR-Vomitin Verified 11/13/24 15:45 g Cephalosporins Allergy ADR-Itching Verified 11/13/24 15:45 PFSH ED PFSH: Medical History (Updated 05/12/25 @ 13:03 by Abilio Jha MD) BPH (benign prostatic hyperplasia) GERD (gastroesophageal reflux disease) Asthma Heart failure with reduced ejection fraction 07/09- LVEF 35-40% History of placement of stent in LAD coronary artery Chronic pain Diabetes ICD (implantable cardioverter-defibrillator) in place Hyperlipidemia HTN (hypertension) Surgical History S/P cataract surgery History of implantable cardioverter-defibrillator (ICD) placement Family History Father Emphysema of lung Social History Smoking and tobacco/nicotine status: never used tobacco/nicotine Alcohol intake: never Substance/Drug Use: current Substance/Drug use frequency: daily Lives independently: Yes Marital status: / Current occupational status: disabled Current gender identity: Male Special eduardo needs: No Agree to transfusion: Yes Physical Exam Const: COMMON NORMALS: no acute distress, patient oriented x3 and healthy appearing HENMT: COMMON NORMALS: normocephalic and atraumatic HEAD & SCALP: normocephalic and atraumatic Eye: COMMON NORMALS: Equal, round and reactive pupils present and EOMs intact bilaterally PUPIL: Yes Equal, round and reactive pupils present Neck/C-Spine: COMMON NORMALS: full ROM and supple Chest: COMMONS NORMALS: normal inspection of the chest and normal palpation of entire chest wall Resp: COMMON NORMALS: normal respiratory effort, No retractions, No use of accessory muscles and clear to auscultation bilaterally AUSCULTATION: clear to auscultation bilaterally Cardio: COMMON NORMALS: regular rate, regular rhythm and No murmurs present (Cardio) RATE: regular rate RHYTHM: regular rhythm GI: COMMON NORMALS: Normal to inspection, nondistended, normoactive bowel sounds present, Soft to palpation, non-tender and no masses PALPATION: Yes Soft to palpation Extremity: COMMON NORMALS: normal to inspection and full ROM Neuro: COMMON NORMALS: patient oriented x3, moves all extremities and no focal motor deficits Psych: COMMON NORMALS: mental status grossly normal, Normal thought process present and cooperative THOUGHT PROCESS: Normal thought process present Skin: COMMON NORMALS: no rashes or lesions noted and no wounds GENERAL SKIN EXAM: no rashes or lesions noted Course Vital Signs: Vital signs: Vital Signs Temperature 98.7 F 05/12/25 11:40 Pulse Rate 87 05/12/25 13:17 Respiratory Rate 17 05/12/25 11:40 Blood Pressure 160/99 05/12/25 13:01 Pulse Oximetry 98 05/12/25 13:17 Oxygen Delivery Me thod Room Air 05/12/25 11:40 MDM - Nausea/Vomiting/Diarrhea Medical Decision Making 69-year-old male presents here with nausea vomiting he is also been having full body pain. History of chronic pain is out of his fentanyl likely having pain from time his fentanyl heart rate here is normal no signs of severe withdrawal he does feel better after Ativan and Dilaudid. Blood work showed no significant abnormality white count was normal no signs of infection abdominal exam is benign he has no signs of pulm emboli his troponin here is negative no signs of ACS he is stable for discharge we will prescribe Zofran he is to follow-up with his PCP to get his fentanyl patches return if worsening. EKG interpreted by me at 1147 normal sinus rhythm heart rate 67 left bundle branch block no ST elevation QRS 160 QTc 455 unchanged from previous EKG. Medical Records I reviewed the patient's medical records. Lab Data I reviewed the patient's lab results. 05/12/25 12:09 05/12/25 12:09 Laboratory Results WBC 6.90 10^3/uL (3.29-11.43) 05/12/25 12:09 RBC 5.31 10^6/uL (3.85-5.65) 05/12/25 12:09 Hgb 15.90 g/dL (11.27-16.99) 05/12/25 12:09 Hct 46.9 % (37-53) 05/12/25 12:09 MCV 88.3 fl (82-101) 05/12/25 12:09 MCH 29.9 pg (27-33) 05/12/25 12:09 MCHC 33.9 g/dL (30-55) 05/12/25 12:09 RDW 14.3 % (12.1-15.1) 05/12/25 12:09 Plt Count 180 10^3/cmm (157-399) 05/12/25 12:09 MPV 11.3 fL (7.4-10.4) H 05/12/25 12:09 Neut % (Auto) 86.2 % 05/12/25 12:09 Lymph % (Auto) 10.9 % 05/12/25 12:09 [place] % (Auto) 2.5 % 05/12/25 12:09 Eos % (Auto) 0.0 % 05/12/25 12:09 Baso % (Auto) 0.3 % 05/12/25 12:09 Neut # (Auto) 5.95 10^3/uL (1.8-7.7) 05/12/25 12:09 Lymph # (Auto) 0.8 10^3/uL (0.8-4.8) 05/12/25 12:09 [place] # (Auto) 0.2 10^3/uL (0.2-0.9) 05/12/25 12:09 Eos # (Auto) 0.0 10^3/uL (0.0-0.8) 05/12/25 12:09 Baso # (Auto) 0.0 10^3/uL (0.0-0.1) 05/12/25 12:09 Nucleated RBC % (auto) 0 % 05/12/25 12:09 Nucleated RBCs # 0.0 /100WBC 05/12/25 12:09 Sodium 135 mmol/L (136-145) L 05/12/25 12:09 Potassium 4.1 mmol/L (3.5-5.1) 05/12/25 12:09 Chloride 98 mmol/L (98-107) 05/12/25 12:09 Carbon Dioxide 23 mmol/L (22-29) 05/12/25 12:09 Anion Gap 18.1 (5-19) 05/12/25 12:09 BUN 12 mg/dL (8-23) 05/12/25 12:09 Creatinine 0.8 mg/dL (0.7-1.2) 05/12/25 12:09 GFR Calculation Not Reportable 05/12/25 12:09 Glucose 186 mg/dL (65-115) H 05/12/25 12:09 Calculated Osmolality 285 mOsm/kg (285-295) 05/12/25 12:09 Calcium 10.3 mg/dL (8.5-10.5) 05/12/25 12:09 Total Bilirubin 0.4 mg/dL (0.15-1.2) 05/12/25 12:09 AST 11 U/L (0-40) 05/12/25 12:09 ALT 8 U/L (0-41) 05/12/25 12:09 Alkaline Phosphatase 76 U/L (40-130) 05/12/25 12:09 Troponin T Baseline 13 ng/L (0-15) 05/12/25 12:09 Total Protein 6.8 g/dL (6.6-8.7) 05/12/25 12:09 Albumin 4.5 g/dL (3.5-5.2) 05/12/25 12:09 Globulin 2.3 g/dL (1.3-4.6) 05/12/25 12:09 Lipase 34 U/L (13-60) 05/12/25 12:09 All radiology interpretation(s) finalized by discharge Discharge Plan Discharge Patient Disposition: Home Clinical Impression: Abdominal pain, Vomiting Condition: Stable Prescriptions: New ondansetron 4 mg tablet,disintegrating 4 mg PO Q6H PRN (Reason: nausea and vomiting) Qty: 14 0RF No Action nitroglycerin 0.4 mg tablet, sublingual 0.4 mg sublingual Q5M PRN (Reason: chest pain) 30 Days Qty: 30 3RF Rx Instructions: until response; do not exceed 3 doses per episode fluticasone propionate [Flonase Allergy Relief] 50 mcg/actuation spray,suspension 2 spray intranasal BID 7 Days Qty: 16 0RF Rx Instructions: administer into each nostril Zyrtec 10 mg capsule 10 mg PO DAILY 14 Days Qty: 14 0RF diclofenac sodium 1 % gel 2 g TOPICAL QID PRN (Reason: arthritis) Qty: 100 6RF albuterol sulfate [Ventolin HFA] 90 mcg/actuation HFA aerosol inhaler 1 inh INHALATION QID PRN (Reason: shortness of breath or wheezing) Qty: 8.5 3RF duloxetine 60 mg capsule,delayed release(DR/EC) 60 mg PO DAILY@07 Qty: 120 1RF Rx Instructions: WITH 30MG DOSE TO =90MG duloxetine 30 mg capsule,delayed release(DR/EC) 30 mg PO DAILY Qty: 90 1RF Rx Instructions: with 60mg to =90mg ([facility] Rollaid with seat See Rx Instructions .Route .MEDSUPPLY Qty: 1 0RF Rx Instructions: As directed ([facility]) blood-glucose meter Kit See Rx Instructions .ROUTE .MEDSUPPLY Qty: 1 0RF Rx Instructions: check blood daily ([facility]) pen needle, diabetic [TechLITE Pen Needle] 31 gauge x 5/16 needle See Rx Instructions .ROUTE .MEDSUPPLY Qty: 100 0RF Rx Instructions: use with levemir-TWO TIMES DAILY Farxiga 10 mg tablet 10 mg PO DAILY Qty: 90 0RF esomeprazole magnesium 40 mg capsule,delayed release(DR/EC) 40 mg PO DAILY Qty: 90 1RF naloxone [Narcan] 4 mg/actuation spray,non-aerosol 4 mg intranasal Q3M PRN (Reason: opioid overdose) Qty: 2 3RF Rx Instructions: spray 1 dose into ONE nostril; alternate nostrils w each dose until help arrives insulin glargine [Lantus Solostar U-100 Insulin] 100 unit/mL (3 mL) insulin pen 35 unit SUBCUT DAILY Qty: 15 2RF amlodipine 10 mg tablet 10 mg PO DAILY 90 Days Qty: 90 3RF fentanyl 75 mcg/hr patch 72 hour 1 patch topical Q48H 30 Days Qty: 15 0RF pregabalin 300 mg capsule 300 mg PO BID Qty: 60 1RF spironolactone 50 mg tablet 50 mg PO DAILY torsemide 20 mg tablet See Rx Instructions .ROUTE .COMPLEX Rx Instructions: Take 3 tablets (60mg) daily x 2 weeks, then 2 tablets (40mg) daily thereafter. Discharge Orders: Discharge ED (Routine); Ordered 05/12/25 Ordered By: Abilio Jha Referrals: Shemar Kaiser MD [Primary Care Provider, [facility]] - 4-7 days Discharge Diet: Advance as tolerated Discharge Activity: Resume usual activity Patient Instructions: Abdominal Pain (ED) Print Language: Chinese Coding Level of Care Code ED Behavioral Pediatrician for Ivonne Guaman
[2025-05-12] MEDS: ondansetron 2 mg/ML SDV 2 mL 4 MG IVP (11:59)
[2025-05-12] MEDS: HYDROmorphone 0.5 MG/0.5 ML INJ 1 MG IVP (11:59)
[2025-05-12 12:30] LABS: Hematocrit 46.9 % (37-53); Hemoglobin 15.90 g/dL (11.27-16.99); Mean Corpuscular HGB Conc 33.9 g/dL (30-55); Mean Corpuscular Hemoglobin 29.9 pg (27-33); Mean Corpuscular Volume 88.3 fl (82-101); Nucleated Red Blood Cells % 0 %; Platelet Count 180 10^3/cmm (157-399); Red Blood Count 5.31 10^6/uL (3.85-5.65); White Blood Count 6.90 10^3/uL (3.29-11.43)
[2025-05-12] MEDS: LORazepam 2 mg/mL INJ 1 mL 1 MG IVP (12:41)
--- NOTE | 2025-05-12 12:48 | ECG_ITS ---
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1955 Requested By: Abiilo Jha Order Number: [id number] Reading MD: EDISON RUDOLPH Measurements Intervals [place] Rate: 67 P: 62 [place]: 201 QRS: -42 QRSD: 160 T: 255 QT: 439 QTc: 467 Interpretive Statements SINUS RHYTHM LEFT AXIS DEVIATION [QRS AXIS < -30] LEFT BUNDLE BRANCH BLOCK [120+ ms QRS DURATION, 80+ ms Q/S IN V1/V2, 85+ ms R IN I/aVL/V5/V6] Compared to ECG 10/17/2024 16:54:19 Left bundle-branch block now present Ventricular premature complex(es) no longer present Intraventricular conduction delay no longer present Electronically Signed On 05-13-2025 23:20:40 TUBE SORTER by EDISON RUDOLPH [email or web address]
[2025-05-12 12:51] LABS: Alanine Aminotransferase 8 U/L (0-41); Albumin Level 4.5 g/dL (3.5-5.2); Alkaline Phosphatase 76 U/L (40-130); Anion Gap 18.1 (5-19); Aspartate Amino Transferase 11 U/L (0-40); Blood Urea Nitrogen 12 mg/dL (8-23); Calcium 10.3 mg/dL (8.5-10.5); Carbon Dioxide 23 mmol/L (22-29); Chloride 98 mmol/L (98-107); Globulin 2.3 g/dL (1.3-4.6); Glucose 186 mg/dL (65-115); Lipase 34 U/L (13-60); Osmolality Calculated 285 mOsm/kg (285-295); Potassium 4.1 mmol/L (3.5-5.1); Sodium 135 mmol/L (136-145); Total Protein 6.8 g/dL (6.6-8.7)
[2025-05-12 12:54] LABS: Troponin(5th) Baseline 13 ng/L (0-15)
[2025-05-12 13:01] VITALS: BP 160/99; PULSE 72; O2SAT 98
[2025-05-12 13:17] VITALS: PULSE 87; O2SAT 98
--- NOTE | 2025-05-12 13:22 | PC.PHAR ---
pt states he drank a whole bottle of Pepto Bismol in the last 3 days.
== END 2025-05-12 13:17 | disposition home or self-care (01) ==
PROVIDERS: Emergency Provider Emergency Medicine; PCP Family Medicine
DX: R10.9 Unspecified abdominal pain (principal); R11.2 Nausea with vomiting, unspecified; Z79.4 Long term (current) use of insulin; E78.5 Hyperlipidemia, unspecified; E11.9 Type 2 diabetes mellitus without complications; I11.0 Hypertensive heart disease with heart failure; I50.20 Unspecified systolic (congestive) heart failure
CPT/HCPCS: 36415; 71045; 80053; 83690; 84484; 85025; 93005; 96374; 96375; 99285; J1171; J2060; J2405

== ENCOUNTER 2025-05-13 11:15 | Emergency (ER) | payer MEDICARE, MEDICAID, SELFPAY ==
--- OUTSIDE RECORDS SUMMARY | 2024-03-11 03:00 | XMS_ITS ---
Author Organization [facility] Address [address] [place] [address] Care Team Providers Care Instructor Looping Name Role Phone Shemar Kelley Primary Care Provider Unavailabl e Migration, Provider Unavailable Unavailable REASON FOR VISIT EMR-Kale Encounters Encounter Location Date Provider Diagnosis Migrated_Facility 0 0 03/11/2024 Provider Migration Plan Of Treatment No Information Progress Notes * Arlin LOZADAOB:1955 (69 yo M)Acc No.[id number]:03/11/2024 Patient: Lenard HIGHTOWER Brian :1955 A ge:68 Y S ex:Male Address:[address] [place] [address] [address] [place], [id number] Subjective: * Chief Complaints: * E MR-Kale * * Date:
--- OUTSIDE RECORDS SUMMARY | 2024-03-12 03:00 | XMS_ITS ---
Author Organization [facility] Address [address] [place] [address] Care Team Providers Care Salesperson Burial Needs Name Role Phone Shemar Kelley Primary Care Provider Unavailabl e Migration, Provider Unavailable Unavailable REASON FOR VISIT EMR-Kale Encounters Encounter Location Date Provider Diagnosis Migrated_Facility 0 0 03/12/2024 Provider Migration Plan Of Treatment No Information Progress Notes * Arlin LOZADAOB:1955 (69 yo M)Acc No.[id number]:03/12/2024 Patient: Lenard HIGHTOWER Brian :1955 A ge:68 Y S ex:Male Address:[address] [place] [address] [address] [place], [id number] Subjective: * Chief Complaints: * E MR-Kale * * Date:
--- OUTSIDE RECORDS SUMMARY | 2025-05-13 11:20 | XMS_ITS | Clinical Summary ---
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 Gender Identity Not on file Sexual Orientation [...] series) 2028 Medical Devices Implanted Type Area Shirt Ironer Device Identifier Shelf Expiration Date Model / Serial / Lot Lens Io Tecnis 1pc 23.5 [id number] - [id number] Implanted:Qty: 1 on 07/27/2017 by Nicholas Rivera MD Eye Left: Eye [employer] 04/17/2021 [id number] / [id number] / Ring Tension Capsular Type 14c Mr-1420 - [id number] Implanted:Qty: 1 on 07/27/2017 by Nicholas Rivera MD Eye Left: Eye [employer] 11/13/2021 MR-1420 / [id number] / [id number] Explanted Type Area Shirt Ironer Device Identifier Shelf Expiration Date Model / Serial / Lot Oil Slc 8.5ml [id number] - [id number] Implanted:Qty: 1 on 05/05/2017 by Erick Clay MD Explanted:Qty: 1 on 08/04/2017 by Erick Clay MD Eye Left: Eye [employer] 11/13/2018 [id number] / / [id number] Oil Slc 8.5ml [id number] - [id number] Implanted:Qty: 1 on 08/04/2017 by Erick Clay MD Explanted:Qty: 1 on 02/16/2018 by Erick Clay MD Eye Left: Eye [employer] 03/16/2018 [id number] / [id number] / [id number] Care Teams Air Battle Manager Relationship Specialty Start Date End Date Raghu Mathis MD PCP - General Specialist 05/05/17
--- OUTSIDE RECORDS SUMMARY | 2025-05-13 11:20 | XMS_ITS | Encounter Summary ---
Author Organization [facility] Address [address] [place] [address] Care Team Providers Care Outside Cutter Name Role Phone Raghu Mathis MD Primary Care Provider Encounter Details Date Type Department Care Team (Late st Contact Info) Description 04/15/2007 Outpatient Historical HIS IN BED Sj Ed, Physician NO ADDRESS ON FILE Doroteo Yeager MD [address] [place] [address] Alvarez Amor MD [address] [place] [address] BrotherMartin MD NO ADDRESS ON FILE Unspecified Chest Pain Social History Tobacco Use Types Packs/Day Years Used Date Smoking Tobacco: Never Assessed Sex and Gender Information Value Date Recorded Sex Assigned at Not on file Legal Sex Male 6:52 AM LOAD OUT SUPERVISOR Gender Identity Not on file Sexual Orientation Not on file documented as of this encounter Plan of Treatment Not on file documented as of this encounter Procedures Procedure Name Priority Date/Time Associated Diagnosis Comments LIPID PANEL Routine 04/17/2007 5:02 AM LOAD OUT SUPERVISOR CARDIAC ENZYMES Routine 04/16/2007 11:38 AM LOAD OUT SUPERVISOR CARDIAC ENZYMES Routine 04/16/2007 5:05 AM LOAD OUT SUPERVISOR CBC WITH DIFFERENTIAL Routine 04/16/2007 5:05 AM LOAD OUT SUPERVISOR TSH Routine 04/16/2007 5:05 AM LOAD OUT SUPERVISOR LIPID PANEL Routine 04/16/2007 5:05 AM LOAD OUT SUPERVISOR BASIC METABOLIC PANEL Routine 04/16/2007 5:05 AM LOAD OUT SUPERVISOR CARDIAC ENZYMES Routine 04/15/2007 11:01 PM LOAD OUT SUPERVISOR CBC WITH DIFFERENTIAL Routine 04/15/2007 11:01 PM LOAD OUT SUPERVISOR BASIC METABOLIC PANEL Routine 04/15/2007 11:01 PM LOAD OUT SUPERVISOR documented in this encounter Results * (ABNORMAL) LIPID PANEL (04/17/2007 5:02 AM LOAD OUT SUPERVISOR) Pathologist [facility] CHOLESTEROL 177 75 - 200 mg/dL INTERFACE SYSTEM HDL 26(L) 40 - 60 mg/dL INTERFACE SYSTEM TRIGLYCERIDE 195 0 - 200 mg/dL INTERFACE SYSTEM CALCULATED LDL CHOLESTEROL 112 0 - 130 mg/dL INTERFACE SYSTEM CALCULATED TOTAL CHOLESTEROL TO HDL RATIO 6.81(H) 3.43 - 4.97 INTERFACE SYSTEM 04/17/2007 5:02 AM LOAD OUT SUPERVISOR us Alvarez Amor MD CHEMISTRY ORDERABLES Edited Performing Organization Address City/[facility]/ZIP Co de Phone Number INTERFACE SYSTEM Refer to clinic/hospital department * CARDIAC ENZYMES (04/16/2007 11:38 AM LOAD OUT SUPERVISOR) [facility] TROPONIN I <0.1 0.0 - 1.3 ng/mL INTERFACE SYSTEM Comment: As of 06 the Troponin Reference Range has changed from 0.0-1.5 ng/ml to 0.0- 1.3 ng/ml due to a change in testing methodology. CKMB 0.2 0.0 - 5.0 ng/mL INTERFACE SYSTEM 04/16/2007 11:3 8 AM LOAD OUT SUPERVISOR us Doroteo Yeager MD CHEMISTRY ORDERABLES Edite d Performing Organization Address City/[facility]/ZIP Co de Phone Number INTERFACE SYSTEM Refer to clinic/hospital department * (ABNORMAL) LIPID PANEL (04/16/2007 5:05 AM LOAD OUT SUPERVISOR) CHOLESTEROL 186 75 - 200 mg/dL INTERFACE SYSTEM HDL 24(L) 40 - 60 mg/dL INTERFACE SYSTEM TRIGLYCERIDE 321(H) 0 - 200 mg/dL INTERFACE SYSTEM CALCULATED LDL CHOLESTEROL 98 0 - 130 mg/dL INTERFACE SYSTEM CALCULATED TOTAL CHOLESTEROL TO HDL RATIO 7.75(H) 3.43 - 4.97 INTERFACE SYSTEM 04/16/2007 5:05 AM LOAD OUT SUPERVISOR Alvarez Amor MD CHEMISTRY ORDERABLES Edited Performing Organization Address [facility] Phone Number INTERFACE SYSTEM Refer to clinic/hospital department * TSH (04/16/2007 5:05 AM LOAD OUT SUPERVISOR) Pathologist [facility] TSH 1.630 0.350 - 5.500 uIU/ml INTERFACE SYSTEM 04/16/2007 5:05 AM LOAD OUT SUPERVISOR Alvarez Amor MD CHEMISTRY ORDERABLES Edited Performing Organization Address [facility] Phone Number INTERFACE SYSTEM Refer to clinic/hospital department * BASIC METABOLIC PANEL (04/16/2007 5:05 AM LOAD OUT SUPERVISOR) GLUCOSE 91 70 - 110 mg/dL INTERFACE [...] 295 mOsm/Kg INTERFACE SYSTEM 04/16/2007 5:05 AM LOAD OUT SUPERVISOR Alvarez Amor MD CHEMISTRY ORDERABLES Edited Performing Organization Address [facility] Phone Number INTERFACE SYSTEM Refer to clinic/hospital department * (ABNORMAL) CBC WITH DIFFERENTIAL (04/16/2007 5:05 AM LOAD OUT SUPERVISOR) WBC 6.7 4.8 - 10.8 K/ul INTERFACE [...] 0.2 K/ul INTERFACE SYSTEM 04/16/2007 5:05 AM LOAD OUT SUPERVISOR us Alvarez Amor MD HEMATOLOGY ORDERABLES Edited INTERFACE SYSTEM Refer to clinic/hospital department * CARDIAC ENZYMES (04/16/2007 5:05 AM LOAD OUT SUPERVISOR) TROPONIN I <0.1 0.0 - 1.3 ng/mL INTERFACE SYSTEM Comment: As of 06 the Troponin Reference Range has changed from 0.0-1.5 ng/ml to 0.0- 1.3 ng/ml due to a change in testing methodology. CKMB 0.2 0.0 - 5.0 ng/mL INTERFACE SYSTEM 04/16/2007 5:05 AM LOAD OUT SUPERVISOR Doroteo Yeager MD CHEMISTRY ORDERABLES Edite d Performing Organization Address [facility] Phone Number INTERFACE SYSTEM Refer to clinic/hospital department * CARDIAC ENZYMES (04/15/2007 11:01 PM LOAD OUT SUPERVISOR) TROPONIN I <0.1 0.0 - 1.3 ng/mL INTERFACE SYSTEM Comment: As of 06 the Troponin Reference Range has changed from 0.0-1.5 ng/ml to 0.0- 1.3 ng/ml due to a change in testing methodology. CKMB <0.2 0.0 - 5.0 ng/mL INTERFACE SYSTEM 04/15/2007 11:0 1 PM LOAD OUT SUPERVISOR Doroteo Yeager MD CHEMISTRY ORDERABLES Edite d Performing Organization Address [facility] Phone Number INTERFACE SYSTEM Refer to clinic/hospital department * BASIC METABOLIC PANEL (04/15/2007 11:01 PM LOAD OUT SUPERVISOR) GLUCOSE 98 70 - 110 mg/dL INTERFACE [...] mOsm/Kg INTERFACE SYSTEM 04/15/2007 11:0 1 PM LOAD OUT SUPERVISOR Doroteo Yeager MD CHEMISTRY ORDERABLES Edite d Performing Organization Address [facility] Phone Number INTERFACE SYSTEM Refer to clinic/hospital department * (ABNORMAL) CBC WITH DIFFERENTIAL (04/15/2007 11:01 PM LOAD OUT SUPERVISOR) WBC 7.3 4.8 - 10.8 K/ul INTERFACE [...] K/ul INTERFACE SYSTEM 04/15/2007 11:0 1 PM LOAD OUT SUPERVISOR us Doroteo Yeager MD HEMATOLOGY ORDERABLES Edit ed INTERFACE SYSTEM Refer to clinic/hospital department documented in this encounter Visit Diagnoses Diagnosis Chest pain, unspecified documented in this encounter Care Teams Outside Cutter Relationship Specialty Start Date End Date Raghu Mathis MD PCP - General Specialist 05/05/17 documented as of this encounter
--- OUTSIDE RECORDS SUMMARY | 2025-05-13 11:20 | XMS_ITS | Clinical Summary ---
Author Organization [facility] Address [address] [place] [address] Phone Care Team Providers Care Chick Sexer Name Role Phone Raghu Mathis MD Primary [...] on file Legal Sex Male 6:52 AM MANAGER PRODUCT MANAGEMENT Gender Identity Not on file Sexual Orientation [...] series) 2028 Medical Devices Implanted Type Area Sharepoint Architect Device Identifier Shelf Expiration Date Model / Serial / Lot Lens Io Tecnis 1pc 23.5 [id number] - [id number] Implanted:Qty: 1 on 07/27/2017 by Nicholas Rivera MD at [facility] Left: Eye [employer] 04/17/2021 [id number] / [id number] / Ring Tension Capsular Type 14c Mr-1420 - [id number] Implanted:Qty: 1 on 07/27/2017 by Nicholas Rivera MD at [facility] Eye Left: Eye [employer] 11/13/2021 MR-1420 / [id number] / BHGCAC Explanted Type Area Sharepoint Architect Device Identifier Shelf Expiration Date Model / Serial / Lot Oil Slc 8.5ml [id number] - [id number] Implanted:Qty: 1 on 05/05/2017 by Erick Clay MD at [facility] Explanted:Qty: 1 on 08/04/2017 by Erick Clay MD at [facility] Eye Left: Eye [facility] 11/13/2018 [id number] / / [id number] Oil Slc 8.5ml [id number] - [id number] Implanted:Qty: 1 on 08/04/2017 by Erick Clay MD at [facility] Explanted:Qty: 1 on 02/16/2018 by Erick Clay MD at [facility] Eye Left: Eye [employer] 03/16/2018 [id number] / [id number] / [id number] Procedures Procedure Name Priority Date/Time Associated Diagnosis Comments LIPID PANEL Routine 04/17/2007 5:02 AM MANAGER PRODUCT MANAGEMENT from Last 3 Months or Most Recently Relevant to Health Maintenance Results * (ABNORMAL) LIPID PANEL (04/17/2007 5:02 AM MANAGER PRODUCT MANAGEMENT) CHOLESTEROL 177 75 - 200 mg/dL INTERFACE SYSTEM HDL 26(L) 40 - 60 mg/dL INTERFACE SYSTEM TRIGLYCERIDE 195 0 - 200 mg/dL INTERFACE SYSTEM CALCULATED LDL CHOLESTEROL 112 0 - 130 mg/dL INTERFACE SYSTEM CALCULATED TOTAL CHOLESTEROL TO HDL RATIO 6.81(H) 3.43 - 4.97 INTERFACE SYSTEM 04/17/2007 5:02 AM MANAGER PRODUCT MANAGEMENT us Alvarez Amor MD CHEMISTRY ORDERABLES Edited Performing Organization Address City/State/[facility] Co de Phone Number INTERFACE SYSTEM Refer to clinic/hospital department from Last 3 Months or Most Recently Relevant to Health Maintenance Insurance MEDICAID [place] Advance Directives For more information, please contact: [phone] * Full Code (Latest Code Status on File) Date Activated Date Inactivated Comments 02/16/2018 11:57 AM 02/16/2018 3:58 PM * Full Code Date Activated Date Inactivated Comments 08/04/2017 11:28 AM 08/04/2017 5:07 PM * Full Code Date Activated Date Inactivated Comments 07/27/2017 1:47 PM 07/27/2017 5:32 PM * Full Code Date Activated Date Inactivated Comments 05/05/2017 1:08 PM 05/05/2017 6:17 PM Care Teams Chick Sexer Relationship Specialty Start Date End Date Raghu Mathis MD PCP - General Specialist 05/05/17
--- OUTSIDE RECORDS SUMMARY | 2025-05-13 11:20 | XMS_ITS | Patient Health Record ---
Author Organization [facility] Address [address] [place] [address] Care Team Providers Care Cloth Napping Supervisor Name Role Phone Shemar Kelley Primary Care Provider Unavailabl e Reason For Referral No Information Plan Of Treatment No Information
--- OUTSIDE RECORDS SUMMARY | 2025-05-13 11:20 | XMS_ITS | Encounter Summary ---
Author Organization [facility] Address [address] [place] [address] Care Team Providers Care Supervisor Computer Operations Name Role Phone Raghu Mathis MD Primary Care Provider Encounter Details Date Type Department Care Team (Late st Contact Info) Description 05/19/2007 Outpatient Historical [facility]- [place] [address] [place] [address] Dragan Carmichael MD NO ADDRESS ON FILE Social History Tobacco Use Types Packs/Day Years Used Date Smoking Tobacco: Never Assessed Sex and Gender Information Value Date Recorded Sex Assigned at Not on file 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
[2025-05-13 11:27] VITALS: BP 183/109; PULSE 67; TEMP 36.4; O2SAT 98
--- NOTE | 2025-05-13 11:33 | XRR_ITS ---
PROCEDURE INFORMATION: Exam: XR Left Hip Exam date and time: 05/13/2025 1:34 PM Age: 69 years old Clinical indication: Hip pain; Left hip; Additional Info: LT HIP PAIN AFTER MULTIPLE FALLS TECHNIQUE: Imaging protocol: Radiologic exam of the left hip. Views: 2 or 3 views hip with pelvis when performed. COMPARISON: 1. CT chest abdpel w/*[id number] 03/22/2024 9:[address] abdomen pelvis w con* [id number] 01/21/2023 4:25 PM FINDINGS: Bones/joints: Osseous structures of the bony pelvis including the sacrum, iliac and ischial bones are intact. Osseous structures of the hips including the femoral head, neck and acetabular regions are intact. No significant arthritic changes. Abnormal morphology in the left anterior ilium which may be related to previous trauma or possibly biopsy. Old healed fragments are seen at the tip of the ASIS. Soft tissues: Soft tissues demonstrate no abnormal air or foreign body. Atherosclerotic changes in the femoral arteries bilaterally. Focal calcification in the soft tissues adjacent to the greater trochanter probably representing some calcific tendinitis in the gluteus attachment. Gastrointestinal tract: Some oral contrast from prior study is noted in the right colon. Mildly distended small bowel loops are seen in the left abdomen measuring up to 3.6 cm. XR/XR hip LT 2-3V wo/w pel* [id number] IMPRESSION: 1. Focal calcification in the soft tissues adjacent to the greater trochanter probably representing some calcific tendinitis in the gluteus attachment. 2. Nonspecific mildly dilated loops of small bowel in the left abdomen.
[2025-05-13 12:06] LABS: Hematocrit 47.8 % (37-53); Hemoglobin 16.60 g/dL (11.27-16.99); Mean Corpuscular HGB Conc 34.7 g/dL (30-55); Mean Corpuscular Hemoglobin 30.0 pg (27-33); Mean Corpuscular Volume 86.4 fl (82-101); Nucleated Red Blood Cells % 0 %; Platelet Count 240 10^3/cmm (157-399); Red Blood Count 5.53 10^6/uL (3.85-5.65); White Blood Count 7.99 10^3/uL (3.29-11.43)
[2025-05-13 12:22] LABS: Alanine Aminotransferase 8 U/L (0-41); Albumin Level 4.5 g/dL (3.5-5.2); Alkaline Phosphatase 77 U/L (40-130); Anion Gap 19.9 (5-19); Aspartate Amino Transferase 11 U/L (0-40); Blood Urea Nitrogen 12 mg/dL (8-23); Calcium 10.0 mg/dL (8.5-10.5); Carbon Dioxide 23 mmol/L (22-29); Chloride 96 mmol/L (98-107); Globulin 2.9 g/dL (1.3-4.6); Glucose 140 mg/dL (65-115); Osmolality Calculated 282 mOsm/kg (285-295); Potassium 3.9 mmol/L (3.5-5.1); Sodium 135 mmol/L (136-145); Total Protein 7.4 g/dL (6.6-8.7)
[2025-05-13 13:50] VITALS: BP 177/89; PULSE 72; RESP 20; O2SAT 97
--- NOTE | 2025-05-13 14:12 | W.ED.FALL ---
HPI - Fall General: Chief Complaint: Fall Stated Complaint: left leg pain s/p fall Time Seen by Provider: 05/13/25 13:40 History of Present Illness: Patient is a 69-year-old gentleman with history of hypertension presents to the emergency room with left hip pain. Patient states he fell several times last night complaining of left hip pain. Denies previous hip fracture. He is able to ambulate on this. He stated he also contused his left knee. He does not have significant issues with the range of motion of this knee. Denies any substance abuse. States that he has issues with ambulatory dysfunction. Denies any dysuria, polyuria, change in urination. Associated symptoms-after fall: Denies abdominal pain, chest pain or difficulty walking Related Data Home Medications ?Medication ?Instructions ?Recorded ?Confirmed spironolactone 50 mg tablet 50 mg PO DAILY 09/06/23 05/12/25 torsemide 20 mg tablet See Rx Instructions .Route 03/22/24 05/12/25 .COMPLEX Edema Previous Rx's ?Medication ?Instructions ?Recorded blood-glucose meter #1 ea 12/19/19 pen needle, diabetic 31 gauge x #100 ea 04/18/2009/29 (TechLITE Pen Needle) Rollaid with seat #1 ea 11/05/22 nitroglycerin 0.4 mg sublingual 0.4 mg sublingual Q5M PRN chest 12/02/23 tablet pain 30 days #30 tabs dapagliflozin propanediol 10 mg 10 mg PO DAILY #90 tabs 05/15/24 tablet (Farxiga) cetirizine 10 mg capsule (Zyrtec) 10 mg PO DAILY allergy symptoms 14 05/25/24 days #14 caps fluticasone propionate 50 2 spray intranasal BID 7 days #16 05/25/24 mcg/actuation nasal mL spray,suspension (Flonase Allergy Relief) esomeprazole magnesium 40 mg 40 mg PO DAILY #90 caps 08/24/24 capsule,delayed release naloxone 4 mg/actuation nasal 4 mg intranasal Q3M PRN opioid 10/18/24 spray (Narcan) overdose #2 ea albuterol sulfate 90 mcg/actuation 1 inh inhalation QID PRN shortness 11/13/24 aerosol inhaler (Ventolin HFA) of breath or wheezing #8.5 grams diclofenac sodium 1 % topical gel 2 g topical QID PRN arthritis #100 06/30/25 grams duloxetine 30 mg capsule,delayed 30 mg PO DAILY #90 caps 11/13/24 release duloxetine 60 mg capsule,delayed 60 mg PO DAILY@07 #120 caps 11/13/24 release insulin glargine 100 unit/mL (3 35 unit (0.35 mL) SUBCUT DAILY #15 01/22/25 mL) subcutaneous pen (Lantus mL Solostar U-100 Insulin) amlodipine 10 mg tablet 10 mg PO DAILY 90 days #90 tabs 03/30/25 fentanyl 75 mcg/hr transdermal 1 patch topical Q48H 30 days #15 04/16/25 patch patches pregabalin 300 mg capsule 300 mg PO BID #60 caps 05/04/25 ondansetron 4 mg disintegrating 4 mg PO Q6H PRN nausea and 05/12/25 tablet vomiting #14 tabs Allergies Allergy/AdvReac Type Severity Reaction Status Date / Time morphine Allergy Unknown ADR-Vomitin Verified 05/13/25 11:30 g Cephalosporins Allergy ADR-Itching Verified 05/13/25 11:30 fentanyl Allergy Unknown Verified 05/13/25 11:30 Review of Systems General: Reports: 10 or more systems reviewed and unremarkable except in HPI and below Const: Denies: fever(s) or chills ENMT: Reports: nasal congestion Card: Denies: chest pain, palpitations, edema or swelling of feet/ankles Resp: Reports: dyspnea, productive cough and wheezing GI: Denies: abdominal pain, nausea or vomiting : Denies: flank pain Musc: Reports: back pain and extremity pain; Denies: extremity swelling, joint pain, joint stiffness, limited range of motion or deformity Skin/Breast: Denies: rash or sores Neuro: Denies: numbness in extremities, sensory changes or difficulty walking Psych: Denies: suicidal ideation Kai/Lymph: Denies: easy bruising PFSH ED PFSH: Medical History (Updated 05/13/25 @ 15:17 by FRANSISCO Santo) BPH (benign prostatic hyperplasia) GERD (gastroesophageal reflux disease) Asthma Heart failure with reduced ejection fraction 07/09- LVEF 35-40% History of placement of stent in LAD coronary artery Chronic pain Diabetes ICD (implantable cardioverter-defibrillator) in place Hyperlipidemia HTN (hypertension) Surgical History S/P cataract surgery History of implantable cardioverter-defibrillator (ICD) placement Family History Father Emphysema of lung Social History Smoking and tobacco/nicotine status: never used tobacco/nicotine Alcohol intake: never Substance/Drug Use: current Substance/Drug use frequency: daily Lives independently: Yes Marital status: / Current occupational status: disabled Current gender identity: Male Special eduardo needs: No Agree to transfusion: Yes Physical Exam Const: COMMON NORMALS: no acute distress, patient oriented x3 and healthy appearing HENMT: COMMON NORMALS: normocephalic and atraumatic HEAD & SCALP: normocephalic and atraumatic Eye: COMMON NORMALS: Equal, round and reactive pupils present and EOMs intact bilaterally PUPIL: Yes Equal, round and reactive pupils present Neck/C-Spine: COMMON NORMALS: full ROM and supple Chest: COMMONS NORMALS: normal inspection of the chest and normal palpation of entire chest wall Resp: COMMON NORMALS: normal respiratory effort, No retractions, No use of accessory muscles and clear to auscultation bilaterally AUSCULTATION: clear to auscultation bilaterally Cardio: COMMON NORMALS: regular rate, regular rhythm and No murmurs present (Cardio) RATE: regular rate RHYTHM: regular rhythm GI: COMMON NORMALS: Normal to inspection, nondistended, normoactive bowel sounds present, Soft to palpation, non-tender and no masses PALPATION: Yes Soft to palpation Extremity: COMMON NORMALS: normal to inspection and full ROM Neuro: COMMON NORMALS: patient oriented x3, moves all extremities and no focal motor deficits Psych: COMMON NORMALS: mental status grossly normal, Normal thought process present and cooperative THOUGHT PROCESS: Normal thought process present Skin: COMMON NORMALS: no rashes or lesions noted and no wounds GENERAL SKIN EXAM: no rashes or lesions noted Course Vital Signs: Vital signs: Vital Signs Temperature 97.5 F L 05/13/25 11:27 Pulse Rate 72 05/13/25 13:50 Respiratory Rate 20 H 05/13/25 13:50 Blood Pressure 177/89 05/13/25 13:50 Pulse Oximetry 97 05/13/25 13:50 Oxygen Delivery Me thod Room Air 05/13/25 13:50 MDM - Fall Medical Decision Making Patient has full range of motion to left hip, left knee, with palpation, anterior and posterior drawer intact, and no pinpoint tenderness. He is ambulatory. Caution on fall risk. X-ray is negative. He should follow-up with his primary care. Medical Records I reviewed the patient's medical records. Lab Data I reviewed the patient's lab results. 05/13/25 11:53 05/13/25 11:53 Radiology Impressions Hip/Pelvis X-Ray 05/13/25 11:33 IMPRESSION: 1. Focal calcification in the soft tissues adjacent to the greater trochanter probably representing some calcific tendinitis in the gluteus attachment. 2. Nonspecific mildly dilated loops of small bowel in the left abdomen. Laboratory Results WBC 7.99 10^3/uL (3.29-11.43) 05/13/25 11:53 RBC 5.53 10^6/uL (3.85-5.65) 05/13/25 11:53 Hgb 16.60 g/dL (11.27-16.99) 05/13/25 11:53 Hct 47.8 % (37-53) 05/13/25 11:53 MCV 86.4 fl (82-101) 05/13/25 11:53 MCH 30.0 pg (27-33) 05/13/25 11:53 MCHC 34.7 g/dL (30-55) 05/13/25 11:53 RDW 14.3 % (12.1-15.1) 05/13/25 11:53 Plt Count 240 10^3/cmm (157-399) D 05/13/25 11:53 MPV 10.6 fL (7.4-10.4) H 05/13/25 11:53 Neut % (Auto) 72.2 % 05/13/25 11:53 Lymph % (Auto) 21.3 % 05/13/25 11:53 Elmore % (Auto) 5.4 % 05/13/25 11:53 Eos % (Auto) 0.3 % 05/13/25 11:53 Baso % (Auto) 0.5 % 05/13/25 11:53 Neut # (Auto) 5.78 10^3/uL (1.8-7.7) 05/13/25 11:53 Lymph # (Auto) 1.7 10^3/uL (0.8-4.8) 05/13/25 11:53 Elmore # (Auto) 0.4 10^3/uL (0.2-0.9) 05/13/25 11:53 Eos # (Auto) 0.0 10^3/uL (0.0-0.8) 05/13/25 11:53 Baso # (Auto) 0.0 10^3/uL (0.0-0.1) 05/13/25 11:53 Nucleated RBC % (auto) 0 % 05/13/25 11:53 Nucleated RBCs # 0.0 /100WBC 05/13/25 11:53 Sodium 135 mmol/L (136-145) L 05/13/25 11:53 Potassium 3.9 mmol/L (3.5-5.1) 05/13/25 11:53 Chloride 96 mmol/L (98-107) L 05/13/25 11:53 Carbon Dioxide 23 mmol/L (22-29) 05/13/25 11:53 Anion Gap 19.9 (5-19) H 05/13/25 11:53 BUN 12 mg/dL (8-23) 05/13/25 11:53 Creatinine 0.8 mg/dL (0.7-1.2) 05/13/25 11:53 GFR Calculation Not Reportable 05/13/25 11:53 Glucose 140 mg/dL (65-115) H 05/13/25 11:53 Calculated Osmolality 282 mOsm/kg (285-295) L 05/13/25 11:53 Calcium 10.0 mg/dL (8.5-10.5) 05/13/25 11:53 Total Bilirubin 0.8 mg/dL (0.15-1.2) 05/13/25 11:53 AST 11 U/L (0-40) 05/13/25 11:53 ALT 8 U/L (0-41) 05/13/25 11:53 Alkaline Phosphatase 77 U/L (40-130) 05/13/25 11:53 Total Protein 7.4 g/dL (6.6-8.7) 05/13/25 11:53 Albumin 4.5 g/dL (3.5-5.2) 05/13/25 11:53 Globulin 2.9 g/dL (1.3-4.6) 05/13/25 11:53 All radiology interpretation(s) finalized by discharge Discharge Plan Discharge Patient Disposition: Home Clinical Impression: Contusion of left hip Qualifiers: Encounter type: initial encounter Qualified Code(s): S70.02XA - Contusion of left hip, initial encounter Condition: Stable Prescriptions: No Action nitroglycerin 0.4 mg tablet, sublingual 0.4 mg sublingual Q5M PRN (Reason: chest pain) 30 Days Qty: 30 3RF Rx Instructions: until response; do not exceed 3 doses per episode fluticasone propionate [Flonase Allergy Relief] 50 mcg/actuation spray,suspension 2 spray intranasal BID 7 Days Qty: 16 0RF Rx Instructions: administer into each nostril Zyrtec 10 mg capsule 10 mg PO DAILY 14 Days Qty: 14 0RF diclofenac sodium 1 % gel 2 g TOPICAL QID PRN (Reason: arthritis) Qty: 100 6RF albuterol sulfate [Ventolin HFA] 90 mcg/actuation HFA aerosol inhaler 1 inh INHALATION QID PRN (Reason: shortness of breath or wheezing) Qty: 8.5 3RF duloxetine 60 mg capsule,delayed release(DR/EC) 60 mg PO DAILY@07 Qty: 120 1RF Rx Instructions: Along with 30MG DOSE TO =90MG duloxetine 30 mg capsule,delayed release(DR/EC) 30 mg PO DAILY Qty: 90 1RF Rx Instructions: along with 60mg to =90mg (DME) Rollaid with seat See Rx Instructions .Route .MEDSUPPLY Qty: 1 0RF Rx Instructions: As directed ([facility]) blood-glucose meter Kit See Rx Instructions .ROUTE .MEDSUPPLY Qty: 1 0RF Rx Instructions: check blood daily (DME) pen needle, diabetic [TechLITE Pen Needle] 31 gauge x 5/16 needle See Rx Instructions .ROUTE .MEDSUPPLY Qty: 100 0RF Rx Instructions: use with levemir-TWO TIMES DAILY Farxiga 10 mg tablet 10 mg PO DAILY Qty: 90 0RF esomeprazole magnesium 40 mg capsule,delayed release(DR/EC) 40 mg PO DAILY Qty: 90 1RF naloxone [Narcan] 4 mg/actuation spray,non-aerosol 4 mg intranasal Q3M PRN (Reason: opioid overdose) Qty: 2 3RF Rx Instructions: spray 1 dose into ONE nostril; alternate nostrils w each dose until help arrives insulin glargine [Lantus Solostar U-100 Insulin] 100 unit/mL (3 mL) insulin pen 35 unit SUBCUT DAILY Qty: 15 2RF amlodipine 10 mg tablet 10 mg PO DAILY 90 Days Qty: 90 3RF fentanyl 75 mcg/hr patch 72 hour 1 patch topical Q48H 30 Days Qty: 15 0RF pregabalin 300 mg capsule 300 mg PO BID Qty: 60 1RF spironolactone 50 mg tablet 50 mg PO DAILY torsemide 20 mg tablet See Rx Instructions .ROUTE .COMPLEX Rx Instructions: Take 3 tablets (60mg) daily x 2 weeks, then 2 tablets (40mg) daily thereafter. ondansetron 4 mg tablet,disintegrating 4 mg PO Q6H PRN (Reason: nausea and vomiting) Qty: 14 0RF Discharge Orders: Discharge ED (Routine); Ordered 05/13/25 Ordered By: Frances King Referrals: Shemar Kaiser MD [Primary Care Provider, Family Practice] Discharge Activity: Use walker/crutches as instructed Patient Instructions: Fall Prevention for Older Adults (ED), Hip Contusion (ED), Patient Portal & Lilli Instructions Activity Restrictions/Additional Instructions: - Ice, lidocaine will help in this area -Tylenol and ibuprofen for pain - Return to ED if you have continued pain to expand the workup - Call your doctor tomorrow to follow-up for this visit Thank you for choosing [facility] for your healthcare needs today. You have been screened and evaluated and felt safe for discharge. Health conditions do change or evolve sometimes and as such it is important that you follow up with your Primary Doctor to be re checked, 3-5 days is a general good time frame for follow up. You are always welcome to return to the ED for re assessment if your symptoms are worsening or you have new concerns Print Language: Turkish Coding Level of Care Code ED Housing Project Manager for Ivonne Guaman
== END 2025-05-13 15:22 | disposition home or self-care (01) ==
PROVIDERS: Emergency Medicine; Emergency Provider Physician Assistant; PCP Family Medicine
DX: S70.02XA Contusion of left hip, initial encounter (principal); Z79.4 Long term (current) use of insulin; E11.9 Type 2 diabetes mellitus without complications; E78.5 Hyperlipidemia, unspecified; I11.0 Hypertensive heart disease with heart failure; I50.20 Unspecified systolic (congestive) heart failure; X58.XXXA Exposure to other specified factors, initial encounter
CPT/HCPCS: 36415; 73502; 80053; 85025; 99284